=== PATIENT | female | born 1935 | race Caucasian/White ===

== ENCOUNTER → 2017-10-17 10:50 | Outpatient (CLI) | payer OTHER, SELFPAY ==
[2017-10-17 12:17] LABS: Hematocrit 33.6 % (36-46); Hemoglobin 11.5 g/dL (12.0-16.0); Mean Corpuscular HGB Conc 34.4 % (30-36); Mean Corpuscular Hemoglobin 33.1 PG (26-34); Mean Corpuscular Volume 96.1 fL (80-100); Platelet Count 230 X10^3/uL (150-400); Red Blood Cell Count 3.49 X10^6/uL (4.0-5.2); White Blood Cell Count 4.2 X10^3/uL (4.5-11.0)
[2017-10-17 12:19] LABS: Add Manual Diff / Slide Review YES
[2017-10-17 12:36] LABS: Alanine Aminotransferase 32 IU/L (9-52); Albumin 3.9 g/dL (3.5-5.0); Albumin Globulin Ratio 1.4 (1.0-2.8); Alkaline Phosphatase 75 U/L (38-126); Aspartate Aminotransferase 46 IU/L (14-36); BUN Creatinine Ratio 25.7 (6-22); Bilirubin Total 1.1 mg/dL (0.2-1.3); Blood Urea Nitrogen 18 mg/dL (7-17); Calcium 9.3 mg/dL (8.4-10.2); Carbon Dioxide 27 mmol/L (22-32); Chloride 105 mmol/L (98-107); Cholesterol 127 mg/dL (140-199); Estimated Glomerular Filt Rate > 60.0 mL/min (>60); Globulin 2.7 g/dL (1.7-4.1); Glucose 83 mg/dL (80-110); HDL Cholesterol 31 mg/dL (40-60); HEMOLYSIS < 15 (0-50); LDL Cholesterol Calculated 75 mg/dL (<100); Potassium 4.2 mmol/L (3.4-5.1); Sodium 141 mmol/L (137-145); Total Protein 6.6 g/dL (6.3-8.2); Triglycerides 104 mg/dL (35-150)
[2017-10-17 12:59] LABS: Thyroid Stimulating Hormone 1.94 uIU/mL (0.47-4.68)
[2017-10-17 13:00] LABS: Neutrophils Absolute Manual 1260 /uL (3000-5900); Total Cells Counted 50
[2017-10-17 13:02] LABS: Anisocytosis 1+
[2017-10-17 15:49] LABS: Vitamin D 25 Hydroxy (D3) 62.3 ng/mL (30.0-100.0)
== END ==
PROVIDERS: PCP Family Medicine; Visit Provider Family Medicine
DX: D64.9 Anemia, unspecified (principal); E78.2 Mixed hyperlipidemia; I10 Essential (primary) hypertension; M81.0 Age-related osteoporosis without current pathological fracture
CPT/HCPCS: 36415; 80053; 80061; 82306; 84443; 85025

== ENCOUNTER 2017-12-08 11:15 | Outpatient (RCR) | payer OTHER, SELFPAY ==
--- NOTE | 2017-07-07 17:38 | PT.OIE ---
Current Diagnoses Muscle weakness (generalized) (07/04/17) Other symptoms and signs involving the musculoskeletal system (07/04/17) Displaced fracture of greater tuberosity of right humerus, initial encounter for closed fracture (07/04/17) Fracture of right shoulder girdle, part unspecified, initial encounter for closed fracture (07/04/17) Other reduced mobility (07/04/17) Provider Visit Care Team Role Provider Type Bernabe Baez MD Family Provider Physician Primary Care Provider Specialty: Family Practice Address: [address] [place] [address], [id number] Email: [email or web address] Raheel Jang MD Attending Provider Physician Referring Provider Specialty: Orthopedic Surgery Address: [address] [place] [address], [id number] Email: [email or web address] Initial Evaluation PT-OP-A Visit Information Start: 07/04/17 13:07 Freq: Status: Active Protocol: Document 07/04/17 12:50 LRN (Rec: 07/04/17 16:50 LRN [id number]) Out-Patient Physical Therapy Visit Information Visit Information Visit Type Initial Evaluation Visit Start Time 12:50 Visit Stop Time 13:38 Total Visit Minutes 48 Visit Number 1 Number of SCHOOL JANITOR Visits 0 Evaluation Information Evaluation Date 07/04/17 PT-OP-B Current Condition Start: 07/04/17 13:07 Freq: Status: Active Protocol: Document 07/04/17 12:50 LRN (Rec: 07/07/17 17:30 LRN [id number]) Current Condition History of Current Condition Onset Date 04/27/2107 Current Complaints Can't use arm to drive, curl hair, or reach top shelves in bathroom/kitchen. History of Current Condition Pt reports tripping on a footstool resulting in a fracture of her R shoulder. She underwent an ORIF of the R proximal humerus due to fracture. She states she has been in a sling for 6 weeks and has been out of the sling for 1 week. Future Testing and Treatments Planned Next MD visit is 07/25/2017. Treatment Goals Patient/Caregiver Goals Pt goal is to 1) be able to drive, 2) Lift the R arm to curl her hair, 3) Reach for items in the top shelf of her closet and cuboards for cups. Prior Functional Status Baseline Function- ADL's Independent Baseline Function- Mobility Independent Current Functional Impairments (Reported) Functional Limitations- ADL's Pt is unable to lift R arm for personal hygiene care. Pt is unable to perform functional activities with use of the R arm (self clean/wash , drive, use of arm for transfers). Functional Limitations- Mobility/Gait Pt is unable to use the R arm to reach, lift or carry items. Personal Factors Other Personal Factors That May Effect Pt states she lives alone but Therapy/Recovery has a daughter to assist her. She has a history of osteoporosis. Pt age of 82. PT-OP-C Subjective Start: 07/04/17 13:07 Freq: Status: Active Protocol: Document 07/04/17 12:50 LRN (Rec: 07/07/17 17:30 LRN [id number]) Patient Questionnaires Upper Extremity Functional Scale UEFS Score 45.45 Upper Extremity Functional Scale 40 to 59% Impaired (Score 32- Impairment 47) OP-PT Pain Assessment Pain Assessment Grid Paper Pain Assessment Grid Completed Yes Location Right Anterior Shoulder Pain Location Details Pain rating is at rest because pt has not moved arm. Intensity 1 Scale Used Numeric (1 - 10) PT-OP-F Manual Assessment Start: 07/04/17 13:07 Freq: Status: Active Protocol: Document 07/04/17 12:50 LRN (Rec: 07/07/17 17:30 LRN [id number]) Manual Assessments Soft Tissue Assessment Soft Tissue Mobility Assessment Muscle guarding is present in the R upper shoulder. PT-OP-H Neuro Start: 07/04/17 13:07 Freq: Status: Active Protocol: Document 07/04/17 12:50 LRN (Rec: 07/07/17 17:30 LRN [id number]) Sensation Evaluation Gross Sensation Gross Sensation WNL PT-OP-J Posture/Palpation/Skin Start: 07/04/17 13:07 Freq: Status: Active Protocol: Document 07/04/17 12:50 LRN (Rec: 07/07/17 17:30 LRN [id number]) Posture Evaluation Position Standing Evaluation View Posterior Head/C-Spine Posture Side Bent Right Forward Head T-Spine Posture Flattened L-Spine Posture Increased Lordosis Shoulder Posture (R) Elevated Scapula Posture (R) Rotated Up (R) Elevated Skin Assessment Other Assessments Skin Assessment Comments Thin and fragile in UE. PT-OP-K Range of Motion Start: 07/04/17 13:07 Freq: Status: Active Protocol: Document 07/04/17 12:50 LRN (Rec: 07/07/17 17:30 LRN [id number]) Cervical Spine Range of Motion Cervical Spine Active Testing Position Sitting Flexion 45 Extension 40 Rotation Left 40 Rotation Right 40 Lateral Flexion Left 20 Lateral Flexion Right 20 Shoulder Goniometric Range of Motion Shoulder Measured in Degrees Left Passive Testing Position Supine Flexion 165 Abduction 115 External Rotation at 90 degrees 83 Abduction Internal Rotation 75 Right Passive Testing Position Supine Flexion 83 Abduction 85 External Rotation at 45 degrees 42 Abduction Internal Rotation 55 Left Testing Position Supine Flexion 160 Abduction 100 External Rotation at 90 degrees 75 Abduction Internal Rotation 80 Right Testing Position Supine Flexion 20 Abduction 50 External Rotation at 45 degrees 35 Abduction Internal Rotation 50 PT-OP-Q Treatments Start: 07/04/17 13:07 Freq: Status: Active Protocol: Document 07/04/17 12:50 LRN (Rec: 07/07/17 17:30 LRN [id number]) Therapeutic Exercises Supine Exercises 1 Supine Exercise Name PROM R shoulder Side right Reps/Minutes 5-10 reps each Comments Pt stoic, needed cuing to prevent stretching into pain. Sitting Exercises 3 Sitting Exercise Name Wrist flex/ext Side right Reps/Minutes 10 reps 2 Sitting Exercise Name Forearm Supination/Pronation Side right Reps/Minutes 10 reps 1 Sitting Exercise Name Elbow flex Side right Reps/Minutes 10 reps Standing Exercises 1 Standing Exercise Name Codman's Side right Reps/Minutes 10 Self-Care/Home Management Treatment Education Patient Education Home Exercise Program Other Education PROM/AAROM with cane for shoulder ER in supine. Sitting AAROM IR. Instructions given for pt to not position or stretch into pain. Pt cautioned to not push ex's into pain. I/S pt in use of ice/heat at home. PT-OP-T Assessment and Plan Start: 07/04/17 13:07 Freq: Status: Active Protocol: Document 07/04/17 12:50 LRN (Rec: 07/04/17 17:04 LRN [id number]) Physical Therapy Assessment Rehab Potential Rehabilitation Potential Good Evaluation Complexity Number of Personal Factors/Comorbidities 1-2 Number of Body Systems Impaired 4 or More Clinical Presentation at Evaluation Evolving Impairments Impairments Edema Pain Posture ROM Soft Tissue Mobility Strength Other Impairments Lacks appropriate HEP. Other Concerns Age Related Concerns Age, over 80 Require HEP of large print with picture Comorbidity of Osteoporosis Goals Four Impairment Pt is not on an independent home program. Reject Opener Goal (LTG) Pt will be independent on a Home exercise/self care program. LTG Duration 8 weeks. Three Impairment R arm edema with protective posturing Short Term Goal (STG) Pt will be educated in self care for edema control and will normalize posture. 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 LTG Duration 8 weeks One Impairment Decreased R shoulder ROM Short Term Goal (STG) Pt able to reach into upper cupboards with improved R shoulder mobility. STG Duration 3-4 weeks per protocol Reject Opener Goal (LTG) Improve R shoulder ROM such that patient will be able to perform hair care with mild difficulty. LTG Duration 8 weeks Assessment Summary Assessment Pt presents 10 weeks s/p ORIF R Proximal Humerus fracture. She demonstrates decreased R shoulder mobility and strength as expected. She was not wearing a sling and appears to have a fairly high pain tolerance and tolerated ROM ex 's very well. The pt does have help at home with her daughter and grandson living with her. The pt is expected to do well with skilled physical therapy to improve ROM and strength. Physical Therapy Plan Frequency and Duration Frequency of Treatment 2x/Week Duration of Treatment 6 weeks Plan of Care Start Date 07/04/17 Plan of Care End Date 08/18/17 Therapeutic Interventions Therapeutic Interventions Aquatic Therapy Home Exercise Program Joint Mobilizations Manual Therapy Neuromuscular Re-education Patient/Caregiver Education Self-Care/Home Management Soft Tissue Mobilization Therapeutic Exercises Modalities Cold Pack/Ice Massage Electric Stimulation Hot Packs Next Visit Focus/Plan Next Visit Plan Start STM if needed, then PROM /AAROM for shoulder flexion, ER supine and reclined, IR in upright. End with cold pack. Waiting to hear from MD if he has a protocol to follow or restrictions for therapy. Will progress as pt tolerates. Provider Signature Date
--- NOTE | 2017-07-07 17:40 | PT.OPPOC ---
Current Diagnoses Muscle weakness (generalized) (07/04/17) Other symptoms and signs involving the musculoskeletal system (07/04/17) Displaced fracture of greater tuberosity of right humerus, initial encounter for closed fracture (07/04/17) Fracture of right shoulder girdle, part unspecified, initial encounter for closed fracture (07/04/17) Other reduced mobility (07/04/17) Provider Visit Care Team Role Provider Type Bernabe Baez MD Family Provider Physician Primary Care Provider Specialty: Family Practice Address: [address] [place] [address], [address] Email: [email or web address] Raheel Jang MD Attending Provider Physician Referring Provider Specialty: Orthopedic Surgery Address: [address] [place] [address], [id number] Email: [email or web address] PT-OP-T Assessment and Plan Start: 07/04/17 13:07 Freq: Status: Active Protocol: Document 07/04/17 12:50 LRN (Rec: 07/04/17 17:04 LRN [id number]) Physical Therapy Assessment Rehab Potential Rehabilitation Potential Good Evaluation Complexity Number of Personal Factors/Comorbidities 1-2 Number of Body Systems Impaired 4 or More Clinical Presentation at Evaluation Evolving Impairments Impairments Edema Pain Posture ROM Soft Tissue Mobility Strength Other Impairments Lacks appropriate HEP. Other Concerns Age Related Concerns Age, over 80 Require HEP of large print with picture Comorbidity of Osteoporosis Goals Four Impairment Pt is not on an independent home program. Upper Cutter Machine Goal (LTG) Pt will be independent on a Home exercise/self care program. LTG Duration 8 weeks. Three Impairment R arm edema with protective posturing Short Term Goal (STG) Pt will be educated in self care for edema control and will normalize posture. STG Duration 2 weeks Two Impairment Decreased UE strength Jail Goal (LTG) Pt will increase strength such that she will be able to potato picker and carry objects high in her top shelf of her closet. LTG Duration 8 weeks One Impairment Decreased R shoulder ROM Short Term Goal (STG) Pt able to reach into upper cupboards with improved R shoulder mobility. STG Duration 3-4 weeks per protocol Jail Goal (LTG) Improve R shoulder ROM such that patient will be able to perform hair care with mild difficulty. LTG Duration 8 weeks Assessment Summary Assessment Pt presents 10 weeks s/p ORIF R Proximal Humerus fracture. She demonstrates decreased R shoulder mobility and strength as expected. She was not wearing a sling and appears to have a fairly high pain tolerance and tolerated ROM ex 's very well. The pt does have help at home with her daughter and grandson living with her. The pt is expected to do well with skilled physical therapy to improve ROM and strength. Physical Therapy Plan Frequency and Duration Frequency of Treatment 2x/Week Duration of Treatment 6 weeks Plan of Care Start Date 07/04/17 Plan of Care End Date 08/18/17 Therapeutic Interventions Therapeutic Interventions Aquatic Therapy Home Exercise Program Joint Mobilizations Manual Therapy Neuromuscular Re-education Patient/Caregiver Education Self-Care/Home Management Soft Tissue Mobilization Therapeutic Exercises Modalities Cold Pack/Ice Massage Electric Stimulation Hot Packs Next Visit Focus/Plan Next Visit Plan Start STM if needed, then PROM /AAROM for shoulder flexion, ER supine and reclined, IR in upright. End with cold pack. Waiting to hear from MD if he has a protocol to follow or restrictions for therapy. WIll progress as pt tolerates. Plan of Care Dates Plan of Care Start Date 07/04/17 Plan of Care End Date 08/18/17 Please Sign and Return: I have reviewed this Plan of Care and certify that the skilled therapy services above are required to meet the patient???s needs. Physician Signature Date Printed Name and Credentials
--- NOTE | 2017-07-08 16:05 | PT.OTN ---
Current Diagnoses Displaced fracture of greater tuberosity of right humerus, initial encounter for closed fracture (07/08/17) Fracture of right shoulder girdle, part unspecified, initial encounter for closed fracture (07/08/17) Physical Therapy Treatment Note PT-OP-A Visit Information Start: 07/04/17 13:07 Freq: Status: Active Protocol: Document 07/08/17 12:51 LRN (Rec: 07/08/17 13:40 LRN [id number]) Out-Patient Physical Therapy Visit Information Visit Information Visit Type Treatment Note Visit Start Time 12:50 Visit Stop Time 13:40 Total Visit Minutes 50 Visit Number 2 Number of ASSOCIATE DRAFTER Visits 0 PT-OP-B Current Condition Start: 07/04/17 13:07 Freq: Status: Active Protocol: Document 07/04/17 12:50 LRN (Rec: 07/07/17 17:30 LRN [id number]) Current Condition History of Current Condition Onset Date 04/27/2107 Current Complaints Can't use arm to drive, curl hair, or reach top shelfs in bathroom/kitchen. History of Current Condition Pt reports tripping on a footstool resulting in a fracture of her R shoulder. She underwent an ORIF of the R proximal humerus due to fracture. She states she has been in a sling for 6 weeks and has been out of the sling for 1 week. Future Testing and Treatments Planned Next MD visit is 07/25/2017. Treatment Goals Patient/Caregiver Goals Pt goal is to 1) be able to drive, 2) Lift the R arm to curl her hair, 3) Reach for items in the top shelf of her closet and cuboards for cups. Prior Functional Status Baseline Function- ADL's Independent Baseline Function- Mobility Independent Current Functional Impairments (Reported) Functional Limitations- ADL's Pt is unable to lift R arm for personal hygiene care. Pt is unable to perform functional activities with use of the R arm (self clean/wash , drive, use of arm for transfers). Functional Limitations- Mobility/Gait Pt is unable to use the R arm to reach, lift or carry items. Personal Factors Other Personal Factors That May Effect Pt states she lives alone but Therapy/Recovery has a daughter to assist her. She has a history of osteoporosis. Pt age of 82. PT-OP-C Subjective Start: 07/04/17 13:07 Freq: Status: Active Protocol: Document 07/08/17 12:51 LRN (Rec: 07/08/17 13:40 LRN [id number]) OP-PT Subjective Patient Comments Patient Comments Doing ex's, no increase in pain. Everything is about the same. PT-OP-F Manual Assessment Start: 07/04/17 13:07 Freq: Status: Active Protocol: Document 07/04/17 12:50 LRN (Rec: 07/07/17 17:30 LRN [id number]) Manual Assessments Soft Tissue Assessment Soft Tissue Mobility Assessment Muscle guarding is present in the R upper shoulder. PT-OP-H Neuro Start: 07/04/17 13:07 Freq: Status: Active Protocol: Document 07/04/17 12:50 LRN (Rec: 07/07/17 17:30 LRN [id number]) Sensation Evaluation Gross Sensation Gross Sensation WNL PT-OP-J Posture/Palpation/Skin Start: 07/04/17 13:07 Freq: Status: Active Protocol: Document 07/04/17 12:50 LRN (Rec: 07/07/17 17:30 LRN [id number]) Posture Evaluation Position Standing Evaluation View Posterior Head/C-Spine Posture Side Bent Right Forward Head T-Spine Posture Flattened L-Spine Posture Increased Lordosis Shoulder Posture (R) Elevated Scapula Posture (R) Rotated Up (R) Elevated Skin Assessment Other Assessments Skin Assessment Comments Thin and fragile in UE. PT-OP-K Range of Motion Start: 07/04/17 13:07 Freq: Status: Active Protocol: Document 07/04/17 12:50 LRN (Rec: 07/07/17 17:30 LRN [id number]) Cervical Spine Range of Motion Cervical Spine Active Testing Position Sitting Flexion 45 Extension 40 Rotation Left 40 Rotation Right 40 Lateral Flexion Left 20 Lateral Flexion Right 20 Shoulder Goniometric Range of Motion Shoulder Measured in Degrees Left Passive Testing Position Supine Flexion 165 Abduction 115 External Rotation at 90 degrees 83 Abduction Internal Rotation 75 Right Passive Testing Position Supine Flexion 83 Abduction 85 External Rotation at 45 degrees 42 Abduction Internal Rotation 55 Left Testing Position Supine Flexion 160 Abduction 100 External Rotation at 90 degrees 75 Abduction Internal Rotation 80 Right Testing Position Supine Flexion 20 Abduction 50 External Rotation at 45 degrees 35 Abduction Internal Rotation 50 PT-OP-Q Treatments Start: 07/04/17 13:07 Freq: Status: Active Protocol: Document 07/08/17 12:51 LRN (Rec: 07/08/17 13:40 LRN [id number]) Therapeutic Exercises Supine Exercises 2 Supine Exercise Name Wrist and Elbow AROM Side right Reps/Minutes 20 each reps 1 Supine Exercise Name PROM R shoulder : Flex, ER, IR review Side right Reps/Minutes 20 reps each Comments Slow stretching Standing Exercises 1 Standing Exercise Name Codman's Side right Reps/Minutes 20 Comments Pt needed training to do properly, pt not doing passively Manual Therapy Treatment Soft Tissue Mobilization 1 Body Location Neck, R upper shoulder, T/S Mobilization Type Strumming Sustained Pressure Intensity/Depth Superficial Body Position Sidelying Comments L sidelie with pillow PT-OP-T Assessment and Plan Start: 07/04/17 13:07 Freq: Status: Active Protocol: Document 07/08/17 12:51 LRN (Rec: 07/08/17 13:40 LRN [id number]) Physical Therapy Assessment Goals One Impairment Decreased R shoulder ROM Short Term Goal (STG) Pt passive shoulder flexion in supine is 90 deg's prior to onset of discomfort. Progress Towards Goals Progress Comments Progressing HEP & R shoulder PROM. Assessment Summary Assessment Pt presents ~11 weeks s/p ORIF R Proximal Humerus fracture. She demonstrates decreased R shoulder mobility and strength as expected. She is not wearing a sling and appears to be using her R arm to push with when getting up from a chair, and does Codman's actively. The pt did not have her daughter help her with her HEP. Physical Therapy Plan Frequency and Duration Frequency of Treatment 2x/Week Duration of Treatment 5 weeks Plan of Care Start Date 07/04/17 Plan of Care End Date 08/18/17 Therapeutic Interventions Therapeutic Interventions Aquatic Therapy Home Exercise Program Joint Mobilizations Manual Therapy Neuromuscular Re-education Patient/Caregiver Education Self-Care/Home Management Soft Tissue Mobilization Therapeutic Exercises Modalities Cold Pack/Ice Massage Electric Stimulation Hot Packs Next Visit Focus/Plan Next Visit Plan PROM/AAROM for shoulder flexion, ER supine and reclined, IR in upright. End with cold pack. Waiting to hear from MD if he has a protocol to follow or restrictions for therapy. Will progress as pt tolerates.
--- NOTE | 2017-07-10 15:08 | PT.OTN ---
Current Diagnoses Displaced fracture of greater tuberosity of right humerus, initial encounter for closed fracture (07/10/17) Fracture of right shoulder girdle, part unspecified, initial encounter for closed fracture (07/10/17) Physical Therapy Treatment Note PT-OP-A Visit Information Start: 07/04/17 13:07 Freq: Status: Active Protocol: Document 07/10/17 13:53 LRN (Rec: 07/10/17 15:03 LRN [id number]) Out-Patient Physical Therapy Visit Information Visit Information Visit Type Treatment Note Visit Start Time 13:45 Visit Stop Time 14:32 Total Visit Minutes 47 Visit Number 3 Number of YACHT CAPTAIN Visits 0 Evaluation Information Evaluation Date 07/04/17 PT-OP-B Current Condition Start: 07/04/17 13:07 Freq: Status: Active Protocol: Document 07/04/17 12:50 LRN (Rec: 07/07/17 17:30 LRN [id number]) Current Condition History of Current Condition Onset Date 04/27/2107 Current Complaints Can't use arm to drive, curl hair, or reach top shelfs in bathroom/kitchen. History of Current Condition Pt reports tripping on a footstool resulting in a fracture of her R shoulder. She underwent an ORIF of the R proximal humerus due to fracture. She states she has been in a sling for 6 weeks and has been out of the sling for 1 week. Future Testing and Treatments Planned Next MD visit is 07/25/2017. Treatment Goals Patient/Caregiver Goals Pt goal is to 1) be able to drive, 2) Lift the R arm to curl her hair, 3) Reach for items in the top shelf of her closet and cuboards for cups. Prior Functional Status Baseline Function- ADL's Independent Baseline Function- Mobility Independent Current Functional Impairments (Reported) Functional Limitations- ADL's Pt is unable to lift R arm for personal hygiene care. Pt is unable to perform functional activities with use of the R arm (self clean/wash , drive, use of arm for transfers). Functional Limitations- Mobility/Gait Pt is unable to use the R arm to reach, lift or carry items. Personal Factors Other Personal Factors That May Effect Pt states she lives alone but Therapy/Recovery has a daughter to assist her. She has a history of osteoporosis. Pt age of 82. PT-OP-C Subjective Start: 07/04/17 13:07 Freq: Status: Active Protocol: Document 07/10/17 13:53 LRN (Rec: 07/10/17 15:03 LRN [id number]) OP-PT Subjective Patient Comments Patient Comments R shoulder is feeling better, moving it easier. PT-OP-F Manual Assessment Start: 07/04/17 13:07 Freq: Status: Active Protocol: Document 07/04/17 12:50 LRN (Rec: 07/07/17 17:30 LRN [id number]) Manual Assessments Soft Tissue Assessment Soft Tissue Mobility Assessment Muscle guarding is present in the R upper shoulder. PT-OP-H Neuro Start: 07/04/17 13:07 Freq: Status: Active Protocol: Document 07/04/17 12:50 LRN (Rec: 07/07/17 17:30 LRN [id number]) Sensation Evaluation Gross Sensation Gross Sensation WNL PT-OP-J Posture/Palpation/Skin Start: 07/04/17 13:07 Freq: Status: Active Protocol: Document 07/04/17 12:50 LRN (Rec: 07/07/17 17:30 LRN [id number]) Posture Evaluation Position Standing Evaluation View Posterior Head/C-Spine Posture Side Bent Right Forward Head T-Spine Posture Flattened L-Spine Posture Increased Lordosis Shoulder Posture (R) Elevated Scapula Posture (R) Rotated Up (R) Elevated Skin Assessment Other Assessments Skin Assessment Comments Thin and fragile in UE. PT-OP-K Range of Motion Start: 07/04/17 13:07 Freq: Status: Active Protocol: Document 07/10/17 12:53 LRN (Rec: 07/10/17 15:08 LRN [id number]) Shoulder Goniometric Range of Motion Shoulder Measured in Degrees Right Passive Testing Position Supine Flexion 120 Abduction 90 External Rotation at 90 degrees 45 Abduction Internal Rotation 55 PT-OP-Q Treatments Start: 07/04/17 13:07 Freq: Status: Active Protocol: Document 07/10/17 13:53 LRN (Rec: 07/10/17 15:03 LRN [id number]) Therapeutic Exercises Supine Exercises 5 Supine Exercise Name Scapular retraction Side bilateral Reps/Minutes 10 reps holding for 10 sec's 6 Supine Exercise Name Lateral shoulder stretch Reps/Minutes 2 4 Supine Exercise Name AAROM of R shoulder: Flex, ER, IR Side right Reps/Minutes 10 x 2 reps 3 Supine Exercise Name Isometric holding of arm at 90 deg's flexion Side right Reps/Minutes 5 Comments Low tolerance due to fatigue. Pt needed rests between exercise reps. 1 Supine Exercise Name PROM R shoulder : Flex, ER, IR , AB Side right Reps/Minutes 20 reps each Comments Slow stretching Sitting Exercises 4 Sitting Exercise Name Scapular Depression Side bilateral Comments Min movement noted Self-Care/Home Management Treatment Activities Self-Care/Home Management Activities Issued and reviewed Codman's ex handout. Reviewed proper R arm care. PT-OP-R Modalities Start: 07/04/17 13:07 Freq: Status: Active Protocol: Document 07/10/17 13:53 LRN (Rec: 07/10/17 15:03 LRN [id number]) Hot Pack/Cold Pack Treatment Hot Pack Location Back and R shoulder Patient Position Hooklying Treatment Duration (minutes) 20 Patient Tolerance Good Comments MHP used during PROM/AAROM ex' s Cold Pack Comments Pt chose to hold Cold Pack today. She will note if discomfort worse without use. PT-OP-T Assessment and Plan Start: 07/04/17 13:07 Freq: Status: Active Protocol: Document 07/10/17 13:53 LRN (Rec: 07/10/17 15:03 LRN [id number]) Physical Therapy Assessment Impairments Impairments Edema Pain Posture ROM Soft Tissue Mobility Strength Other Impairments Lacks appropriate HEP. Goals Four Impairment Pt is not on an independent home program. Senior Care Goal (LTG) Pt will be independent on a Home exercise/self care program. LTG Duration 8 weeks. Three Impairment R arm edema with protective posturing Short Term Goal (STG) Pt will be educated in self care for edema control and will normalize posture. 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 LTG Duration 8 weeks One Impairment Decreased R shoulder ROM Short Term Goal (STG) Pt passive shoulder flexion in supine is 90 deg's prior to onset of discomfort. Progress Towards Goals Progress Comments ROM improving Assessment Summary Assessment TSA Post op rehab protocol received, pt timeline is in Phase III, but she is at Phase II stanicholas. Pt ~ 11 (10 weeks, 5 days) weeks post op ORIF R Proximal Humerus fracture and dislocation (anterior/inferior ). She does not complain with ROM ex's, probably due to high pain tolerance. Pt able to do self ROM ex's as instructed. Goal #3 for edema education met. Physical Therapy Plan Frequency and Duration Frequency of Treatment 2x/Week Duration of Treatment 5 weeks Plan of Care Start Date 07/04/17 Plan of Care End Date 08/18/17 Therapeutic Interventions Therapeutic Interventions Aquatic Therapy Home Exercise Program Joint Mobilizations Manual Therapy Neuromuscular Re-education Patient/Caregiver Education Self-Care/Home Management Soft Tissue Mobilization Therapeutic Exercises Modalities Cold Pack/Ice Massage Electric Stimulation Hot Packs Other Referrals/Consults Referrals/Consults Recommended TSA Post Operative Rehab Protocol, Dr. Robbins, received from MD office. Next Visit Focus/Plan Next Visit Plan Continue s/p ORIF R shoulder fracture/dislocation per MD protocol, progressing in Phase II towards Phase III as pt tolerates.
--- NOTE | 2017-07-15 15:18 | PT.OTN ---
Current Diagnoses Displaced fracture of greater tuberosity of right humerus, initial encounter for closed fracture (07/15/17) Fracture of right shoulder girdle, part unspecified, initial encounter for closed fracture (07/15/17) Physical Therapy Treatment Note PT-OP-A Visit Information Start: 07/04/17 13:07 Freq: Status: Active Protocol: Document 07/15/17 12:49 LRN (Rec: 07/15/17 13:33 LRN [id number]) Out-Patient Physical Therapy Visit Information Visit Information Visit Type Treatment Note Visit Start Time 12:49 Visit Stop Time 13:40 Total Visit Minutes 51 Visit Number 4 Number of DAIRY CONSULTANT Visits 0 Evaluation Information Evaluation Date 07/04/17 PT-OP-B Current Condition Start: 07/04/17 13:07 Freq: Status: Active Protocol: Document 07/04/17 12:50 LRN (Rec: 07/07/17 17:30 LRN [id number]) Current Condition History of Current Condition Onset Date 04/27/2107 Current Complaints Can't use arm to drive, curl hair, or reach top shelfs in bathroom/kitchen. History of Current Condition Pt reports tripping on a footstool resulting in a fracture of her R shoulder. She underwent an ORIF of the R proximal humerus due to fracture. She states she has been in a sling for 6 weeks and has been out of the sling for 1 week. Future Testing and Treatments Planned Next MD visit is 07/25/2017. Treatment Goals Patient/Caregiver Goals Pt goal is to 1) be able to drive, 2) Lift the R arm to curl her hair, 3) Reach for items in the top shelf of her closet and cuboards for cups. Prior Functional Status Baseline Function- ADL's Independent Baseline Function- Mobility Independent Current Functional Impairments (Reported) Functional Limitations- ADL's Pt is unable to lift R arm for personal hygiene care. Pt is unable to perform functional activities with use of the R arm (self clean/wash , drive, use of arm for transfers). Functional Limitations- Mobility/Gait Pt is unable to use the R arm to reach, lift or carry items. Personal Factors Other Personal Factors That May Effect Pt states she lives alone but Therapy/Recovery has a daughter to assist her. She has a history of osteoporosis. Pt age of 82. PT-OP-C Subjective Start: 07/04/17 13:07 Freq: Status: Active Protocol: Document 07/15/17 12:49 LRN (Rec: 07/15/17 13:33 LRN [id number]) OP-PT Subjective Patient Comments Patient Comments Doing okay. Seems she can lift her R arm further...doesn 't hurt. PT-OP-F Manual Assessment Start: 07/04/17 13:07 Freq: Status: Active Protocol: Document 07/04/17 12:50 LRN (Rec: 07/07/17 17:30 LRN [id number]) Manual Assessments Soft Tissue Assessment Soft Tissue Mobility Assessment Muscle guarding is present in the R upper shoulder. PT-OP-H Neuro Start: 07/04/17 13:07 Freq: Status: Active Protocol: Document 07/04/17 12:50 LRN (Rec: 07/07/17 17:30 LRN [id number]) Sensation Evaluation Gross Sensation Gross Sensation WNL PT-OP-J Posture/Palpation/Skin Start: 07/04/17 13:07 Freq: Status: Active Protocol: Document 07/04/17 12:50 LRN (Rec: 07/07/17 17:30 LRN [id number]) Posture Evaluation Position Standing Evaluation View Posterior Head/C-Spine Posture Side Bent Right Forward Head T-Spine Posture Flattened L-Spine Posture Increased Lordosis Shoulder Posture (R) Elevated Scapula Posture (R) Rotated Up (R) Elevated Skin Assessment Other Assessments Skin Assessment Comments Thin and fragile in UE. PT-OP-K Range of Motion Start: 07/04/17 13:07 Freq: Status: Active Protocol: Document 07/15/17 12:49 LRN (Rec: 07/15/17 13:33 LRN [id number]) Shoulder Goniometric Range of Motion Shoulder Measured in Degrees Right Passive Testing Position Supine Flexion 128 External Rotation at 90 degrees 50 Abduction Internal Rotation 68 Right Testing Position Sitting Flexion 30 PT-OP-Q Treatments Start: 07/04/17 13:07 Freq: Status: Active Protocol: Document 07/15/17 12:49 LRN (Rec: 07/15/17 13:33 LRN [id number]) Therapeutic Exercises Supine Exercises 7 Supine Exercise Name Assisted Chest press Side bilateral Reps/Minutes 10 x 5 Supine Exercise Name Scapular retraction Side bilateral Reps/Minutes 10 reps holding for 10 sec's 6 Supine Exercise Name Lateral shoulder stretch Side right Reps/Minutes 10' 4 Supine Exercise Name AAROM of R shoulder: Flex, ER, IR Side right Reps/Minutes 10 x 3 3 Supine Exercise Name Isometric holding of arm at 90 deg's flexion Side right Reps/Minutes 3' Comments Low tolerance due to fatigue. Pt needed rests between exercise reps. 2 Supine Exercise Name Wrist and Elbow AROM Side right Resistance 1# Reps/Minutes 20 each reps 1 Supine Exercise Name PROM R shoulder : Flex, ER, IR , AB Side right Reps/Minutes 20 reps each Comments Slow stretching Self-Care/Home Management Treatment Activities Self-Care/Home Management Activities I/S pt in L arm assisted chest press in supine. PT-OP-R Modalities Start: 07/04/17 13:07 Freq: Status: Active Protocol: Document 07/15/17 12:49 LRN (Rec: 07/15/17 15:17 LRN [id number]) Hot Pack/Cold Pack Treatment Hot Pack Location Back/R shoulder Patient Position Supine Treatment Duration (minutes) 10 Comments Used during PROM ex's Cold Pack Location R Shoulder Patient Position Hooklying Treatment Duration (minutes) 10 Comments Post therapy PT-OP-T Assessment and Plan Start: 07/04/17 13:07 Freq: Status: Active Protocol: Document 07/15/17 12:49 LRN (Rec: 07/15/17 13:33 LRN [id number]) Physical Therapy Assessment Impairments Impairments Edema Pain Posture ROM Soft Tissue Mobility Strength Other Impairments Lacks appropriate HEP. Goals Four Impairment Pt is not on an independent home program. Business Continuity Director Goal (LTG) Pt will be independent on a Home exercise/self care program. LTG Duration 8 weeks. Three Impairment R arm edema with protective posturing Short Term Goal (STG) Pt will be educated in self care for edema control and will normalize posture. 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 LTG Duration 8 weeks One Impairment Decreased R shoulder ROM Short Term Goal (STG) Pt passive shoulder flexion in supine is 90 deg's prior to onset of discomfort. Progress Towards Goals Progress Comments Swelling decreasing, ROM improving. Assessment Summary Assessment Pt is ~12 weeks s/p ORIF R proximal humerus fracture. She is slowly improving as expected., Pt has high pain tolerance. Physical Therapy Plan Frequency and Duration Frequency of Treatment 2x/Week Duration of Treatment 4 weeks Plan of Care Start Date 07/04/17 Plan of Care End Date 08/18/17 Next Visit Focus/Plan Next Visit Plan Continue s/p ORIF R shoulder fracture/dislocation per MD protocol, progressing in Phase II towards Phase III as pt tolerates.
--- NOTE | 2017-07-17 14:58 | PT.OTN ---
Current Diagnoses Displaced fracture of greater tuberosity of right humerus, initial encounter for closed fracture (07/17/17) Fracture of right shoulder girdle, part unspecified, initial encounter for closed fracture (07/17/17) Physical Therapy Treatment Note PT-OP-A Visit Information Start: 07/04/17 13:07 Freq: Status: Active Protocol: Document 07/17/17 12:50 LRN (Rec: 07/17/17 14:42 LRN [id number]) Out-Patient Physical Therapy Visit Information Visit Information Visit Type Treatment Note Visit Start Time 12:50 Visit Stop Time 13:40 Total Visit Minutes 50 Visit Number 5 Number of GIS PROGRAMMER Visits 0 PT-OP-B Current Condition Start: 07/04/17 13:07 Freq: Status: Active Protocol: Document 07/04/17 12:50 LRN (Rec: 07/07/17 17:30 LRN [id number]) Current Condition History of Current Condition Onset Date 04/27/2107 Current Complaints Can't use arm to drive, curl hair, or reach top shelfs in bathroom/kitchen. History of Current Condition Pt reports tripping on a footstool resulting in a fracture of her R shoulder. She underwent an ORIF of the R proximal humerus due to fracture. She states she has been in a sling for 6 weeks and has been out of the sling for 1 week. Future Testing and Treatments Planned Next MD visit is 07/25/2017. Treatment Goals Patient/Caregiver Goals Pt goal is to 1) be able to drive, 2) Lift the R arm to curl her hair, 3) Reach for items in the top shelf of her closet and cuboards for cups. Prior Functional Status Baseline Function- ADL's Independent Baseline Function- Mobility Independent Current Functional Impairments (Reported) Functional Limitations- ADL's Pt is unable to lift R arm for personal hygiene care. Pt is unable to perform functional activities with use of the R arm (self clean/wash , drive, use of arm for transfers). Functional Limitations- Mobility/Gait Pt is unable to use the R arm to reach, lift or carry items. Personal Factors Other Personal Factors That May Effect Pt states she lives alone but Therapy/Recovery has a daughter to assist her. She has a history of osteoporosis. Pt age of 82. PT-OP-C Subjective Start: 07/04/17 13:07 Freq: Status: Active Protocol: Document 07/17/17 12:50 LRN (Rec: 07/17/17 13:30 LRN [id number]) OP-PT Subjective Patient Comments Patient Comments Shoulder is feeling good, no pain currently. Discomfort if move too far. C/O weakness of R shoulder PT-OP-F Manual Assessment Start: 07/04/17 13:07 Freq: Status: Active Protocol: Document 07/04/17 12:50 LRN (Rec: 07/07/17 17:30 LRN [id number]) Manual Assessments Soft Tissue Assessment Soft Tissue Mobility Assessment Muscle guarding is present in the R upper shoulder. PT-OP-H Neuro Start: 07/04/17 13:07 Freq: Status: Active Protocol: Document 07/04/17 12:50 LRN (Rec: 07/07/17 17:30 LRN [id number]) Sensation Evaluation Gross Sensation Gross Sensation WNL PT-OP-J Posture/Palpation/Skin Start: 07/04/17 13:07 Freq: Status: Active Protocol: Document 07/04/17 12:50 LRN (Rec: 07/07/17 17:30 LRN [id number]) Posture Evaluation Position Standing Evaluation View Posterior Head/C-Spine Posture Side Bent Right Forward Head T-Spine Posture Flattened L-Spine Posture Increased Lordosis Shoulder Posture (R) Elevated Scapula Posture (R) Rotated Up (R) Elevated Skin Assessment Other Assessments Skin Assessment Comments Thin and fragile in UE. PT-OP-K Range of Motion Start: 07/04/17 13:07 Freq: Status: Active Protocol: Document 07/17/17 12:50 LRN (Rec: 07/17/17 13:30 LRN [id number]) Shoulder Goniometric Range of Motion Shoulder Measured in Degrees Right Passive Testing Position Supine Flexion 135 External Rotation at 90 degrees 45 Abduction PT-OP-Q Treatments Start: 07/04/17 13:07 Freq: Status: Active Protocol: Document 07/17/17 12:50 LRN (Rec: 07/17/17 13:30 LRN [id number]) Therapeutic Exercises Supine Exercises 7 Supine Exercise Name Assisted Chest press Side bilateral Reps/Minutes 10 x3 5 Supine Exercise Name Scapular retraction Side bilateral Reps/Minutes 10 reps holding for 10 sec's 4 Supine Exercise Name AAROM of R shoulder: Flex, ER, IR Side right Reps/Minutes 10 x 3 1 Supine Exercise Name PROM R shoulder : Flex, ER, IR , AB Side right Reps/Minutes 20 reps each Comments Slow stretching Sidelying Exercises 2 Sidelying Exercise Name Shoulder IR Active Side right Reps/Minutes 10x3 Comments Partial R sidelie 1 Sidelying Exercise Name Shoulder ER Active Side right Reps/Minutes 10x3 Comments AROM, 0 deg's AB Sitting Exercises 4 Sitting Exercise Name Scapular Depression Side bilateral Comments Min movement noted Standing Exercises 4 Standing Exercise Name Wall slide with towel Side right Reps/Minutes 10 x 3 Comments L arm to assist 3 Standing Exercise Name Scapular retraction Side bilateral Reps/Minutes 30x 2 Standing Exercise Name Active Shoulder ext Side bilateral Reps/Minutes 30x 1 Standing Exercise Name Codman's Side right Reps/Minutes 20 Self-Care/Home Management Treatment Activities Self-Care/Home Management Activities I/S pt in wall slide with R UE to do at home. PT-OP-R Modalities Start: 07/04/17 13:07 Freq: Status: Active Protocol: Document 07/17/17 12:50 LRN (Rec: 07/17/17 14:50 LRN [id number]) Hot Pack/Cold Pack Treatment Hot Pack Location Back/R shoulder Patient Position Supine Treatment Duration (minutes) 15 Comments Used during PROM ex's Cold Pack Location R Shoulder Patient Position Hooklying Treatment Duration (minutes) 10 Comments Post therapy PT-OP-T Assessment and Plan Start: 07/04/17 13:07 Freq: Status: Active Protocol: Document 07/17/17 12:50 LRN (Rec: 07/17/17 13:30 LRN [id number]) Physical Therapy Assessment Assessment Summary Assessment Pt is ~12 weeks s/p ORIF R proximal humerus fracture. She is slowly improving in ROM as expected due to no help given at home. She is very weak as expected, needs use of LUE to assist Right side. Physical Therapy Plan Frequency and Duration Frequency of Treatment 2x/Week Duration of Treatment 4 weeks Plan of Care Start Date 07/04/17 Plan of Care End Date 08/18/17 Therapeutic Interventions Therapeutic Interventions Home Exercise Program Joint Mobilizations Manual Therapy Neuromuscular Re-education Patient/Caregiver Education Self-Care/Home Management Soft Tissue Mobilization Therapeutic Exercises Modalities Cold Pack/Ice Massage Hot Packs Next Visit Focus/Plan Next Visit Plan Continue s/p ORIF R shoulder fracture/dislocation rehabilitation. Per MD protocol, pt is in phase II of AROM with terminal stretch. Per protocol pt should be in phase III, ROM unlimited, weight training, no long lever -arm ex, no ABD positions, no impingement positions.
--- NOTE | 2017-07-22 15:20 | PT.OTN ---
Current Diagnoses Displaced fracture of greater tuberosity of right humerus, initial encounter for closed fracture (07/22/17) Fracture of right shoulder girdle, part unspecified, initial encounter for closed fracture (07/22/17) Physical Therapy Treatment Note PT-OP-A Visit Information Start: 07/04/17 13:07 Freq: Status: Active Protocol: Document 07/22/17 12:49 LRN (Rec: 07/22/17 13:34 LRN [id number]) Out-Patient Physical Therapy Visit Information Visit Information Visit Type Treatment Note Visit Start Time 12:49 Visit Stop Time 13:40 Total Visit Minutes 51 Visit Number 6 Number of CONCESSION ATTENDANT Visits 0 Evaluation Information Evaluation Date 07/04/17 PT-OP-B Current Condition Start: 07/04/17 13:07 Freq: Status: Active Protocol: Document 07/04/17 12:50 LRN (Rec: 07/07/17 17:30 LRN [id number]) Current Condition History of Current Condition Onset Date 04/27/2107 Current Complaints Can't use arm to drive, curl hair, or reach top shelves in bathroom/kitchen. History of Current Condition Pt reports tripping on a footstool resulting in a fracture of her R shoulder. She underwent an ORIF of the R proximal humerus due to fracture. She states she has been in a sling for 6 weeks and has been out of the sling for 1 week. Future Testing and Treatments Planned Next MD visit is 07/25/2017. Treatment Goals Patient/Caregiver Goals Pt goal is to 1) be able to drive, 2) Lift the R arm to curl her hair, 3) Reach for items in the top shelf of her closet and cupboards for cups. Prior Functional Status Baseline Function- ADL's Independent Baseline Function- Mobility Independent Current Functional Impairments (Reported) Functional Limitations- ADL's Pt is unable to lift R arm for personal hygiene care. Pt is unable to perform functional activities with use of the R arm (self clean/wash , drive, use of arm for transfers). Functional Limitations- Mobility/Gait Pt is unable to use the R arm to reach, lift or carry items. Personal Factors Other Personal Factors That May Effect Pt states she lives alone but Therapy/Recovery has a daughter to assist her. She has a history of osteoporosis. Pt age of 82. PT-OP-C Subjective Start: 07/04/17 13:07 Freq: Status: Active Protocol: Document 07/22/17 12:49 LRN (Rec: 07/22/17 13:34 LRN [id number]) OP-PT Subjective Patient Comments Patient Comments Notices she can reach higher with the R shoulder. Doesn't have much pain. PT-OP-F Manual Assessment Start: 07/04/17 13:07 Freq: Status: Active Protocol: Document 07/04/17 12:50 LRN (Rec: 07/07/17 17:30 LRN [id number]) Manual Assessments Soft Tissue Assessment Soft Tissue Mobility Assessment Muscle guarding is present in the R upper shoulder. PT-OP-H Neuro Start: 07/04/17 13:07 Freq: Status: Active Protocol: Document 07/04/17 12:50 LRN (Rec: 07/07/17 17:30 LRN [id number]) Sensation Evaluation Gross Sensation Gross Sensation WNL PT-OP-J Posture/Palpation/Skin Start: 07/04/17 13:07 Freq: Status: Active Protocol: Document 07/04/17 12:50 LRN (Rec: 07/07/17 17:30 LRN [id number]) Posture Evaluation Position Standing Evaluation View Posterior Head/C-Spine Posture Side Bent Right Forward Head T-Spine Posture Flattened L-Spine Posture Increased Lordosis Shoulder Posture (R) Elevated Scapula Posture (R) Rotated Up (R) Elevated Skin Assessment Other Assessments Skin Assessment Comments Thin and fragile in UE. PT-OP-K Range of Motion Start: 07/04/17 13:07 Freq: Status: Active Protocol: Document 07/22/17 12:49 LRN (Rec: 07/22/17 13:34 LRN [id number]) Shoulder Goniometric Range of Motion Shoulder Measured in Degrees Right Passive Testing Position Sitting Flexion 135 External Rotation at 90 degrees 50 Abduction Internal Rotation 68 PT-OP-Q Treatments Start: 07/04/17 13:07 Freq: Status: Active Protocol: Document 07/22/17 12:49 LRN (Rec: 07/22/17 13:34 LRN [id number]) Therapeutic Exercises Supine Exercises 7 Supine Exercise Name Chest press with dowel stick Side bilateral Reps/Minutes 10 x2 6 Supine Exercise Name Lateral shoulder stretch with dowel stick Side right Reps/Minutes 10x2 4 Supine Exercise Name AAROM of R shoulder: Flex, ER, IR Side right Reps/Minutes 10 x 1 Supine Exercise Name PROM R shoulder : Flex, ER, IR , AB Side right Reps/Minutes 10 reps each Comments Slow stretching Sitting Exercises 5 Sitting Exercise Name Shoulder flexion with elvia Side right Equipment Used Elvia Reps/Minutes 10 Comments Holding 30 sec's each 4 Sitting Exercise Name Scapular Depression & Retraction Side bilateral Reps/Minutes 15x each Comments good movement Standing Exercises 5 Standing Exercise Name Elbow curls Side right Resistance 1# Equipment Used Hand Weight Reps/Minutes 10x3 4 Standing Exercise Name Wall slide with towel Side right Reps/Minutes 10 x 3 Comments L arm to assist 3 Standing Exercise Name Scapular retraction Side bilateral Reps/Minutes 15x 2 Standing Exercise Name Active Shoulder ext Side bilateral Reps/Minutes 15x Comments Holding 5 sec's PT-OP-R Modalities Start: 07/04/17 13:07 Freq: Status: Active Protocol: Document 07/22/17 12:49 LRN (Rec: 07/22/17 13:34 LRN [id number]) Hot Pack/Cold Pack Treatment Cold Pack Location R Shoulder Patient Position Hooklying Treatment Duration (minutes) 10 Comments Post therapy PT-OP-T Assessment and Plan Start: 07/04/17 13:07 Freq: Status: Active Protocol: Document 07/22/17 12:49 LRN (Rec: 07/22/17 13:34 LRN [id number]) Physical Therapy Assessment Impairments Impairments Edema Pain Posture ROM Soft Tissue Mobility Strength Other Impairments Lacks appropriate HEP. Goals Four Impairment Pt is not on an independent home program. Curling Machine Operator Goal (LTG) Pt will be independent on a Home exercise/self care program. LTG Duration 8 weeks. Three Impairment R arm edema with protective posturing Short Term Goal (STG) Pt will be educated in self care for edema control and will normalize posture. 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 LTG Duration 8 weeks One Impairment Decreased R shoulder ROM Short Term Goal (STG) Pt passive shoulder flexion in supine is 90 deg's prior to onset of discomfort. Progress Towards Goals Progress Comments R shoulder PROM is improving. Assessment Summary Assessment Pt is ~13 weeks s/p ORIF R proximal humerus fracture. Progress is slow and steady Physical Therapy Plan Frequency and Duration Frequency of Treatment 2x/Week Duration of Treatment 4 weeks Plan of Care Start Date 07/04/17 Plan of Care End Date 08/18/17 Next Visit Focus/Plan Next Visit Plan Cont s/p ORIF R shoulder fracture/dislocation rehabilitation. Per MD protocol, pt is in phase II of AROM with terminal stretch. Per protocol pt should be in phase III, ROM unlimited, weight training, no long lever -arm ex, no ABD positions, no impingement positions.
--- NOTE | 2017-07-24 14:23 | PT.OTN ---
Current Diagnoses Displaced fracture of greater tuberosity of right humerus, initial encounter for closed fracture (07/24/17) Fracture of right shoulder girdle, part unspecified, initial encounter for closed fracture (07/24/17) Physical Therapy Treatment Note PT-OP-A Visit Information Start: 07/04/17 13:07 Freq: Status: Active Protocol: Document 07/24/17 12:48 LRN (Rec: 07/24/17 14:18 LRN [id number]) Out-Patient Physical Therapy Visit Information Visit Information Visit Type Treatment Note Visit Note 09/02 Visit Start Time 12:49 Visit Stop Time 13:44 Total Visit Minutes 55 Visit Number 7 Number of BIN PACKER Visits 0 Evaluation Information Evaluation Date 07/04/17 PT-OP-B Current Condition Start: 07/04/17 13:07 Freq: Status: Active Protocol: Document 07/04/17 12:50 LRN (Rec: 07/07/17 17:30 LRN [id number]) Current Condition History of Current Condition Onset Date 04/27/2107 Current Complaints Can't use arm to drive, curl hair, or reach top shelfs in bathroom/kitchen. History of Current Condition Pt reports tripping on a footstool resulting in a fracture of her R shoulder. She underwent an ORIF of the R proximal humerus due to fracture. She states she has been in a sling for 6 weeks and has been out of the sling for 1 week. Future Testing and Treatments Planned Next MD visit is 07/25/2017. Treatment Goals Patient/Caregiver Goals Pt goal is to 1) be able to drive, 2) Lift the R arm to curl her hair, 3) Reach for items in the top shelf of her closet and cuboards for cups. Prior Functional Status Baseline Function- ADL's Independent Baseline Function- Mobility Independent Current Functional Impairments (Reported) Functional Limitations- ADL's Pt is unable to lift R arm for personal hygiene care. Pt is unable to perform functional activities with use of the R arm (self clean/wash , drive, use of arm for transfers). Functional Limitations- Mobility/Gait Pt is unable to use the R arm to reach, lift or carry items. Personal Factors Other Personal Factors That May Effect Pt states she lives alone but Therapy/Recovery has a daughter to assist her. She has a history of osteoporosis. Pt age of 82. PT-OP-C Subjective Start: 07/04/17 13:07 Freq: Status: Active Protocol: Document 07/24/17 12:48 LRN (Rec: 07/24/17 14:18 LRN [id number]) OP-PT Subjective Patient Comments Patient Comments States she can reach higher. Being consistent with home ex' s. PT-OP-F Manual Assessment Start: 07/04/17 13:07 Freq: Status: Active Protocol: Document 07/04/17 12:50 LRN (Rec: 07/07/17 17:30 LRN [id number]) Manual Assessments Soft Tissue Assessment Soft Tissue Mobility Assessment Muscle guarding is present in the R upper shoulder. PT-OP-H Neuro Start: 07/04/17 13:07 Freq: Status: Active Protocol: Document 07/04/17 12:50 LRN (Rec: 07/07/17 17:30 LRN [id number]) Sensation Evaluation Gross Sensation Gross Sensation WNL PT-OP-J Posture/Palpation/Skin Start: 07/04/17 13:07 Freq: Status: Active Protocol: Document 07/04/17 12:50 LRN (Rec: 07/07/17 17:30 LRN [id number]) Posture Evaluation Position Standing Evaluation View Posterior Head/C-Spine Posture Side Bent Right Forward Head T-Spine Posture Flattened L-Spine Posture Increased Lordosis Shoulder Posture (R) Elevated Scapula Posture (R) Rotated Up (R) Elevated Skin Assessment Other Assessments Skin Assessment Comments Thin and fragile in UE. PT-OP-K Range of Motion Start: 07/04/17 13:07 Freq: Status: Active Protocol: Document 07/24/17 12:48 LRN (Rec: 07/24/17 14:18 LRN [id number]) Shoulder Goniometric Range of Motion Shoulder Measured in Degrees Right Passive Testing Position Sitting Flexion 135 External Rotation at 90 degrees 55 Abduction Shoulder ROM Limitations Comments Supine: R shoulder IR with shoulder stabilized is 41 deg' s; ER is 55 deg's. PT-OP-Q Treatments Start: 07/04/17 13:07 Freq: Status: Active Protocol: Document 07/24/17 12:48 LRN (Rec: 07/24/17 14:18 LRN [id number]) Therapeutic Exercises Supine Exercises 7 Supine Exercise Name Chest press with assist Side bilateral Reps/Minutes 10 x 3 6 Supine Exercise Name Lateral shoulder stretch with dowel stick Side right Reps/Minutes 10x2 4 Supine Exercise Name AAROM of R shoulder: Flex, ER, IR Side right Reps/Minutes 10 x 2 1 Supine Exercise Name PROM R shoulder : Flex, ER, IR , AB Side right Reps/Minutes 10 reps each Comments Slow stretching Sitting Exercises 5 Sitting Exercise Name Shoulder flexion with elvia Side right Equipment Used Elvia Reps/Minutes 10 Comments Holding 30 sec's each 4 Sitting Exercise Name Scapular Depression & Retraction Side bilateral Reps/Minutes 15x each Comments good movement Standing Exercises 5 Standing Exercise Name Elbow curls Side right Resistance 2# Equipment Used Hand Weight Reps/Minutes 10x3 4 Standing Exercise Name Wall slide with towel Side right Reps/Minutes 10 x 3 Comments L arm to assist 3 Standing Exercise Name Scapular retraction Side bilateral Reps/Minutes 10 x 2 2 Standing Exercise Name Active Shoulder ext Side bilateral Reps/Minutes 10 x 2 Comments Holding 5 sec's Manual Therapy Treatment Manual Techniques 1 Type Stretch with mild traction: Circumduction Body Location R shoulder Body Position Supine Reps/Duration 10 x 2 Self-Care/Home Management Treatment Activities Self-Care/Home Management Activities I/S pt to increase stretch to R shoulder flex & ER, and for wall slides. PT-OP-R Modalities Start: 07/04/17 13:07 Freq: Status: Active Protocol: Document 07/24/17 12:48 LRN (Rec: 07/24/17 14:18 LRN [id number]) Hot Pack/Cold Pack Treatment Cold Pack Location R Shoulder Patient Position Hooklying Treatment Duration (minutes) 10 Comments Post therapy PT-OP-T Assessment and Plan Start: 07/04/17 13:07 Freq: Status: Active Protocol: Document 07/24/17 12:48 LRN (Rec: 07/24/17 14:18 LRN [id number]) Physical Therapy Assessment Goals Four Impairment Pt is not on an independent home program. Homicide Squad Captain Goal (LTG) Pt will be independent on a Home exercise/self care program. LTG Duration 4 weeks. Three Impairment R arm edema with protective posturing Short Term Goal (STG) Pt will be educated in self care for edema control and will normalize posture. 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 LTG Duration 4 weeks One Impairment Decreased R shoulder ROM Short Term Goal (STG) Pt able to reach into upper cupboards with improved R shoulder mobility. STG Duration 1 week Residential Goal (LTG) Improve R shoulder ROM such that patient will be able to perform hair care with mild difficulty. LTG Duration 4 weeks Progress Towards Goals Progress Comments Goal 3 met. Pt demonstrates good posture and has been educated in self care for edema management. R shoulder PROM is improving. AROM is decreased due to severe as weakness as expected . Assessment Summary Assessment Pt is ~13 weeks s/p ORIF R proximal humerus fracture. Progress is slow. ROM and Strength is improving. Physical Therapy Plan Frequency and Duration Frequency of Treatment 2x/Week Duration of Treatment 4 weeks Plan of Care Start Date 07/04/17 Plan of Care End Date 08/18/17 Other Referrals/Consults Referrals/Consults Recommended Pt seeing MD next week for follow up. Next Visit Focus/Plan Next Visit Plan PN in 2-3 visits. Cont s/p ORIF R shoulder fracture/ dislocation rehabilitation. Per MD protocol, pt is in phase II of AROM with terminal stretch. Per protocol pt should be in phase III, ROM unlimited, weight training, no long lever-arm ex , no ABD positions, no impingement positions.
--- NOTE | 2017-07-29 15:16 | PT.OTN ---
Current Diagnoses Displaced fracture of greater tuberosity of right humerus, initial encounter for closed fracture (07/29/17) Fracture of right shoulder girdle, part unspecified, initial encounter for closed fracture (07/29/17) Physical Therapy Treatment Note PT-OP-A Visit Information Start: 07/04/17 13:07 Freq: Status: Active Protocol: Document 07/29/17 12:50 LRN (Rec: 07/29/17 13:34 LRN [id number]) Out-Patient Physical Therapy Visit Information Visit Information Visit Type Treatment Note Visit Note 10/03 Visit Start Time 12:50 Visit Stop Time 13:45 Total Visit Minutes 55 Visit Number 8 Number of JAVA DEVELOPER ARCHITECT Visits 0 Evaluation Information Evaluation Date 07/04/17 PT-OP-B Current Condition Start: 07/04/17 13:07 Freq: Status: Active Protocol: Document 07/04/17 12:50 LRN (Rec: 07/07/17 17:30 LRN [id number]) Current Condition History of Current Condition Onset Date 04/27/2107 Current Complaints Can't use arm to drive, curl hair, or reach top shelfs in bathroom/kitchen. History of Current Condition Pt reports tripping on a footstool resulting in a fracture of her R shoulder. She underwent an ORIF of the R proximal humerus due to fracture. She states she has been in a sling for 6 weeks and has been out of the sling for 1 week. Future Testing and Treatments Planned Next MD visit is 07/25/2017. Treatment Goals Patient/Caregiver Goals Pt goal is to 1) be able to drive, 2) Lift the R arm to curl her hair, 3) Reach for items in the top shelf of her closet and cuboards for cups. Prior Functional Status Baseline Function- ADL's Independent Baseline Function- Mobility Independent Current Functional Impairments (Reported) Functional Limitations- ADL's Pt is unable to lift R arm for personal hygiene care. Pt is unable to perform functional activities with use of the R arm (self clean/wash , drive, use of arm for transfers). Functional Limitations- Mobility/Gait Pt is unable to use the R arm to reach, lift or carry items. Personal Factors Other Personal Factors That May Effect Pt states she lives alone but Therapy/Recovery has a daughter to assist her. She has a history of osteoporosis. Pt age of 82. PT-OP-C Subjective Start: 07/04/17 13:07 Freq: Status: Active Protocol: Document 07/29/17 12:50 LRN (Rec: 07/29/17 13:34 LRN [id number]) OP-PT Subjective Patient Comments Patient Comments Saw Dr. Hough and he was pleased with progress. Next visit is September 11. She has been cleared to use her arm, no restrictions. PT-OP-F Manual Assessment Start: 07/04/17 13:07 Freq: Status: Active Protocol: Document 07/04/17 12:50 LRN (Rec: 07/07/17 17:30 LRN [id number]) Manual Assessments Soft Tissue Assessment Soft Tissue Mobility Assessment Muscle guarding is present in the R upper shoulder. PT-OP-H Neuro Start: 07/04/17 13:07 Freq: Status: Active Protocol: Document 07/04/17 12:50 LRN (Rec: 07/07/17 17:30 LRN [id number]) Sensation Evaluation Gross Sensation Gross Sensation WNL PT-OP-J Posture/Palpation/Skin Start: 07/04/17 13:07 Freq: Status: Active Protocol: Document 07/04/17 12:50 LRN (Rec: 07/07/17 17:30 LRN [id number]) Posture Evaluation Position Standing Evaluation View Posterior Head/C-Spine Posture Side Bent Right Forward Head T-Spine Posture Flattened L-Spine Posture Increased Lordosis Shoulder Posture (R) Elevated Scapula Posture (R) Rotated Up (R) Elevated Skin Assessment Other Assessments Skin Assessment Comments Thin and fragile in UE. PT-OP-K Range of Motion Start: 07/04/17 13:07 Freq: Status: Active Protocol: Document 07/29/17 12:50 LRN (Rec: 07/29/17 13:34 LRN [id number]) Shoulder Goniometric Range of Motion Shoulder Measured in Degrees Right Passive Testing Position Supine Flexion 125 External Rotation at 90 degrees 55 Abduction Shoulder ROM Limitations Shoulder ROM Limitations Contracture Muscle Weakness Pain PT-OP-Q Treatments Start: 07/04/17 13:07 Freq: Status: Active Protocol: Document 07/29/17 12:50 LRN (Rec: 07/29/17 13:34 LRN [id number]) Cardio Equipment Upper Body Ergometer (UBE) Duration (Minutes) 8 Seat Position 8 Height 3.5 - 4.5 Other Foot blocks foward Therapeutic Exercises Supine Exercises 6 Supine Exercise Name Lateral shoulder stretch manual stretch Side right Reps/Minutes 10x2 4 Supine Exercise Name Passive shoulder circles Side right Reps/Minutes 10x 1 Supine Exercise Name PROM R shoulder : Flex, ER, IR , AB Side right Reps/Minutes 10x2 reps each Comments Slow stretching Sitting Exercises 5 Sitting Exercise Name Shoulder flexion with elvia Side right Equipment Used Elvia Reps/Minutes 10 Comments Holding 30 sec's each Standing Exercises 5 Standing Exercise Name Elbow curls/extension Side right Resistance 2# Equipment Used Hand Weight Reps/Minutes 10x3 3 Standing Exercise Name Scapular retraction with T- Band Side bilateral Resistance Lev 1 T-Band Reps/Minutes 10 x 2 2 Standing Exercise Name Active Shoulder ext Side bilateral Resistance T-Band Lev 1 Reps/Minutes 10 x Comments Holding 5 sec's Manual Therapy Treatment Joint Mobilizations 1 Joint R GHJ Direction Inferior Grade II Body Position Supine Reps/Duration 4' Manual Techniques 1 Type Stretch of mild traction: Circumduction Body Location R shoulder Body Position Supine Reps/Duration 10 x 2 Self-Care/Home Management Treatment Activities Self-Care/Home Management Activities Pt to use her home overdoor traction unit PT-OP-R Modalities Start: 07/04/17 13:07 Freq: Status: Active Protocol: Document 07/29/17 12:50 LRN (Rec: 07/29/17 13:34 LRN [id number]) Hot Pack/Cold Pack Treatment Cold Pack Location R Shoulder Patient Position Hooklying Treatment Duration (minutes) 10 Comments Post therapy PT-OP-T Assessment and Plan Start: 07/04/17 13:07 Freq: Status: Active Protocol: Document 07/29/17 12:50 LRN (Rec: 07/29/17 13:34 LRN [id number]) Physical Therapy Assessment Impairments Impairments Activity Tolerance Pain ROM Strength Other Impairments Lacks appropriate HEP. Goals Four Impairment Pt is not on an independent home program. Sales And Marketing Agent Goal (LTG) Pt will be independent on a Home exercise/self care program. LTG Duration 4 weeks. Three Impairment Goal met Assessment Summary Assessment Pt is over 13 weeks s/p ORIF R proximal humerus fx. Pt shows very good tolerance to initiation of strengthening and end range stretching of the R shoulder. Physical Therapy Plan Frequency and Duration Frequency of Treatment 2x/Week Duration of Treatment 4 weeks Plan of Care Start Date 07/04/17 Plan of Care End Date 08/18/17 Other Referrals/Consults Referrals/Consults Recommended Rec'd New Referral: ROM, strengthening, HEP. No restrictions, maximize motion & strength. Next MD visit 09/11/17. Next Visit Focus/Plan Next Visit Plan PN in 2 visits. Progress for maximum range of motion and start strengthening for max strength. No restrictions. Please Sign and Return: I have reviewed this Plan of Care and certify that the skilled therapy services above are required to meet the patient?s needs. Physician Signature Date Printed Name and Credentials Clinical Instructor Signature Printed Name and Credentials
--- NOTE | 2017-07-31 15:12 | PT.OTN ---
Current Diagnoses Displaced fracture of greater tuberosity of right humerus, initial encounter for closed fracture (07/31/17) Fracture of right shoulder girdle, part unspecified, initial encounter for closed fracture (07/31/17) Physical Therapy Treatment Note PT-OP-A Visit Information Start: 07/04/17 13:07 Freq: Status: Active Protocol: Document 07/31/17 12:47 LRN (Rec: 07/31/17 13:03 LRN [id number]) Out-Patient Physical Therapy Visit Information Visit Information Visit Type Treatment Note Visit Note 11/03 Visit Start Time 12:47 Visit Stop Time 13:40 Total Visit Minutes 53 Visit Number 9 Number of SANDER SETTER Visits 0 Evaluation Information Evaluation Date 07/04/17 PT-OP-B Current Condition Start: 07/04/17 13:07 Freq: Status: Active Protocol: Document 07/04/17 12:50 LRN (Rec: 07/07/17 17:30 LRN [id number]) Current Condition History of Current Condition Onset Date 04/27/2107 Current Complaints Can't use arm to drive, curl hair, or reach top shelfs in bathroom/kitchen. History of Current Condition Pt reports tripping on a footstool resulting in a fracture of her R shoulder. She underwent an ORIF of the R proximal humerus due to fracture. She states she has been in a sling for 6 weeks and has been out of the sling for 1 week. Future Testing and Treatments Planned Next MD visit is 07/25/2017. Treatment Goals Patient/Caregiver Goals Pt goal is to 1) be able to drive, 2) Lift the R arm to curl her hair, 3) Reach for items in the top shelf of her closet and cuboards for cups. Prior Functional Status Baseline Function- ADL's Independent Baseline Function- Mobility Independent Current Functional Impairments (Reported) Functional Limitations- ADL's Pt is unable to lift R arm for personal hygiene care. Pt is unable to perform functional activities with use of the R arm (self clean/wash , drive, use of arm for transfers). Functional Limitations- Mobility/Gait Pt is unable to use the R arm to reach, lift or carry items. Personal Factors Other Personal Factors That May Effect Pt states she lives alone but Therapy/Recovery has a daughter to assist her. She has a history of osteoporosis. Pt age of 82. PT-OP-C Subjective Start: 07/04/17 13:07 Freq: Status: Active Protocol: Document 07/31/17 12:47 LRN (Rec: 07/31/17 13:03 LRN [id number]) OP-PT Subjective Patient Comments Patient Comments L shoulder is not sore. PT-OP-F Manual Assessment Start: 07/04/17 13:07 Freq: Status: Active Protocol: Document 07/04/17 12:50 LRN (Rec: 07/07/17 17:30 LRN [id number]) Manual Assessments Soft Tissue Assessment Soft Tissue Mobility Assessment Muscle guarding is present in the R upper shoulder. PT-OP-H Neuro Start: 07/04/17 13:07 Freq: Status: Active Protocol: Document 07/04/17 12:50 LRN (Rec: 07/07/17 17:30 LRN [id number]) Sensation Evaluation Gross Sensation Gross Sensation WNL PT-OP-J Posture/Palpation/Skin Start: 07/04/17 13:07 Freq: Status: Active Protocol: Document 07/04/17 12:50 LRN (Rec: 07/07/17 17:30 LRN [id number]) Posture Evaluation Position Standing Evaluation View Posterior Head/C-Spine Posture Side Bent Right Forward Head T-Spine Posture Flattened L-Spine Posture Increased Lordosis Shoulder Posture (R) Elevated Scapula Posture (R) Rotated Up (R) Elevated Skin Assessment Other Assessments Skin Assessment Comments Thin and fragile in UE. PT-OP-K Range of Motion Start: 07/04/17 13:07 Freq: Status: Active Protocol: Document 07/31/17 12:47 LRN (Rec: 07/31/17 13:03 LRN [id number]) Shoulder Goniometric Range of Motion Shoulder Measured in Degrees Right Passive Testing Position Supine Flexion 135 Abduction 90 External Rotation at 90 degrees 45 Abduction Internal Rotation 60 PT-OP-Q Treatments Start: 07/04/17 13:07 Freq: Status: Active Protocol: Document 07/31/17 12:47 LRN (Rec: 07/31/17 13:03 LRN [id number]) Cardio Equipment Upper Body Ergometer (UBE) Duration (Minutes) 4 Seat Position 8 Height 4 Other Foot blocks foward Recumbent Elliptical (Biodex) Duration (Minutes) 4 Resistance none Therapeutic Exercises Supine Exercises 4 Supine Exercise Name AAROM of R shoulder: Flex, ER, IR Side right Reps/Minutes 10 x 1 Supine Exercise Name PROM R shoulder : Flex, ER, IR , AB Side right Reps/Minutes 10x2 reps each Comments Slow stretching Sidelying Exercises 2 Sidelying Exercise Name Active Shoulder IR Side right Resistance 0 Reps/Minutes 30 1 Sidelying Exercise Name Active Shoulder ER Side right Resistance 0 Reps/Minutes 20x Sitting Exercises 6 Sitting Exercise Name Chest press using elvia to maintain 90 deg's shoulder flex 5 Sitting Exercise Name Shoulder flexion with elvia Side right Equipment Used Elvia Reps/Minutes 10 Comments Holding 30 sec's each Standing Exercises 3 Standing Exercise Name Scapular retraction with T- Band Side bilateral Resistance Lev 1 T-Band Reps/Minutes 10 x 2 PT-OP-R Modalities Start: 07/04/17 13:07 Freq: Status: Active Protocol: Document 07/31/17 12:47 LRN (Rec: 07/31/17 13:07 LRN [id number]) Hot Pack/Cold Pack Treatment Cold Pack Location R Shoulder Patient Position Hooklying Treatment Duration (minutes) 10 Comments Post therapy PT-OP-T Assessment and Plan Start: 07/04/17 13:07 Freq: Status: Active Protocol: Document 07/31/17 12:47 LRN (Rec: 07/31/17 13:03 LRN [id number]) Physical Therapy Assessment Goals Four Impairment Pt is not on an independent home program. Payroll Master Goal (LTG) Pt will be independent on a Home exercise/self care program. LTG Duration 4 weeks. Two Impairment Decreased UE strength Assisted Goal (LTG) Pt will increase strength such that she will be able to sampler pickup and carry objects high in her top shelf of her closet. LTG Duration 3 weeks One Impairment Decreased R shoulder ROM Short Term Goal (STG) Pt able to reach into upper cupboards with improved R shoulder mobility. STG Duration 1 week Payroll Master Goal (LTG) Improve R shoulder ROM such that patient will be able to perform hair care with mild difficulty. LTG Duration 3 weeks Assessment Summary Assessment Pt R shoulder PROM is improving. Weakness persists. Pt has good tolerance to ex' s, minimal complaints. Physical Therapy Plan Frequency and Duration Frequency of Treatment 2x/Week Duration of Treatment 4 weeks Plan of Care Start Date 07/04/17 Plan of Care End Date 08/18/17 Next Visit Focus/Plan Next Note Type Progress Note Next Visit Plan PN next visits. Progress for maximum range of motion and start strengthening for max strength. No restrictions. Please Sign and Return: I have reviewed this Plan of Care and certify that the skilled therapy services above are required to meet the patient?s needs. Physician Signature Date Printed Name and Credentials Clinical Instructor Signature Printed Name and Credentials
--- NOTE | 2017-08-19 15:52 | PT.OTN ---
Current Diagnoses Displaced fracture of greater tuberosity of right humerus, initial encounter for closed fracture (08/19/17) Fracture of right shoulder girdle, part unspecified, initial encounter for closed fracture (08/19/17) Physical Therapy Treatment Note PT-OP-A Visit Information Start: 07/04/17 13:07 Freq: Status: Active Protocol: Document 08/19/17 10:35 LRN (Rec: 08/19/17 11:32 LRN [id number]) Out-Patient Physical Therapy Visit Information Visit Information Visit Type Treatment Note Visit Note 12/03 Visit Start Time 10:35 Visit Stop Time 11:30 Total Visit Minutes 55 Visit Number 10 Number of CUTTER IN Visits 0 Evaluation Information Evaluation Date 07/04/17 PT-OP-B Current Condition Start: 07/04/17 13:07 Freq: Status: Active Protocol: Document 07/04/17 12:50 LRN (Rec: 07/07/17 17:30 LRN [id number]) Current Condition History of Current Condition Onset Date 04/27/2107 Current Complaints Can't use arm to drive, curl hair, or reach top shelfs in bathroom/kitchen. History of Current Condition Pt reports tripping on a footstool resulting in a fracture of her R shoulder. She underwent an ORIF of the R proximal humerus due to fracture. She states she has been in a sling for 6 weeks and has been out of the sling for 1 week. Future Testing and Treatments Planned Next MD visit is 07/25/2017. Treatment Goals Patient/Caregiver Goals Pt goal is to 1) be able to drive, 2) Lift the R arm to curl her hair, 3) Reach for items in the top shelf of her closet and cuboards for cups. Prior Functional Status Baseline Function- ADL's Independent Baseline Function- Mobility Independent Current Functional Impairments (Reported) Functional Limitations- ADL's Pt is unable to lift R arm for personal hygiene care. Pt is unable to perform functional activities with use of the R arm (self clean/wash , drive, use of arm for transfers). Functional Limitations- Mobility/Gait Pt is unable to use the R arm to reach, lift or carry items. Personal Factors Other Personal Factors That May Effect Pt states she lives alone but Therapy/Recovery has a daughter to assist her. She has a history of osteoporosis. Pt age of 82. PT-OP-C Subjective Start: 07/04/17 13:07 Freq: Status: Active Protocol: Document 08/19/17 10:35 LRN (Rec: 08/19/17 11:32 LRN [id number]) OP-PT Subjective Patient Comments Patient Comments Been doing ex's on own for past 3 weeks, unable to be scheduled. Patient Questionnaires Quick Dash- Upper Extremity Quick Dash UE Score 31.75 Quick Dash UE Impairment 20 to 39% Impaired (Score 20- 39) PT-OP-F Manual Assessment Start: 07/04/17 13:07 Freq: Status: Active Protocol: Document 07/04/17 12:50 LRN (Rec: 07/07/17 17:30 LRN [id number]) Manual Assessments Soft Tissue Assessment Soft Tissue Mobility Assessment Muscle guarding is present in the R upper shoulder. PT-OP-H Neuro Start: 07/04/17 13:07 Freq: Status: Active Protocol: Document 07/04/17 12:50 LRN (Rec: 07/07/17 17:30 LRN [id number]) Sensation Evaluation Gross Sensation Gross Sensation WNL PT-OP-J Posture/Palpation/Skin Start: 07/04/17 13:07 Freq: Status: Active Protocol: Document 07/04/17 12:50 LRN (Rec: 07/07/17 17:30 LRN [id number]) Posture Evaluation Position Standing Evaluation View Posterior Head/C-Spine Posture Side Bent Right Forward Head T-Spine Posture Flattened L-Spine Posture Increased Lordosis Shoulder Posture (R) Elevated Scapula Posture (R) Rotated Up (R) Elevated Skin Assessment Other Assessments Skin Assessment Comments Thin and fragile in UE. PT-OP-K Range of Motion Start: 07/04/17 13:07 Freq: Status: Active Protocol: Document 08/19/17 10:35 LRN (Rec: 08/19/17 11:32 LRN [id number]) Shoulder Goniometric Range of Motion Shoulder Measured in Degrees Left Passive Testing Position Supine Flexion 165 Abduction 115 External Rotation at 90 degrees 83 Abduction Internal Rotation 75 Right Passive Testing Position Supine Flexion 148 Abduction 116 Horizontal Adduction 27 External Rotation at 90 degrees 73 Abduction Internal Rotation 63 Left Testing Position Supine Flexion 160 Abduction 100 External Rotation at 90 degrees 75 Abduction Internal Rotation 80 Right Flexion 60 PT-OP-Q Treatments Start: 07/04/17 13:07 Freq: Status: Active Protocol: Document 08/19/17 10:35 LRN (Rec: 08/19/17 15:15 LRN [id number]) Cardio Equipment Upper Body Ergometer (UBE) Duration (Minutes) 6 Seat Position 8 Height 4 Other Foot blocks forward Therapeutic Exercises Supine Exercises 6 Supine Exercise Name Lateral shoulder stretch manual stretch Side right Equipment Used Cane Reps/Minutes 10x2 4 Supine Exercise Name AAROM of R shoulder: Flex, ER, IR Side right Equipment Used Cane Reps/Minutes 10 x each Comments Extra time for ROM measurements 1 Supine Exercise Name PROM R shoulder : Flex, ER, IR , AB Side right Comments ROM measurements Sidelying Exercises 2 Sidelying Exercise Name Deferred 1 Sidelying Exercise Name Deferred Sitting Exercises 6 Sitting Exercise Name Chest press using elvia to maintain 90 deg's shoulder flex 5 Sitting Exercise Name Shoulder flexion with elvia Side right Equipment Used Elvia Reps/Minutes 10 Comments Holding 30 sec's each Standing Exercises 3 Standing Exercise Name Scapular retraction with T- Band Side bilateral Resistance Lev 1 T-Band Reps/Minutes 10 x 2 2 Standing Exercise Name Active Shoulder ext Side bilateral Resistance T-Band Lev 1 Reps/Minutes 10 x Comments Holding 5 sec's Self-Care/Home Management Treatment Education Patient Education Home Exercise Program Activities Self-Care/Home Management Activities I/S pt in use of T-Band for shoulder ext with scapular retraction. Issued Blue T- Band. PT-OP-R Modalities Start: 07/04/17 13:07 Freq: Status: Active Protocol: Document 08/19/17 10:35 LRN (Rec: 08/19/17 15:15 LRN [id number]) Hot Pack/Cold Pack Treatment Cold Pack Location R Shoulder Patient Position Hooklying Treatment Duration (minutes) 10 Comments Post therapy PT-OP-T Assessment and Plan Start: 07/04/17 13:07 Freq: Status: Active Protocol: Document 08/19/17 10:35 LRN (Rec: 08/19/17 11:32 LRN [id number]) Physical Therapy Assessment Rehab Potential Rehabilitation Potential Good Impairments Impairments Activity Tolerance ROM Strength Other Impairments Lacks complete HEP. Goals Four Impairment Pt is not on an independent home program. [employer] Goal (LTG) Pt will be independent on a Home exercise/self care program. LTG Duration 1 month (09/23/17) Three Impairment Goal met Two Impairment Decreased UE strength Retirement Goal (LTG) Pt will be able to lift & hold her R arm to wash underneath, washing face & pour coffee with mild difficulty. LTG Duration 1 month (09/23/17) One Impairment Decreased R shoulder ROM Short Term Goal (STG) Pt able to reach into upper cupboards with improved R shoulder mobility. STG Duration 1 month (09/23/17) Retirement Goal (LTG) Improve R shoulder ROM such that patient will be able to perform hair care with mild difficulty. LTG Duration 1 month (09/23/17) Progress Towards Goals Progress Towards Goals Progressing Toward Goals Slow Progress due to Activity Tolerance Slow Progress due to Attendance Issues Progress Comments Goal #3 Met. Pt strength and R shoulder ROM is slowly improving. She can molded goods spot picker light objects in the cupboard on the 1st shelf and her purse . she is not yet able to reach the 2nd shelf and top of the medicine cabinet. Assessment Summary Assessment Pt is ~12 weeks s/p ORIF for a proximal humeral fracture. Per protocol the pt may now start terminal stretching and begin weight training of no long lever-arm ex, no ABD or impingement positions. The pt R shoulder PROM is improving. She has just started strengthening per protocol; therefore she is quite weak in her R UE. The pt has very good tolerance to ex's. It is recommended the pt continue with skilled physical therapy to progress her in her strengthening to return her to a more functional level. Physical Therapy Plan Frequency and Duration Frequency of Treatment 2x/Week Duration of Treatment 1 month Plan of Care Start Date 07/04/17 Plan of Care End Date 09/23/17 Therapeutic Interventions Therapeutic Interventions Home Exercise Program Manual Therapy Neuromuscular Re-education Patient/Caregiver Education Self-Care/Home Management Soft Tissue Mobilization Therapeutic Exercises Modalities Cold Pack/Ice Massage Hot Packs Next Visit Focus/Plan Next Note Type Treatment Note Next Visit Plan FROM, progress strengthening, HEP. No restrictions, maximize motion & strength.
--- NOTE | 2017-08-19 15:53 | PT.OPPOC ---
Current Diagnoses Displaced fracture of greater tuberosity of right humerus, initial encounter for closed fracture (08/19/17) Fracture of right shoulder girdle, part unspecified, initial encounter for closed fracture (08/19/17) Provider Visit Care Team Role Provider Type Bernabe Baez MD Family Provider Physician Primary Care Provider Specialty: Family Practice Address: [address] [place] [address], [id number] Email: [email or web address] Raheel Jang MD Attending Provider Physician Referring Provider Specialty: Orthopedic Surgery Address: [address] [place] [address], [id number] Email: [email or web address] Plan Of Care PT-OP-T Assessment and Plan Start: 07/04/17 13:07 Freq: Status: Active Protocol: Document 08/19/17 10:35 LRN (Rec: 08/19/17 11:32 LRN [id number]) Physical Therapy Assessment Rehab Potential Rehabilitation Potential Good Impairments Impairments Activity Tolerance ROM Strength Other Impairments Lacks complete HEP. Goals Four Impairment Pt is not on an independent home program. Care Companion Goal (LTG) Pt will be independent on a Home exercise/self care program. LTG Duration 1 month (09/23/17) Three Impairment Goal met Two Impairment Decreased UE strength [facility] Goal (LTG) Pt will be able to lift & hold her R arm to wash underneath, washing face & pour coffee with mild difficulty. LTG Duration 1 month (09/23/17) One Impairment Decreased R shoulder ROM Short Term Goal (STG) Pt able to reach into upper cupboards with improved R shoulder mobility. STG Duration 1 month (09/23/17) [facility] Goal (LTG) Improve R shoulder ROM such that patient will be able to perform hair care with mild difficulty. LTG Duration 1 month (09/23/17) Progress Towards Goals Progress Towards Goals Progressing Toward Goals Slow Progress due to Activity Tolerance Slow Progress due to Attendance Issues Progress Comments Goal #3 Met. Pt strength and R shoulder ROM is slowly improving. 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 she is not yet able to reach the 2nd shelf and top of the medicine cabinet. Assessment Summary Assessment Pt is ~12 weeks s/p ORIF for a proximal humeral fracture. Per protocol the pt may now start terminal stretching and begin weight training of no long lever-arm ex, no ABD or impingement positions. The pt R shoulder PROM is improving. She has just started strengthening per protocol; therefore she is quite weak in her R UE. The pt has very good tolerance to ex's. It is recommended the pt continue with skilled physical therapy to progress her in her strengthening to return her to a more functional level. Physical Therapy Plan Frequency and Duration Frequency of Treatment 2x/Week Duration of Treatment 1 month Plan of Care Start Date 07/04/17 Plan of Care End Date 09/23/17 Therapeutic Interventions Therapeutic Interventions Home Exercise Program Manual Therapy Neuromuscular Re-education Patient/Caregiver Education Self-Care/Home Management Soft Tissue Mobilization Therapeutic Exercises Modalities Cold Pack/Ice Massage Hot Packs Next Visit Focus/Plan Next Note Type Treatment Note Next Visit Plan FROM, progress strengthening, HEP. No restrictions, maximize motion & strength. Plan of Care Dates Plan of Care Start Date 07/04/17 Plan of Care End Date 09/23/17 Please Sign and Return: I have reviewed this Plan of Care and certify that the skilled therapy services above are required to meet the patient?s needs. Physician Signature Date Printed Name and Credentials Clinical Instructor Signature Printed Name and Credentials
--- NOTE | 2017-08-26 12:12 | PT.OTN ---
Current Diagnoses Displaced fracture of greater tuberosity of right humerus, initial encounter for closed fracture (08/26/17) Fracture of right shoulder girdle, part unspecified, initial encounter for closed fracture (08/26/17) Physical Therapy Treatment Note PT-OP-A Visit Information Start: 07/04/17 13:07 Freq: Status: Active Protocol: Document 08/26/17 11:17 LRN (Rec: 08/26/17 11:39 LRN [id number]) Out-Patient Physical Therapy Visit Information Visit Information Visit Type Treatment Note Visit Note 01/13 Visit Start Time 11:17 Visit Stop Time 12:10 Total Visit Minutes 53 Visit Number 11 Number of CHICKEN VACCINATOR Visits 0 Evaluation Information Evaluation Date 07/04/17 PT-OP-B Current Condition Start: 07/04/17 13:07 Freq: Status: Active Protocol: Document 07/04/17 12:50 LRN (Rec: 07/07/17 17:30 LRN [id number]) Current Condition History of Current Condition Onset Date 04/27/2107 Current Complaints Can't use arm to drive, curl hair, or reach top shelfs in bathroom/kitchen. History of Current Condition Pt reports tripping on a footstool resulting in a fracture of her R shoulder. She underwent an ORIF of the R proximal humerus due to fracture. She states she has been in a sling for 6 weeks and has been out of the sling for 1 week. Future Testing and Treatments Planned Next MD visit is 07/25/2017. Treatment Goals Patient/Caregiver Goals Pt goal is to 1) be able to drive, 2) Lift the R arm to curl her hair, 3) Reach for items in the top shelf of her closet and cuboards for cups. Prior Functional Status Baseline Function- ADL's Independent Baseline Function- Mobility Independent Current Functional Impairments (Reported) Functional Limitations- ADL's Pt is unable to lift R arm for personal hygiene care. Pt is unable to perform functional activities with use of the R arm (self clean/wash , drive, use of arm for transfers). Functional Limitations- Mobility/Gait Pt is unable to use the R arm to reach, lift or carry items. Personal Factors Other Personal Factors That May Effect Pt states she lives alone but Therapy/Recovery has a daughter to assist her. She has a history of osteoporosis. Pt age of 82. PT-OP-C Subjective Start: 07/04/17 13:07 Freq: Status: Active Protocol: Document 08/26/17 11:17 LRN (Rec: 08/26/17 11:39 LRN [id number]) OP-PT Subjective Patient Comments Patient Comments Cant lift very high. PT-OP-F Manual Assessment Start: 07/04/17 13:07 Freq: Status: Active Protocol: Document 07/04/17 12:50 LRN (Rec: 07/07/17 17:30 LRN [id number]) Manual Assessments Soft Tissue Assessment Soft Tissue Mobility Assessment Muscle guarding is present in the R upper shoulder. PT-OP-H Neuro Start: 07/04/17 13:07 Freq: Status: Active Protocol: Document 07/04/17 12:50 LRN (Rec: 07/07/17 17:30 LRN [id number]) Sensation Evaluation Gross Sensation Gross Sensation WNL PT-OP-J Posture/Palpation/Skin Start: 07/04/17 13:07 Freq: Status: Active Protocol: Document 07/04/17 12:50 LRN (Rec: 07/07/17 17:30 LRN [id number]) Posture Evaluation Position Standing Evaluation View Posterior Head/C-Spine Posture Side Bent Right Forward Head T-Spine Posture Flattened L-Spine Posture Increased Lordosis Shoulder Posture (R) Elevated Scapula Posture (R) Rotated Up (R) Elevated Skin Assessment Other Assessments Skin Assessment Comments Thin and fragile in UE. PT-OP-K Range of Motion Start: 07/04/17 13:07 Freq: Status: Active Protocol: Document 08/19/17 10:35 LRN (Rec: 08/19/17 11:32 LRN [id number]) Shoulder Goniometric Range of Motion Shoulder Measured in Degrees Left Passive Testing Position Supine Flexion 165 Abduction 115 External Rotation at 90 degrees 83 Abduction Internal Rotation 75 Right Passive Testing Position Supine Flexion 148 Abduction 116 Horizontal Adduction 27 External Rotation at 90 degrees 73 Abduction Internal Rotation 63 Left Testing Position Supine Flexion 160 Abduction 100 External Rotation at 90 degrees 75 Abduction Internal Rotation 80 Right Flexion 60 PT-OP-Q Treatments Start: 07/04/17 13:07 Freq: Status: Active Protocol: Document 08/26/17 11:17 LRN (Rec: 08/26/17 11:39 LRN [id number]) Cardio Equipment Upper Body Ergometer (UBE) Duration (Minutes) 6 Seat Position 8 Height 4 Other Foot blocks forward Therapeutic Exercises Supine Exercises 8 Supine Exercise Name Lat pull down Side bilateral Equipment Used Lev 1 T-Band Reps/Minutes 10 7 Supine Exercise Name Chest press w/cane Side bilateral Reps/Minutes 10 x 3 4 Supine Exercise Name AAROM of R shoulder: Flex, ER, IR Side right Reps/Minutes 10 x each Comments Extra time for ROM measurements Sidelying Exercises 2 Sidelying Exercise Name Active Shoulder IR Side right Resistance 1# Reps/Minutes 10x3 1 Sidelying Exercise Name Active Shoulder ER Side right Resistance 1# Reps/Minutes 10x3 Sitting Exercises 7 Sitting Exercise Name Shoulder AB stretch with Elvia Side right Reps/Minutes 10x Comments Holding 10 sec 6 Sitting Exercise Name Chest press using elvia to maintain 90 deg's shoulder flex Side bilateral Reps/Minutes 10x3 5 Sitting Exercise Name Shoulder flexion with elvia Side right Equipment Used Elvia Reps/Minutes 10 Comments Holding 30 sec's each Standing Exercises 5 Standing Exercise Name Elbow curls/extenstion Side right Resistance 3# Equipment Used Hand Weight Reps/Minutes 10x3 4 Standing Exercise Name Wall slide with towel Side right Reps/Minutes 10 x 3 Comments L arm to assist 3 Standing Exercise Name Scapular retraction with T- Band Side bilateral Resistance Lev 1 T-Band Reps/Minutes 10 x 3 2 Standing Exercise Name Active Shoulder ext Side bilateral Resistance T-Band Lev 1 Reps/Minutes 10 x 3 PT-OP-R Modalities Start: 07/04/17 13:07 Freq: Status: Active Protocol: Document 08/26/17 11:17 LRN (Rec: 08/26/17 11:39 LRN [id number]) Hot Pack/Cold Pack Treatment Cold Pack Location R Shoulder Patient Position Hooklying Treatment Duration (minutes) 10 Comments Post therapy PT-OP-T Assessment and Plan Start: 07/04/17 13:07 Freq: Status: Active Protocol: Document 08/26/17 11:17 LRN (Rec: 08/26/17 11:39 LRN [id number]) Physical Therapy Assessment Impairments Impairments Activity Tolerance ROM Strength Other Impairments Lacks complete HEP. Goals Four Impairment Pt is not on an independent home program. Jail Goal (LTG) Pt will be independent on a Home exercise/self care program. LTG Duration 1 month (09/23/17) Three Impairment Goal met Two Impairment Decreased UE strength Jail Goal (LTG) Pt will be able to lift & hold her R arm to wash underneath, washing face & pour coffee with mild difficulty. LTG Duration 1 month (09/23/17) One Impairment Decreased R shoulder ROM Short Term Goal (STG) Pt able to reach into upper cupboards with improved R shoulder mobility. STG Duration 1 month (09/23/17) Operations Support Manager Goal (LTG) Improve R shoulder ROM such that patient will be able to perform hair care with mild difficulty. LTG Duration 1 month (09/23/17) Progress Towards Goals Progress Towards Goals Progressing Toward Goals Slow Progress due to Activity Tolerance Slow Progress due to Attendance Issues Progress Comments Goal #3 Met. Pt strength and R shoulder ROM is slowly improving. She can pickle sorter light objects in the cupboard on the 1st shelf and her purse . she is not yet able to reach the 2nd shelf and top of the medicine cabinet. Assessment Summary Assessment Pt is 12+ weeks s/p ORIF for proximal humeral fracture. Pt shows good tolerance to strengthening ex's Physical Therapy Plan Frequency and Duration Frequency of Treatment 2x/Week Duration of Treatment 1 month Plan of Care Start Date 07/04/17 Plan of Care End Date 09/23/17 Next Visit Focus/Plan Next Note Type Treatment Note Next Visit Plan Increase UBE time to 8 min; JMT R shoulder if needed, FROM , progress strengthening, HEP. No restrictions, except protocol states no long lever- arm ex, no ABD or impingement positions. Maximize motion & strength.
--- NOTE | 2017-09-02 15:35 | PT.OTN ---
Current Diagnoses Displaced fracture of greater tuberosity of right humerus, initial encounter for closed fracture (09/02/17) Fracture of right shoulder girdle, part unspecified, initial encounter for closed fracture (09/02/17) Physical Therapy Treatment Note PT-OP-A Visit Information Start: 07/04/17 13:07 Freq: Status: Active Protocol: Document 09/02/17 11:15 LRN (Rec: 09/02/17 12:05 LRN [id number]) Out-Patient Physical Therapy Visit Information Visit Information Visit Type Treatment Note Visit Note 02/12 Visit Start Time 11:15 Visit Stop Time 12:12 Total Visit Minutes 57 Visit Number 12 Number of LOTTERY CLERK Visits 0 Evaluation Information Evaluation Date 07/04/17 PT-OP-B Current Condition Start: 07/04/17 13:07 Freq: Status: Active Protocol: Document 07/04/17 12:50 LRN (Rec: 07/07/17 17:30 LRN [id number]) Current Condition History of Current Condition Onset Date 04/27/2107 Current Complaints Can't use arm to drive, curl hair, or reach top shelfs in bathroom/kitchen. History of Current Condition Pt reports tripping on a footstool resulting in a fracture of her R shoulder. She underwent an ORIF of the R proximal humerus due to fracture. She states she has been in a sling for 6 weeks and has been out of the sling for 1 week. Future Testing and Treatments Planned Next MD visit is 07/25/2017. Treatment Goals Patient/Caregiver Goals Pt goal is to 1) be able to drive, 2) Lift the R arm to curl her hair, 3) Reach for items in the top shelf of her closet and cuboards for cups. Prior Functional Status Baseline Function- ADL's Independent Baseline Function- Mobility Independent Current Functional Impairments (Reported) Functional Limitations- ADL's Pt is unable to lift R arm for personal hygiene care. Pt is unable to perform functional activities with use of the R arm (self clean/wash , drive, use of arm for transfers). Functional Limitations- Mobility/Gait Pt is unable to use the R arm to reach, lift or carry items. Personal Factors Other Personal Factors That May Effect Pt states she lives alone but Therapy/Recovery has a daughter to assist her. She has a history of osteoporosis. Pt age of 82. PT-OP-C Subjective Start: 07/04/17 13:07 Freq: Status: Active Protocol: Document 09/02/17 11:15 LRN (Rec: 09/02/17 12:05 LRN [id number]) OP-PT Subjective Patient Comments Patient Comments Drove self to therapy for the first time. PT-OP-F Manual Assessment Start: 07/04/17 13:07 Freq: Status: Active Protocol: Document 07/04/17 12:50 LRN (Rec: 07/07/17 17:30 LRN [id number]) Manual Assessments Soft Tissue Assessment Soft Tissue Mobility Assessment Muscle guarding is present in the R upper shoulder. PT-OP-H Neuro Start: 07/04/17 13:07 Freq: Status: Active Protocol: Document 07/04/17 12:50 LRN (Rec: 07/07/17 17:30 LRN [id number]) Sensation Evaluation Gross Sensation Gross Sensation WNL PT-OP-J Posture/Palpation/Skin Start: 07/04/17 13:07 Freq: Status: Active Protocol: Document 07/04/17 12:50 LRN (Rec: 07/07/17 17:30 LRN [id number]) Posture Evaluation Position Standing Evaluation View Posterior Head/C-Spine Posture Side Bent Right Forward Head T-Spine Posture Flattened L-Spine Posture Increased Lordosis Shoulder Posture (R) Elevated Scapula Posture (R) Rotated Up (R) Elevated Skin Assessment Other Assessments Skin Assessment Comments Thin and fragile in UE. PT-OP-K Range of Motion Start: 07/04/17 13:07 Freq: Status: Active Protocol: Document 08/19/17 10:35 LRN (Rec: 08/19/17 11:32 LRN [id number]) Shoulder Goniometric Range of Motion Shoulder Measured in Degrees Left Passive Testing Position Supine Flexion 165 Abduction 115 External Rotation at 90 degrees 83 Abduction Internal Rotation 75 Right Passive Testing Position Supine Flexion 148 Abduction 116 Horizontal Adduction 27 External Rotation at 90 degrees 73 Abduction Internal Rotation 63 Left Testing Position Supine Flexion 160 Abduction 100 External Rotation at 90 degrees 75 Abduction Internal Rotation 80 Right Flexion 60 PT-OP-Q Treatments Start: 07/04/17 13:07 Freq: Status: Active Protocol: Document 09/02/17 11:15 LRN (Rec: 09/02/17 12:05 LRN [id number]) Cardio Equipment Upper Body Ergometer (UBE) Duration (Minutes) 8 Seat Position 8 Height 4 Other Foot blocks forward Therapeutic Exercises Supine Exercises 8 Supine Exercise Name Lat pull down Side bilateral Equipment Used Lev 1 T-Band Reps/Minutes 10 7 Supine Exercise Name Chest press & shoulder AB w/ cane Side bilateral Reps/Minutes 10 x 3 4 Supine Exercise Name AAROM of R shoulder: Flex, ER, IR Side right Reps/Minutes 10 x each Comments Extra time for ROM measurements 1 Supine Exercise Name PROM R shoulder : Flex, ER, IR , AB Side right Sitting Exercises 7 Sitting Exercise Name Shoulder AB stretch with Elvia Side right Reps/Minutes 10x Comments Holding 10 sec 6 Sitting Exercise Name Chest press using elvia to maintain 90 deg's shoulder flex Side bilateral Reps/Minutes 10x3 5 Sitting Exercise Name Shoulder flexion with elvia Side right Equipment Used Elvia Reps/Minutes 10 Comments Holding 30 sec's each Standing Exercises 4 Standing Exercise Name Wall slide with towel Side right Reps/Minutes 10 x 3 Comments L arm to assist 3 Standing Exercise Name Scapular retraction with T- Band Side bilateral Resistance Lev 1 T-Band Reps/Minutes 10 x 3 2 Standing Exercise Name Active Shoulder ext Side bilateral Resistance T-Band Lev 1 Reps/Minutes 10 x 3 Manual Therapy Treatment Joint Mobilizations 1 Joint R GHJ Direction Inferior Grade II Body Position Supine Reps/Duration 2' Manual Techniques 1 Type Stretch of R shoulder PROM & Circumduction Body Location R shoulder Body Position Supine Reps/Duration 6' Self-Care/Home Management Treatment Education Patient Education Home Exercise Program Activities Self-Care/Home Management Activities Issued & reviewed Shoulder strengthening ex's (hand wall slide, chest press, AB, ER/IR) PT-OP-R Modalities Start: 07/04/17 13:07 Freq: Status: Active Protocol: Document 09/02/17 11:15 LRN (Rec: 09/02/17 12:05 LRN [id number]) Hot Pack/Cold Pack Treatment Cold Pack Location R Shoulder Patient Position Hooklying Treatment Duration (minutes) 10 Comments Post therapy PT-OP-T Assessment and Plan Start: 07/04/17 13:07 Freq: Status: Active Protocol: Document 09/02/17 11:15 LRN (Rec: 09/02/17 12:05 LRN [id number]) Physical Therapy Assessment Goals Four Impairment Pt is not on an independent home program. Shelter Goal (LTG) Pt will be independent on a Home exercise/self care program. LTG Duration 1 month (09/23/17) Three Impairment Goal met Two Impairment Decreased UE strength Public Health Teacher Goal (LTG) Pt will be able to lift & hold her R arm to wash underneath, washing face & pour coffee with mild difficulty. LTG Duration 1 month (09/23/17) One Impairment Decreased R shoulder ROM Short Term Goal (STG) Pt able to reach into upper cupboards with improved R shoulder mobility. STG Duration 1 month (09/23/17) Public Health Teacher Goal (LTG) Improve R shoulder ROM such that patient will be able to perform hair care with mild difficulty. LTG Duration 1 month (09/23/17) Progress Towards Goals Progress Towards Goals Progressing Toward Goals Slow Progress due to Activity Tolerance Slow Progress due to Attendance Issues Progress Comments Goal #3 Met. Pt strength and R shoulder ROM is slowly improving. She can brick picker light objects in the cupboard on the 1st shelf and her purse . she is not yet able to reach the 2nd shelf and top of the medicine cabinet. Assessment Summary Assessment Pt is 12+ weeks s/p ORIF for proximal humeral fracture. Pt has ~75% of normal R Shoulder PROM. Weakness persists. Physical Therapy Plan Frequency and Duration Frequency of Treatment 2x/Week Duration of Treatment 1 month Plan of Care Start Date 07/04/17 Plan of Care End Date 09/23/17 Therapeutic Interventions Therapeutic Interventions Home Exercise Program Manual Therapy Neuromuscular Re-education Patient/Caregiver Education Self-Care/Home Management Soft Tissue Mobilization Therapeutic Exercises Modalities Cold Pack/Ice Massage Hot Packs Next Visit Focus/Plan Next Note Type Treatment Note Next Visit Plan Remeasure AROM/PROM. Increase UBE time. Progress towards FROM and improve strength. No restrictions, except protocol states no long lever-arm ex, no ABD or impingement positions. Maximize motion & strength.
--- NOTE | 2017-09-09 14:57 | PT.OTN ---
Current Diagnoses Displaced fracture of greater tuberosity of right humerus, initial encounter for closed fracture (09/09/17) Fracture of right shoulder girdle, part unspecified, initial encounter for closed fracture (09/09/17) Physical Therapy Treatment Note PT-OP-A Visit Information Start: 07/04/17 13:07 Freq: Status: Active Protocol: Document 09/09/17 11:25 LRN (Rec: 09/09/17 12:54 LRN [id number]) Out-Patient Physical Therapy Visit Information Visit Information Visit Type Treatment Note Visit Note Visit Start Time 11:25 Visit Stop Time 12:15 Total Visit Minutes 50 Visit Number 13 Number of TRAPEZE PERFORMER Visits 0 Evaluation Information Evaluation Date 07/04/17 PT-OP-B Current Condition Start: 07/04/17 13:07 Freq: Status: Active Protocol: Document 07/04/17 12:50 LRN (Rec: 07/07/17 17:30 LRN [id number]) Current Condition History of Current Condition Onset Date 04/27/2107 Current Complaints Can't use arm to drive, curl hair, or reach top shelfs in bathroom/kitchen. History of Current Condition Pt reports tripping on a footstool resulting in a fracture of her R shoulder. She underwent an ORIF of the R proximal humerus due to fracture. She states she has been in a sling for 6 weeks and has been out of the sling for 1 week. Future Testing and Treatments Planned Next MD visit is 07/25/2017. Treatment Goals Patient/Caregiver Goals Pt goal is to 1) be able to drive, 2) Lift the R arm to curl her hair, 3) Reach for items in the top shelf of her closet and cuboards for cups. Prior Functional Status Baseline Function- ADL's Independent Baseline Function- Mobility Independent Current Functional Impairments (Reported) Functional Limitations- ADL's Pt is unable to lift R arm for personal hygiene care. Pt is unable to perform functional activities with use of the R arm (self clean/wash , drive, use of arm for transfers). Functional Limitations- Mobility/Gait Pt is unable to use the R arm to reach, lift or carry items. Personal Factors Other Personal Factors That May Effect Pt states she lives alone but Therapy/Recovery has a daughter to assist her. She has a history of osteoporosis. Pt age of 82. PT-OP-C Subjective Start: 07/04/17 13:07 Freq: Status: Active Protocol: Document 09/09/17 11:25 LRN (Rec: 09/09/17 12:54 LRN [id number]) OP-PT Subjective Patient Comments Patient Comments Can reach a little higher. Can move shoulder more without pain. PT-OP-F Manual Assessment Start: 07/04/17 13:07 Freq: Status: Active Protocol: Document 07/04/17 12:50 LRN (Rec: 07/07/17 17:30 LRN [id number]) Manual Assessments Soft Tissue Assessment Soft Tissue Mobility Assessment Muscle guarding is present in the R upper shoulder. PT-OP-H Neuro Start: 07/04/17 13:07 Freq: Status: Active Protocol: Document 07/04/17 12:50 LRN (Rec: 07/07/17 17:30 LRN [id number]) Sensation Evaluation Gross Sensation Gross Sensation WNL PT-OP-J Posture/Palpation/Skin Start: 07/04/17 13:07 Freq: Status: Active Protocol: Document 07/04/17 12:50 LRN (Rec: 07/07/17 17:30 LRN [id number]) Posture Evaluation Position Standing Evaluation View Posterior Head/C-Spine Posture Side Bent Right Forward Head T-Spine Posture Flattened L-Spine Posture Increased Lordosis Shoulder Posture (R) Elevated Scapula Posture (R) Rotated Up (R) Elevated Skin Assessment Other Assessments Skin Assessment Comments Thin and fragile in UE. PT-OP-K Range of Motion Start: 07/04/17 13:07 Freq: Status: Active Protocol: Document 08/19/17 10:35 LRN (Rec: 08/19/17 11:32 LRN [id number]) Shoulder Goniometric Range of Motion Shoulder Measured in Degrees Left Passive Testing Position Supine Flexion 165 Abduction 115 External Rotation at 90 degrees 83 Abduction Internal Rotation 75 Right Passive Testing Position Supine Flexion 148 Abduction 116 Horizontal Adduction 27 External Rotation at 90 degrees 73 Abduction Internal Rotation 63 Left Testing Position Supine Flexion 160 Abduction 100 External Rotation at 90 degrees 75 Abduction Internal Rotation 80 Right Flexion 60 PT-OP-Q Treatments Start: 07/04/17 13:07 Freq: Status: Active Protocol: Document 09/09/17 11:25 LRN (Rec: 09/09/17 14:46 LRN [id number]) Cardio Equipment Upper Body Ergometer (UBE) Duration (Minutes) 9 Seat Position 8 Height 4 Other Foot blocks forward Therapeutic Exercises Supine Exercises 8 Supine Exercise Name Lat pull down Side bilateral Equipment Used Lev 1 T-Band Reps/Minutes 10 7 Supine Exercise Name Chest press & shoulder AB w/ cane Side bilateral Reps/Minutes 10 x 3 4 Supine Exercise Name AAROM of R shoulder: Flex, ER, IR Side right Reps/Minutes 10 x each Comments Extra time for ROM measurements 1 Supine Exercise Name PROM R shoulder : Flex, ER, IR , AB Side right Comments Also ROM measurements Sitting Exercises 7 Sitting Exercise Name Shoulder AB stretch with Elvia Side right Reps/Minutes 10x Comments Holding 10 sec 5 Sitting Exercise Name Shoulder flexion with elvia Side right Equipment Used Elvia Reps/Minutes 10 Comments Holding 30 sec's each Standing Exercises 2 Standing Exercise Name Active Shoulder ext Side bilateral Resistance T-Band Lev 1 Reps/Minutes 10 x 3 Manual Therapy Treatment Joint Mobilizations 1 Joint R GHJ Direction Inferior during AB Grade II Body Position Supine Reps/Duration 2' Manual Techniques 1 Type Stretch of R shoulder PROM & Circumduction Body Location R shoulder Body Position Supine Reps/Duration 6' Self-Care/Home Management Treatment Activities Self-Care/Home Management Activities I/S & reviewed: pt to do supine stregthening ex's (AB, flex, chest press) now in semi -reclined position. PT-OP-R Modalities Start: 07/04/17 13:07 Freq: Status: Active Protocol: Document 09/09/17 11:25 LRN (Rec: 09/09/17 12:54 LRN [id number]) Hot Pack/Cold Pack Treatment Cold Pack Location R Shoulder Patient Position Hooklying Treatment Duration (minutes) 10 Comments Post therapy PT-OP-T Assessment and Plan Start: 07/04/17 13:07 Freq: Status: Active Protocol: Document 09/09/17 11:25 LRN (Rec: 09/09/17 12:54 LRN [id number]) Physical Therapy Assessment Rehab Potential Rehabilitation Potential Good Impairments Impairments Activity Tolerance ROM Strength Other Impairments Lacks complete HEP. Goals Four Impairment Pt is not on an independent home program. Usp Goal (LTG) Pt will be independent on a Home exercise/self care program. LTG Duration 1 month (09/23/17) Three Impairment R arm edema with protective posturing STG Duration Goal met Two Impairment Decreased UE strength Irrigation Specialist Goal (LTG) Pt will be able to lift & hold her R arm to wash underneath, washing face & pour coffee with mild difficulty. LTG Duration 1 month (09/23/17) One Impairment Decreased R shoulder ROM Short Term Goal (STG) Pt able to reach into upper cupboards with improved R shoulder mobility. STG Duration 1 month (09/23/17) Irrigation Specialist Goal (LTG) Improve R shoulder ROM such that patient will be able to perform hair care with mild difficulty. LTG Duration 1 month (09/23/17) Progress Towards Goals Progress Towards Goals Progressing Toward Goals Slow Progress due to Activity Tolerance Slow Progress due to Attendance Issues Progress Comments Goal #3 Met. Pt strength and R shoulder ROM is slowly improving. She can sheepskin pickler light objects in the cupboard on the 1st shelf and her purse . she is not yet able to reach the 2nd shelf and top of the medicine cabinet. Assessment Summary Assessment t Passive R shoulder flexion is 125 deg's. Active ext is 55 deg's bilaterally (Normal). Active IR is L1 right, T6 left. Active sitting AB is 55 R, 155 L. Pt ROM is limited primarily due to lack of strength. Physical Therapy Plan Frequency and Duration Frequency of Treatment 2x/Week Duration of Treatment 1 month Plan of Care Start Date 07/04/17 Plan of Care End Date 09/23/17 Therapeutic Interventions Therapeutic Interventions Home Exercise Program Manual Therapy Neuromuscular Re-education Patient/Caregiver Education Self-Care/Home Management Soft Tissue Mobilization Therapeutic Exercises Modalities Cold Pack/Ice Massage Hot Packs Next Visit Focus/Plan Next Note Type Treatment Note Next Visit Plan Remeasure AROM/PROM. Increase UBE time. Progress towards FROM and improve strength. No restrictions, except protocol states no long lever-arm ex, no ABD or impingement positions. Maximize motion & strength.
--- NOTE | 2017-09-16 12:24 | PT.OTN ---
Current Diagnoses Displaced fracture of greater tuberosity of right humerus, initial encounter for closed fracture (09/16/17) Fracture of right shoulder girdle, part unspecified, initial encounter for closed fracture (09/16/17) Physical Therapy Treatment Note PT-OP-A Visit Information Start: 07/04/17 13:07 Freq: Status: Active Protocol: Document 09/16/17 11:15 LRN (Rec: 09/16/17 12:22 LRN [id number]) Out-Patient Physical Therapy Visit Information Visit Information Visit Type Treatment Note Visit Note Visit Start Time 11:15 Visit Stop Time 12:10 Total Visit Minutes 55 Visit Number 14 Number of ROADABILITY MACHINE OPERATOR Visits 0 Evaluation Information Evaluation Date 07/04/17 PT-OP-B Current Condition Start: 07/04/17 13:07 Freq: Status: Active Protocol: Document 09/16/17 11:15 LRN (Rec: 09/16/17 12:24 LRN [id number]) Current Condition History of Current Condition Onset Date 04/27/2107 Current Complaints Can't use arm to drive, curl hair, or reach top shelfs in bathroom/kitchen. History of Current Condition Pt reports tripping on a footstool resulting in a fracture of her R shoulder. She underwent an ORIF of the R proximal humerus due to fracture. She states she has been in a sling for 6 weeks and has been out of the sling for 1 week. New referral of received 09/16/17 to continue PT 6 weeks for ROM & strengthening. Treatment Goals Patient/Caregiver Goals Pt goal is to 1) be able to drive, 2) Lift the R arm to curl her hair, 3) Reach for items in the top shelf of her closet and cuboards for cups. PT-OP-C Subjective Start: 07/04/17 13:07 Freq: Status: Active Protocol: Document 09/16/17 11:15 LRN (Rec: 09/16/17 12:22 LRN [id number]) OP-PT Subjective Patient Comments Patient Comments Saw 6 days ago and was told everything looked good, and she needs to get strength and motion. PT-OP-F Manual Assessment Start: 07/04/17 13:07 Freq: Status: Active Protocol: Document 07/04/17 12:50 LRN (Rec: 07/07/17 17:30 LRN [id number]) Manual Assessments Soft Tissue Assessment Soft Tissue Mobility Assessment Muscle guarding is present in the R upper shoulder. PT-OP-H Neuro Start: 07/04/17 13:07 Freq: Status: Active Protocol: Document 07/04/17 12:50 LRN (Rec: 07/07/17 17:30 LRN [id number]) Sensation Evaluation Gross Sensation Gross Sensation WNL PT-OP-J Posture/Palpation/Skin Start: 07/04/17 13:07 Freq: Status: Active Protocol: Document 07/04/17 12:50 LRN (Rec: 07/07/17 17:30 LRN [id number]) Posture Evaluation Position Standing Evaluation View Posterior Head/C-Spine Posture Side Bent Right Forward Head T-Spine Posture Flattened L-Spine Posture Increased Lordosis Shoulder Posture (R) Elevated Scapula Posture (R) Rotated Up (R) Elevated Skin Assessment Other Assessments Skin Assessment Comments Thin and fragile in UE. PT-OP-K Range of Motion Start: 07/04/17 13:07 Freq: Status: Active Protocol: Document 09/16/17 11:15 LRN (Rec: 09/16/17 12:22 LRN [id number]) Shoulder Goniometric Range of Motion Shoulder Measured in Degrees Left Passive Testing Position Supine Flexion 165 Abduction 115 External Rotation at 90 degrees 83 Abduction Internal Rotation 75 Right Passive Testing Position Supine Flexion 150 Abduction 120 External Rotation at 90 degrees 67 Abduction Internal Rotation 57 Left Testing Position Supine Flexion 160 Abduction 100 External Rotation at 90 degrees 75 Abduction Internal Rotation 80 Right Testing Position Supine Flexion 137 Abduction 80 External Rotation at 90 degrees 50 Abduction Internal Rotation 50 Shoulder ROM Limitations Shoulder ROM Limitations Pain Comments Sitting: R shoulder PROM: Flexion- - 148 deg's. ABD - 150 deg's. PT-OP-Q Treatments Start: 07/04/17 13:07 Freq: Status: Active Protocol: Document 09/16/17 11:15 LRN (Rec: 09/16/17 12:22 LRN [id number]) Cardio Equipment Upper Body Ergometer (UBE) Duration (Minutes) 10 Seat Position 8 Height 5 Other Foot blocks forward Therapeutic Exercises Supine Exercises 6 Supine Exercise Name AROM shoulder flex/AB Side right Reps/Minutes 10x each Comments 45 deg's inclined 4 Supine Exercise Name AAROM of R shoulder: Flex, ER, IR Side right Reps/Minutes 10 x2 each Comments Extra time for ROM measurements 1 Supine Exercise Name PROM R shoulder : Flex, ER, IR , AB Side right Comments Also ROM measurements Sitting Exercises 6 Sitting Exercise Name Chest press using elvia to maintain 90 deg's shoulder flex Side bilateral Reps/Minutes 10x3 5 Sitting Exercise Name Shoulder flexion with elvia Side right Equipment Used Elvia Reps/Minutes 10 Comments Holding 30 sec's each Standing Exercises 4 Standing Exercise Name Wall slide with towel Side right Reps/Minutes 10 x 3 Comments L arm to assist 3 Standing Exercise Name Scapular retraction/shoulder ext with T-Band Side bilateral Resistance Lev 1 T-Band Reps/Minutes 10 x 3 Manual Therapy Treatment Joint Mobilizations 1 Joint R GHJ Direction Inferior during AB Grade II Body Position Supine Reps/Duration 2' Manual Techniques 1 Type Circumduction R shoulder Body Location R shoulder Body Position Supine Reps/Duration 2' PT-OP-R Modalities Start: 07/04/17 13:07 Freq: Status: Active Protocol: Document 09/16/17 11:15 LRN (Rec: 09/16/17 12:22 LRN [id number]) Hot Pack/Cold Pack Treatment Cold Pack Location R Shoulder Patient Position Hooklying Treatment Duration (minutes) 10 Comments Post therapy PT-OP-T Assessment and Plan Start: 07/04/17 13:07 Freq: Status: Active Protocol: Document 09/16/17 11:15 LRN (Rec: 09/16/17 12:22 LRN [id number]) Physical Therapy Assessment Goals Four Impairment Pt is not on an independent home program. Care Home Goal (LTG) Pt will be independent on a Home exercise/self care program. LTG Duration 1 month (09/23/17) Three Impairment R arm edema with protective posturing STG Duration Goal met Two Impairment Decreased UE strength Care Home Goal (LTG) Pt will be able to lift & hold her R arm to wash underneath, washing face & pour coffee with mild difficulty. LTG Duration 1 month (09/23/17) One Impairment Decreased R shoulder ROM Short Term Goal (STG) Pt able to reach into upper cupboards with improved R shoulder mobility. STG Duration 1 month (09/23/17) Electroformer Goal (LTG) Improve R shoulder ROM such that patient will be able to perform hair care with mild difficulty. LTG Duration 1 month (09/23/17) Assessment Summary Assessment Pt is 14+ weeks s/p ORIF for proximal humeral fracture. R shoulder ROM is slowly improving as expected. Strength is also slowly improving as expected. Physical Therapy Plan Frequency and Duration Frequency of Treatment 2x/Week Duration of Treatment 1 month Plan of Care Start Date 07/04/17 Plan of Care End Date 09/23/17 Next Visit Focus/Plan Next Note Type Treatment Note Next Visit Plan Progress towards FROM and improve strength for functional positions. No restrictions, except protocol states no long lever-arm ex, no ABD or impingement positions. Maximize motion & strength.
--- NOTE | 2017-09-18 12:40 | PT.OTN ---
Current Diagnoses Displaced fracture of greater tuberosity of right humerus, initial encounter for closed fracture (09/18/17) Fracture of right shoulder girdle, part unspecified, initial encounter for closed fracture (09/18/17) Physical Therapy Treatment Note PT-OP-A Visit Information Start: 07/04/17 13:07 Freq: Status: Active Protocol: Document 09/18/17 11:18 LRN (Rec: 09/18/17 12:21 LRN [id number]) Out-Patient Physical Therapy Visit Information Visit Information Visit Type Treatment Note Visit Note Visit Start Time : Visit Stop Time 12:13 Total Visit Minutes 55 Visit Number 15 Number of SUPERVISOR PIT AND AUXILIARIES Visits 0 Evaluation Information Evaluation Date 07/04/17 PT-OP-B Current Condition Start: 07/04/17 13:07 Freq: Status: Active Protocol: Document 09/16/17 11:15 LRN (Rec: 09/16/17 12:24 LRN [id number]) Current Condition History of Current Condition Onset Date 04/27/2107 Current Complaints Can't use arm to drive, curl hair, or reach top shelfs in bathroom/kitchen. History of Current Condition Pt reports tripping on a footstool resulting in a fracture of her R shoulder. She underwent an ORIF of the R proximal humerus due to fracture. She states she has been in a sling for 6 weeks and has been out of the sling for 1 week. New referral of received 09/16/17 to continue PT 6 weeks for ROM & strengthening. Treatment Goals Patient/Caregiver Goals Pt goal is to 1) be able to drive, 2) Lift the R arm to curl her hair, 3) Reach for items in the top shelf of her closet and cupboards for cups. PT-OP-C Subjective Start: 07/04/17 13:07 Freq: Status: Active Protocol: Document 09/18/17 11:18 LRN (Rec: 09/18/17 12:21 LRN [id number]) OP-PT Subjective Patient Comments Patient Comments Doesn't hurt to reach up, feels stretching. PT-OP-F Manual Assessment Start: 07/04/17 13:07 Freq: Status: Active Protocol: Document 07/04/17 12:50 LRN (Rec: 05/14/18 17:30 LRN [id number]) Manual Assessments Soft Tissue Assessment Soft Tissue Mobility Assessment Muscle guarding is present in the R upper shoulder. PT-OP-H Neuro Start: 07/04/17 13:07 Freq: Status: Active Protocol: Document 07/04/17 12:50 LRN (Rec: 07/07/17 17:30 LRN [id number]) Sensation Evaluation Gross Sensation Gross Sensation WNL PT-OP-J Posture/Palpation/Skin Start: 07/04/17 13:07 Freq: Status: Active Protocol: Document 07/04/17 12:50 LRN (Rec: 07/07/17 17:30 LRN [id number]) Posture Evaluation Position Standing Evaluation View Posterior Head/C-Spine Posture Side Bent Right Forward Head T-Spine Posture Flattened L-Spine Posture Increased Lordosis Shoulder Posture (R) Elevated Scapula Posture (R) Rotated Up (R) Elevated Skin Assessment Other Assessments Skin Assessment Comments Thin and fragile in UE. PT-OP-K Range of Motion Start: 07/04/17 13:07 Freq: Status: Active Protocol: Document 09/16/17 11:15 LRN (Rec: 09/16/17 12:22 LRN [id number]) Shoulder Goniometric Range of Motion Shoulder Measured in Degrees Left Passive Testing Position Supine Flexion 165 Abduction 115 External Rotation at 90 degrees 83 Abduction Internal Rotation 75 Right Passive Testing Position Supine Flexion 150 Abduction 120 External Rotation at 90 degrees 67 Abduction Internal Rotation 57 Left Testing Position Supine Flexion 160 Abduction 100 External Rotation at 90 degrees 75 Abduction Internal Rotation 80 Right Testing Position Supine Flexion 137 Abduction 80 External Rotation at 90 degrees 50 Abduction Internal Rotation 50 Shoulder ROM Limitations Shoulder ROM Limitations Pain Comments Sitting: R shoulder PROM: Flexion- - 148 deg's. ABD - 150 deg's. PT-OP-Q Treatments Start: 07/04/17 13:07 Freq: Status: Active Protocol: Document 09/18/17 11:18 LRN (Rec: 09/18/17 12:21 LRN [id number]) Cardio Equipment Upper Body Ergometer (UBE) Duration (Minutes) 10 Seat Position 8 Height 6 Other Foot blocks forward Gym Equipment Cable Column (Body Solid) Lat Pull Down Details Stretching flex & strengthening Resistance 10# Therapeutic Exercises Supine Exercises 8 Supine Exercise Name Lat pull down Side bilateral Equipment Used Lev 3 T-Band Reps/Minutes 10x3 7 Supine Exercise Name Chest press & shoulder AB w/ cane Side bilateral Reps/Minutes 10 x 6 Supine Exercise Name AROM shoulder flex/AB Comments Held 4 Supine Exercise Name AAROM of R shoulder: Flex, ER, IR Side right Reps/Minutes 10 x 1 Supine Exercise Name PROM R shoulder : Flex, ER, IR , AB Side right Sidelying Exercises 2 Sidelying Exercise Name Active Shoulder IR Side right 1 Sidelying Exercise Name Active Shoulder ER Side right Sitting Exercises 7 Sitting Exercise Name Shoulder AB stretch with Elvia Side right Reps/Minutes 10x Comments Holding 10 sec 6 Sitting Exercise Name Chest press using elvia to maintain 90 deg's shoulder flex Comments Held 5 Sitting Exercise Name Shoulder flexion with elvia Side right Equipment Used Elvia Reps/Minutes 10 Comments Holding 30 sec's each Standing Exercises 4 Standing Exercise Name Wall slide with towel Comments Held 3 Standing Exercise Name Scapular retraction/shoulder ext with T-Band Side bilateral Resistance Lev 1 T-Band Reps/Minutes 10 x 3 Manual Therapy Treatment Joint Mobilizations 1 Joint R GHJ Direction Inferior during AB Grade II Body Position Supine Reps/Duration 2' Manual Techniques 1 Type Circumduction R shoulder Body Location R shoulder Body Position Supine Reps/Duration 2' Self-Care/Home Management Treatment Activities Self-Care/Home Management Activities Encouraged pt to practice overhead reaching. PT-OP-R Modalities Start: 07/04/17 13:07 Freq: Status: Active Protocol: Document 09/18/17 11:18 LRN (Rec: 09/18/17 12:21 LRN [id number]) Hot Pack/Cold Pack Treatment Cold Pack Location R Shoulder Patient Position Hooklying Treatment Duration (minutes) 10 Comments Post therapy PT-OP-T Assessment and Plan Start: 07/04/17 13:07 Freq: Status: Active Protocol: Document 09/18/17 11:18 LRN (Rec: 09/18/17 12:21 LRN [id number]) Physical Therapy Assessment Impairments Impairments Activity Tolerance ROM Strength Other Impairments Lacks complete HEP. Goals Four Impairment Pt is not on an independent home program. Group Home Goal (LTG) Pt will be independent on a Home exercise/self care program. LTG Duration 1 month (09/23/17) Three Impairment R arm edema with protective posturing STG Duration Goal met Two Impairment Decreased UE strength Group Home Goal (LTG) Pt will be able to lift & hold her R arm to wash underneath, washing face & pour coffee with mild difficulty. LTG Duration 1 month (09/23/17) One Impairment Decreased R shoulder ROM Short Term Goal (STG) Pt able to reach into upper cupboards with improved R shoulder mobility. STG Duration 1 month (09/23/17) Paramedical Aide Goal (LTG) Improve R shoulder ROM such that patient will be able to perform hair care with mild difficulty. LTG Duration 1 month (09/23/17) Assessment Summary Assessment Pt is 14+ weeks s/p ORIF for proximal humeral fracture. R shoulder ROM is slowly improving as expected. Strength is also slowly improving as expected. Physical Therapy Plan Frequency and Duration Frequency of Treatment 2x/Week Duration of Treatment 1 month Plan of Care Start Date 07/04/17 Plan of Care End Date 09/23/17 Next Visit Focus/Plan Next Note Type Treatment Note Next Visit Plan Check pt's ability for hair care and bathing. Progress towards FROM and improve strength for functional positions. No restrictions, except protocol states no long lever-arm ex, no ABD or impingement positions. Maximize motion & strength.
--- NOTE | 2017-10-14 15:13 | PT.OTN ---
Current Diagnoses Displaced fracture of greater tuberosity of right humerus, initial encounter for closed fracture (10/14/17) Fracture of right shoulder girdle, part unspecified, initial encounter for closed fracture (10/14/17) Physical Therapy Treatment Note PT-OP-A Visit Information Start: 07/04/17 13:07 Freq: Status: Active Protocol: Document 10/14/17 13:30 LRN (Rec: 10/14/17 15:11 LRN [id number]) Out-Patient Physical Therapy Visit Information Visit Information Visit Type Progress Note Visit Note Visit Start Time 13:30 Visit Stop Time 14:25 Total Visit Minutes 55 Visit Number 16 Number of BI LEAD Visits 0 Evaluation Information Evaluation Date 07/04/17 PT-OP-B Current Condition Start: 07/04/17 13:07 Freq: Status: Active Protocol: Document 09/16/17 11:15 LRN (Rec: 09/16/17 12:24 LRN [id number]) Current Condition History of Current Condition Onset Date 04/27/2107 Current Complaints Can't use arm to drive, curl hair, or reach top shelfs in bathroom/kitchen. History of Current Condition Pt reports tripping on a footstool resulting in a fracture of her R shoulder. She underwent an ORIF of the R proximal humerus due to fracture. She states she has been in a sling for 6 weeks and has been out of the sling for 1 week. New referral of received 09/16/17 to continue PT 6 weeks for ROM & strengthening. Treatment Goals Patient/Caregiver Goals Pt goal is to 1) be able to drive, 2) Lift the R arm to curl her hair, 3) Reach for items in the top shelf of her closet and cuboards for cups. PT-OP-C Subjective Start: 07/04/17 13:07 Freq: Status: Active Protocol: Document 10/14/17 13:30 LRN (Rec: 10/14/17 15:11 LRN [id number]) OP-PT Subjective Patient Comments Patient Comments Not able to reach up. Can hold a book and sign her name from a table, can wash her hair if she leans over. Doing ex's at home. Supposed to see MD in 3 days. Willing to move it until after therapy program. PT-OP-F Manual Assessment Start: 07/04/17 13:07 Freq: Status: Active Protocol: Document 07/04/17 12:50 LRN (Rec: 07/07/17 17:30 LRN [id number]) Manual Assessments Soft Tissue Assessment Soft Tissue Mobility Assessment Muscle guarding is present in the R upper shoulder. PT-OP-H Neuro Start: 07/04/17 13:07 Freq: Status: Active Protocol: Document 07/04/17 12:50 LRN (Rec: 07/07/17 17:30 LRN [id number]) Sensation Evaluation Gross Sensation Gross Sensation WNL PT-OP-J Posture/Palpation/Skin Start: 07/04/17 13:07 Freq: Status: Active Protocol: Document 07/04/17 12:50 LRN (Rec: 07/07/17 17:30 LRN [id number]) Posture Evaluation Position Standing Evaluation View Posterior Head/C-Spine Posture Side Bent Right Forward Head T-Spine Posture Flattened L-Spine Posture Increased Lordosis Shoulder Posture (R) Elevated Scapula Posture (R) Rotated Up (R) Elevated Skin Assessment Other Assessments Skin Assessment Comments Thin and fragile in UE. PT-OP-K Range of Motion Start: 07/04/17 13:07 Freq: Status: Active Protocol: Document 10/14/17 13:30 LRN (Rec: 10/14/17 15:11 LRN [id number]) Shoulder Goniometric Range of Motion Shoulder Measured in Degrees Left Passive Testing Position Supine Flexion 140 Abduction 140 External Rotation at 90 degrees 83 Abduction Internal Rotation 65 Right Passive Testing Position Supine Flexion 130 Abduction 120 External Rotation at 90 degrees 60 Abduction Internal Rotation 40 Right Testing Position Supine Flexion 50 Abduction 73 Shoulder ROM Limitations Shoulder ROM Limitations Muscle Weakness Comments Sitting: R shoulder AROM: Flex - 47 deg's. AB - 50 deg's. (L shoulder AROM Flex & AB 145 deg's). PT-OP-Q Treatments Start: 07/04/17 13:07 Freq: Status: Active Protocol: Document 10/14/17 13:30 LRN (Rec: 10/14/17 15:11 LRN [id number]) Cardio Equipment Upper Body Ergometer (UBE) Duration (Minutes) 10 Seat Position 8 Height 6 Other Foot blocks forward Therapeutic Exercises Supine Exercises 6 Supine Exercise Name AAROM shoulder flex/AB Side right Reps/Minutes 10 x 2 4 Supine Exercise Name AAROM of R shoulder: ER, IR Side right Reps/Minutes 10 x 2 Comments Extra time for ROM measurements 1 Supine Exercise Name PROM R shoulder : Flex, ER, IR , AB Side right Sitting Exercises 7 Sitting Exercise Name Shoulder AB stretch with Dylan Side right 5 Sitting Exercise Name Shoulder flexion Side right Self-Care/Home Management Treatment Education Patient Education Home Exercise Program Activities Self-Care/Home Management Activities Issued and reviewed: AROM and strengthening of shoulder Flex , AB, ER, IR. PT-OP-R Modalities Start: 07/04/17 13:07 Freq: Status: Active Protocol: Document 10/14/17 13:30 LRN (Rec: 10/14/17 15:11 LRN [id number]) Hot Pack/Cold Pack Treatment Cold Pack Location R Shoulder Patient Position Hooklying Treatment Duration (minutes) 10 Comments Post therapy PT-OP-T Assessment and Plan Start: 07/04/17 13:07 Freq: Status: Active Protocol: Document 10/14/17 13:30 LRN (Rec: 10/14/17 15:11 LRN [id number]) Physical Therapy Assessment Rehab Potential Rehabilitation Potential Good Evaluation Complexity Number of Personal Factors/Comorbidities 1-2 Number of Body Systems Impaired 4 or More Clinical Presentation at Evaluation Evolving Impairments Impairments Activity Tolerance ROM Strength Other Impairments Lacks complete HEP. Other Concerns Age Related Concerns Age, over 80 Require HEP of large print with picture Comorbidity of Osteoporosis Goals Four Impairment Pt is not on an independent home program. Bee Breeder Goal (LTG) Pt will be independent on a Home exercise/self care program. LTG Duration (11/21/17) Three Impairment R arm edema with protective posturing STG Duration Goal met Two Impairment Decreased UE strength Nursing Home Goal (LTG) Pt will be able to lift & hold her R arm to wash underneath, washing face & pour coffee with mild difficulty. LTG Duration (11/21/17) One Impairment Decreased R shoulder ROM Short Term Goal (STG) Pt able to reach into upper cupboards with improved R shoulder mobility. STG Duration 1 month (11/21/17) Bee Breeder Goal (LTG) Improve R shoulder ROM such that patient will be able to perform hair care with mild difficulty. LTG Duration (11/21/17) Assessment Summary Assessment The pt is ~18+ weeks s/p ORIF for a proximal humeral fracture and has not been able to be seen for the strengthening portion of her physical therapy program on a consistent basis due to scheduling difficulties. She would like to try 4 more weeks of therapy for strengthening to see if she can improve her functional ability of the R arm. Today she presents with weakness in her R arm and some decline in her shoulder ROM. I feel seeing the pt for another 4 weeks to focus on strengthening is appropriate. The pt will be transitioned to a home strengthening program at the end of that time period with plans of discharge to the [facility]. Physical Therapy Plan Frequency and Duration Frequency of Treatment 2x/Week Plan of Care Start Date 07/04/17 Plan of Care End Date 11/21/17 Therapeutic Interventions Therapeutic Interventions Home Exercise Program Manual Therapy Neuromuscular Re-education Patient/Caregiver Education Self-Care/Home Management Soft Tissue Mobilization Therapeutic Exercises Modalities Cold Pack/Ice Massage Hot Packs Next Visit Focus/Plan Next Visit Plan Progress strength in the next 4 weeks to improve functional use of the R UE, ROM is secondary.
--- NOTE | 2017-10-14 15:14 | PT.OPPOC ---
Current Diagnoses Displaced fracture of greater tuberosity of right humerus, initial encounter for closed fracture (10/14/17) Fracture of right shoulder girdle, part unspecified, initial encounter for closed fracture (10/14/17) Provider Visit Care Team Role Provider Type Bernabe Baez MD Family Provider Physician Primary Care Provider Specialty: Family Practice Address: [address] [place] [address], [id number] Email: [email or web address] Jang MD Attending Provider Physician Referring Provider Specialty: Orthopedic Surgery Address: [address] [place] [address], [id number] Email: [email or web address] Plan Of Care PT-OP-T Assessment and Plan Start: 07/04/17 13:07 Freq: Status: Active Protocol: Document 10/14/17 13:30 LRN (Rec: 10/14/17 15:11 LRN [id number]) Physical Therapy Assessment Rehab Potential Rehabilitation Potential Good Evaluation Complexity Number of Personal Factors/Comorbidities 1-2 Number of Body Systems Impaired 4 or More Clinical Presentation at Evaluation Evolving Impairments Impairments Activity Tolerance ROM Strength Other Impairments Lacks complete HEP. Other Concerns Age Related Concerns Age, over 80 Require HEP of large print with picture Comorbidity of Osteoporosis Goals Four Impairment Pt is not on an independent home program. Senior Care Goal (LTG) Pt will be independent on a Home exercise/self care program. LTG Duration (11/21/17) Three Impairment R arm edema with protective posturing STG Duration Goal met Two Impairment Decreased UE strength Senior Care Goal (LTG) Pt will be able to lift & hold her R arm to wash underneath, washing face & pour coffee with mild difficulty. LTG Duration (11/21/17) One Impairment Decreased R shoulder ROM Short Term Goal (STG) Pt able to reach into upper cupboards with improved R shoulder mobility. 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 LTG Duration (11/21/17) Assessment Summary Assessment The pt is ~18+ weeks s/p ORIF for a proximal humeral fracture and has not been able to be seen for the strengthening portion of her physical therapy program on a consistent basis due to scheduling difficulties. She would like to try 4 more weeks of therapy for strengthening to see if she can improve her functional ability of the R arm. Today she presents with weakness in her R arm and some decline in her shoulder ROM. I feel seeing the pt for another 4 weeks to focus on strengthening is appropriate. The pt will be transitioned to a home strengthening program at the end of that time period with plans of discharge to the [facility]. Physical Therapy Plan Frequency and Duration Frequency of Treatment 2x/Week Plan of Care Start Date 07/04/17 Plan of Care End Date 11/21/17 Therapeutic Interventions Therapeutic Interventions Home Exercise Program Manual Therapy Neuromuscular Re-education Patient/Caregiver Education Self-Care/Home Management Soft Tissue Mobilization Therapeutic Exercises Modalities Cold Pack/Ice Massage Hot Packs Next Visit Focus/Plan Next Visit Plan Progress strength in the next 4 weeks to improve functional use of the R UE, ROM is secondary. Plan of Care Dates Plan of Care Start Date 07/04/17 Plan of Care End Date 11/21/17 Please Sign and Return: I have reviewed this Plan of Care and certify that the skilled therapy services above are required to meet the patient?s needs. Physician Signature Date Printed Name and Credentials Clinical Instructor Signature Printed Name and Credentials
--- NOTE | 2017-10-17 12:48 | PT.OTN ---
Current Diagnoses Displaced fracture of greater tuberosity of right humerus, initial encounter for closed fracture (10/17/17) Fracture of right shoulder girdle, part unspecified, initial encounter for closed fracture (10/17/17) Physical Therapy Treatment Note PT-OP-A Visit Information Start: 07/04/17 13:07 Freq: Status: Active Protocol: Document 10/17/17 08:58 LRN (Rec: 10/17/17 09:45 LRN [id number]) Out-Patient Physical Therapy Visit Information Visit Information Visit Type Treatment Note Visit Note 03/05 since last PN Visit Start Time 08:58 Visit Stop Time 09:50 Total Visit Minutes 52 Visit Number 17 Number of SUPPLY CHAIN LOGISTICS MANAGER Visits 0 Evaluation Information Evaluation Date 07/04/17 PT-OP-B Current Condition Start: 07/04/17 13:07 Freq: Status: Active Protocol: Document 09/16/17 11:15 LRN (Rec: 09/16/17 12:24 LRN [id number]) Current Condition History of Current Condition Onset Date 04/27/2107 Current Complaints Can't use arm to drive, curl hair, or reach top shelfs in bathroom/kitchen. History of Current Condition Pt reports tripping on a footstool resulting in a fracture of her R shoulder. She underwent an ORIF of the R proximal humerus due to fracture. She states she has been in a sling for 6 weeks and has been out of the sling for 1 week. New referral of received 09/16/17 to continue PT 6 weeks for ROM & strengthening. Treatment Goals Patient/Caregiver Goals Pt goal is to 1) be able to drive, 2) Lift the R arm to curl her hair, 3) Reach for items in the top shelf of her closet and cuboards for cups. PT-OP-C Subjective Start: 07/04/17 13:07 Freq: Status: Active Protocol: Document 10/17/17 08:58 LRN (Rec: 10/17/17 09:45 LRN [id number]) OP-PT Subjective Patient Comments Patient Comments Same, tired today. PT-OP-F Manual Assessment Start: 07/04/17 13:07 Freq: Status: Active Protocol: Document 07/04/17 12:50 LRN (Rec: 07/07/17 17:30 LRN [id number]) Manual Assessments Soft Tissue Assessment Soft Tissue Mobility Assessment Muscle guarding is present in the R upper shoulder. PT-OP-H Neuro Start: 07/04/17 13:07 Freq: Status: Active Protocol: Document 07/04/17 12:50 LRN (Rec: 07/07/17 17:30 LRN [id number]) Sensation Evaluation Gross Sensation Gross Sensation WNL PT-OP-J Posture/Palpation/Skin Start: 07/04/17 13:07 Freq: Status: Active Protocol: Document 07/04/17 12:50 LRN (Rec: 07/07/17 17:30 LRN [id number]) Posture Evaluation Position Standing Evaluation View Posterior Head/C-Spine Posture Side Bent Right Forward Head T-Spine Posture Flattened L-Spine Posture Increased Lordosis Shoulder Posture (R) Elevated Scapula Posture (R) Rotated Up (R) Elevated Skin Assessment Other Assessments Skin Assessment Comments Thin and fragile in UE. PT-OP-K Range of Motion Start: 07/04/17 13:07 Freq: Status: Active Protocol: Document 10/14/17 13:30 LRN (Rec: 10/14/17 15:11 LRN [id number]) Shoulder Goniometric Range of Motion Shoulder Measured in Degrees Left Passive Testing Position Supine Flexion 140 Abduction 140 External Rotation at 90 degrees 83 Abduction Internal Rotation 65 Right Passive Testing Position Supine Flexion 130 Abduction 120 External Rotation at 90 degrees 60 Abduction Internal Rotation 40 Right Testing Position Supine Flexion 50 Abduction 73 Shoulder ROM Limitations Shoulder ROM Limitations Muscle Weakness Comments Sitting: R shoulder AROM: Flex - 47 deg's. AB - 50 deg's. (L shoulder AROM Flex & AB 145 deg's). PT-OP-Q Treatments Start: 07/04/17 13:07 Freq: Status: Active Protocol: Document 10/17/17 08:58 LRN (Rec: 10/17/17 09:45 LRN [id number]) Cardio Equipment Upper Body Ergometer (UBE) Duration (Minutes) 10 RPM 70 Seat Position 6 Height 6.5 Other Foot blocks. Fwd/Bkwd 5' each Gym Equipment Cable Column (Body Solid) Lat Pull Down Details Stretching flex & strengthening Reps/Time 0 Therapeutic Exercises Supine Exercises 8 Supine Exercise Name Lat pull down Side bilateral Equipment Used Lev 3 T-Band Reps/Minutes 10x3 7 Supine Exercise Name Chest press Side bilateral Reps/Minutes 10 x 6 Supine Exercise Name AAROM shoulder flex/AB Reps/Minutes 0 4 Supine Exercise Name AAROM of R shoulder: ER, IR Reps/Minutes 0 1 Supine Exercise Name PROM R shoulder : Flex, ER, IR , AB Reps/Minutes 0 Comments Also ROM measurements Sidelying Exercises 2 Sidelying Exercise Name Active Shoulder IR Side right Reps/Minutes 0 1 Sidelying Exercise Name Active Shoulder ER Side right Reps/Minutes 0 Sitting Exercises 7 Sitting Exercise Name Shoulder AB with scapular pinches Side bilateral Reps/Minutes 10x 6 Sitting Exercise Name Chest press using elvia to maintain 90 deg's shoulder flex Side bilateral Reps/Minutes 10x3 5 Sitting Exercise Name Shoulder flexion Side right Reps/Minutes 0 4 Sitting Exercise Name Scapular Depression Side bilateral Reps/Minutes 0 Standing Exercises 6 Standing Exercise Name Shoulder Horiz AD, reaching under underarm Side bilateral Resistance 0 Reps/Minutes 20x 5 Standing Exercise Name Elbow curls Side right Resistance 2# Equipment Used Hand Weight Reps/Minutes 10x3 Comments Forearm sup/pron 4 Standing Exercise Name Window slides with towel Side right Resistance none Equipment Used towel Reps/Minutes 5-10x2 each Comments up/down, side to side, circles 3 Standing Exercise Name Scapular retraction/shoulder ext with T-Band Side bilateral Resistance Lev 1 T-Band Reps/Minutes 10 x 3 2 Standing Exercise Name Active Shoulder ext Resistance T-Band Lev 1 Reps/Minutes 0 PT-OP-R Modalities Start: 07/04/17 13:07 Freq: Status: Active Protocol: Document 10/17/17 08:58 LRN (Rec: 10/17/17 12:37 LRN [id number]) Hot Pack/Cold Pack Treatment Cold Pack Location R Shoulder Patient Position Hooklying Treatment Duration (minutes) 10 Comments Post therapy PT-OP-T Assessment and Plan Start: 07/04/17 13:07 Freq: Status: Active Protocol: Document 10/17/17 08:58 LRN (Rec: 10/17/17 09:45 LRN [id number]) Physical Therapy Assessment Goals Four Impairment Pt is not on an independent home program. Chisel Worker Goal (LTG) Pt will be independent on a Home exercise/self care program. LTG Duration (11/21/17) Three Impairment R arm edema with protective posturing STG Duration Goal met Two Impairment Decreased UE strength [facility] Goal (LTG) Pt will be able to lift & hold her R arm to wash underneath, washing face & pour coffee with mild difficulty. LTG Duration (11/21/17) One Impairment Decreased R shoulder ROM Short Term Goal (STG) Pt able to reach into upper cupboards with improved R shoulder mobility. 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 LTG Duration (11/21/17) Progress Towards Goals Progress Comments Pt able to reach under arm with right hand but weakly. Needs strengthening for pouring coffee. Assessment Summary Assessment The pt is ~18+ weeks s/p ORIF for a proximal humeral fracture and has not been able to be seen for the strengthening portion of her physical therapy program on a consistent basis due to scheduling difficulties. She would like to try 4 more weeks of therapy for strengthening to see if she can improve her functional ability of the R arm. Today she presents with weakness in her R arm and some decline in her shoulder ROM. I feel seeing the pt for another 4 weeks to focus on strengthening is appropriate. The pt will be transitioned to a home strengthening program at the end of that time period with plans of discharge to the [facility]. Pt is able to reach under her arm with the RUE, but is weak. Physical Therapy Plan Frequency and Duration Frequency of Treatment 2x/Week Plan of Care Start Date 07/04/17 Plan of Care End Date 11/21/17 Therapeutic Interventions Therapeutic Interventions Home Exercise Program Manual Therapy Neuromuscular Re-education Patient/Caregiver Education Self-Care/Home Management Soft Tissue Mobilization Therapeutic Exercises Modalities Cold Pack/Ice Massage Hot Packs Next Visit Focus/Plan Next Note Type Treatment Note Next Visit Plan Progress strength in the next 4 weeks to improve functional use of the R UE, ROM is secondary.
--- NOTE | 2017-10-21 14:33 | PT.OTN ---
Current Diagnoses Displaced fracture of greater tuberosity of right humerus, initial encounter for closed fracture (10/21/17) Fracture of right shoulder girdle, part unspecified, initial encounter for closed fracture (10/21/17) Physical Therapy Treatment Note PT-OP-A Visit Information Start: 07/04/17 13:07 Freq: Status: Active Protocol: Document 10/21/17 10:33 LRN (Rec: 10/21/17 11:15 LRN [id number]) Out-Patient Physical Therapy Visit Information Visit Information Visit Type Treatment Note Visit Note 04/05 since last PN Visit Start Time 10:33 Visit Stop Time 11:25 Total Visit Minutes 52 Visit Number 18 Number of PLANT WORKER Visits 0 Evaluation Information Evaluation Date 07/04/17 PT-OP-B Current Condition Start: 07/04/17 13:07 Freq: Status: Active Protocol: Document 09/16/17 11:15 LRN (Rec: 09/16/17 12:24 LRN [id number]) Current Condition History of Current Condition Onset Date 04/27/2107 Current Complaints Can't use arm to drive, curl hair, or reach top shelfs in bathroom/kitchen. History of Current Condition Pt reports tripping on a footstool resulting in a fracture of her R shoulder. She underwent an ORIF of the R proximal humerus due to fracture. She states she has been in a sling for 6 weeks and has been out of the sling for 1 week. New referral of received 09/16/17 to continue PT 6 weeks for ROM & strengthening. Treatment Goals Patient/Caregiver Goals Pt goal is to 1) be able to drive, 2) Lift the R arm to curl her hair, 3) Reach for items in the top shelf of her closet and cuboards for cups. PT-OP-C Subjective Start: 07/04/17 13:07 Freq: Status: Active Protocol: Document 10/21/17 10:33 LRN (Rec: 10/21/17 11:15 LRN [id number]) OP-PT Subjective Patient Comments Patient Comments Thinks maybe she can reach a little higher. PT-OP-F Manual Assessment Start: 07/04/17 13:07 Freq: Status: Active Protocol: Document 07/04/17 12:50 LRN (Rec: 05/14/18 17:30 LRN [id number]) Manual Assessments Soft Tissue Assessment Soft Tissue Mobility Assessment Muscle guarding is present in the R upper shoulder. PT-OP-H Neuro Start: 07/04/17 13:07 Freq: Status: Active Protocol: Document 07/04/17 12:50 LRN (Rec: 07/07/17 17:30 LRN [id number]) Sensation Evaluation Gross Sensation Gross Sensation WNL PT-OP-J Posture/Palpation/Skin Start: 07/04/17 13:07 Freq: Status: Active Protocol: Document 07/04/17 12:50 LRN (Rec: 07/07/17 17:30 LRN [id number]) Posture Evaluation Position Standing Evaluation View Posterior Head/C-Spine Posture Side Bent Right Forward Head T-Spine Posture Flattened L-Spine Posture Increased Lordosis Shoulder Posture (R) Elevated Scapula Posture (R) Rotated Up (R) Elevated Skin Assessment Other Assessments Skin Assessment Comments Thin and fragile in UE. PT-OP-K Range of Motion Start: 07/04/17 13:07 Freq: Status: Active Protocol: Document 10/14/17 13:30 LRN (Rec: 10/14/17 15:11 LRN [id number]) Shoulder Goniometric Range of Motion Shoulder Measured in Degrees Left Passive Testing Position Supine Flexion 140 Abduction 140 External Rotation at 90 degrees 83 Abduction Internal Rotation 65 Right Passive Testing Position Supine Flexion 130 Abduction 120 External Rotation at 90 degrees 60 Abduction Internal Rotation 40 Right Testing Position Supine Flexion 50 Abduction 73 Shoulder ROM Limitations Shoulder ROM Limitations Muscle Weakness Comments Sitting: R shoulder AROM: Flex - 47 deg's. AB - 50 deg's. (L shoulder AROM Flex & AB 145 deg's). PT-OP-Q Treatments Start: 07/04/17 13:07 Freq: Status: Active Protocol: Document 10/21/17 10:33 LRN (Rec: 10/21/17 11:15 LRN [id number]) Cardio Equipment Upper Body Ergometer (UBE) Duration (Minutes) 10 RPM 70 Seat Position 6 Height 7 Other Foot blocks. Fwd/Bkwd 5' each Therapeutic Exercises Supine Exercises 8 Supine Exercise Name Lat pull down Side bilateral Equipment Used Lev 3 T-Band Reps/Minutes 15x1 7 Supine Exercise Name Chest press Side bilateral Reps/Minutes 10 x 2 6 Supine Exercise Name AAROM shoulder flex/AB Reps/Minutes 0 4 Supine Exercise Name AAROM of R shoulder: ER, IR Reps/Minutes 0 1 Supine Exercise Name PROM R shoulder : Flex, ER, IR , AB Reps/Minutes 0 Comments Also ROM measurements Sidelying Exercises 2 Sidelying Exercise Name Active Shoulder IR Side right Reps/Minutes 0 1 Sidelying Exercise Name Active Shoulder ER Side right Reps/Minutes 10x3 Sitting Exercises 7 Sitting Exercise Name Shoulder AB with scapular pinches Side bilateral Equipment Used Lev 1 T-Band, 1# around R wrist Reps/Minutes 10x1, 10x 2 respectively 6 Sitting Exercise Name Chest press using elvia to maintain 90 deg's shoulder flex Side bilateral Reps/Minutes 0 5 Sitting Exercise Name Shoulder flexion Side right Reps/Minutes 10x Comments With assist Standing Exercises 6 Standing Exercise Name Shoulder Horiz AD, reaching under underarm Side bilateral Resistance T-Band, 1# wrist wgt Equipment Used Lev 1 T-Band, 1# around R wrist Reps/Minutes 20x 5 Standing Exercise Name Elbow curls Side right Resistance 2# Equipment Used Hand Weight Reps/Minutes 10x3 Comments Forearm sup/pron 4 Standing Exercise Name Wall slides with Slider sheetl Side right Resistance none Equipment Used Slider sheet Reps/Minutes 10x3 each Comments up/down, side to side, circles , assist with last 20 reps 3 Standing Exercise Name Scapular retraction/shoulder ext with T-Band Side bilateral Resistance Lev 1 T-Band Reps/Minutes 10 x 3 2 Standing Exercise Name Active Shoulder ext Resistance T-Band Lev 1 Reps/Minutes 0 Manual Therapy Treatment Joint Mobilizations 1 Joint R GHJ Direction Inferior during AB Grade II Body Position Supine Reps/Duration 0 Manual Techniques 1 Type Circumduction R shoulder Body Location R shoulder Body Position Supine Reps/Duration 0' PT-OP-R Modalities Start: 07/04/17 13:07 Freq: Status: Active Protocol: Document 10/21/17 10:33 LRN (Rec: 10/21/17 11:15 LRN [id number]) Hot Pack/Cold Pack Treatment Cold Pack Location R Shoulder Patient Position Hooklying Treatment Duration (minutes) 10 Comments Post therapy PT-OP-T Assessment and Plan Start: 07/04/17 13:07 Freq: Status: Active Protocol: Document 10/21/17 10:33 LRN (Rec: 10/21/17 11:15 LRN [id number]) Physical Therapy Assessment Impairments Impairments Activity Tolerance ROM Strength Other Impairments Lacks complete HEP. Other Concerns Age Related Concerns Age, over 80 Require HEP of large print with picture Comorbidity of Osteoporosis Goals Four Impairment Pt is not on an independent home program. Correction Goal (LTG) Pt will be independent on a Home exercise/self care program. LTG Duration (11/21/17) Three Impairment R arm edema with protective posturing STG Duration Goal met Two Impairment Decreased UE strength Correction Goal (LTG) Pt will be able to lift & hold her R arm to wash underneath, washing face & pour coffee with mild difficulty. LTG Duration (11/21/17) One Impairment Decreased R shoulder ROM Short Term Goal (STG) Pt able to reach into upper cupboards with improved R shoulder mobility. 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 LTG Duration (11/21/17) Progress Towards Goals Progress Comments Pt endurance improved with lifting of R arm. Active range limited. Assessment Summary Assessment Pt is ~19 weeks s/p ORIF for a proximal humeral fracture. Progress home program for strengthening with plans of discharge to the [facility]. Pt is weak with reaching under her arm with the RUE. Physical Therapy Plan Frequency and Duration Frequency of Treatment 2x/Week Plan of Care Start Date 07/04/17 Plan of Care End Date 11/21/17 Therapeutic Interventions Therapeutic Interventions Home Exercise Program Manual Therapy Neuromuscular Re-education Patient/Caregiver Education Self-Care/Home Management Soft Tissue Mobilization Therapeutic Exercises Modalities Cold Pack/Ice Massage Hot Packs Next Visit Focus/Plan Next Note Type Treatment Note Next Visit Plan Progress strength in the next 3 weeks to improve functional use of the R UE, ROM is secondary.
--- NOTE | 2017-10-23 14:33 | PT.OTN ---
Current Diagnoses Displaced fracture of greater tuberosity of right humerus, initial encounter for closed fracture (10/23/17) Fracture of right shoulder girdle, part unspecified, initial encounter for closed fracture (10/23/17) Physical Therapy Treatment Note PT-OP-A Visit Information Start: 07/04/17 13:07 Freq: Status: Active Protocol: Document 10/23/17 13:30 LRN (Rec: 10/23/17 13:50 LRN [id number]) Out-Patient Physical Therapy Visit Information Visit Information Visit Type Treatment Note Visit Note 05/03 since last PN Visit Start Time 13:30 Visit Stop Time 14:30 Total Visit Minutes 60 Visit Number 19 Number of ASSEMBLER SHOW MOTOR Visits 0 Evaluation Information Evaluation Date 07/04/17 PT-OP-B Current Condition Start: 07/04/17 13:07 Freq: Status: Active Protocol: Document 09/16/17 11:15 LRN (Rec: 09/16/17 12:24 LRN [id number]) Current Condition History of Current Condition Onset Date 04/27/2107 Current Complaints Can't use arm to drive, curl hair, or reach top shelfs in bathroom/kitchen. History of Current Condition Pt reports tripping on a footstool resulting in a fracture of her R shoulder. She underwent an ORIF of the R proximal humerus due to fracture. She states she has been in a sling for 6 weeks and has been out of the sling for 1 week. New referral of received 09/16/17 to continue PT 6 weeks for ROM & strengthening. Treatment Goals Patient/Caregiver Goals Pt goal is to 1) be able to drive, 2) Lift the R arm to curl her hair, 3) Reach for items in the top shelf of her closet and cuboards for cups. PT-OP-C Subjective Start: 07/04/17 13:07 Freq: Status: Active Protocol: Document 10/23/17 13:30 LRN (Rec: 10/23/17 13:50 LRN [id number]) OP-PT Subjective Patient Comments Patient Comments Doing HEP. PT-OP-F Manual Assessment Start: 07/04/17 13:07 Freq: Status: Active Protocol: Document 07/04/17 12:50 LRN (Rec: 07/07/17 17:30 LRN [id number]) Manual Assessments Soft Tissue Assessment Soft Tissue Mobility Assessment Muscle guarding is present in the R upper shoulder. PT-OP-H Neuro Start: 07/04/17 13:07 Freq: Status: Active Protocol: Document 07/04/17 12:50 LRN (Rec: 07/07/17 17:30 LRN [id number]) Sensation Evaluation Gross Sensation Gross Sensation WNL PT-OP-J Posture/Palpation/Skin Start: 07/04/17 13:07 Freq: Status: Active Protocol: Document 07/04/17 12:50 LRN (Rec: 07/07/17 17:30 LRN [id number]) Posture Evaluation Position Standing Evaluation View Posterior Head/C-Spine Posture Side Bent Right Forward Head T-Spine Posture Flattened L-Spine Posture Increased Lordosis Shoulder Posture (R) Elevated Scapula Posture (R) Rotated Up (R) Elevated Skin Assessment Other Assessments Skin Assessment Comments Thin and fragile in UE. PT-OP-K Range of Motion Start: 07/04/17 13:07 Freq: Status: Active Protocol: Document 10/14/17 13:30 LRN (Rec: 10/14/17 15:11 LRN [id number]) Shoulder Goniometric Range of Motion Shoulder Measured in Degrees Left Passive Testing Position Supine Flexion 140 Abduction 140 External Rotation at 90 degrees 83 Abduction Internal Rotation 65 Right Passive Testing Position Supine Flexion 130 Abduction 120 External Rotation at 90 degrees 60 Abduction Internal Rotation 40 Right Testing Position Supine Flexion 50 Abduction 73 Shoulder ROM Limitations Shoulder ROM Limitations Muscle Weakness Comments Sitting: R shoulder AROM: Flex - 47 deg's. AB - 50 deg's. (L shoulder AROM Flex & AB 145 deg's). PT-OP-Q Treatments Start: 07/04/17 13:07 Freq: Status: Active Protocol: Document 10/23/17 13:30 LRN (Rec: 10/23/17 13:50 LRN [id number]) Cardio Equipment Upper Body Ergometer (UBE) Duration (Minutes) 10 RPM 70 Seat Position 6 Height 7 Other Foot blocks. Fwd/Bkwd 5' each Gym Equipment Cable Column (Body Solid) Lat Pull Down Details s Therapeutic Exercises Supine Exercises 8 Supine Exercise Name Lat pull down Side bilateral Equipment Used Lev 3 T-Band Reps/Minutes 10x1 7 Supine Exercise Name Chest press Side bilateral Reps/Minutes 0 6 Supine Exercise Name AAROM shoulder flex/AB Reps/Minutes 0 4 Supine Exercise Name AAROM of R shoulder: ER, IR Reps/Minutes 0 1 Supine Exercise Name PROM R shoulder : Flex, ER, IR , AB Reps/Minutes 0 Comments Also ROM measurements Sidelying Exercises 2 Sidelying Exercise Name Active Shoulder IR Side right Resistance 1# Reps/Minutes 30x 1 Sidelying Exercise Name Active Shoulder ER Side right Resistance 1# Reps/Minutes 10x3 Sitting Exercises 7 Sitting Exercise Name Shoulder AB with scapular pinches Side bilateral Equipment Used Lev 1 T-Band, 1# around R wrist Reps/Minutes 10x1, 10x 2 respectively 6 Sitting Exercise Name Chest press using elvia to maintain 90 deg's shoulder flex Side bilateral Reps/Minutes 0 5 Sitting Exercise Name Shoulder flexion Side right Reps/Minutes 0 Standing Exercises 7 Standing Exercise Name Wall push ups Reps/Minutes 10x3 6 Standing Exercise Name Shoulder Horiz AD, reaching under underarm Side bilateral Resistance T-Band, 1# wrist wgt Equipment Used Lev 1 T-Band, 1# around R wrist Reps/Minutes 0 5 Standing Exercise Name Elbow curls Side right Resistance 2#, 3# Equipment Used Hand Weight Reps/Minutes 10x, 10x2 respectively Comments Forearm sup/pron 4 Standing Exercise Name Wall slides with Slider sheetl Side right Resistance none Equipment Used Slider sheet Reps/Minutes 10x3 each Comments up/down, side to side, circles , assist with last 20 reps 3 Standing Exercise Name Scapular retraction/shoulder ext with T-Band Side bilateral Resistance Lev 1 T-Band Reps/Minutes 10 x 3 2 Standing Exercise Name Active Shoulder ext Resistance T-Band Lev 1 Reps/Minutes 0 Manual Therapy Treatment Joint Mobilizations 1 Joint R GHJ Direction Inferior during AB Grade II Body Position Supine Reps/Duration 0 PT-OP-R Modalities Start: 07/04/17 13:07 Freq: Status: Active Protocol: Document 10/23/17 13:30 LRN (Rec: 10/23/17 13:50 LRN [id number]) Hot Pack/Cold Pack Treatment Cold Pack Location R Shoulder Patient Position Hooklying Treatment Duration (minutes) 10 Comments Post therapy PT-OP-T Assessment and Plan Start: 07/04/17 13:07 Freq: Status: Active Protocol: Document 10/23/17 13:30 LRN (Rec: 10/23/17 13:50 LRN [id number]) Physical Therapy Assessment Impairments Impairments Activity Tolerance ROM Strength Other Impairments Lacks complete HEP. Goals Four Impairment Pt is not on an independent home program. Skilled Nursing Goal (LTG) Pt will be independent on a Home exercise/self care program. LTG Duration (11/21/17) Assessment Summary Assessment Pt is ~19 weeks s/p ORIF for a proximal humeral fracture. Progress home program for strengthening with plans of discharge to the [facility]. Pt is weak with lifting her RUE in AB. Physical Therapy Plan Frequency and Duration Frequency of Treatment 2x/Week Plan of Care Start Date 07/04/17 Plan of Care End Date 11/21/17 Next Visit Focus/Plan Next Note Type Treatment Note Next Visit Plan Progress strength in the next 2 weeks to improve functional use of the R UE, ROM is secondary. Practice 80-180 deg AB or Flex lifts with RUE.
--- NOTE | 2017-10-28 14:30 | PT.OTN ---
Current Diagnoses Displaced fracture of greater tuberosity of right humerus, initial encounter for closed fracture (10/28/17) Fracture of right shoulder girdle, part unspecified, initial encounter for closed fracture (10/28/17) Physical Therapy Treatment Note PT-OP-A Visit Information Start: 07/04/17 13:07 Freq: Status: Active Protocol: Document 10/28/17 09:47 LRN (Rec: 10/28/17 10:31 LRN [id number]) Out-Patient Physical Therapy Visit Information Visit Information Visit Type Treatment Note Visit Note 06/03 since last PN Visit Start Time 09:47 Visit Stop Time 10:37 Total Visit Minutes 50 Visit Number 20 Number of EMERGENCY VETERINARY TECHNICIAN Visits 0 Evaluation Information Evaluation Date 07/04/17 PT-OP-B Current Condition Start: 07/04/17 13:07 Freq: Status: Active Protocol: Document 09/16/17 11:15 LRN (Rec: 09/16/17 12:24 LRN [id number]) Current Condition History of Current Condition Onset Date 04/27/2107 Current Complaints Can't use arm to drive, curl hair, or reach top shelfs in bathroom/kitchen. History of Current Condition Pt reports tripping on a footstool resulting in a fracture of her R shoulder. She underwent an ORIF of the R proximal humerus due to fracture. She states she has been in a sling for 6 weeks and has been out of the sling for 1 week. New referral of received 09/16/17 to continue PT 6 weeks for ROM & strengthening. Treatment Goals Patient/Caregiver Goals Pt goal is to 1) be able to drive, 2) Lift the R arm to curl her hair, 3) Reach for items in the top shelf of her closet and cuboards for cups. PT-OP-C Subjective Start: 07/04/17 13:07 Freq: Status: Active Protocol: Document 10/28/17 09:47 LRN (Rec: 10/28/17 10:31 LRN [id number]) OP-PT Subjective Patient Comments Patient Comments Pt is hoping she is better. Thinks she can reach to do her hair more easily, still can't reach top shelves. PT-OP-F Manual Assessment Start: 07/04/17 13:07 Freq: Status: Active Protocol: Document 07/04/17 12:50 LRN (Rec: 07/07/17 17:30 LRN [id number]) Manual Assessments Soft Tissue Assessment Soft Tissue Mobility Assessment Muscle guarding is present in the R upper shoulder. PT-OP-H Neuro Start: 07/04/17 13:07 Freq: Status: Active Protocol: Document 07/04/17 12:50 LRN (Rec: 07/07/17 17:30 LRN [id number]) Sensation Evaluation Gross Sensation Gross Sensation WNL PT-OP-J Posture/Palpation/Skin Start: 07/04/17 13:07 Freq: Status: Active Protocol: Document 07/04/17 12:50 LRN (Rec: 07/07/17 17:30 LRN [id number]) Posture Evaluation Position Standing Evaluation View Posterior Head/C-Spine Posture Side Bent Right Forward Head T-Spine Posture Flattened L-Spine Posture Increased Lordosis Shoulder Posture (R) Elevated Scapula Posture (R) Rotated Up (R) Elevated Skin Assessment Other Assessments Skin Assessment Comments Thin and fragile in UE. PT-OP-K Range of Motion Start: 07/04/17 13:07 Freq: Status: Active Protocol: Document 10/14/17 13:30 LRN (Rec: 10/14/17 15:11 LRN [id number]) Shoulder Goniometric Range of Motion Shoulder Measured in Degrees Left Passive Testing Position Supine Flexion 140 Abduction 140 External Rotation at 90 degrees 83 Abduction Internal Rotation 65 Right Passive Testing Position Supine Flexion 130 Abduction 120 External Rotation at 90 degrees 60 Abduction Internal Rotation 40 Right Testing Position Supine Flexion 50 Abduction 73 Shoulder ROM Limitations Shoulder ROM Limitations Muscle Weakness Comments Sitting: R shoulder AROM: Flex - 47 deg's. AB - 50 deg's. (L shoulder AROM Flex & AB 145 deg's). PT-OP-Q Treatments Start: 07/04/17 13:07 Freq: Status: Active Protocol: Document 10/28/17 09:47 LRN (Rec: 10/28/17 10:31 LRN [id number]) Cardio Equipment Upper Body Ergometer (UBE) Duration (Minutes) 10 RPM 70 Seat Position 6.5 Height 7 Other Foot blocks. Fwd/Bkwd 5' each Therapeutic Exercises Supine Exercises 8 Supine Exercise Name Lat pull down Side bilateral Equipment Used Lev 3 T-Band Reps/Minutes 8x1 7 Supine Exercise Name Chest press Side bilateral Reps/Minutes 0 6 Supine Exercise Name AAROM shoulder flex/AB Reps/Minutes 0 4 Supine Exercise Name AAROM of R shoulder: ER, IR Reps/Minutes 0 1 Supine Exercise Name PROM R shoulder : Flex, ER, IR , AB Reps/Minutes 0 Comments Also ROM measurements Sidelying Exercises 3 Sidelying Exercise Name Shoulder 80-120 deg's AB Side right Reps/Minutes 15 x Comments Assist towards end-range. 2 Sidelying Exercise Name Active Shoulder IR Side right Resistance 1# Reps/Minutes 0 1 Sidelying Exercise Name Active Shoulder ER Side right Resistance 1# Reps/Minutes 0 Sitting Exercises 7 Sitting Exercise Name Shoulder AB with scapular pinches Reps/Minutes 0 6 Sitting Exercise Name Chest press using elvia to maintain 90 deg's shoulder flex Side bilateral Reps/Minutes 15 5 Sitting Exercise Name Shoulder flexion Side right Reps/Minutes 0 Standing Exercises 7 Standing Exercise Name Wall push ups Reps/Minutes 10x3 6 Standing Exercise Name Shoulder Horiz AD, reaching under underarm Side bilateral Resistance T-Band, 1# wrist wgt Equipment Used Lev 1 T-Band, 1# around R wrist Reps/Minutes 0 5 Standing Exercise Name Elbow curls Side right Resistance 2#, 3# Equipment Used Hand Weight Reps/Minutes 10x, 10x2 respectively Comments Forearm sup/pron 4 Standing Exercise Name Window slides with Slider sheet Side right Resistance none Equipment Used Slider sheet Reps/Minutes 10x3 each Comments up/down, side to side, circles , assist with last 20 reps 3 Standing Exercise Name Scapular retraction/shoulder ext with T-Band Side bilateral Resistance Lev 1 T-Band Reps/Minutes 10 x 3 2 Standing Exercise Name Active Shoulder ext Resistance T-Band Lev 1 Reps/Minutes 0 Manual Therapy Treatment Joint Mobilizations 1 Joint R GHJ Direction Inferior during AB Grade II Body Position Supine Reps/Duration 4' PT-OP-R Modalities Start: 07/04/17 13:07 Freq: Status: Active Protocol: Document 10/28/17 09:47 LRN (Rec: 10/28/17 10:31 LRN [id number]) Hot Pack/Cold Pack Treatment Cold Pack Location R Shoulder Patient Position Hooklying Treatment Duration (minutes) 10 Comments Post therapy PT-OP-T Assessment and Plan Start: 07/04/17 13:07 Freq: Status: Active Protocol: Document 10/28/17 09:47 LRN (Rec: 10/28/17 10:31 LRN [id number]) Physical Therapy Assessment Impairments Impairments Activity Tolerance ROM Strength Other Impairments Lacks complete HEP. Other Concerns Age Related Concerns Age, over 80 Require HEP of large print with picture Comorbidity of Osteoporosis Goals Four Impairment Pt is not on an independent home program. Halfway Goal (LTG) Pt will be independent on a Home exercise/self care program. LTG Duration (11/21/17) Three Impairment R arm edema with protective posturing STG Duration Goal met Two Impairment Decreased UE strength Flexographic Printing Press Operator Goal (LTG) Pt will be able to lift & hold her R arm to wash underneath, washing face & pour coffee with mild difficulty. LTG Duration (11/21/17) One Impairment Decreased R shoulder ROM Short Term Goal (STG) Pt able to reach into upper cupboards with improved R shoulder mobility. 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 LTG Duration (11/21/17) Progress Towards Goals Progress Comments Pt able to lift arm once independently while performing the window wash exercise., Assessment Summary Assessment Pt is ~20 weeks s/p ORIF for a proximal humeral fracture. Progress home program for strengthening with plans of discharge to the [facility]. Pt is weak with lifting her RUE in AB. Physical Therapy Plan Frequency and Duration Frequency of Treatment 2x/Week Plan of Care Start Date 07/04/17 Plan of Care End Date 11/21/17 Therapeutic Interventions Therapeutic Interventions Home Exercise Program Manual Therapy Neuromuscular Re-education Patient/Caregiver Education Self-Care/Home Management Soft Tissue Mobilization Therapeutic Exercises Modalities Cold Pack/Ice Massage Hot Packs Next Visit Focus/Plan Next Note Type Treatment Note Next Visit Plan Progress strength in the next 2 weeks to improve functional use of the R UE, ROM is secondary. Practice 80-180 deg AB or Flex lifts with RUE.
--- NOTE | 2017-10-30 11:55 | PT.OTN ---
Current Diagnoses Displaced fracture of greater tuberosity of right humerus, initial encounter for closed fracture (10/30/17) Fracture of right shoulder girdle, part unspecified, initial encounter for closed fracture (10/30/17) Physical Therapy Treatment Note PT-OP-A Visit Information Start: 07/04/17 13:07 Freq: Status: Active Protocol: Document 10/30/17 09:44 LRN (Rec: 10/30/17 10:33 LRN [id number]) Out-Patient Physical Therapy Visit Information Visit Information Visit Type Treatment Note Visit Note 07/03 since last PN Visit Start Time 09:44 Visit Stop Time 10:34 Total Visit Minutes 50 Visit Number 21 Number of FLIGHT SECURITY SPECIALIST Visits 0 Evaluation Information Evaluation Date 07/04/17 PT-OP-B Current Condition Start: 07/04/17 13:07 Freq: Status: Active Protocol: Document 09/16/17 11:15 LRN (Rec: 09/16/17 12:24 LRN [id number]) Current Condition History of Current Condition Onset Date 04/27/2107 Current Complaints Can't use arm to drive, curl hair, or reach top shelfs in bathroom/kitchen. History of Current Condition Pt reports tripping on a footstool resulting in a fracture of her R shoulder. She underwent an ORIF of the R proximal humerus due to fracture. She states she has been in a sling for 6 weeks and has been out of the sling for 1 week. New referral of received 09/16/17 to continue PT 6 weeks for ROM & strengthening. Treatment Goals Patient/Caregiver Goals Pt goal is to 1) be able to drive, 2) Lift the R arm to curl her hair, 3) Reach for items in the top shelf of her closet and cuboards for cups. PT-OP-C Subjective Start: 07/04/17 13:07 Freq: Status: Active Protocol: Document 10/30/17 09:44 LRN (Rec: 10/30/17 10:33 LRN [id number]) OP-PT Subjective Patient Comments Patient Comments Thinks she can reach a little higher. PT-OP-F Manual Assessment Start: 07/04/17 13:07 Freq: Status: Active Protocol: Document 07/04/17 12:50 LRN (Rec: 07/07/17 17:30 LRN [id number]) Manual Assessments Soft Tissue Assessment Soft Tissue Mobility Assessment Muscle guarding is present in the R upper shoulder. PT-OP-H Neuro Start: 07/04/17 13:07 Freq: Status: Active Protocol: Document 07/04/17 12:50 LRN (Rec: 07/07/17 17:30 LRN [id number]) Sensation Evaluation Gross Sensation Gross Sensation WNL PT-OP-J Posture/Palpation/Skin Start: 07/04/17 13:07 Freq: Status: Active Protocol: Document 07/04/17 12:50 LRN (Rec: 07/07/17 17:30 LRN [id number]) Posture Evaluation Position Standing Evaluation View Posterior Head/C-Spine Posture Side Bent Right Forward Head T-Spine Posture Flattened L-Spine Posture Increased Lordosis Shoulder Posture (R) Elevated Scapula Posture (R) Rotated Up (R) Elevated Skin Assessment Other Assessments Skin Assessment Comments Thin and fragile in UE. PT-OP-K Range of Motion Start: 07/04/17 13:07 Freq: Status: Active Protocol: Document 10/14/17 13:30 LRN (Rec: 10/14/17 15:11 LRN [id number]) Shoulder Goniometric Range of Motion Shoulder Measured in Degrees Left Passive Testing Position Supine Flexion 140 Abduction 140 External Rotation at 90 degrees 83 Abduction Internal Rotation 65 Right Passive Testing Position Supine Flexion 130 Abduction 120 External Rotation at 90 degrees 60 Abduction Internal Rotation 40 Right Testing Position Supine Flexion 50 Abduction 73 Shoulder ROM Limitations Shoulder ROM Limitations Muscle Weakness Comments Sitting: R shoulder AROM: Flex - 47 deg's. AB - 50 deg's. (L shoulder AROM Flex & AB 145 deg's). PT-OP-Q Treatments Start: 07/04/17 13:07 Freq: Status: Active Protocol: Document 10/30/17 09:44 LRN (Rec: 10/30/17 10:33 LRN [id number]) Cardio Equipment Upper Body Ergometer (UBE) Duration (Minutes) 6 RPM 70 Seat Position 7 Height 6 Other Foot blocks. Fwd/Bkwd 5' each Recumbent Stepper (Sci-Fit) Duration (Minutes) 4 Resistance 1 Seat Position 6 Other Pushing on 2nd hand web engineer Therapeutic Exercises Supine Exercises 8 Supine Exercise Name Lat pull down Side bilateral Equipment Used Lev 3 T-Band Reps/Minutes 0 7 Supine Exercise Name Chest press Side bilateral Reps/Minutes 0 6 Supine Exercise Name AAROM shoulder flex/AB Reps/Minutes 0 4 Supine Exercise Name AAROM of R shoulder: ER, IR Reps/Minutes 0 1 Supine Exercise Name PROM R shoulder : Flex, ER, IR , AB Reps/Minutes 0 Comments Also ROM measurements Sidelying Exercises 3 Sidelying Exercise Name Shoulder 80-120 deg's AB Side right Reps/Minutes 15 x Comments Assist towards end-range. 2 Sidelying Exercise Name Active Shoulder IR Reps/Minutes 0 1 Sidelying Exercise Name Active Shoulder ER Side right Resistance 1# Reps/Minutes 15x2 Sitting Exercises 7 Sitting Exercise Name Shoulder AB with scapular pinches Reps/Minutes 0 6 Sitting Exercise Name Chest press using elvia to maintain 90 deg's shoulder flex Side bilateral Reps/Minutes 15x2 5 Sitting Exercise Name Shoulder flexion Side right Reps/Minutes 0 Standing Exercises 7 Standing Exercise Name Wall push ups Reps/Minutes 0 5 Standing Exercise Name Elbow curls Side right Resistance 2#, 3# Equipment Used Hand Weight Reps/Minutes 10x, 10x2 respectively Comments Forearm sup/pron 4 Standing Exercise Name Window slides with Slider sheet Side right Resistance none Equipment Used towel Reps/Minutes 10x3 each Comments Circles CW/CCW 3 Standing Exercise Name Scapular retraction/shoulder ext with T-Band Side bilateral Resistance Lev 2 T-Band Reps/Minutes 10 x 3 2 Standing Exercise Name Fitterboard: Shoulder flex & horiz AB/AD Resistance Fitterboard Reps/Minutes 30x, 15x respectively Manual Therapy Treatment Joint Mobilizations 1 Joint R GHJ Direction Inferior during AB Reps/Duration 0 PT-OP-R Modalities Start: 07/04/17 13:07 Freq: Status: Active Protocol: Document 10/30/17 09:44 LRN (Rec: 10/30/17 10:33 LRN [id number]) Hot Pack/Cold Pack Treatment Cold Pack Location R Shoulder Patient Position Hooklying Treatment Duration (minutes) 10 Comments Post therapy PT-OP-T Assessment and Plan Start: 07/04/17 13:07 Freq: Status: Active Protocol: Document 10/30/17 09:44 LRN (Rec: 10/30/17 10:33 LRN [id number]) Physical Therapy Assessment Impairments Impairments Activity Tolerance ROM Strength Other Impairments Lacks complete HEP. Other Concerns Age Related Concerns Age, over 80 Require HEP of large print with picture Comorbidity of Osteoporosis Goals Four Impairment Pt is not on an independent home program. Nitro Man Goal (LTG) Pt will be independent on a Home exercise/self care program. LTG Duration (11/21/17) Three Impairment R arm edema with protective posturing STG Duration Goal met Two Impairment Decreased UE strength Nitro Man Goal (LTG) Pt will be able to lift & hold her R arm to wash underneath, washing face & pour coffee with mild difficulty. LTG Duration (11/21/17) One Impairment Decreased R shoulder ROM Short Term Goal (STG) Pt able to reach into upper cupboards with improved R shoulder mobility. STG Duration 1 month (11/21/17) Nitro Man Goal (LTG) Improve R shoulder ROM such that patient will be able to perform hair care with mild difficulty. LTG Duration (11/21/17) Assessment Summary Assessment Pt is ~20 weeks s/p ORIF for a proximal humeral fracture. Progress home program for strengthening with plans of discharge to the HEP. Pt is weak with lifting her RUE in AB. Physical Therapy Plan Frequency and Duration Frequency of Treatment 2x/Week Plan of Care Start Date 07/04/17 Plan of Care End Date 11/21/17 Next Visit Focus/Plan Next Note Type Treatment Note Next Visit Plan Progress strength in the next week to improve functional shoulder AB & Flex AROM for functional use. Practice 80- 180 deg's R UE AB & Flex lifts .
--- NOTE | 2017-11-04 15:05 | PT.OTN ---
Current Diagnoses Displaced fracture of greater tuberosity of right humerus, initial encounter for closed fracture (11/04/17) Fracture of right shoulder girdle, part unspecified, initial encounter for closed fracture (11/04/17) Physical Therapy Treatment Note PT-OP-A Visit Information Start: 07/04/17 13:07 Freq: Status: Active Protocol: Document 11/04/17 10:30 GGD (Rec: 11/04/17 15:04 GGD [id number]) Out-Patient Physical Therapy Visit Information Visit Information Visit Type Treatment Note Visit Note 08/03 since last PN Visit Start Time 10:30 Visit Stop Time 11:20 Total Visit Minutes 50 Visit Number 22 Number of COIL MACHINE SUPERVISOR Visits 1 Evaluation Information Evaluation Date 07/04/17 PT-OP-B Current Condition Start: 07/04/17 13:07 Freq: Status: Active Protocol: Document 09/16/17 11:15 LRN (Rec: 09/16/17 12:24 LRN [id number]) Current Condition History of Current Condition Onset Date 04/27/2107 Current Complaints Can't use arm to drive, curl hair, or reach top shelfs in bathroom/kitchen. History of Current Condition Pt reports tripping on a footstool resulting in a fracture of her R shoulder. She underwent an ORIF of the R proximal humerus due to fracture. She states she has been in a sling for 6 weeks and has been out of the sling for 1 week. New referral of received 09/16/17 to continue PT 6 weeks for ROM & strengthening. Treatment Goals Patient/Caregiver Goals Pt goal is to 1) be able to drive, 2) Lift the R arm to curl her hair, 3) Reach for items in the top shelf of her closet and cuboards for cups. PT-OP-C Subjective Start: 07/04/17 13:07 Freq: Status: Active Protocol: Document 11/04/17 10:30 GGD (Rec: 11/04/17 15:04 GGD [id number]) OP-PT Subjective Patient Comments Patient Comments Pt Doing HEP and feels it's helpful. PT-OP-F Manual Assessment Start: 07/04/17 13:07 Freq: Status: Active Protocol: Document 07/04/17 12:50 LRN (Rec: 07/07/17 17:30 LRN [id number]) Manual Assessments Soft Tissue Assessment Soft Tissue Mobility Assessment Muscle guarding is present in the R upper shoulder. PT-OP-H Neuro Start: 07/04/17 13:07 Freq: Status: Active Protocol: Document 07/04/17 12:50 LRN (Rec: 07/07/17 17:30 LRN [id number]) Sensation Evaluation Gross Sensation Gross Sensation WNL PT-OP-J Posture/Palpation/Skin Start: 07/04/17 13:07 Freq: Status: Active Protocol: Document 07/04/17 12:50 LRN (Rec: 07/07/17 17:30 LRN [id number]) Posture Evaluation Position Standing Evaluation View Posterior Head/C-Spine Posture Side Bent Right Forward Head T-Spine Posture Flattened L-Spine Posture Increased Lordosis Shoulder Posture (R) Elevated Scapula Posture (R) Rotated Up (R) Elevated Skin Assessment Other Assessments Skin Assessment Comments Thin and fragile in UE. PT-OP-K Range of Motion Start: 07/04/17 13:07 Freq: Status: Active Protocol: Document 10/14/17 13:30 LRN (Rec: 10/14/17 15:11 LRN [id number]) Shoulder Goniometric Range of Motion Shoulder Measured in Degrees Left Passive Testing Position Supine Flexion 140 Abduction 140 External Rotation at 90 degrees 83 Abduction Internal Rotation 65 Right Passive Testing Position Supine Flexion 130 Abduction 120 External Rotation at 90 degrees 60 Abduction Internal Rotation 40 Right Testing Position Supine Flexion 50 Abduction 73 Shoulder ROM Limitations Shoulder ROM Limitations Muscle Weakness Comments Sitting: R shoulder AROM: Flex - 47 deg's. AB - 50 deg's. (L shoulder AROM Flex & AB 145 deg's). PT-OP-Q Treatments Start: 07/04/17 13:07 Freq: Status: Active Protocol: Document 11/04/17 10:30 GGD (Rec: 11/04/17 15:04 GGD [id number]) Cardio Equipment Upper Body Ergometer (UBE) Duration (Minutes) 10 RPM 70 Seat Position 7 Height 6 Other Foot blocks. Fwd/Bkwd 5' each Therapeutic Exercises Supine Exercises 7 Supine Exercise Name Chest press Side bilateral Reps/Minutes 0 6 Supine Exercise Name AAROM shoulder flex/AB Reps/Minutes 0 4 Supine Exercise Name AAROM of R shoulder: ER, IR Reps/Minutes 0 1 Supine Exercise Name PROM R shoulder : Flex, ER, IR , AB Reps/Minutes 0 Sidelying Exercises 3 Sidelying Exercise Name Shoulder 80-120 deg's AB Side right Reps/Minutes 15 x Comments Assist towards end-range. 2 Sidelying Exercise Name Active Shoulder IR Reps/Minutes 0 1 Sidelying Exercise Name Active Shoulder ER Side right Resistance 1# Reps/Minutes 15x2 Sitting Exercises 7 Sitting Exercise Name Shoulder AB with scapular pinches Reps/Minutes 0 5 Sitting Exercise Name Shoulder flexion Side right Reps/Minutes 0 Standing Exercises 5 Standing Exercise Name Elbow curls Side right Resistance 3# Equipment Used Hand Weight Reps/Minutes 10x, 10x2 respectively Comments Forearm sup/pron 4 Standing Exercise Name Window slides with Slider sheet Side right Resistance none Equipment Used towel Reps/Minutes 10x3 each Comments Circles CW/CCW 3 Standing Exercise Name Scapular retraction/shoulder ext with T-Band Side bilateral Resistance Lev 2 T-Band Reps/Minutes 10 x 3 Manual Therapy Treatment Joint Mobilizations 1 Joint R GHJ Direction Inferior during AB Reps/Duration 0 PT-OP-R Modalities Start: 07/04/17 13:07 Freq: Status: Active Protocol: Document 11/04/17 10:30 GGD (Rec: 11/04/17 12:00 GGD [email or web address]) Hot Pack/Cold Pack Treatment Cold Pack Location R Shoulder Patient Position Hooklying Treatment Duration (minutes) 10 Comments Post therapy PT-OP-T Assessment and Plan Start: 07/04/17 13:07 Freq: Status: Active Protocol: Document 11/04/17 10:30 GGD (Rec: 11/04/17 12:00 GGD [email or web address]) Physical Therapy Assessment Assessment Summary Assessment Pt improved with lifting over head with treatment. She needs cues for exercise techinque. Physical Therapy Plan Frequency and Duration Frequency of Treatment 2x/Week Plan of Care Start Date 07/04/17 Plan of Care End Date 11/21/17 Next Visit Focus/Plan Next Note Type Treatment Note Next Visit Plan Progress strength in the next week to improve functional shoulder AB & Flex AROM for functional use. Practice 80- 180 deg's R UE AB & Flex lifts .
--- NOTE | 2017-11-07 11:39 | PT.OTN ---
Current Diagnoses Displaced fracture of greater tuberosity of right humerus, initial encounter for closed fracture (11/07/17) Fracture of right shoulder girdle, part unspecified, initial encounter for closed fracture (11/07/17) Physical Therapy Treatment Note PT-OP-A Visit Information Start: 07/04/17 13:07 Freq: Status: Active Protocol: Document 11/07/17 10:30 LRN (Rec: 11/07/17 11:24 LRN [id number]) Out-Patient Physical Therapy Visit Information Visit Information Visit Type Treatment Note Visit Note 09/02 since last PN Visit Start Time 10:30 Visit Stop Time 11:25 Total Visit Minutes 55 Visit Number 23 Number of ACTIVE DIRECTORY ARCHITECT Visits 1 Evaluation Information Evaluation Date 07/04/17 PT-OP-B Current Condition Start: 07/04/17 13:07 Freq: Status: Active Protocol: Document 09/16/17 11:15 LRN (Rec: 09/16/17 12:24 LRN [id number]) Current Condition History of Current Condition Onset Date 04/27/2107 Current Complaints Can't use arm to drive, curl hair, or reach top shelfs in bathroom/kitchen. History of Current Condition Pt reports tripping on a footstool resulting in a fracture of her R shoulder. She underwent an ORIF of the R proximal humerus due to fracture. She states she has been in a sling for 6 weeks and has been out of the sling for 1 week. New referral of received 09/16/17 to continue PT 6 weeks for ROM & strengthening. Treatment Goals Patient/Caregiver Goals Pt goal is to 1) be able to drive, 2) Lift the R arm to curl her hair, 3) Reach for items in the top shelf of her closet and cuboards for cups. PT-OP-C Subjective Start: 07/04/17 13:07 Freq: Status: Active Protocol: Document 11/07/17 10:30 LRN (Rec: 11/07/17 11:33 LRN [id number]) OP-PT Subjective Patient Comments Patient Comments Thinks she is able to reach a little higher. Feels she is ready to be placed on HEP next visit. PT-OP-F Manual Assessment Start: 07/04/17 13:07 Freq: Status: Active Protocol: Document 07/04/17 12:50 LRN (Rec: 07/07/17 17:30 LRN [id number]) Manual Assessments Soft Tissue Assessment Soft Tissue Mobility Assessment Muscle guarding is present in the R upper shoulder. PT-OP-H Neuro Start: 07/04/17 13:07 Freq: Status: Active Protocol: Document 07/04/17 12:50 LRN (Rec: 07/07/17 17:30 LRN [id number]) Sensation Evaluation Gross Sensation Gross Sensation WNL PT-OP-J Posture/Palpation/Skin Start: 07/04/17 13:07 Freq: Status: Active Protocol: Document 07/04/17 12:50 LRN (Rec: 07/07/17 17:30 LRN [id number]) Posture Evaluation Position Standing Evaluation View Posterior Head/C-Spine Posture Side Bent Right Forward Head T-Spine Posture Flattened L-Spine Posture Increased Lordosis Shoulder Posture (R) Elevated Scapula Posture (R) Rotated Up (R) Elevated Skin Assessment Other Assessments Skin Assessment Comments Thin and fragile in UE. PT-OP-K Range of Motion Start: 07/04/17 13:07 Freq: Status: Active Protocol: Document 10/14/17 13:30 LRN (Rec: 10/14/17 15:11 LRN [id number]) Shoulder Goniometric Range of Motion Shoulder Measured in Degrees Left Passive Testing Position Supine Flexion 140 Abduction 140 External Rotation at 90 degrees 83 Abduction Internal Rotation 65 Right Passive Testing Position Supine Flexion 130 Abduction 120 External Rotation at 90 degrees 60 Abduction Internal Rotation 40 Right Testing Position Supine Flexion 50 Abduction 73 Shoulder ROM Limitations Shoulder ROM Limitations Muscle Weakness Comments Sitting: R shoulder AROM: Flex - 47 deg's. AB - 50 deg's. (L shoulder AROM Flex & AB 145 deg's). PT-OP-Q Treatments Start: 07/04/17 13:07 Freq: Status: Active Protocol: Document 11/07/17 10:30 LRN (Rec: 11/07/17 11:24 LRN [id number]) Cardio Equipment Upper Body Ergometer (UBE) Duration (Minutes) 10 RPM 70 Seat Position 7 Height 6 Other Foot blocks. Fwd Therapeutic Exercises Supine Exercises 8 Supine Exercise Name Lat pull down Sidelying Exercises 3 Sidelying Exercise Name Shoulder 80-120 deg's AB Side right Resistance 1# in sidelie, 0# in semi- reclined Reps/Minutes 15 x, 10x2 respectively Comments Assist towards end-range. 1 Sidelying Exercise Name Active Shoulder ER Side right Resistance 1# Reps/Minutes 15x2 Standing Exercises 7 Standing Exercise Name Wall push ups 6 Standing Exercise Name R Shoulder AB Side right Resistance [facility] Equipment Used 10x3 Comments Some Assist needed 5 Standing Exercise Name Elbow curls Side right Resistance 3# Equipment Used Hand Weight Reps/Minutes 10x3 Comments Forearm sup/pron 4 Standing Exercise Name Window slides with Slider sheet Side right Resistance none Equipment Used towel Reps/Minutes 10x1 each Comments Circles CW/CCW, pt moves slowly 3 Standing Exercise Name Scapular retraction/shoulder ext with T-Band Side bilateral Resistance Lev 2 T-Band Reps/Minutes 10 x 3 Comments Cuing needed for scapular depression 2 Standing Exercise Name Fitterboard: Shoulder flex & horiz AB/AD Resistance lightest cord Reps/Minutes 6' with rest periods PT-OP-R Modalities Start: 07/04/17 13:07 Freq: Status: Active Protocol: Document 11/07/17 10:30 LRN (Rec: 11/07/17 11:24 LRN [id number]) Hot Pack/Cold Pack Treatment Cold Pack Location R Shoulder Patient Position Hooklying Treatment Duration (minutes) 10 Comments Post therapy PT-OP-T Assessment and Plan Start: 07/04/17 13:07 Freq: Status: Active Protocol: Document 11/07/17 10:30 LRN (Rec: 11/07/17 11:24 LRN [id number]) Physical Therapy Assessment Impairments Impairments Activity Tolerance ROM Strength Other Impairments Lacks complete HEP. Other Concerns Age Related Concerns Age, over 80 Require HEP of large print with picture Comorbidity of Osteoporosis Goals Four Impairment Pt is not on an independent home program. Ride Mechanic Goal (LTG) Pt will be independent on a Home exercise/self care program. LTG Duration (11/21/17) Three Impairment R arm edema with protective posturing STG Duration Goal met Two Impairment Decreased UE strength Ride Mechanic Goal (LTG) Pt will be able to lift & hold her R arm to wash underneath, washing face & pour coffee with mild difficulty. LTG Duration (11/21/17) One Impairment Decreased R shoulder ROM Short Term Goal (STG) Pt able to reach into upper cupboards with improved R shoulder mobility. STG Duration 1 month (11/21/17) Alf Goal (LTG) Improve R shoulder ROM such that patient will be able to perform hair care with mild difficulty. LTG Duration (11/21/17) Assessment Summary Assessment Pt weak with R shoulder flex and AB. Pt may be plateaued in progress. Physical Therapy Plan Frequency and Duration Frequency of Treatment One more visit Plan of Care Start Date 07/04/17 Plan of Care End Date 11/21/17 Next Visit Focus/Plan Next Note Type Treatment Note Next Visit Plan Recheck discharge to [facility]. Pt feels ready for DC to [facility].
--- NOTE | 2017-11-11 14:58 | PT.OTN ---
Current Diagnoses Displaced fracture of greater tuberosity of right humerus, initial encounter for closed fracture (11/11/17) Fracture of right shoulder girdle, part unspecified, initial encounter for closed fracture (11/11/17) Physical Therapy Treatment Note PT-OP-A Visit Information Start: 07/04/17 13:07 Freq: Status: Active Protocol: Document 11/11/17 13:32 LRN (Rec: 11/11/17 14:28 LRN [id number]) Out-Patient Physical Therapy Visit Information Visit Information Visit Type Treatment Note Visit Note 10/03 since last PN Visit Start Time 13:32 Visit Stop Time 14:30 Total Visit Minutes 58 Visit Number 24 Number of FREELANCE DIGITAL PROJECT MANAGER Visits 1 Evaluation Information Evaluation Date 07/04/17 PT-OP-B Current Condition Start: 07/04/17 13:07 Freq: Status: Active Protocol: Document 09/16/17 11:15 LRN (Rec: 09/16/17 12:24 LRN [id number]) Current Condition History of Current Condition Onset Date 04/27/2107 Current Complaints Can't use arm to drive, curl hair, or reach top shelfs in bathroom/kitchen. History of Current Condition Pt reports tripping on a footstool resulting in a fracture of her R shoulder. She underwent an ORIF of the R proximal humerus due to fracture. She states she has been in a sling for 6 weeks and has been out of the sling for 1 week. New referral of received 09/16/17 to continue PT 6 weeks for ROM & strengthening. Treatment Goals Patient/Caregiver Goals Pt goal is to 1) be able to drive, 2) Lift the R arm to curl her hair, 3) Reach for items in the top shelf of her closet and cuboards for cups. PT-OP-C Subjective Start: 07/04/17 13:07 Freq: Status: Active Protocol: Document 11/11/17 13:32 LRN (Rec: 11/11/17 14:28 LRN [id number]) OP-PT Subjective Patient Comments Patient Comments No pain and can lift arm a little farther. Patient Questionnaires Quick Dash- Upper Extremity Quick Dash UE Score 20 Quick Dash UE Impairment 1 to 19% Impaired (Score 1-19) PT-OP-F Manual Assessment Start: 07/04/17 13:07 Freq: Status: Active Protocol: Document 07/04/17 12:50 LRN (Rec: 07/07/17 17:30 LRN [id number]) Manual Assessments Soft Tissue Assessment Soft Tissue Mobility Assessment Muscle guarding is present in the R upper shoulder. PT-OP-H Neuro Start: 07/04/17 13:07 Freq: Status: Active Protocol: Document 07/04/17 12:50 LRN (Rec: 07/07/17 17:30 LRN [id number]) Sensation Evaluation Gross Sensation Gross Sensation WNL PT-OP-J Posture/Palpation/Skin Start: 07/04/17 13:07 Freq: Status: Active Protocol: Document 07/04/17 12:50 LRN (Rec: 07/07/17 17:30 LRN [id number]) Posture Evaluation Position Standing Evaluation View Posterior Head/C-Spine Posture Side Bent Right Forward Head T-Spine Posture Flattened L-Spine Posture Increased Lordosis Shoulder Posture (R) Elevated Scapula Posture (R) Rotated Up (R) Elevated Skin Assessment Other Assessments Skin Assessment Comments Thin and fragile in UE. PT-OP-K Range of Motion Start: 07/04/17 13:07 Freq: Status: Active Protocol: Document 10/14/17 13:30 LRN (Rec: 10/14/17 15:11 LRN [id number]) Shoulder Goniometric Range of Motion Shoulder Measured in Degrees Left Passive Testing Position Supine Flexion 140 Abduction 140 External Rotation at 90 degrees 83 Abduction Internal Rotation 65 Right Passive Testing Position Supine Flexion 130 Abduction 120 External Rotation at 90 degrees 60 Abduction Internal Rotation 40 Right Testing Position Supine Flexion 50 Abduction 73 Shoulder ROM Limitations Shoulder ROM Limitations Muscle Weakness Comments Sitting: R shoulder AROM: Flex - 47 deg's. AB - 50 deg's. (L shoulder AROM Flex & AB 145 deg's). PT-OP-Q Treatments Start: 07/04/17 13:07 Freq: Status: Active Protocol: Document 11/11/17 13:32 LRN (Rec: 11/11/17 14:28 LRN [id number]) Cardio Equipment Upper Body Ergometer (UBE) Duration (Minutes) 10 RPM 70 Seat Position 7 Height 6 Other Foot blocks. Fwd Therapeutic Exercises Supine Exercises 8 Supine Exercise Name Lat pull down Resistance Lev 1 T-Band Reps/Minutes 15x2 7 Supine Exercise Name Chest press Side bilateral Reps/Minutes 0 6 Supine Exercise Name AAROM shoulder flex/AB Reps/Minutes 0 4 Supine Exercise Name AAROM of R shoulder: ER, IR Reps/Minutes 0 1 Supine Exercise Name PROM R shoulder : Flex, ER, IR , AB Reps/Minutes 0 Sidelying Exercises 3 Sidelying Exercise Name Shoulder 80-120 deg's AB Side right Resistance 1# in sidelie Reps/Minutes 15 x 2 Comments Assist towards end-range. 2 Sidelying Exercise Name Active Shoulder IR Reps/Minutes 0 1 Sidelying Exercise Name Active Shoulder ER Side right Resistance 1# Reps/Minutes 0 Sitting Exercises 7 Sitting Exercise Name Shoulder AB with scapular pinches Reps/Minutes 0 6 Sitting Exercise Name Chest press using elvia to maintain 90 deg's shoulder flex Side bilateral Reps/Minutes 0 5 Sitting Exercise Name Shoulder flexion Side right Resistance T-band to help lift into flex Reps/Minutes 0 Standing Exercises Shoulder ER Side right Resistance Lev 1 T-Band Reps/Minutes 20x 7 Standing Exercise Name Wall push ups 6 Standing Exercise Name R Shoulder AB Side right Resistance [place] Equipment Used TBand to help lift Reps/Minutes 10x3 Comments Some Assist needed 5 Standing Exercise Name Elbow curls Side right Resistance 3# Equipment Used Hand Weight Reps/Minutes 0 Comments Forearm sup/pron 4 Standing Exercise Name Window slides with Slider sheet Side right Resistance none Equipment Used towel Reps/Minutes 10x1 each Comments Circles CW/CCW, pt moves slowly 3 Standing Exercise Name Scapular retraction/shoulder ext with T-Band Side bilateral Resistance Fitter board lightest cord Reps/Minutes 10 x 3 Comments fitter board on plinth at ~ 30 deg angle 2 Standing Exercise Name Fitterboard: Shoulder flex & horiz AB/AD Resistance lightest cord Reps/Minutes 6' with rest periods Comments Fitter at ~ 45 deg angle Manual Therapy Treatment Joint Mobilizations 1 Joint R GHJ Direction Inferior during AB Reps/Duration 0 PT-OP-R Modalities Start: 07/04/17 13:07 Freq: Status: Active Protocol: Document 11/11/17 13:32 LRN (Rec: 11/11/17 14:28 LRN [id number]) Hot Pack/Cold Pack Treatment Cold Pack Location R Shoulder Patient Position Hooklying Treatment Duration (minutes) 10 Comments Post therapy PT-OP-T Assessment and Plan Start: 07/04/17 13:07 Freq: Status: Active Protocol: Document 11/11/17 13:32 LRN (Rec: 11/11/17 14:28 LRN [id number]) Physical Therapy Assessment Rehab Potential Rehabilitation Potential Fair Impairments Impairments ROM Strength Other Impairments Lacks complete HEP. Other Concerns Age Related Concerns Age, over 80 Require HEP of large print with picture Comorbidity of Osteoporosis Goals Four Impairment Pt is not on an independent home program. Metal Drilling Machine Operator Goal (LTG) Pt will be independent on a Home exercise/self care program. LTG Duration (01/23/18) Three Impairment R arm edema with protective posturing STG Duration Goal met Two Impairment Decreased UE strength Metal Drilling Machine Operator Goal (LTG) Pt will be able to lift & hold her R arm to wash underneath, washing face & pour coffee with mild difficulty. LTG Duration (01/23/18) (11/11/17: Can wash face with some difficulty) One Impairment Decreased R shoulder ROM Short Term Goal (STG) Pt able to reach into upper cupboards with improved R shoulder mobility. STG Duration (01/11/18) Metal Drilling Machine Operator Goal (LTG) Improve R shoulder ROM such that patient will be able to perform hair care with mild difficulty. LTG Duration (01/23/18) (11/11/17: Can do hair care, sometimes needs to lower head) Assessment Summary Assessment Pt weak with R shoulder flex and AB. Pt shows improvement in function. She may be approaching a plateau in progress. The pt is hoping to further improve in her shoulder strength and function and would like to continue 1- 2x week. I Physical Therapy Plan Frequency and Duration Frequency of Treatment 1x/Week Plan of Care Start Date 11/11/17 Plan of Care End Date 01/23/18 Next Visit Focus/Plan Next Note Type Treatment Note Next Visit Plan ..................
--- NOTE | 2017-11-11 15:09 | PT.OTN ---
Current Diagnoses Displaced fracture of greater tuberosity of right humerus, initial encounter for closed fracture (11/11/17) Fracture of right shoulder girdle, part unspecified, initial encounter for closed fracture (11/11/17) Physical Therapy Treatment Note PT-OP-A Visit Information Start: 07/04/17 13:07 Freq: Status: Active Protocol: Document 11/11/17 13:32 LRN (Rec: 11/11/17 14:28 LRN [id number]) Out-Patient Physical Therapy Visit Information Visit Information Visit Type Progress Note Visit Note 10/03 since last PN Visit Start Time 13:32 Visit Stop Time 14:30 Total Visit Minutes 58 Visit Number 24 Number of DEVELOPMENT TEAM LEAD Visits 1 Evaluation Information Evaluation Date 07/04/17 PT-OP-B Current Condition Start: 07/04/17 13:07 Freq: Status: Active Protocol: Document 09/16/17 11:15 LRN (Rec: 09/16/17 12:24 LRN [id number]) Current Condition History of Current Condition Onset Date 04/27/2107 Current Complaints Can't use arm to drive, curl hair, or reach top shelfs in bathroom/kitchen. History of Current Condition Pt reports tripping on a footstool resulting in a fracture of her R shoulder. She underwent an ORIF of the R proximal humerus due to fracture. She states she has been in a sling for 6 weeks and has been out of the sling for 1 week. New referral of received 09/16/17 to continue PT 6 weeks for ROM & strengthening. Treatment Goals Patient/Caregiver Goals Pt goal is to 1) be able to drive, 2) Lift the R arm to curl her hair, 3) Reach for items in the top shelf of her closet and cuboards for cups. PT-OP-C Subjective Start: 07/04/17 13:07 Freq: Status: Active Protocol: Document 11/11/17 13:32 LRN (Rec: 11/11/17 14:28 LRN [id number]) OP-PT Subjective Patient Comments Patient Comments No pain and can lift arm a little farther. Patient Questionnaires Quick Dash- Upper Extremity Quick Dash UE Score 20 Quick Dash UE Impairment 1 to 19% Impaired (Score 1-19) PT-OP-F Manual Assessment Start: 07/04/17 13:07 Freq: Status: Active Protocol: Document 07/04/17 12:50 LRN (Rec: 07/07/17 17:30 LRN [id number]) Manual Assessments Soft Tissue Assessment Soft Tissue Mobility Assessment Muscle guarding is present in the R upper shoulder. PT-OP-H Neuro Start: 07/04/17 13:07 Freq: Status: Active Protocol: Document 07/04/17 12:50 LRN (Rec: 07/07/17 17:30 LRN [id number]) Sensation Evaluation Gross Sensation Gross Sensation WNL PT-OP-J Posture/Palpation/Skin Start: 07/04/17 13:07 Freq: Status: Active Protocol: Document 07/04/17 12:50 LRN (Rec: 07/07/17 17:30 LRN [id number]) Posture Evaluation Position Standing Evaluation View Posterior Head/C-Spine Posture Side Bent Right Forward Head T-Spine Posture Flattened L-Spine Posture Increased Lordosis Shoulder Posture (R) Elevated Scapula Posture (R) Rotated Up (R) Elevated Skin Assessment Other Assessments Skin Assessment Comments Thin and fragile in UE. PT-OP-K Range of Motion Start: 07/04/17 13:07 Freq: Status: Active Protocol: Document 10/14/17 13:30 LRN (Rec: 10/14/17 15:11 LRN [id number]) Shoulder Goniometric Range of Motion Shoulder Measured in Degrees Left Passive Testing Position Supine Flexion 140 Abduction 140 External Rotation at 90 degrees 83 Abduction Internal Rotation 65 Right Passive Testing Position Supine Flexion 130 Abduction 120 External Rotation at 90 degrees 60 Abduction Internal Rotation 40 Right Testing Position Supine Flexion 50 Abduction 73 Shoulder ROM Limitations Shoulder ROM Limitations Muscle Weakness Comments Sitting: R shoulder AROM: Flex - 47 deg's. AB - 50 deg's. (L shoulder AROM Flex & AB 145 deg's). PT-OP-Q Treatments Start: 07/04/17 13:07 Freq: Status: Active Protocol: Document 11/11/17 13:32 LRN (Rec: 11/11/17 14:28 LRN [id number]) Cardio Equipment Upper Body Ergometer (UBE) Duration (Minutes) 10 RPM 70 Seat Position 7 Height 6 Other Foot blocks. Fwd Therapeutic Exercises Supine Exercises 8 Supine Exercise Name Lat pull down Resistance Lev 1 T-Band Reps/Minutes 15x2 7 Supine Exercise Name Chest press Side bilateral Reps/Minutes 0 6 Supine Exercise Name AAROM shoulder flex/AB Reps/Minutes 0 4 Supine Exercise Name AAROM of R shoulder: ER, IR Reps/Minutes 0 1 Supine Exercise Name PROM R shoulder : Flex, ER, IR , AB Reps/Minutes 0 Sidelying Exercises 3 Sidelying Exercise Name Shoulder 80-120 deg's AB Side right Resistance 1# in sidelie Reps/Minutes 15 x 2 Comments Assist towards end-range. 2 Sidelying Exercise Name Active Shoulder IR Reps/Minutes 0 1 Sidelying Exercise Name Active Shoulder ER Side right Resistance 1# Reps/Minutes 0 Sitting Exercises 7 Sitting Exercise Name Shoulder AB with scapular pinches Reps/Minutes 0 6 Sitting Exercise Name Chest press using elvia to maintain 90 deg's shoulder flex Side bilateral Reps/Minutes 0 5 Sitting Exercise Name Shoulder flexion Side right Resistance T-band to help lift into flex Reps/Minutes 0 Standing Exercises Shoulder ER Side right Resistance Lev 1 T-Band Reps/Minutes 20x 7 Standing Exercise Name Wall push ups 6 Standing Exercise Name R Shoulder AB Side right Resistance Baxter Equipment Used TBand to help lift Reps/Minutes 10x3 Comments Some Assist needed 5 Standing Exercise Name Elbow curls Side right Resistance 3# Equipment Used Hand Weight Reps/Minutes 0 Comments Forearm sup/pron 4 Standing Exercise Name Window slides with Slider sheet Side right Resistance none Equipment Used towel Reps/Minutes 10x1 each Comments Circles CW/CCW, pt moves slowly 3 Standing Exercise Name Scapular retraction/shoulder ext with T-Band Side bilateral Resistance Fitter board lightest cord Reps/Minutes 10 x 3 Comments fitter board on plinth at ~ 30 deg angle 2 Standing Exercise Name Fitterboard: Shoulder flex & horiz AB/AD Resistance lightest cord Reps/Minutes 6' with rest periods Comments Fitter at ~ 45 deg angle Manual Therapy Treatment Joint Mobilizations 1 Joint R GHJ Direction Inferior during AB Reps/Duration 0 PT-OP-R Modalities Start: 07/04/17 13:07 Freq: Status: Active Protocol: Document 11/11/17 13:32 LRN (Rec: 11/11/17 14:28 LRN [id number]) Hot Pack/Cold Pack Treatment Cold Pack Location R Shoulder Patient Position Hooklying Treatment Duration (minutes) 10 Comments Post therapy PT-OP-T Assessment and Plan Start: 07/04/17 13:07 Freq: Status: Active Protocol: Document 11/11/17 13:32 LRN (Rec: 11/11/17 14:28 LRN [id number]) Physical Therapy Assessment Rehab Potential Rehabilitation Potential Fair Impairments Impairments ROM Strength Other Impairments Lacks complete HEP. Other Concerns Age Related Concerns Age, over 80 Require HEP of large print with picture Comorbidity of Osteoporosis Goals Four Impairment Pt is not on an independent home program. Senior Living Goal (LTG) Pt will be independent on a Home exercise/self care program. LTG Duration (01/23/18) Three Impairment R arm edema with protective posturing STG Duration Goal met Two Impairment Decreased UE strength Edger Machine Setter Goal (LTG) Pt will be able to lift & hold her R arm to wash underneath, washing face & pour coffee with mild difficulty. LTG Duration (01/23/18) (11/11/17: Can wash face with some difficulty) One Impairment Decreased R shoulder ROM Short Term Goal (STG) Pt able to reach into upper cupboards with improved R shoulder mobility. STG Duration (01/11/18) Edger Machine Setter Goal (LTG) Improve R shoulder ROM such that patient will be able to perform hair care with mild difficulty. LTG Duration (01/23/18) (11/11/17: Can do hair care, sometimes needs to lower head) Assessment Summary Assessment Pt is weak with R shoulder flex and AB. Overall she shows improvement in function. The pt is hoping to further improve in her shoulder strength and function and would like to continue 1-2x week until the end of the year . The pt is very consistent with therapy and her home program; therefore continuation of therapy is recommended. She may be approaching a plateau in progress. Pt is agreeable to decrease therapy to every 2 weeks for 2-4 weeks to determine if pt is able to progress on her HEP in strength and function. If pt feels she is not able to progress on a HEP we will continue 1x/week for 4 more weeks. Physical Therapy Plan Frequency and Duration Frequency of Treatment 1x/Week Plan of Care Start Date 11/11/17 Plan of Care End Date 01/23/18 Next Visit Focus/Plan Next Note Type Treatment Note Next Visit Plan Continue and reassess progress in the next 1-2 visits. Continue with increase emphasis on ROM and continue progressing R shoulder Flex & AB strength for functional overhead mobility.
--- NOTE | 2017-11-11 15:10 | PT.OPPOC ---
Current Diagnoses Displaced fracture of greater tuberosity of right humerus, initial encounter for closed fracture (11/11/17) Fracture of right shoulder girdle, part unspecified, initial encounter for closed fracture (11/11/17) Provider Visit Care Team Role Provider Type Bernabe Baez MD Family Provider Physician Primary Care Provider Specialty: Family Practice Address: [address] [place] [address], [id number] Email: [email or web address] Raheel Jang MD Attending Provider Physician Referring Provider Specialty: Orthopedic Surgery Address: [address] [place] [address], [phone] Email: [email or web address] Plan Of Care PT-OP-T Assessment and Plan Start: 07/04/17 13:07 Freq: Status: Active Protocol: Document 11/11/17 13:32 LRN (Rec: 11/11/17 14:28 LRN [id number]) Physical Therapy Assessment Rehab Potential Rehabilitation Potential Fair Impairments Impairments ROM Strength Other Impairments Lacks complete HEP. Other Concerns Age Related Concerns Age, over 80 Require HEP of large print with picture Comorbidity of Osteoporosis Goals Four Impairment Pt is not on an independent home program. Behavioral Scientist Goal (LTG) Pt will be independent on a Home exercise/self care program. LTG Duration (01/23/18) Three Impairment R arm edema with protective posturing STG Duration Goal met Two Impairment Decreased UE strength Mcfp Goal (LTG) Pt will be able to lift & hold her R arm to wash underneath, washing face & pour coffee with mild difficulty. LTG Duration (01/23/18) (11/11/17: Can wash face with some difficulty) One Impairment Decreased R shoulder ROM Short Term Goal (STG) Pt able to reach into upper cupboards with improved R shoulder mobility. STG Duration (01/11/18) Mcfp Goal (LTG) Improve R shoulder ROM such that patient will be able to perform hair care with mild difficulty. LTG Duration (01/23/18) (11/11/17: Can do hair care, sometimes needs to lower head) Assessment Summary Assessment Pt is weak with R shoulder flex and AB. Overall she shows improvement in function. The pt is hoping to further improve in her shoulder strength and function and would like to continue 1-2x week until the end of the year . The pt is very consistent with therapy and her home program; therefore continuation of therapy is recommended. She may be approaching a plateau in progress. Pt is agreeable to decrease therapy to every 2 weeks for 2-4 weeks to determine if pt is able to progress on her HEP in strength and function. If pt feels she is not able to progress on a HEP we will continue 1x/week for 4 more weeks. Physical Therapy Plan Frequency and Duration Frequency of Treatment 1x/Week Plan of Care Start Date 11/11/17 Plan of Care End Date 01/23/18 Next Visit Focus/Plan Next Note Type Treatment Note Next Visit Plan Continue and reassess progress in the next 1-2 visits. Continue with increase emphasis on ROM and continue progressing R shoulder Flex & AB strength for functional overhead mobility. Plan of Care Dates Plan of Care Start Date 11/11/17 Plan of Care End Date 01/23/18 Please Sign and Return: I have reviewed this Plan of Care and certify that the skilled therapy services above are required to meet the patient?s needs. Physician Signature Date Printed Name and Credentials Clinical Instructor Signature Printed Name and Credentials
--- NOTE | 2017-11-24 12:18 | PT.OTN ---
Current Diagnoses Displaced fracture of greater tuberosity of right humerus, initial encounter for closed fracture (11/24/17) Fracture of right shoulder girdle, part unspecified, initial encounter for closed fracture (11/24/17) Physical Therapy Treatment Note PT-OP-A Visit Information Start: 07/04/17 13:07 Freq: Status: Active Protocol: Document 11/24/17 11:23 LRN (Rec: 11/24/17 12:17 LRN [id number]) Out-Patient Physical Therapy Visit Information Visit Information Visit Type Treatment Note Visit Note 03/05 since last PN Visit Start Time 11: Visit Stop Time 12:18 Total Visit Minutes 55 Visit Number 25 Number of CORPORATE COORDINATOR Visits 1 Evaluation Information Evaluation Date 07/04/17 PT-OP-B Current Condition Start: 07/04/17 13:07 Freq: Status: Active Protocol: Document 09/16/17 11:15 LRN (Rec: 09/16/17 12:24 LRN [id number]) Current Condition History of Current Condition Onset Date 04/27/2107 Current Complaints Can't use arm to drive, curl hair, or reach top shelfs in bathroom/kitchen. History of Current Condition Pt reports tripping on a footstool resulting in a fracture of her R shoulder. She underwent an ORIF of the R proximal humerus due to fracture. She states she has been in a sling for 6 weeks and has been out of the sling for 1 week. New referral of received 09/16/17 to continue PT 6 weeks for ROM & strengthening. Treatment Goals Patient/Caregiver Goals Pt goal is to 1) be able to drive, 2) Lift the R arm to curl her hair, 3) Reach for items in the top shelf of her closet and cuboards for cups. PT-OP-C Subjective Start: 07/04/17 13:07 Freq: Status: Active Protocol: Document 11/24/17 11:23 LRN (Rec: 11/24/17 12:17 LRN [id number]) OP-PT Subjective Patient Comments Patient Comments Thinks she can reach a little higher towards the shelves and can move he R arm a little more without having to help with the left. No pain doing normal things. PT-OP-F Manual Assessment Start: 07/04/17 13:07 Freq: Status: Active Protocol: Document 07/04/17 12:50 LRN (Rec: 07/07/17 17:30 LRN [id number]) Manual Assessments Soft Tissue Assessment Soft Tissue Mobility Assessment Muscle guarding is present in the R upper shoulder. PT-OP-H Neuro Start: 07/04/17 13:07 Freq: Status: Active Protocol: Document 07/04/17 12:50 LRN (Rec: 07/07/17 17:30 LRN [id number]) Sensation Evaluation Gross Sensation Gross Sensation WNL PT-OP-J Posture/Palpation/Skin Start: 07/04/17 13:07 Freq: Status: Active Protocol: Document 07/04/17 12:50 LRN (Rec: 07/07/17 17:30 LRN [id number]) Posture Evaluation Position Standing Evaluation View Posterior Head/C-Spine Posture Side Bent Right Forward Head T-Spine Posture Flattened L-Spine Posture Increased Lordosis Shoulder Posture (R) Elevated Scapula Posture (R) Rotated Up (R) Elevated Skin Assessment Other Assessments Skin Assessment Comments Thin and fragile in UE. PT-OP-K Range of Motion Start: 07/04/17 13:07 Freq: Status: Active Protocol: Document 11/24/17 11:23 LRN (Rec: 11/24/17 12:17 LRN [id number]) Shoulder Goniometric Range of Motion Shoulder Measured in Degrees Right Passive Testing Position Supine Flexion 155 Abduction 115 External Rotation at 90 degrees 70 Abduction Internal Rotation 55 Left Internal Rotation Behind Back (text) T6 Right Testing Position Sitting Flexion 55 Extension 45 Abduction 60 External Rotation at 90 degrees 28 Abduction Internal Rotation 40 Internal Rotation Behind Back (text) T10 Shoulder ROM Limitations Comments Supine AROM: Flex 145 deg's, AB 68 deg's, ER (90 deg's AB) 45 deg's, IR (90n deg's AB) 40 deg's. PT-OP-Q Treatments Start: 07/04/17 13:07 Freq: Status: Active Protocol: Document 11/24/17 11:23 LRN (Rec: 11/24/17 12:17 LRN [id number]) Cardio Equipment Upper Body Ergometer (UBE) Duration (Minutes) 10 RPM 70 Seat Position 7 Height 6 Other Foot blocks. Fwd Therapeutic Exercises Supine Exercises 8 Supine Exercise Name Lat pull down Resistance Lev 1 T-Band Reps/Minutes 15x2 7 Supine Exercise Name Chest press Side bilateral Reps/Minutes 10x3 4 Supine Exercise Name AAROM of R shoulder: ER, IR Reps/Minutes 10' Comments And ROM measurements taken. 1 Supine Exercise Name PROM R shoulder : Flex, ER, IR , AB Reps/Minutes 8' Sidelying Exercises Shoulder AB Sidelying Exercise Name 0-90 deg's Side right Resistance 0# Reps/Minutes 8x3 3 Sidelying Exercise Name Shoulder 80-120 deg's AB Side right Resistance 1# in sidelie Reps/Minutes 15 x 2 Comments Assist towards end-range. 2 Sidelying Exercise Name Active Shoulder IR Resistance 0#, 1# Reps/Minutes 30x 1 Sidelying Exercise Name Active Shoulder ER Side right Resistance 0#, 1# @ forearm Reps/Minutes 30x, 10x respectively PT-OP-R Modalities Start: 07/04/17 13:07 Freq: Status: Active Protocol: Document 11/24/17 11:23 LRN (Rec: 11/24/17 12:17 LRN [id number]) Hot Pack/Cold Pack Treatment Cold Pack Location R Shoulder Patient Position Hooklying Treatment Duration (minutes) 10 Comments Post therapy PT-OP-T Assessment and Plan Start: 07/04/17 13:07 Freq: Status: Active Protocol: Document 11/24/17 11:23 LRN (Rec: 11/24/17 12:17 LRN [id number]) Physical Therapy Assessment Impairments Impairments ROM Strength Other Impairments Lacks complete HEP. Other Concerns Age Related Concerns Age, over 80 Require HEP of large print with picture Comorbidity of Osteoporosis Goals Four Impairment Pt is not on an independent home program. Assisted Goal (LTG) Pt will be independent on a Home exercise/self care program. LTG Duration (01/23/18) Three Impairment R arm edema with protective posturing STG Duration Goal met Two Impairment Decreased UE strength Auto Damage Adjuster Goal (LTG) Pt will be able to lift & hold her R arm to wash underneath, washing face & pour coffee with mild difficulty. LTG Duration (01/23/18) (11/11/17: Can wash face w & wash under arm w/ some difficulty) One Impairment Decreased R shoulder ROM Short Term Goal (STG) Pt able to reach into upper cupboards with improved R shoulder mobility. STG Duration (01/11/18) Assisted Goal (LTG) Improve R shoulder ROM such that patient will be able to perform hair care with mild difficulty. LTG Duration (01/23/18) (11/11/17: Can do hair care, sometimes needs to lower head) Assessment Summary Assessment Pt shows improved R arm ROM, strength is still limited. Function is slowly improving. Physical Therapy Plan Frequency and Duration Frequency of Treatment 1x/Week Plan of Care Start Date 11/11/17 Plan of Care End Date 01/23/18 Next Visit Focus/Plan Next Note Type Discharge Summary Next Visit Plan Probable DC to HEP if pt making some progress or has plateaued.
--- NOTE | 2017-12-08 12:47 | PT.OTN ---
Current Diagnoses Displaced fracture of greater tuberosity of right humerus, initial encounter for closed fracture (12/08/17) Fracture of right shoulder girdle, part unspecified, initial encounter for closed fracture (12/08/17) Physical Therapy Treatment Note PT-OP-A Visit Information Start: 07/04/17 13:07 Freq: Status: Active Protocol: Document 12/08/17 11:19 LRN (Rec: 12/08/17 12:10 LRN [id number]) Out-Patient Physical Therapy Visit Information Visit Information Visit Type Treatment Note Visit Note 04/05 since last PN Visit Start Time Visit Stop Time 12:00 Total Visit Minutes 41 Visit Number 26 Number of FOUNDATION RELATIONS MANAGER Visits 1 Evaluation Information Evaluation Date 07/04/17 PT-OP-B Current Condition Start: 07/04/17 13:07 Freq: Status: Active Protocol: Document 09/16/17 11:15 LRN (Rec: 09/16/17 12:24 LRN [id number]) Current Condition History of Current Condition Onset Date 04/27/2107 Current Complaints Can't use arm to drive, curl hair, or reach top shelfs in bathroom/kitchen. History of Current Condition Pt reports tripping on a footstool resulting in a fracture of her R shoulder. She underwent an ORIF of the R proximal humerus due to fracture. She states she has been in a sling for 6 weeks and has been out of the sling for 1 week. New referral of received 09/16/17 to continue PT 6 weeks for ROM & strengthening. Treatment Goals Patient/Caregiver Goals Pt goal is to 1) be able to drive, 2) Lift the R arm to curl her hair, 3) Reach for items in the top shelf of her closet and cuboards for cups. PT-OP-C Subjective Start: 07/04/17 13:07 Freq: Status: Active Protocol: Document 12/08/17 11:19 LRN (Rec: 12/08/17 12:10 LRN [id number]) OP-PT Subjective Patient Comments Patient Comments Has been doing her home ex's. Patient Questionnaires Quick Dash- Upper Extremity Quick Dash UE Score 29.54 Quick Dash UE Impairment 20 to 39% Impaired (Score 20- 39) OP-PT Pain Assessment Pain Assessment Grid Paper Pain Assessment Grid Completed No Location Right Anterior Shoulder Intensity 0 PT-OP-F Manual Assessment Start: 07/04/17 13:07 Freq: Status: Active Protocol: Document 07/04/17 12:50 LRN (Rec: 07/07/17 17:30 LRN [id number]) Manual Assessments Soft Tissue Assessment Soft Tissue Mobility Assessment Muscle guarding is present in the R upper shoulder. PT-OP-H Neuro Start: 07/04/17 13:07 Freq: Status: Active Protocol: Document 07/04/17 12:50 LRN (Rec: 07/07/17 17:30 LRN [id number]) Sensation Evaluation Gross Sensation Gross Sensation WNL PT-OP-J Posture/Palpation/Skin Start: 07/04/17 13:07 Freq: Status: Active Protocol: Document 07/04/17 12:50 LRN (Rec: 07/07/17 17:30 LRN [id number]) Posture Evaluation Position Standing Evaluation View Posterior Head/C-Spine Posture Side Bent Right Forward Head T-Spine Posture Flattened L-Spine Posture Increased Lordosis Shoulder Posture (R) Elevated Scapula Posture (R) Rotated Up (R) Elevated Skin Assessment Other Assessments Skin Assessment Comments Thin and fragile in UE. PT-OP-K Range of Motion Start: 07/04/17 13:07 Freq: Status: Active Protocol: Document 12/08/17 11:19 LRN (Rec: 12/08/17 12:10 LRN [id number]) Shoulder Goniometric Range of Motion Shoulder Measured in Degrees Left Passive Testing Position Supine Flexion 140 Abduction 140 External Rotation at 90 degrees 83 Abduction Internal Rotation 65 Right Passive Testing Position Supine Flexion 155 Abduction 120 External Rotation at 90 degrees 70 Abduction Internal Rotation 55 Left Testing Position Sitting Flexion 155 Extension 55 Abduction 180 External Rotation at 90 degrees 75 Abduction Internal Rotation Behind Back (text) T6 Right Testing Position Sitting Flexion 60 Extension 45 Abduction 70 External Rotation at 90 degrees 66 Abduction Internal Rotation Behind Back (text) T11 Shoulder ROM Limitations Comments Sitting: PROM: Flex 140 degs, AB 145 deg's PT-OP-M Strength Start: 07/04/17 13:07 Freq: Status: Active Protocol: Document 12/08/17 11:19 LRN (Rec: 12/08/17 12:10 LRN [id number]) Shoulder Strength Shoulder Manual Muscle Testing Right Flexion 2- Poor- Extension 5 Normal Abduction (C5) 2 Poor External Rotation 3+ Fair+ Internal Rotation 4 Good Horizontal Adduction 2 Poor PT-OP-Q Treatments Start: 07/04/17 13:07 Freq: Status: Active Protocol: Document 12/08/17 11:19 LRN (Rec: 12/08/17 12:10 LRN [id number]) Cardio Equipment Upper Body Ergometer (UBE) Duration (Minutes) 10 RPM 70 Seat Position 7 Height 6 Other Foot blocks. Fwd Therapeutic Exercises Supine Exercises 7 Supine Exercise Name Shoulder AD Side bilateral Reps/Minutes 10x2 6 Supine Exercise Name AAROM shoulder flex/AB Reps/Minutes 10x3 4 Supine Exercise Name AAROM of R shoulder: ER, IR Reps/Minutes 8' Comments And ROM measurements taken. Sidelying Exercises Shoulder AB Sidelying Exercise Name 0-90 deg's Side right Resistance 0#, 1# Reps/Minutes 8x3 3 Sidelying Exercise Name Shoulder 80-120 deg's AB Side right Resistance 0, 1# in sidelie Reps/Minutes 15 x 2 Comments Assist towards end-range. 2 Sidelying Exercise Name Active Shoulder IR Resistance 0#, 1# Reps/Minutes 30x 1 Sidelying Exercise Name Active Shoulder ER Side right Resistance 0#, 1# @ forearm Reps/Minutes 30x, 10x respectively Sitting Exercises 5 Sitting Exercise Name Shoulder flexion, AB Side right Resistance 0 Equipment Used Overdoor elvia Reps/Minutes 6' Self-Care/Home Management Treatment Education Patient Education Home Exercise Program Activities Self-Care/Home Management Activities Reviewed with patient areas of weakness to focus on ( shoulder flex, AB, ER, horiz AD; Shoulder IR ROM). PT-OP-R Modalities Start: 07/04/17 13:07 Freq: Status: Active Protocol: Document 11/24/17 11:23 LRN (Rec: 11/24/17 12:17 LRN [id number]) Hot Pack/Cold Pack Treatment Cold Pack Location R Shoulder Patient Position Hooklying Treatment Duration (minutes) 10 Comments Post therapy PT-OP-T Assessment and Plan Start: 07/04/17 13:07 Freq: Status: Active Protocol: Document 12/08/17 11:19 LRN (Rec: 12/08/17 12:10 LRN [id number]) Physical Therapy Assessment Impairments Impairments Strength Other Impairments Lacks complete HEP. Other Concerns Age Related Concerns Age, over 80 Require HEP of large print with picture Comorbidity of Osteoporosis Goals Four Impairment Pt is not on an independent home program. Skilled Nursing Goal (LTG) Pt will be independent on a Home exercise/self care program. LTG Duration (01/23/18) GOAL MET 12/08/17. Three Impairment R arm edema with protective posturing STG Duration Goal met Two Impairment Decreased UE strength Beamer Helper Goal (LTG) Pt will be able to lift & hold her R arm to wash underneath, washing face & pour coffee with mild difficulty. LTG Duration (01/23/18) (11/11/17: Can wash face w & wash under arm w/ some difficulty) One Impairment Decreased R shoulder ROM Short Term Goal (STG) Pt able to reach into upper cupboards with improved R shoulder mobility. STG Duration (01/11/18) GOAL NOT MET. Skilled Nursing Goal (LTG) Improve R shoulder ROM such that patient will be able to perform hair care with mild difficulty. LTG Duration (01/23/18) (11/11/17: Can do hair care, sometimes needs to lower head) Assessment Summary Assessment Pt is able to perform personal hygiene activities if she doesn't have to raise her arm at shoulder height or greater due to weakness and inability to lift her R arm past 60 deg' s of flexion. She has functional R shoulder PROM, but her strength is limiting her functional ability. She appears to be reaching a plateau in her progress. The pt feels she understands what ex's to continue to work towards improving her shoulder strength and is ready to be discharged to a HEP. The pt presents with limited strength and mobility as if a rotator cuff injury, but yet she does have mobility and strength of her shoulder internal and external rotators. The pt will seek further therapy if she feels she needs help with her home strengthening program . Physical Therapy Plan Discharge Physical Therapy Discharge Reasons Plateau in Progress Discharge Comments See Assessment Summary. Next Visit Focus/Plan Next Visit Plan Pt is being discharged to a home exercise program today. No further physical therapy is planned. The pt may want to be rechecked and progressed in the future but will seek a new referral to return.
== END 2018-02-18 14:56 ==
LOC: PHYS 11:15
PROVIDERS: Family Provider Family Medicine; PCP Family Medicine; Referring Provider Orthopaedic Surgery; Visit Provider Orthopaedic Surgery
DX: S42.251A Displaced fracture of greater tuberosity of right humerus, initial encounter for closed fracture (principal); S42.91XA Fracture of right shoulder girdle, part unspecified, initial encounter for closed fracture
CPT/HCPCS: 97010; 97110; 97140; 97162; 97535

== ENCOUNTER → 2017-12-31 12:35 | Outpatient (CLI) | payer OTHER, SELFPAY ==
--- NOTE | 2017-12-31 12:36 | DI.ECHO.S_ITS ---
[facility] +---------+ [facility] +---------+ : : [address] : : : : [address] : : : : Phone: [phone]+ Echocardiogram Report + + :Name: RUSLAN WHITNEY Study Date: 12/31/2017 Height: 58 in : :[facility] Weight: 112 lb : : Gender: Female BSA: 1.4 m2 : :: 1935 Age: 82 yrs BP: 140/68 mmHg: :Reason For Study: Murmur : : Performed By: Ginette Cortez : :Referring: ELMIRA ACEVES : + + Interpretation Summary Comparison is made with the echocardiogram of 12-12-14. -The left ventricle is normal in size, wall thickness, and systolic function without any focal wall motion abnormalities.The ejection fraction is estimated to be 60-65%. -There is possibly mild dynamic obstruction in the LVOT and mildly increased LVOT gradient with Valsalva (20 mmHg). However, baseline gradients are not obtained on this echo thus a change with Valsalva can not be evaluated. The Valsalva gradient is similar to the prior echo (almost 20 mmHg). -There is moderate to severe mitral annular calcification. The color doppler and increased E velocity suggest increase flow across the mitral valve which could represent either stenosis or a high flow state. Doppler parameters are not obtained for assessment of mitral valve stenosis. -There is moderate mitral regurgitation. -There is moderate to severe tricuspid regurgitation. -The right ventricular systolic pressure is estimated to be at least 72 mmHg based on an estimated right atrial pressure of 3 mm Hg. -Compared to the prior echo, these findings suggest the progression of the valvular pathologies and increase in filling pressures. -Recommend obtaining a UMESH to evaluate the mitral valve pathologies. Procedure: A two-dimensional transthoracic echocardiogram with color flow and Doppler was performed. Comparison is made with the echocardiogram of . The study quality was technically limited. The patient was in normal sinus rhythm during the exam. Left Ventricle: The left ventricle is normal in size, wall thickness, and systolic function without any focal wall motion abnormalities. There is mild dynamic obstruction in the LVOT and mildly increased LVOT gradient with Valsalva (20 mmHg). However, baseline gradients are not obtained on this echo thus a change with Valsalva can not be evaluated. The Valsalva gradient is similar to the prior echo (almost 20 mmHg). The ejection fraction is estimated to be 60-65%. Diastolic function could not be accurately assessed due to confounding valvular disease. Right Ventricle: The right ventricle grossly appears normal in size with probable normal systolic function. Atria: The left atrium is severely dilated. Right atrial size is normal. The interatrial septum is intact with no evidence for an atrial septal defect. Mitral Valve: The mitral valve leaflets appear mildly thickened, but open well. There is moderate to severe mitral annular calcification. The color doppler and elevate E velocity suggest increase flow across the mitral valve which could represent either stenosis or a high flow state. Doppler parameters are not obtained for assessment of mitral valve stenosis. There is moderate mitral regurgitation. Aortic Valve: The aortic valve opens well. The aortic valve is severely calcified. The aortic valve is trileaflet. There is trace aortic regurgitation. Tricuspid Valve: The tricuspid valve leaflets are thin and pliable. There is moderate to severe tricuspid regurgitation. The right ventricular systolic pressure is estimated to be at least 72 mmHg based on an estimated right atrial pressure of 3 mm Hg. Pulmonic Valve: The pulmonic valve is not well seen, but is grossly normal. There is trace pulmonic regurgitation. Great Vessels: The aortic root is normal size. The dimensions of the ascending aorta are normal. The IVC is of normal diameter and collapses greater than 50% with a sniff. This suggests a low right atrial pressure of 3 mm Hg. Pericardium/ Pleura There is no pericardial effusion. There is no pleural effusion. MMode/2D Measurements & Calculations LVIDd: 3.7 cm Ao root diam: 2.6 cm LVIDs: 1.6 cm Aortic Jxn: 2.0 cm FS: 58.5 % asc Aorta Diam: 3.3 cm EPSS: 0.17 cm IVSd: 0.80 cm LVPWd: 0.88 cm LV mo. diameter/BSA (cm/m^2): 2.6 LV sys. diameter/BSA (cm/m^2): 1.1 LA dimension: 4.2 cm RA long axis: 5.0 cm LA A2 area: 24.9 cm2 RA area: 14.5 cm2 LA A4 area: 26.3 cm2 RA vol: 35.9 ml LA length (vol): 6.1 cm RA : 25.2 ml/m2 LA vol: 92.0 ml IVC diam: 1.7 cm LA vol index: 64.6 ml/m2 RVDd major: 4.9 cm RVD1 (basal): 2.6 cm RVD2 (mid): 2.4 cm Doppler Measurements & Calculations Ao V2 max: 222.0 cm/sec MV E max guille: 146.4 cm/sec Ao V2 mean: 154.6 cm/sec MV A max guille: 99.7 cm/sec Ao max P.7 mmHg MV E/A: 1.5 Ao mean P.0 mmHg Med Peak E' Guille: 4.6 cm/sec Ao V2 VTI: 52.3 cm E/E' med: 32.0 Lat Peak E' Guille: 3.5 cm/sec E/E' lat: 41.5 E/e' average: 36.7 MV dec time: 0.19 sec MV P1/2t: 43.6 msec MR ERO: 0.26 cm2 TR max guille: 412.4 cm/sec MV P1/2t max guille: 137.3 cm/sec TR max P.0 mmHg MVA(P1/2t): 5.0 cm2 PA V2 max: 128.9 cm/sec PA V2 mean: 82.0 cm/sec PA mean P.1 mmHg MR flow rate: 135.2 cm3/sec MR PISA radius: 0.75 cm Electronically signed by: Sergio Matta M.D. on Reading Physician:12/31/2017 11:07 PM
== END ==
PROVIDERS: PCP Family Medicine; Visit Provider Family Medicine
DX: R01.1 Cardiac murmur, unspecified (principal); I08.1 Rheumatic disorders of both mitral and tricuspid valves
CPT/HCPCS: 93306

== ENCOUNTER → 2018-04-10 10:56 | Outpatient (CLI) | payer OTHER, SELFPAY ==
--- NOTE | 2018-04-10 | DI.US.S_ITS ---
PROCEDURE: US PERIPH VENOUS LOW EXTREM BI INDICATIONS: PULMONARY HYPERTENSION TECHNIQUE: Real-time imaging, as well as color and pulse Doppler interrogation, were performed of the deep veins of both legs from the inguinal ligament to the popliteal fossa. COMPARISON: None. FINDINGS: The deep veins are normally compressible, and free of intraluminal thrombus. Color and pulse Doppler demonstrate normal phasic intravascular flow. There is normal augmentation response to distal compression maneuver. IMPRESSION: No evidence of deep vein thrombosis within the bilateral lower extremities. Dictated by: Bartolo Leiva M.D. on 04/10/2018 at 13:01 Approved by: Bartolo Leiva M.D. on 04/10/2018 at 13:02
[2018-04-10 11:49] LABS: Blood Urea Nitrogen 26 mg/dL (7-17); Calcium 9.8 mg/dL (8.4-10.2); Carbon Dioxide 25 mmol/L (22-32); Chloride 103 mmol/L (98-107); Glucose 106 mg/dL (80-110); HEMOLYSIS < 15 (0-50); Potassium 4.5 mmol/L (3.4-5.1); Sodium 140 mmol/L (137-145)
== END ==
PROVIDERS: PCP Family Medicine; Visit Provider Hospitalist
DX: I27.20 Pulmonary hypertension, unspecified (principal); I10 Essential (primary) hypertension
CPT/HCPCS: 36415; 80048; 93970

== ENCOUNTER 2018-06-02 11:22 | Emergency (ER) | payer OTHER, SELFPAY ==
[2018-06-02] VITALS (8 sets, daily range): BP systolic 92–119; BP diastolic 33–57; PULSE 90–105; RESP 12–20; TEMP 36.6; O2SAT 98–100
--- NOTE | 2018-06-02 11:38 | PC.NURSE ---
arrived with family, reporting pt bp low at home and tachycardiac. sent by her primary md. on arrival pt, ambulate to room 11 , without difficuly, pt smiling. reports, worsening generalized weakness for 4 days, denies vomiting or diarrhea,
--- NOTE | 2018-06-02 11:41 | PC.NURSE ---
denies chest discomfort, reports, dyspneic on exertion.
--- NOTE | 2018-06-02 12:30 | ED_ITS ---
HPI - Weakness <Griselda Figueroa PA-C - Last Filed: 06/02/18 19:16> General Chief complaint: Weakness Stated complaint: VERY LOW BP Time Seen by Provider: 06/02/18 12:07 Source: patient Mode of arrival: ambulatory Limitations: no limitations History of Present Illness HPI Narrative: This 83-year-old female comes to ED after directed by her PCP office for low blood pressures. She states that she has been feeling ?funny? for a while, states she feels weak in general especially when she gets up and moves around. She states she has to move slowly, even when she gets stressed. She states this has been going on for about a month and correlates it with starting losartan. Her daughter thought perhaps this was related to blood pressure so started monitoring over the weekend and noted on Friday blood pressure was 88/64. He they decided to stop her ?blood pressure med? metoprolol, on Friday, however she has continued losartan and furosemide. Blood pressure improved somewhat to a maximum of 122/63 over the weekend and pulse increased to 80-90 range, however still some persistent the low readings as low as 60s to 70s systolic. Patient states that she still feels weak and ?I have to go slow moving?, but she denies feeling any different today than she has over the last month. She has not had any chest pain or palpitations. She denies any new dyspnea. She denies any recent vomiting or diarrhea. No fever, upper respiratory symptoms or recent illness. No urinary symptoms. She has had normal bowel movements with no blood in the stools. She states that the Lasix was used for swelling in her legs previously but that has fully resolved. She has been eating and drinking normally. Recent echocardiogram showed mitral and pulmonic valvular disease Related Data Home Medications Medication Instructions Recorded Confirmed Disabled Parking Permit 1 dev MISCELLANEOUS DIRECTED 06/02/18 06/02/18 citalopram 40 mg PO DAILY 06/02/18 06/02/18 furosemide 40 mg PO DAILY 06/02/18 06/02/18 losartan 25 mg PO DAILY 06/02/18 06/02/18 simvastatin [Zocor] 40 mg PO BEDTIME 06/02/18 06/02/18 Previous Rx's Medication Instructions Recorded metoprolol tartrate 50 mg tablet 25 mg PO BID #90 tab 08/28/18 Allergies Allergy/AdvReac Type Severity Reaction Status Date / Time cefoxitin [CEFOXITIN] Allergy Mild HIVES Verified 01/29/18 11:27 Sulfa (Sulfonamide Allergy Unknown Verified 01/29/18 11:27 Antibiotics) Review of Systems <Griselda Figueroa PA-C - Last Filed: 06/02/18 19:16> Review of Systems ROS Unobtainable: All systems reviewed & are unremarkable except as noted in HPI and below PFSH <Griselda Figueroa PA-C - Last Filed: 06/02/18 19:16> Medical History Colitis (Chronic ~1984) Colon polyps (Chronic ~1984) Crohn's disease (Chronic ~1984) Depression (Chronic) Diverticular disease (Chronic ~1984) Hemorrhoid (Chronic ~1984) Hypertension (Chronic) Osteoporosis (Chronic) Chicken pox (Resolved) Measles (Resolved) Social History Smoking Status: Never smoker alcohol intake: never substance use type: does not use Exam <Griselda Figueroa PA-C - Last Filed: 06/02/18 19:16> Narrative Exam Narrative: GENERAL APPEARANCE: Patient resting comfortably, in no distress. HEENT: PERRL, EOMI, conjunctiva pink, normal oropharynx NECK/THYROID: Neck supple, no JVD, no masses LUNGS: Clear to auscultation bilaterally. HEART: Regular rate and rhythm with IV/ systolic murmur, normal S1, S2, no S3 or S4. ABDOMEN: Soft, NT, ND, + BS x 4 quadrants EXTREMITIES: No cyanosis or edema. No calf tenderness NEUROLOGIC: Alert and oriented, normal speech and coordination. Initial Vital Signs Initial Vital Signs: Vital Signs Temperature 97.9 F 06/02/18 11:34 Pulse Rate 105 H 06/02/18 11:34 Respiratory Rate 18 06/02/18 11:34 Blood Pressure 114/36 L 06/02/18 11:34 Pulse Oximetry 100 06/02/18 11:34 <Sae Dumont DO - Last Filed: 06/03/18 07:03> Initial Vital Signs Initial Vital Signs: Vital Signs Temperature 97.9 F 06/02/18 11:34 Pulse Rate 105 H 06/02/18 11:34 Respiratory Rate 18 06/02/18 11:34 Blood Pressure 114/36 L 06/02/18 11:34 Pulse Oximetry 100 06/02/18 11:34 Course <Griselda Figueroa PA-C - Last Filed: 06/02/18 19:16> Additional Information: Reviewed findings with Dr. Dumont attending who agrees no clear reason for hospital admission given patient has not had any acutely changed symptoms. she is hypotensive, and symptom onset correlates with addition of new medication. She is feeling improved with higher systolic blood pressures after a small fluid bolus. She did not take her medications today, so will hold them tomorrow as well and we have scheduled follow-up with her PCP on Orders Ordered: Discontinued Medications Sodium Chloride (Normal Saline 0.9%) 500 mls @ 500 mls/hr IV BOLUS ONE Stop: 06/02/18 13:21 Last Infusion: 06/02/18 13:46 Dose: 0 mls/hr Admin: 06/02/18 12:35 Dose: 500 mls/hr Vital Signs - 8 hr 06/02/18 11:34 06/02/18 12:11 06/02/18 12:40 Temperature 97.9 F Pulse Rate 105 H 102 H Pulse Rate [Orthostatic Lying] Pulse Rate [Orthostatic Sitting] Pulse Rate [Orthostatic Standing] Respiratory Rate 18 16 Blood Pressure 114/36 L Blood Pressure [Orthostatic Lying] Blood Pressure [Orthostatic Sitting] Blood Pressure [Orthostatic Standing] Blood Pressure [Right Arm] 92/33 L 96/42 L Pulse Oximetry 100 98 06/02/18 13:00 06/02/18 13:30 06/02/18 13:46 Temperature Pulse Rate 91 H 90 Pulse Rate [Orthostatic Lying] 95 H Pulse Rate [Orthostatic Sitting] 101 H Pulse Rate [Orthostatic Standing] 100 H Respiratory Rate 12 20 Blood Pressure Blood Pressure [Orthostatic Lying] 102/49 L Blood Pressure [Orthostatic Sitting] 119/55 L Blood Pressure [Orthostatic Standing] 106/57 L Blood Pressure [Right Arm] 95/41 L 101/50 L Pulse Oximetry 100 99 06/02/18 14:15 06/02/18 14:59 Temperature Pulse Rate 91 H 91 H Pulse Rate [Orthostatic Lying] Pulse Rate [Orthostatic Sitting] Pulse Rate [Orthostatic Standing] Respiratory Rate 19 14 Blood Pressure 115/49 L Blood Pressure [Orthostatic Lying] Blood Pressure [Orthostatic Sitting] Blood Pressure [Orthostatic Standing] Blood Pressure [Right Arm] 113/53 L Pulse Oximetry <Sae Dumont DO - Last Filed: 06/03/18 07:03> Orders Ordered: Discontinued Medications Sodium Chloride (Normal Saline 0.9%) 500 mls @ 500 mls/hr IV BOLUS ONE Stop: 06/02/18 13:21 Last Infusion: 06/02/18 13:46 Dose: 0 mls/hr Admin: 06/02/18 12:35 Dose: 500 mls/hr Vital Signs - 8 hr 06/02/18 11:34 06/02/18 12:11 06/02/18 12:40 Temperature 97.9 F Pulse Rate 105 H 102 H Pulse Rate [Orthostatic Lying] Pulse Rate [Orthostatic Sitting] Pulse Rate [Orthostatic Standing] Respiratory Rate 18 16 Blood Pressure 114/36 L Blood Pressure [Orthostatic Lying] Blood Pressure [Orthostatic Sitting] Blood Pressure [Orthostatic Standing] Blood Pressure [Right Arm] 92/33 L 96/42 L Pulse Oximetry 100 98 06/02/18 13:00 06/02/18 13:30 06/02/18 13:46 Temperature Pulse Rate 91 H 90 Pulse Rate [Orthostatic Lying] 95 H Pulse Rate [Orthostatic Sitting] 101 H Pulse Rate [Orthostatic Standing] 100 H Respiratory Rate 12 20 Blood Pressure Blood Pressure [Orthostatic Lying] 102/49 L Blood Pressure [Orthostatic Sitting] 119/55 L Blood Pressure [Orthostatic Standing] 106/57 L Blood Pressure [Right Arm] 95/41 L 101/50 L Pulse Oximetry 100 99 06/02/18 14:15 06/02/18 14:59 Temperature Pulse Rate 91 H 91 H Pulse Rate [Orthostatic Lying] Pulse Rate [Orthostatic Sitting] Pulse Rate [Orthostatic Standing] Respiratory Rate 19 14 Blood Pressure 115/49 L Blood Pressure [Orthostatic Lying] Blood Pressure [Orthostatic Sitting] Blood Pressure [Orthostatic Standing] Blood Pressure [Right Arm] 113/53 L Pulse Oximetry MDM - Weakness <Griselda Figueroa PA-C - Last Filed: 06/02/18 19:16> Lab Data Result diagrams: 06/02/18 11:35 06/02/18 11:35 Lab Results 06/02/18 06/02/18 Range/Units 11:35 11:35 WBC 9.3 (4.5-11.0) X10^3/uL RBC 2.71 L (4.0-5.2) X10^6/uL Hgb 9.0 L (12.0-16.0) g/dL Hct 25.6 L (36-46) % MCV 94.7 (80-100) fL MCH 33.4 (26-34) PG MCHC 35.3 (30-36) % RDW 18.4 H (11.6-14.8) % Plt Count 268 (150-400) X10^3/uL Neut % (Auto) Not Reportable Lymph % (Auto) Not Reportable [place] % (Auto) Not Reportable Eos % (Auto) Not Reportable Baso % (Auto) Not Reportable Lymph # (Auto) Not Reportable [place] # (Auto) Not Reportable Baso # (Auto) Not Reportable Total Counted 100 Seg Neutrophils % 12.0 L (38-70) % Band Neutrophils % 3.0 (3-7) % Lymphocytes % (Manual) 47.0 H (25-45) % Atypical Lymphs % 26.0 H ( - 0) % Monocytes % (Manual) 8.0 (2-11) % Eosinophils % (Manual) 4.0 (2-4) % Neutrophils # (Manual) 1395 L (2645-4757) /uL RBC Morphology sb Anisocytosis 1+ H Sodium 136 L (137-145) mmol/L Potassium 4.2 (3.4-5.1) mmol/L Chloride 102 (98-107) mmol/L Carbon Dioxide 19 L (22-32) mmol/L BUN 36 H (7-17) mg/dL Creatinine 1.30 H (0.52-1.04) mg/dL Estimated GFR 39.0 L (>60) mL/min BUN/Creatinine Ratio 27.7 H (6-22) Glucose 100 (80-110) mg/dL Calcium 9.4 (8.4-10.2) mg/dL Magnesium 1.9 (1.6-2.3) mg/dL Total Bilirubin 1.2 (0.2-1.3) mg/dL AST 38 H (14-36) IU/L ALT 18 (9-52) IU/L Alkaline Phosphatase 75 (38-126) U/L B-Natriuretic Peptide 419 H (<100) Total Protein 6.8 (6.3-8.2) g/dL Albumin 4.2 (3.5-5.0) g/dL Globulin 2.6 (1.7-4.1) g/dL Albumin/Globulin Ratio 1.6 (1.0-2.8) <Sae Dumont, DO - Last Filed: 06/03/18 07:03> Lab Data Lab Results 06/02/18 06/02/18 Range/Units 11:35 11:35 WBC 9.3 (4.5-11.0) X10^3/uL RBC 2.71 L (4.0-5.2) X10^6/uL Hgb 9.0 L (12.0-16.0) g/dL Hct 25.6 L (36-46) % MCV 94.7 (80-100) fL MCH 33.4 (26-34) PG MCHC 35.3 (30-36) % RDW 18.4 H (11.6-14.8) % Plt Count 268 (150-400) X10^3/uL Neut % (Auto) Not Reportable Lymph % (Auto) Not Reportable [place] % (Auto) Not Reportable Eos % (Auto) Not Reportable Baso % (Auto) Not Reportable Lymph # (Auto) Not Reportable [place] # (Auto) Not Reportable Baso # (Auto) Not Reportable Total Counted 100 Seg Neutrophils % 12.0 L (38-70) % Band Neutrophils % 3.0 (3-7) % Lymphocytes % (Manual) 47.0 H (25-45) % Atypical Lymphs % 26.0 H ( - 0) % Monocytes % (Manual) 8.0 (2-11) % Eosinophils % (Manual) 4.0 (2-4) % Neutrophils # (Manual) 1395 L (3592-5141) /uL RBC Morphology sb Anisocytosis 1+ H Sodium 136 L (137-145) mmol/L Potassium 4.2 (3.4-5.1) mmol/L Chloride 102 (98-107) mmol/L Carbon Dioxide 19 L (22-32) mmol/L BUN 36 H (7-17) mg/dL Creatinine 1.30 H (0.52-1.04) mg/dL Estimated GFR 39.0 L (>60) mL/min BUN/Creatinine Ratio 27.7 H (6-22) Glucose 100 (80-110) mg/dL Calcium 9.4 (8.4-10.2) mg/dL Magnesium 1.9 (1.6-2.3) mg/dL Total Bilirubin 1.2 (0.2-1.3) mg/dL AST 38 H (14-36) IU/L ALT 18 (9-52) IU/L Alkaline Phosphatase 75 (38-126) U/L B-Natriuretic Peptide 419 H (<100) Total Protein 6.8 (6.3-8.2) g/dL Albumin 4.2 (3.5-5.0) g/dL Globulin 2.6 (1.7-4.1) g/dL Albumin/Globulin Ratio 1.6 (1.0-2.8) Discharge Plan Departure Patient Disposition: Home Clinical Impression: Chronic hypotension, Weakness Discharge Date/Time: 06/02/18 15:00 Interventions: ED Discharge Assessment Last Done: 06/02/18 14:59 Instructions: DI for Orthostatic Hypotension, DI for Hypotension Activity Restrictions/Additional Instructions: Your blood pressures have been low the last few days at home and consistent with what we saw here today. Since you have noticed feeling weak since you started the losartan a month ago, I suspect your blood pressure has been low at home since then. This has been worse when you are moving around and happen about because your heart has to work against gravity to keep your blood pressure up. Since you did not take your metoprolol for the last few days, remain off of it. Since you have not taken your Lasix or losartan today, stay off of these as well. all 3 of those medicines make your blood pressure lower. please drink a little more water (instead of just coffee), and you can have a little bit of salt. Change positions slowly for now as you have been. As we talked about, you will likely need to restart these medicines, but probably at lower doses, as they can be helpful for your heart disease. You will also need to see if you have any recurrent leg swelling. hopefully over the next couple of days, you will continue to feel better, and then you can review this with Dr. Baez. We have scheduled you for an appointment with him at 12:00 p.m. on 06/04. You may wish to check a few blood pressures at home prior to that visit and take to review with him. We also noticed today on your lab work that you are anemic, however the you have had this for a lot time. Since you have not had any new bleeding or problems, it is okay to monitor this, but please discuss with Dr. Baez as well as it sounds like lab work and testing may have been done for this in the past. You should return as we discussed if you are feeling acutely worse, or had new symptoms such as chest pain or breathing troubles prior to seeing Dr. Baez. Prescriptions: No Action metoprolol tartrate [Lopressor] 50 mg tablet 25 mg PO BID Qty: 90 RF: 3 furosemide 40 mg Tablet 40 mg PO DAILY RF: 0 citalopram 40 mg Tablet 40 mg PO DAILY RF: 0 losartan 25 mg Tablet 25 mg PO DAILY RF: 0 simvastatin [Zocor] 40 mg tablet 40 mg PO BEDTIME RF: 0 Disabled Parking Permit 1 dev miscellaneous DIRECTED RF: 0 Referrals: Bernabe Baez MD [Primary Care Provider] - <Sae Dumont DO - Last Filed: 06/03/18 07:03> Cosign ED Attending Wilfred Attestation: I was available for consultation during this patient's emergency department encounter
[2018-06-02] MEDS: SODIUM CHLORIDE 0.9% 500 ML IV (12:35)
[2018-06-02 13:08] LABS: Alanine Aminotransferase 18 IU/L (9-52); Albumin 4.2 g/dL (3.5-5.0); Albumin Globulin Ratio 1.6 (1.0-2.8); Alkaline Phosphatase 75 U/L (38-126); Aspartate Aminotransferase 38 IU/L (14-36); BUN Creatinine Ratio 27.7 (6-22); Bilirubin Total 1.2 mg/dL (0.2-1.3); Blood Urea Nitrogen 36 mg/dL (7-17); Calcium 9.4 mg/dL (8.4-10.2); Carbon Dioxide 19 mmol/L (22-32); Chloride 102 mmol/L (98-107); Globulin 2.6 g/dL (1.7-4.1); Glucose 100 mg/dL (80-110); HEMOLYSIS < 15 (0-50); Magnesium 1.9 mg/dL (1.6-2.3); Potassium 4.2 mmol/L (3.4-5.1); Sodium 136 mmol/L (137-145); Total Protein 6.8 g/dL (6.3-8.2)
[2018-06-02 13:09] LABS: Add Manual Diff / Slide Review YES; Hematocrit 25.6 % (36-46); Mean Corpuscular HGB Conc 35.3 % (30-36); Mean Corpuscular Hemoglobin 33.4 PG (26-34); Mean Corpuscular Volume 94.7 fL (80-100); Platelet Count 268 X10^3/uL (150-400); Red Blood Cell Count 2.71 X10^6/uL (4.0-5.2); Red Cell Distribution Width 18.4 % (11.6-14.8); White Blood Cell Count 9.3 X10^3/uL (4.5-11.0)
[2018-06-02 13:11] LABS: B Type Natriuretic Peptide 419 (<100)
[2018-06-02 13:33] LABS: Neutrophils Absolute Manual 1395 /uL (3000-5900); Total Cells Counted 100
[2018-06-02 13:40] LABS: Anisocytosis 1+; RBC Morphology sb
== END 2018-06-02 15:00 | disposition home or self-care (01) ==
PROVIDERS: Emergency Provider Internal Medicine; PCP Family Medicine
DX: I95.89 Other hypotension (principal); R53.1 Weakness
CPT/HCPCS: 36591; 80053; 83735; 83880; 85025; 93005; 93010; 96360; 99283

== ENCOUNTER → 2018-06-04 12:53 | Outpatient (CLI) | payer OTHER, SELFPAY ==
[2018-06-04 13:12] LABS: Hematocrit 24.7 % (36-46); Hemoglobin 8.8 g/dL (12.0-16.0)
[2018-06-04 14:47] LABS: Folate > 20.0 ng/mL (2.76-20.0); Vitamin B12 831 pg/mL (239-931)
[2018-06-04 16:27] LABS: HEMOLYSIS < 15 (0-50); Total Iron Binding Capacity 293 ug/dL (265-497); Transferrin 215 mg/dL (206-381)
[2018-06-04 16:36] LABS: Iron 137 ug/dL (37-170); Percent Iron Saturation 47 % (15-50)
== END ==
PROVIDERS: PCP Family Medicine; Visit Provider Family Medicine
DX: D64.9 Anemia, unspecified (principal)
CPT/HCPCS: 36415; 82607; 82728; 82746; 83540; 83550; 85014; 85018

== ENCOUNTER → 2018-06-23 13:12 | Outpatient (CLI) | payer OTHER, SELFPAY ==
--- NOTE | 2018-06-23 | DI.ECHO.S_ITS ---
[facility] +---------+ [facility] +---------+ : : [address] : : : : [id number] : : : : Phone: [phone] Echocardiogram Report + + :Name: RUSLAN WHITNEY Study Date: 06/23/2018 Height: 58 in : :[facility] Location: [facility] Weight: 124 lb : : Gender: Female BSA: 1.5 m2 : :: 1935 Age: 83 yrs BP: 130/70 mmHg: :Reason For Study: Pulmonary - Hypertension : :Ordering Physician: Sergio : :Sigrid Toscano Performed By: Gabi Page : + + Interpretation Summary The left ventricle is hyperdynamic. There is some degree of KARLA with posteriorly directed MR. There is a small LVOT gradient of 11 mmHg at baseline and 14 mmHg with Valsalva. The mitral valve mean gradient is 4.4 mmHg. The right ventricular systolic pressure is estimated to be at least 48 mmHg based on an estimated right atrial pressure of 3 mm Hg. Overall the right-sided filling pressures are improved; The LVOT gradient is mild and there is mild mitral stenosis. Procedure: A two-dimensional transthoracic echocardiogram with color flow and Doppler was performed. The study quality was technically adequate. Comparison is made with the echocardiogram of 12/31/2017. The heart rate ranged between 76-86 bpm during the study. The patient had a very brief run of tachycardia reaching up to 112 bpm. Left Ventricle: The left ventricle is normal in size. Left ventricular wall thickness is mildly increased. The ejection fraction is estimated to be 65- 70%. The left ventricle is hyperdynamic. Diastolic parameters suggest a pseudonormalization pattern, consistent with probable elevated filling pressures. Right Ventricle: The right ventricle is normal in size and function. Atria: The left atrium is severely dilated. The right atrium is mildly dilated. There is no Doppler evidence for an interatrial shunt. Mitral Valve: There is severe mitral annular calcification. The mitral valve mean gradient is 4.4 mmHg. There is moderate mitral regurgitation. Aortic Valve: The aortic valve is not well visualized. The aortic valve opens well. There is trace aortic regurgitation. Tricuspid Valve: The tricuspid valve leaflets are thin and pliable. There is moderate tricuspid regurgitation. The right ventricular systolic pressure is estimated to be at least 48 mmHg based on an estimated right atrial pressure of 3 mm Hg. Pulmonic Valve: The pulmonic valve is not well visualized. There is trace pulmonic regurgitation. Great Vessels: The aortic root is normal size. The ascending aorta is at the upper limits of normal in size. The pulmonary is not well visualized. The IVC is of normal diameter and collapses greater than 50% with a sniff. This suggests a low right atrial pressure of 3 mm Hg. Pericardium/ Pleura There is a trivial to small pericardial effusion noted. There is no pleural effusion. MMode/2D Measurements & Calculations LVIDd: 3.9 cm LVOT diam: 1.6 cm LVIDs: 1.9 cm Ao root diam: 2.6 cm FS: 52.0 % asc Aorta Diam: 3.4 cm EPSS: 0.00 cm IVSd: 0.75 cm LVPWd: 0.89 cm LV mo. diameter/BSA (cm/m^2): 2.6 LV sys. diameter/BSA (cm/m^2): 1.3 LA dimension: 1.4 cm RA long axis: 4.9 cm LA A2 area: 24.2 cm2 RA area: 17.2 cm2 LA A4 area: 28.2 cm2 RA vol: 51.5 ml LA length (vol): 6.6 cm RA : 34.6 ml/m2 LA vol: 87.8 ml IVC diam: 1.7 cm LA vol index: 59.0 ml/m2 RVD1 (basal): 3.4 cm RVD2 (mid): 2.6 cm TAPSE: 1.8 cm Doppler Measurements & Calculations Ao V2 max: 219.4 cm/sec LVOT Max Guille: 163.9 cm/sec Ao V2 mean: 163.6 cm/sec LV V1 max P.7 mmHg Ao max P.2 mmHg LV V1 VTI: 37.3 cm Ao mean P.4 mmHg DENNISE(I,D): 1.4 cm2 Ao V2 VTI: 49.9 cm DENNISE(V,D): 1.4 cm2 sev ratio: 0.75 DENNISE indexed to BSA (cm^2/m^2): 0.95 AI P1/2t: 292.9 msec AI dec slope: 386.4 cm/sec2 MV E max guille: 128.9 cm/sec TR max guille: 334.6 cm/sec MV A max guille: 105.1 cm/sec TR max P.8 mmHg MV E/A: 1.2 PA V2 max: 111.6 cm/sec Med Peak E' Guille: 4.6 cm/sec PA V2 mean: 87.9 cm/sec E/E' med: 27.7 PA mean P.2 mmHg Lat Peak E' Guille: 4.0 cm/sec PA Accel Time: 0.08 sec E/E' lat: 32.0 E/e' average: 29.9 MV dec time: 0.24 sec MV P1/2t: 55.1 msec MVA(VTI): 1.7 cm2 MV V2 mean: 97.4 cm/sec MV P1/2t max guille: 123.7 cm/sec MV mean P.4 mmHg MVA(P1/2t): 4.0 cm2 MV V2 VTI: 42.1 cm SV(LVOT): 70.6 ml Electronically signed by: Sergio Matta M.D. on Reading Physician:06/24/2018 06:34 PM
[2018-06-23 13:55] LABS: Hemoglobin 9.6 g/dL (12.0-16.0); Mean Corpuscular HGB Conc 33.3 % (30-36); Mean Corpuscular Hemoglobin 34.1 PG (26-34); Mean Corpuscular Volume 102.5 fL (80-100); Platelet Count 301 X10^3/uL (150-400); Red Blood Cell Count 2.83 X10^6/uL (4.0-5.2); Red Cell Distribution Width 22.6 % (11.6-14.8); White Blood Cell Count 5.7 X10^3/uL (4.5-11.0)
[2018-06-23 13:57] LABS: Add Manual Diff / Slide Review YES
[2018-06-23 15:38] LABS: Neutrophils Absolute Manual 969 /uL (3000-5900); Total Cells Counted 100
[2018-06-23 15:39] LABS: Anisocytosis 2+
[2018-06-23 15:40] LABS: Polychromasia 1+
== END ==
PROVIDERS: PCP Family Medicine; Visit Provider Hospitalist
DX: I08.1 Rheumatic disorders of both mitral and tricuspid valves (principal); I27.20 Pulmonary hypertension, unspecified; J90 Pleural effusion, not elsewhere classified; D64.9 Anemia, unspecified
CPT/HCPCS: 36415; 85025; 93306

== ENCOUNTER → 2018-07-02 12:26 | Outpatient (CLI) | payer OTHER, SELFPAY ==
[2018-07-07 23:37] LABS: Abnormal Protein Band 1 0.2 g/dL (NONE DETECTED); Albumin 3.7 g/dL (3.8-4.8); Alpha 1 Globulin 0.4 g/dL (0.2-0.3); Alpha 2 Globulin 0.5 g/dL (0.5-0.9); Beta 1 Globulin 0.4 g/dL (0.4-0.6); Gamma Globulin 0.9 g/dL (0.8-1.7); Protein, Total 6.2 g/dL (6.1-8.1)
== END ==
PROVIDERS: PCP Family Medicine; Visit Provider Family Medicine
DX: D64.9 Anemia, unspecified (principal)
CPT/HCPCS: 36415; 84155; 84156; 84165; 84166

== ENCOUNTER → 2018-07-24 11:56 | Outpatient (CLI) | payer OTHER, SELFPAY ==
--- NOTE | 2018-07-24 | DI.MG.S_ITS ---
BILATERAL DIGITAL SCREENING MAMMOGRAM 3D/2D WITH CAD POST LUMPECTOMY: 07/24/2018 CLINICAL: Routine screening. Personal history of left breast cancer. Family history of breast cancer. Comparison is made to exams dated: 10/19/2015 mammogram, 12/12/2016 mammogram, and 10/13/2014 mammogram - [facility]. There are scattered fibroglandular elements in both breasts. Current study was also evaluated with a Computer Aided Detection (CAD) system. The left breast has post-operative findings. There are new grouped linear coarse calcifications in the left breast at 6 o'clock middle depth. No other significant masses, calcifications, or other findings are seen in either breast. IMPRESSION: INCOMPLETE: NEEDS ADDITIONAL IMAGING EVALUATION The new grouped linear coarse calcifications in the left breast are indeterminate. Mediolateral and spot magnification views are recommended. This exam was interpreted at Station ID: [id number]. NOTE: For mammograms, a report in lay terms will be sent to the patient. Approximately 15% of breast malignancies will not be visualized mammographically. In the management of a palpable breast mass, a negative mammogram must not discourage biopsy of a clinically suspicious lesion. Electronically Signed By: Levi Saavedra M.D. aty/:07/24/2018 14:00:41 letter sent: Additional Imaging Needed ACR BI-RADS Category 0: Incomplete 3340F
== END ==
PROVIDERS: PCP Family Medicine; Visit Provider Family Medicine
DX: Z12.31 Encounter for screening mammogram for malignant neoplasm of breast (principal); Z85.3 Personal history of malignant neoplasm of breast; Z80.3 Family history of malignant neoplasm of breast; M81.0 Age-related osteoporosis without current pathological fracture; Z78.0 Asymptomatic menopausal state; S42.301A Unspecified fracture of shaft of humerus, right arm, initial encounter for closed fracture
CPT/HCPCS: 77063; 77067; 77080

== ENCOUNTER → 2018-08-05 14:26 | Outpatient (CLI) | payer OTHER, SELFPAY ==
--- NOTE | 2018-08-05 14:29 | DI.MG.S_ITS ---
UNILATERAL LEFT DIGITAL DIAGNOSTIC MAMMOGRAM 3D/2D WITH ADDITIONAL VIEWS POST LUMPECTOMY: 08/05/2018 CLINICAL: Additional evaluation requested from prior study. Comparison is made to exams dated: 07/24/2018 mammogram, 12/12/2016 mammogram, and 10/19/2015 mammogram - [facility]. There are scattered fibroglandular elements in left breast. There are new grouped fine punctate calcifications in the left breast central to the nipple posterior depth. No other significant masses or calcifications are seen in the breast. IMPRESSION: SUSPICIOUS OF MALIGNANCY The new grouped fine punctate calcifications in the left breast are at an intermediate suspicion for malignancy. A stereotactic biopsy is recommended. The findings were discussed with the patient at the conclusion of the study by Dr. Kitchen. This exam was interpreted at Station ID: [id number]. NOTE: For mammograms, a report in lay terms will be sent to the patient. Approximately 15% of breast malignancies will not be visualized mammographically. In the management of a palpable breast mass, a negative mammogram must not discourage biopsy of a clinically suspicious lesion. Electronically Signed By: Sae pyle/:08/05/2018 16:20:30 letter sent: Biopsy Required ACR BI-RADS Category 4b: Suspicious abnormality - intermediate suspicion of malignancy 3344F
== END ==
PROVIDERS: PCP Family Medicine; Visit Provider Family Medicine
DX: R92.1 Mammographic calcification found on diagnostic imaging of breast (principal)
CPT/HCPCS: 77065; G0279

== ENCOUNTER 2018-10-05 07:53 | Day surgery (SDC) | payer OTHER, SELFPAY ==
[2018-09-24 13:23] VITALS: BMI 26.5
[2018-10-05] VITALS (14 sets, daily range): BP systolic 100–139; BP diastolic 41–81; PULSE 73–83; RESP 10–17; TEMP 36.5–36.8; O2SAT 92–100; BMI 25.7
--- NOTE | 2018-10-05 | PATH_ITS ---
[facility] Accession Number: [id number] . 01 Material submitted: . breast - LEFT BREAST . 01 Diagnosis: A. Left Breast, Simple Mastectomy: Invasive (ductal) carcinoma, grade 3 of [address] combined histologic grade, total score 8/9). - Tumor size (invasive component): Multifocal, with the largest invasive focus of 0.4 x 0.3 cm by microscopic measurement; in addition 4 other foci of invasive carcinoma are present ranging from 0.1 cm to 0.2 cm, in a background of extensive ductal carcinoma in situ (DCIS). - Nuclear pleomorphism: High. (3/3) - Mitotic rate: Intermediate. (2/3) - Tubular differentiation: Little or none. (3/3) - Ductal carcinoma in situ (DCIS): Present, high nuclear grade with associated necrosis and calcifications. - Extent: Present on 5 slides, spanning approximately 2.5 cm. - Microcalcifications are associated with ductal carcinoma in situ and benign breast parenchyma; coarse calcifications are associated with background fat necrosis and prior procedure site. - Lymphatic invasion: Not identified. - Resection margins: - Invasive carcinoma: Negative; invasive carcinoma is 0.9 cm from the inferior margin, 1 cm from the posterior margin, and more than 1 cm from the remaining margins. - DCIS: Negative; DCIS is 0.5 cm from the posterior and inferior margins, and more than 1 cm from the remaining margins. - Prognostic markers: - Estrogen receptor: Positive (2-5% tumor cells staining, staining intensity: weak). - Progesterone receptor status: Negative (1% tumor cells staining, staining intensity: weak) - HER2 status: Negative for protein overexpression by immunohistochemistry (0 to 1+). - Regional lymph node status: No lymph nodes removed with the specimen. - Additional findings: - Skin and nipple are negative for atypia, carcinoma in situ, and invasive carcinoma, and are associated with prior excision site changes/biopsy site changes. - Skeletal muscle is not present for evaluation. - Biopsy site and prior excision cavity site are present. - Pathologic stage: pT1a pNX. MRV/10/10/2018 . 01 Comment: Within a 2.5 cm span of high-grade DCIS, approximately 5 foci of invasive carcinoma are present, ranging from 0.1 to 0.4 cm. They are morphologically identical. The prognostic markers are performed on the largest focus of invasive carcinoma. Dr. Sorto reviewed the prognostic markers and agrees with the interpretation. . 01 Electronically signed: . Tabatha Da Silva MD, Pathologist NPI- [id number] . 01 Gross description: . Received: In formalin, labeled left breast, short stitch superior, long lateral. Specimen: Left partial mastectomy. Weight: 229 grams. Measurement: 4.3 cm anterior to posterior, 11.5 cm medial to lateral, and up to 12.3 cm superior to inferior. Skin ellipse: Present, measuring 8.0 x 6.1 cm. Nipple/areola: 1.5 x 1.3 cm diameter everted nipple within a 3.5 x 2.5 cm diameter areola. Wire: Absent. Margins: Oriented by surgeon with short superior suture, long lateral suture, and inked as follows: posterior=black; anterior=purple; superior=blue; inferior=green; medial=yellow; lateral=orange. Sliced: Medial to lateral into 23 slices. Lesions: One. Description: Firm, lu-white, focally red-brown and friable with a coil-shaped biopsy clip (slice 13). Size: 6.2 x 4.2 x 2.1 cm. Slices involved: Slice 7-19. Biopsy site: Present, coil-shaped biopsy marker identified within slice 13. Distance to margins: 2.0 cm from the anterior margin, 0.3 cm from the posterior margin, 3.7 cm from the superior margin, 0.2 cm from the inferior margin, 3.2 cm from the medial margin, and 2.2 cm from the lateral margin. Other: The remaining cut surfaces consist of yellow lobulated unremarkable adipose tissue. No other masses or lesions are grossly identified. Fixation time: The specimen was placed in formalin on 10/05/2018 with no time given. The approximate total fixation time is calculated to be 54 hours 30 minutes. Sections: A1-A2: Nipple, bisected, entirely submitted. A3: Slice 1, patient financial representative medial end of specimen, perpendicular. A4: Slice 6, tissue medial to mass, patient financial representative, no mass present. A5: Slice 7, mass with margin, patient financial representative. A6: Slice 8, mass with margin and biopsy site, patient financial representative. A7: Slice 9, mass with margin and biopsy site, patient financial representative. A8-A9: Slice 10, mass with margin and biopsy site, patient financial representative, bisected and submitted superior to inferior. A10: Slice 11, mass with margins, patient financial representative. A11-A13: Slice 12, mass with margins, patient financial representative, submitted superior to inferior. A14-A16: Slice 13, mass with biopsy site containing biopsy marker, patient financial representative submitted superior to inferior. A17, A18: Slice 14, mass with margins, patient financial representative. A19: Slice 15, mass with margins, patient financial representative. A20: Slice 16, mass with margins, patient financial representative. A21, A22: Slice 18, mass with margins, patient financial representative. A23: Slice 19, mass with margins, patient financial representative. A24-A26: Slice 20, slice lateral to mass, patient financial representative, no mass present. A27: Slice 23, patient financial representative lateral end of specimen, perpendicular. Note: After slicing, the specimen was reviewed by Dr. Dennis Mann. (:[id number]) Additional sections submitted: A28: Slice 13, patient financial representative; A29-A32: slice 14, patient financial representative. A33-A34: Slice 15, patient financial representative. A35, A36: Slice 16, patient financial representative. A37: Slice 17, patient financial representative. A38-39: Slice 18, patient financial representative. A40: Slice 19, patient financial representative. A41-A42: Slice 20, patient financial representative. A43: Slice 5, patient financial representative. A44: Slice 11, patient financial representative. (:[id number]) /MRV . 01 Microscopic: . Smooth muscle myosin and p63 are performed on block A13 to assess for foci of invasive carcinoma; external controls are appropriately positive. Within areas of interest, both myoepithelial markers are lost, in support of additional foci of microinvasive carcinoma. . Predictive marker immunohistochemical studies are performed on block A18 with the invasive carcinoma showing the following results: Estrogen receptor (SP1): Positive (2-5% tumor cells staining; weak staining intensity; internal controls are present). Progesterone receptor (1E2): Negative (1% tumor cells staining; weak staining intensity; internal controls are present). Her2 (4B5): Negative for protein overexpression by immunohistochemistry (0 or 1+). . Cold ischemic time is <5 minutes. The scoring criteria for breast biomarkers by immunohistochemistry is based on the ASCO/CAP guidelines (Jose J AC et al J Clin Oncol 2018: 2017 10;36(20):9896-6918 and Ermelinda RIVERA et al, Arch Pathol Lab Med 2009;134(6):907-22). Deparaffinized sections of formalin fixed tissue (along with appropriate positive controls) are incubated with the above antibody(s). Using the automated [employer] stainer, tissue is incubated with the designated antibody which is then localized by a non-biotin, dual polymer detection system. The external controls are reviewed for appropriate reactivity and found to be adequate. Results on the target cell population are indicated above. These tests have not been validated on decalcified tissue. This test was developed and its performance characteristics determined by [employer]. It has not been cleared or approved by the U.S. Food and Drug Administration. The FDA has determined that such clearance or approval is not necessary. This test is used for clinical purposes. It should not be regarded as investigational or for research. . 01 Pathologist provided ICD-10: C50.912 . 01 CPT . 043790, B87996, Z88048, 127584, 153770, 782201 Performed at: 01 [facility] [address] [address] [place] [address] [address] [facility], [place], [place] [id number] MD Sae Evans MD Phone: [phone]
[2018-10-05] MEDS: LACTATED RINGERS 1,000 ML 42 ML IV ×2 (08:30→10:45)
[2018-10-05] MEDS: CLINDAMYCIN 600 MG/50 ML PIGGYBACK 50 MG IV (09:59)
--- NOTE | 2018-10-05 10:07 | PM.PREOP ---
Pre-operative Note Interval Note History & Physical reviewed/Exam performed by Physician: Yes Changes to H&P: No H&P completed within 30 days and has changed as indicated here:: see office note 09/23
--- NOTE | 2018-10-05 10:31 | SUR.OPER ---
Supine on padded OR bed, head on pillow, arms secured on padded arm boards at <90 degrees abduction, legs uncrossed, safety belt at thigh, tape over blanket over lower legs.
[2018-10-05] MEDS: BUPIVACAINE 0.5% (PF) VIAL 30 ML INJ (10:43)
--- NOTE | 2018-10-05 11:57 | SUR.PHASEI ---
1143 To PACU from OR, awake, drowsy, denies pain/nausea. L chest dressing CDI, drain compressed w/red drainage only in the tubing. 1150 Declines PO intake.
[2018-10-05] MEDS: fentaNYL 100 MCG/2 ML INJ 50 MCG IV (12:03)
[2018-10-05] MEDS: HYDROCODONE/ACET 5/325 TABLET 1 TAB PO ×2 (12:12→13:12)
--- NOTE | 2018-10-05 12:19 | PM.OP.1 ---
Operative Date/Time/Diagnoses Date of procedure: 10/05/18 Time of procedure: 11:27 Pre-op diagnosis: DCIS left breast recurrence Post-op diagnosis: same Procedure & Clinicians Procedure: Left simple mastectomy Same procedure as scheduled: Yes Indications: DCIS in a breast that has already been treated in the past for breast cancer Surgeon: Nathan Lira Click Yes if Unassisted: Yes Anesthesia Type: General Operative Notes Findings: Breast removed including prior scar Closure Type: primary Specimen(s): other (Breast) Prosthetic devices, grafts, tissues, transplants, or devices: None Applied: drain(s) (Leo drain) Estimated Blood Loss (mL): 75 Blood products transfused: none Procedure in detail: The patient was placed supine on the operating room table and underwent general LMA anesthesia. She was prepped and draped in the usual fashion. Elliptical incision was made to encompass the area of the abnormality as well as prior biopsy site. Flaps were raised superiorly and medially to the extent of the breast tissue same inferior and lateral. The breast was then taken off the underlying muscle including fascia. There was a large area of scar from her prior biopsy which was incorporated into the specimen. Meticulous hemostasis was achieved. A Leo drain was placed inferior/ lateral and left under the flaps. Subcu was closed with interrupted 3 0 Vicryl. The skin was closed running 4 0 Vicryl subcuticular stitch and Steri-Strips. Dressing was applied the patient was awakened taken recovery room good condition. Complications: none Condition: stable Disposition: PACU
== END 2018-10-05 14:30 | disposition home or self-care (01) ==
PROVIDERS: PCP Family Medicine; Visit Provider Specialist
PROC: 0HTU0ZZ Resection of Left Breast, Open Approach (ICD-10-PCS; CPT 19303; principal; 2018-10-05 09:30)
DX: C50.912 Malignant neoplasm of unspecified site of left female breast (principal); I10 Essential (primary) hypertension; F32.9 Major depressive disorder, single episode, unspecified; Z17.0 Estrogen receptor positive status [ER+]; Z86.000 Personal history of in-situ neoplasm of breast
CPT/HCPCS: 19303; J1100; J2405; J2704; J3010

== ENCOUNTER → 2018-12-02 10:05 | Outpatient (CLI) | payer OTHER, SELFPAY ==
[2018-12-02 10:49] LABS: Cholesterol 120 mg/dL (140-199); HDL Cholesterol 30 mg/dL (40-60); LDL Cholesterol Calculated 58 mg/dL (<100); Triglycerides 161 mg/dL (35-150)
== END ==
PROVIDERS: PCP Family Medicine; Visit Provider Family Medicine
DX: E78.2 Mixed hyperlipidemia (principal)
CPT/HCPCS: 36415; 80061

== ENCOUNTER → 2019-07-27 14:55 | Outpatient (CLI) | payer OTHER, SELFPAY ==
--- NOTE | 2019-07-27 14:57 | DI.ECHO.S_ITS ---
[facility]---------+ [facility] +---------+ : : [address] : : : : [id number] : : : : Phone: [phone]---------+ Echocardiogram Report + + :Name: RULSAN WHITNEY Study Date: 07/27/2019 Height: 57 in : :[facility] Weight: 125 lb : : Gender: Female BSA: 1.5 m2 : :: 1935 Age: 84 yrs BP: 140/82 mmHg: :Reason For Study: hypertrophic Cardiomyopathy : :Ordering Physician: Daphnie : :Sigrid Toscano Performed By: Syeda Mccarty : :Referring: DAPHNIE NÚÑEZ : + + Interpretation Summary The left ventricular cavity is small. The left ventricle is hyperdynamic. Diastolic parameters suggest a pseudonormalization pattern, consistent with probable elevated filling pressures. Mild LVOT gradient of 18 mmHg at baseline which increases to 22 mmHg with Valsalva. The right ventricle is normal in size and function. The right ventricular systolic pressure is estimated to be at least 60 mmHg based on an estimated right atrial pressure of 3 mm Hg. The left atrium is severely dilated. There is moderate mitral annular calcification. There is mild mitral stenosis with mean gradient of 4 mmHg, similar to the prior study. -Compared to the prior echocardiogram, the PASP is higher on this study. Procedure: A two-dimensional transthoracic echocardiogram with color flow and Doppler was performed. The study quality was technically adequate. Comparison is made with the echocardiogram of 06/23/2018. Left Ventricle: The left ventricular cavity is small. There is normal left ventricular wall thickness. The ejection fraction is estimated to be 70-75%. The left ventricle is hyperdynamic. There are no focal wall motion abnormalities. Diastolic parameters suggest a pseudonormalization pattern, consistent with probable elevated filling pressures. Right Ventricle: The right ventricle is normal in size and function. Atria: The left atrium is severely dilated. The right atrium is mildly dilated. There is no Doppler evidence for an interatrial shunt. Mitral Valve: The mitral valve leaflets are severely calcified. There is moderate mitral annular calcification. There is systolic anterior motion of the chordal apparatus. There is mild mitral stenosis. The mitral valve mean gradient is 4 mmHg. There has been no significant change since the previous study. There is mild mitral regurgitation. Aortic Valve: The aortic valve is trileaflet. The aortic valve is mildly calcified. The aortic valve opens well. There is trace aortic regurgitation. Tricuspid Valve: The tricuspid valve leaflets are thin and pliable. There is moderate tricuspid regurgitation. The right ventricular systolic pressure is estimated to be at least 60 mmHg based on an estimated right atrial pressure of 3 mm Hg. Pulmonic Valve: The pulmonic valve is not well visualized. The pulmonic valve is not well seen, but is grossly normal. There is no pulmonic valvular regurgitation. Great Vessels: The aortic root is normal size. The ascending aorta is at the upper limits of normal in size. The IVC is of normal diameter and collapses greater than 50% with a sniff. This suggests a low right atrial pressure of 3 mm Hg. Pericardium/ Pleura There is no pericardial effusion. MMode/2D Measurements & Calculations LVIDd: 3.9 cm LVOT diam: 1.9 cm LVIDs: 2.1 cm Ao root diam: 2.4 cm FS: 46.7 % asc Aorta Diam: 3.3 cm IVSd: 0.75 cm Ao Arch Diam (Prox Trans): 2.6 cm LVPWd: 0.82 cm LV mo. diameter/BSA (cm/m^2): 2.7 LV sys. diameter/BSA (cm/m^2): 1.4 LA A2 area: 27.3 cm2 RA long axis: 4.9 cm LA A4 area: 24.9 cm2 RA area: 17.0 cm2 LA length (vol): 6.0 cm RA vol: 50.7 ml LA vol: 97.0 ml RA : 34.4 ml/m2 LA vol index: 65.8 ml/m2 IVC diam: 1.6 cm RVD1 (basal): 3.6 cm TAPSE: 2.0 cm Doppler Measurements & Calculations Ao V2 max: 214.8 cm/sec LVOT Max Guille: 145.5 cm/sec Ao V2 mean: 145.9 cm/sec LV V1 max P.5 mmHg Ao max P.5 mmHg LV V1 VTI: 36.3 cm Ao mean P.8 mmHg DENNISE(I,D): 2.1 cm2 Ao V2 VTI: 47.7 cm DENNISE(V,D): 1.8 cm2 sev ratio: 0.76 DENNISE indexed to BSA (cm^2/m^2): 1.4 MV E max guille: 145.0 cm/sec TR max guille: 377.1 cm/sec MV A max guille: 102.6 cm/sec TR max P.0 mmHg MV E/A: 1.4 PA V2 max: 124.5 cm/sec Med Peak E' Guille: 6.1 cm/sec PA V2 mean: 88.7 cm/sec E/E' med: 24.0 PA mean P.6 mmHg Lat Peak E' Guille: 5.0 cm/sec E/E' lat: 29.1 E/e' average: 26.5 MV dec time: 0.24 sec MVA(VTI): 2.3 cm2 MV V2 mean: 95.7 cm/sec SV(LVOT): 98.6 ml MV mean P.2 mmHg MV V2 VTI: 42.2 cm Electronically signed by: Daphnie Núñez M.D. on Reading Physician:07/27/2019 07:43 PM
== END ==
PROVIDERS: PCP Family Medicine; Referring Provider Hospitalist; Visit Provider Hospitalist
DX: I08.1 Rheumatic disorders of both mitral and tricuspid valves (principal); I42.2 Other hypertrophic cardiomyopathy
CPT/HCPCS: 93306

== ENCOUNTER → 2019-11-24 12:35 | Outpatient (CLI) | payer OTHER, SELFPAY ==
--- NOTE | 2019-11-24 12:36 | DI.MG.S_ITS ---
UNILATERAL RIGHT DIGITAL SCREENING MAMMOGRAM 3D/2D WITH CAD POST MASTECTOMY: 11/24/2019 CLINICAL: Routine screening. Breast cancer. Family history of breast cancer. Comparison is made to exams dated: 07/24/2018 mammogram, 12/12/2016 mammogram, 10/19/2015 mammogram, 10/13/2014 mammogram, and 10/12/2013 mammogram - [facility]. There are scattered fibroglandular elements in right breast. Current study was also evaluated with a Computer Aided Detection (CAD) system. There are benign vascular calcifications in the right breast. There also is a biopsy clip in the right breast. No significant masses, calcifications, or other findings are seen in the breast. There has been no significant interval change. IMPRESSION: BENIGN There is no mammographic evidence of malignancy. A 1 year screening mammogram is recommended. This exam was interpreted at Station ID: [id number]. NOTE: For mammograms, a report in lay terms will be sent to the patient. Approximately 15% of breast malignancies will not be visualized mammographically. In the management of a palpable breast mass, a negative mammogram must not discourage biopsy of a clinically suspicious lesion. Electronically Signed By: Eleni boucher/suzanne:11/24/2019 13:31:02 copy to: Bernabe Baez letter sent: Normal Exam ACR BI-RADS Category 2: Benign Finding(s) 3342F
== END ==
PROVIDERS: PCP Family Medicine; Referring Provider Internal Medicine; Visit Provider Internal Medicine
DX: Z12.31 Encounter for screening mammogram for malignant neoplasm of breast (principal); Z80.3 Family history of malignant neoplasm of breast; C50.919 Malignant neoplasm of unspecified site of unspecified female breast
CPT/HCPCS: 77063; 77067

== ENCOUNTER → 2020-03-21 12:36 | Outpatient (CLI) | payer OTHER, SELFPAY ==
--- NOTE | 2020-03-21 12:37 | DI.MRI.S_ITS ---
PROCEDURE: MR SHOULDER RT WO CON INDICATIONS: Pain TECHNIQUE: Noncontrast oblique coronal T2 fast spin echo with fat saturation, oblique sagittal T1 spin echo and T2 fast spin echo with fat saturation, axial T1 spin echo and T2 fast spin echo with fat saturation through the shoulder. COMPARISON: None. FINDINGS: Image quality: Diagnostic. Significant susceptibility artifacts from right proximal humeral shaft surgical hardware are seen. Rotator cuff: There is attenuated appearance of distal supraspinatus at its insertion on the humeral head suggestive of tendinosis and moderate to high-grade partial-thickness tear. Distal infraspinatus tendinosis and low to moderate grade articular surface partial-thickness tear is also likely present. No definite full-thickness rotator cuff tendon rupture. Distal subscapularis tendinosis is noted Sagittal images demonstrate moderate supraspinatus and infraspinatus muscle atrophy and mild subscapularis muscle atrophy. Bones and bursae: Susceptibility artifacts are noted limits evaluation of humeral head and proximal humeral shaft. No gross marrow edema or acute fracture. No dislocation. Moderate acromioclavicular joint osteoarthritic changes are seen. Mild to moderate glenohumeral joint osteoarthritic changes also noted. No significant subacromial-subdeltoid or subcoracoid bursal fluid is present. Capsule and soft tissues: In the absence of intra-articular contrast, the labrum and glenohumeral ligaments appear intact. The long head of the biceps tendon is not visualized intra-articularly. The rotator interval appears normal, without fibrosis. The coracohumeral ligament is normal in thickness. IMPRESSION: 1. Prior fixation of proximal humeral shaft with significant susceptibility artifacts. No definite marrow edema. No acute fracture or dislocation. Moderate acromioclavicular joint and glenohumeral joint osteoarthritis. No significant joint effusion. 2. Limited evaluation of distal rotator cuff tendons due to significant susceptibility artifact. Suggestion of tendinosis and moderate grade articular and bursal surface partial thickness tear involving distal supraspinatus and likely infraspinatus. Distal subscapularis tendinosis. No definite full-thickness rotator cuff tendon rupture. Moderate supraspinatus and infraspinatus muscle atrophy and mild subscapularis muscle atrophy. 3. No definite labral tear is seen. 4. Nonvisualization of proximal intra-articular portion of long head of biceps tendon concerning for proximal biceps tendon rupture. Dictated by: Gregorio Lucas M.D. on 03/21/2020 at 14:17 Approved by: Gregorio Lucas M.D. on 03/21/2020 at 14:32
== END ==
PROVIDERS: PCP Family Medicine; Referring Provider Family Medicine; Visit Provider Family Medicine
DX: M25.511 Pain in right shoulder (principal); M19.011 Primary osteoarthritis, right shoulder; Z96.7 Presence of other bone and tendon implants; Z87.81 Personal history of (healed) traumatic fracture
CPT/HCPCS: 73221

== ENCOUNTER → 2020-04-25 13:00 | Oncology outpatient (ONC) | payer OTHER, SELFPAY ==
[2018-08-05 13:52] VITALS: BP 128/73; PULSE 85; RESP 18; TEMP 36.7; O2SAT 97
--- NOTE | 2018-08-05 14:31 | P.CONONC_ITS ---
History of Present Illness - Data of Consult Consult date: 08/05/18 Primary Care Provider: Bernabe Baez MD - Consult Narrative Narrative: Diagnosis: Anemia History of present illness: Day Swenson is a 83 year old female who is referred for further evaluation of an abnormal CBC. She was hospitalized with a complaint of feeling funny with low blood pressure and dizziness. She was found to have a small pericardial effusion as well as worsening anemia. In May, white count was 5.7 hemoglobin 9.6 hematocrit 29 and platelets [id number]. Her MCV was 102. Review of old CBCs shows that her hemoglobin and hematocrit have been low over the last year or so. She did not require transfusion however. She did start to take some iron and has been tolerating it well but has not noticed any improvement in her symptoms. She has not been aware of any unusual bleeding or bruising and denies any epistaxis or gingival bleeding. She has not had any blood in the urine or stool. No vaginal bleeding no bruising. She is not having any chest pain or pressure. She does have some dyspnea on exertion. She is no longer having any dizziness when she stands. She has not noticed any adenopathy. Her appetite has been stable. She has not had any abdominal complaints. She did have some evaluation that included normal B12 and folate levels. Her ferritin was 224 with an iron of 1 37 and a TIBC of 293 for sat of 47%. She had a serum electrophoresis that showed a low level paraprotein at 0.2 grams/deciliter. Immunofixation showed IgM kappa. A UPEP is apparently pending. Her past medical history is notable for some depression, hyperlipidemia. She did have a pericardial effusion. Social history: She lives with her. She does not smoke or drink alcohol. 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 Family history is negative for anemia. CC: Peter Barrett MD Home Medications and Allergies Home Medications Medication Instructions Recorded Confirmed Type Disabled Parking Permit 1 dev MISCELLANEOUS DIRECTED 06/02/18 08/05/18 History citalopram 40 mg PO DAILY 06/02/18 08/05/18 History furosemide 40 mg PO DAILY 06/02/18 08/05/18 History simvastatin [Zocor] 40 mg PO BEDTIME 06/02/18 08/05/18 History mirtazapine 15 mg tablet 15 mg PO DAILY #30 tab 06/04/18 08/05/18 Rx ferrous sulfate [iron] 325 mg PO DAILY 08/05/18 08/05/18 History multivitamin 1 cap PO DAILY 08/05/18 08/05/18 History Allergies Allergy/AdvReac Type Severity Reaction Status Date / Time cefoxitin [CEFOXITIN] Allergy Mild HIVES Verified 07/02/18 11:41 Sulfa (Sulfonamide Allergy Unknown Verified 07/02/18 11:41 Antibiotics) Medical History - Medical, Surgical, Family History Medical History: Medical History (Updated 08/05/18 @ 14:34 by Peter Barrett MD) Colitis Onset Date: ~1984 Colon polyps Onset Date: ~1984 Crohn's disease Onset Date: ~1984 Depression Diverticular disease Onset Date: ~1984 Hemorrhoid Onset Date: ~1984 Hypertension Osteoporosis Chicken pox Measles Surgical History: Surgical History (Updated 08/05/18 @ 14:34 by Peter Barrett MD) Anesthesia History of ileostomy Onset Date: ~1984 Family History: Family History (Updated 09/09/17 @ 21:05 by Aby Garrett) Brother Diabetes mellitus Heart disease Brother Diabetes mellitus Heart disease Mother Hypertension Father Cancer Sister Cancer - Social History Smoking Status: Never smoker Review of Systems - Patient Self-Reported Symptoms SR eye issues: Vision changes SR ears, nose, mouth, throat issues: Cough, Mouth sores, Changes in taste SR Cardiovascular issues: Extreme swelling, Dizzy/lightheaded SR Skin issues: Skin lesions or moles, Hair loss or scalp prob, Nail changes SR Genitourinary issues: Incontinence SR Musculoskeletal issues: Joint pain or swelling, Muscle weakness, Difficulty walking SR Neuro issues: Lightheaded/dizzy Constitutional: decreased activity level, no weight loss Ears, nose, mouth, throat: lightheadedness, no vertigo Cardiovascular: dyspnea on exertion, no chest pain, no palpitations Respiratory: no pain with respirations, no cough Gastrointestinal: no change in appetite, no abdominal pain, no nausea, no vomiting Musculoskeletal: swelling Hematologic/Lymphatic: anemia, no enlarged lymph nodes Exam Vital signs: Vital Signs Temp Pulse Resp BP Pulse Ox 08/05/18 13:52 98.1 F 85 18 128/73 97 Intake and Output 08/04/18 08/05/18 08/05/18 23:59 07:59 15:59 Other: Weight 56.5 kg Patient Weight 08/05/18 23:59 Weight 56.5 kg - Constitutional positive no acute distress, positive average body habitus - Routine HEENT Exam Head: Present: normocephalic, atraumatic Eye: Present: EOMI, PERRL. Absent: conjunctival icterus, scleral injection ENT: Present: mucous membranes moist, oropharynx clear - Routine Neck Exam Present: supple. Absent: lymphadenopathy, thyromegaly - Routine Chest/Breast/Axilla Exam Axillae: Absent: lymphadenopathy - Routine Respiratory Exam Present: Clear to auscultation bilaterally. Absent: rales, wheezes - Routine Cardiovascular Exam Present: RRR, S1, S2. Absent: murmur - Routine Abdominal Exam Present: soft, normoactive bowel sounds. Absent: tenderness, organomegaly, mass - Routine Extremities Exam Present: edema. Absent: cyanosis, clubbing Comments: She has trace lower extremity edema. - Routine Back/Spine Exam Back/Spine: Absent: paraspinal tenderness, vertebral tenderness - Routine Skin Exam Present: intact. Absent: petechiae, rash - Routine Neurological Exam Present: alert, oriented X3 - Routine Psychiatric Exam Present: normal affect, normal thought process Results - Imaging Additional studies: Procedures Closure of skin and subcutaneous tissue of other sites (05/17/13) Assessment and Plan (1) Anemia Current visit: Yes Status: Acute 83-year-old woman with anemia that is been present for about a year. She has a moderate macrocytosis with a normal B12 and folate. Her SPEP shows a low level IgM paraprotein. It is possible that she has Miroslava strands macroglobulinemia counting for her anemia however the paraprotein level is quite low. This may just represent MGUS. She could potentially have an underlying myelodysplasia. We will plan on getting a bone marrow biopsy schedule the soon as it can be practically arranged although I do not think there is a great gutierrez for this. I doubt that her anemia is accounting for her feeling of unease or lightheadedness.
[2018-08-26 09:05] LABS: Mean Corpuscular HGB Conc 34.5 % (30-36); Mean Corpuscular Hemoglobin 34.7 PG (26-34); Mean Corpuscular Volume 100.5 fL (80-100); Platelet Count 225 X10^3/uL (150-400); Red Blood Cell Count 3.18 X10^6/uL (4.0-5.2); Red Cell Distribution Width 17.8 % (11.6-14.8)
[2018-08-26 09:09] LABS: Add Manual Diff / Slide Review YES
[2018-08-26 09:55] LABS: Neutrophils Absolute Manual 1000 /uL (3000-5900); Total Cells Counted 100
[2018-08-26 09:56] LABS: RBC Morphology Normal Morphology
--- NOTE | 2018-08-26 10:27 | ONC.PROCEDUR ---
Date of procedure: 08/26/18 Diagnosis: Anemia with low level IgM paraprotein Onc Bone Marrow: bone marrow biopsy and aspiration Procedure: The patient is an 83-year-old woman who has had a moderate anemia that is been present over the last year. She also has a moderate leukopenia. She has been found to have a low level IgM paraprotein. She is scheduled for bone marrow biopsy today to evaluate for underlying lymphoplasmacytic lymphoma or potentially MDS as the cause of her cytopenias. Patient gave informed consent and was placed in a prone position. Her left posterior iliac crest was prepped with Betadine and anesthetized with approximately 8 cc of 2% lidocaine. A small skin incision was made with a scalpel blade. A Jamshedi needle was used to perform a bone marrow aspiration and biopsy. The patient tolerated the procedure well without any complications. Samples were sent for routine histology as well as flow cytometry and cytogenetics. She return to clinic in about 2 weeks for follow-up.
[2018-09-09 12:01] VITALS: BP 131/67; PULSE 78; RESP 18; TEMP 37; O2SAT 97
--- NOTE | 2018-09-09 13:08 | P.PNONC_ITS ---
PN -Subjective Interval history: Diagnosis: LGL leukemia Previous treatment: None Interval history: The patient is an 83-year-old woman who returns today for follow-up. She was seen initially because of anemia noted during hospital stay in May. She has been taking some iron which she has been tolerating well. She has not had any unusual bleeding or bruising. She feels like her strength and energy level have been improving. She denies any shortness of breath or chest pain. She does have occasional dizziness when she 1st stands. Her appetite has been good. She is not losing any weight. She is not having any abdominal pain. She otherwise feels well. She tolerated her bone marrow biopsy without any complications or difficulty. She did have some evaluation that included normal B12 and folate levels. Her ferritin was 224 with an iron of 1 37 and a TIBC of 293 for sat of 47%. She had a serum electrophoresis that showed a low level paraprotein at 0.2 grams/deciliter. Immunofixation showed IgM kappa. Her past medical history is notable for some depression, hyperlipidemia. She did have a pericardial effusion. - Patient Self-Reported Symptoms SR eye issues: Vision changes SR ears, nose, mouth, throat issues: Cough, Mouth sores, Changes in taste SR Cardiovascular issues: Extreme swelling SR Skin issues: Skin lesions or moles, Hair loss or scalp prob, Nail changes SR Genitourinary issues: Incontinence SR Musculoskeletal issues: Joint pain or swelling, Muscle weakness, Difficulty walking SR Neuro issues: Lightheaded/dizzy Home Medications and Allergies Home Medications Medication Instructions Recorded Confirmed Type Disabled Parking Permit 1 dev MISCELLANEOUS DIRECTED 06/02/18 09/09/18 History furosemide 20 mg PO DAILY 06/02/18 09/09/18 History simvastatin [Zocor] 40 mg PO BEDTIME 06/02/18 09/09/18 History mirtazapine 15 mg tablet 15 mg PO DAILY #30 tab 06/04/18 09/09/18 Rx ferrous sulfate [iron] 325 mg PO DAILY 08/05/18 09/09/18 History multivitamin 1 cap PO DAILY 08/05/18 09/09/18 History oxycodone-acetaminophen 5 mg-325 1 tab PO Q4-6H PRN #60 tab 08/06/18 09/09/18 Rx mg tablet citalopram 40 mg tablet 40 mg PO DAILY #90 tab 08/19/18 09/09/18 Rx Allergies Allergy/AdvReac Type Severity Reaction Status Date / Time cefoxitin [CEFOXITIN] Allergy Mild HIVES Verified 07/02/18 11:41 Sulfa (Sulfonamide Allergy Unknown Verified 07/02/18 11:41 Antibiotics) Exam Vital signs: Vital Signs Temp Pulse Resp BP Pulse Ox 09/09/18 12:01 98.6 F 78 18 131/67 97 Intake and Output 09/08/18 09/09/18 09/09/18 23:59 07:59 15:59 Other: Weight 57.8 kg Patient Weight 09/09/18 23:59 Weight 57.8 kg - Constitutional positive no acute distress, positive average body habitus Comments: She is not further examined. Results - Labs Laboratory Last Values WBC 4.0 X10^3/uL (4.5-11.0) L 08/26/18 08:52 RBC 3.18 X10^6/uL (4.0-5.2) L 08/26/18 08:52 Hgb 11.0 g/dL (12.0-16.0) L 08/26/18 08:52 Hct 32.0 % (36-46) L 08/26/18 08:52 MCV 100.5 fL (80-100) H 08/26/18 08:52 MCH 34.7 PG (26-34) H 08/26/18 08:52 MCHC 34.5 % (30-36) 08/26/18 08:52 RDW 17.8 % (11.6-14.8) H 08/26/18 08:52 Plt Count 225 X10^3/uL (150-400) 08/26/18 08:52 Neut % (Auto) Not Reportable 08/26/18 08:52 Lymph % (Auto) Not Reportable 08/26/18 08:52 [place] % (Auto) Not Reportable 08/26/18 08:52 Eos % (Auto) Not Reportable 08/26/18 08:52 Baso % (Auto) Not Reportable 08/26/18 08:52 Lymph # (Auto) Not Reportable 08/26/18 08:52 [place] # (Auto) Not Reportable 08/26/18 08:52 Baso # (Auto) Not Reportable 08/26/18 08:52 Total Counted 100 07/03/19 08:52 Seg Neutrophils % 21.0 % (38-70) L 08/26/18 08:52 Band Neutrophils % 4.0 % (3-7) 08/26/18 08:52 Lymphocytes % (Manual) 58.0 % (25-45) H 08/26/18 08:52 Atypical Lymphs % 4.0 % (-0) H 08/26/18 08:52 Monocytes % (Manual) 12.0 % (2-11) H 08/26/18 08:52 Basophils % (Manual) 1.0 % (0-1) 08/26/18 08:52 Neutrophils # (Manual) 1000 /uL ([id number]) L 08/26/18 08:52 RBC Morphology Normal morphology 08/26/18 08:52 - Imaging Additional studies: Procedures Closure of skin and subcutaneous tissue of other sites (05/17/13) Assessment and Plan (1) Anemia Current visit: Yes Status: Acute 83-year-old woman with anemia that is been present for about a year. She did have a low level IgM paraprotein but her bone marrow biopsy did not show any evidence of plasmacytosis. Instead, it showed an LGL leukemia. I did explain to the patient and her daughter that LGL leukemia was a slow growing chronic leukemia that usually involved T-cells. It can be associated with autoimmune conditions such as rheumatoid arthritis although she does not have this. Common symptoms of LGL leukemia include anemia, leukopenia or neutropenia and splenomegaly. For patients who are asymptomatic, no therapy is indicated. For patients who do develop progressive anemia or other cytopenias or progressive splenomegaly then steroids or mild forms of chemotherapy can be used. It is likely that she has had this for some time period I am not sure that was responsible for the worsening of her chronic anemia while she was in the hospital but she seems to have returned to baseline level of function. I do not think that any treatment is indicated currently. Instead, we will just follow her expectantly. She will return to clinic in about 3 months for follow- up. 25 minutes was spent with the patient the majority in counseling.
[2018-12-02 10:49] LABS: Alanine Aminotransferase 24 IU/L (9-52); Albumin 4.1 g/dL (3.5-5.0); Albumin Globulin Ratio 1.5 (1.0-2.8); Alkaline Phosphatase 109 U/L (38-126); Aspartate Aminotransferase 46 IU/L (14-36); BUN Creatinine Ratio 32.5 (6-22); Bilirubin Total 1.2 mg/dL (0.2-1.3); Blood Urea Nitrogen 26 mg/dL (7-17); Calcium 9.3 mg/dL (8.4-10.2); Carbon Dioxide 23 mmol/L (22-32); Chloride 104 mmol/L (98-107); Estimated Glomerular Filt Rate > 60.0 mL/min (>60); Globulin 2.8 g/dL (1.7-4.1); Glucose 97 mg/dL (80-110); HEMOLYSIS < 15 (0-50); Hematocrit 31.7 % (36-46); Hemoglobin 10.7 g/dL (12.0-16.0); Lactate Dehydrogenase 843 U/L (313-618); Mean Corpuscular HGB Conc 33.7 % (30-36); Mean Corpuscular Hemoglobin 33.2 PG (26-34); Mean Corpuscular Volume 98.7 fL (80-100); Platelet Count 235 X10^3/uL (150-400); Potassium 3.7 mmol/L (3.4-5.1); Red Blood Cell Count 3.21 X10^6/uL (4.0-5.2); Red Cell Distribution Width 19.8 % (11.6-14.8); Sodium 140 mmol/L (137-145); Total Protein 6.9 g/dL (6.3-8.2); White Blood Cell Count 5.4 X10^3/uL (4.5-11.0)
[2018-12-02 10:52] LABS: Add Manual Diff / Slide Review YES
[2018-12-02 11:18] VITALS: BP 116/60; PULSE 64; RESP 18; TEMP 36.9; O2SAT 98
[2018-12-02 11:38] LABS: Neutrophils Absolute Manual 864 /uL (3000-5900); Total Cells Counted 100
[2018-12-02 11:39] LABS: Anisocytosis 2+
[2018-12-02 11:40] LABS: Smudge Cells 1+
[2018-12-02 11:41] LABS: Spherocytes 1+
--- NOTE | 2018-12-02 11:41 | P.PNONC_ITS ---
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 2. Left breast cancer, T1aNx ER positive, WI negative, HER2 negative. She was treated with simple mastectomy in September 2018 Interval history: The patient is an 83-year-old woman who returns today for follow-up. She has a history of an LGL leukemia that was found on a bone marrow biopsy that was performed because of anemia and a low level of an IgM paraprotein. She has not had any symptoms related to this and has not required any therapy. Since her last visit here, she had an abnormality found in the left breast on mammogram. She went on to biopsy and then simple mastectomy in September. Pathology showed multifocal adenocarcinoma with greatest dimension of 0.4 cm. ER was positive, WI negative and HER2 negative. She had a distant history of breast cancer on the same side and did not have lymph nodes sampled. Today, she is feeling well. She has recovered well from her surgery. She still has a little bit of discomfort along the incision. She denies any shortness of breath or cough. Her appetite and energy level have been stable. She has not noticed any adenopathy. No GI complaints. She denies any other changes in her health. Her past medical history is notable for some depression, hyperlipidemia. She did have a pericardial effusion. She also had a distant history of left-sided breast cancer. - Patient Self-Reported Symptoms SR eye issues: Vision changes SR ears, nose, mouth, throat issues: Cough, Mouth sores, Changes in taste SR Cardiovascular issues: Extreme swelling SR Skin issues: Skin lesions or moles, Hair loss or scalp prob, Nail changes SR Genitourinary issues: Incontinence SR Musculoskeletal issues: Joint pain or swelling, Muscle weakness, Difficulty walking SR Neuro issues: Lightheaded/dizzy Home Medications and Allergies Home Medications Medication Instructions Recorded Confirmed Type Disabled Parking Permit 1 dev MISCELLANEOUS DIRECTED 06/02/18 12/02/18 History furosemide 20 mg PO DAILY 06/02/18 12/02/18 History ferrous sulfate [iron] 325 mg PO DAILY 08/05/18 11/24/18 History multivitamin 1 cap PO DAILY 08/05/18 12/02/18 History citalopram 40 mg tablet 40 mg PO DAILY #90 tab 08/19/18 12/02/18 Rx mirtazapine 15 mg tablet 15 mg PO DAILY #90 tab 10/12/18 12/02/18 Rx simvastatin 40 mg tablet 40 mg PO BEDTIME #90 tab 11/18/18 12/02/18 Rx metoprolol tartrate 25 mg PO DAILY 12/02/18 12/02/18 History tamoxifen 20 mg PO DAILY #90 tab 12/02/18 Rx Allergies Allergy/AdvReac Type Severity Reaction Status Date / Time cefoxitin [CEFOXITIN] Allergy Mild HIVES Verified 11/24/18 11:33 Sulfa (Sulfonamide Allergy Unknown Doesn't Verified 11/24/18 11:33 Antibiotics) remember Exam Vital signs: Vital Signs Temp Pulse Resp BP Pulse Ox 12/02/18 11:18 98.5 F 64 18 116/60 98 Intake and Output 12/01/18 12/02/18 12/02/18 23:59 07:59 15:59 Other: Weight 58 kg Patient Weight 12/02/18 23:59 Weight 58 kg - Constitutional positive no acute distress, positive average body habitus Comments: She is not further examined. Results - Labs Laboratory Last Values WBC 5.4 X10^3/uL (4.5-11.0) 12/02/18 10:15 RBC 3.21 X10^6/uL (4.0-5.2) L 12/02/18 10:15 Hgb 10.7 g/dL (12.0-16.0) L 12/02/18 10:15 Hct 31.7 % (36-46) L 12/02/18 10:15 MCV 98.7 fL (80-100) 12/02/18 10:15 MCH 33.2 PG (26-34) 12/02/18 10:15 MCHC 33.7 % (30-36) 12/02/18 10:15 RDW 19.8 % (11.6-14.8) H 12/02/18 10:15 Plt Count 235 X10^3/uL (150-400) 12/02/18 10:15 Neut % (Auto) Not Reportable 12/02/18 10:15 Lymph % (Auto) Not Reportable 12/02/18 10:15 [place] % (Auto) Not Reportable 12/02/18 10:15 Eos % (Auto) Not Reportable 12/02/18 10:15 Baso % (Auto) Not Reportable 12/02/18 10:15 Lymph # (Auto) Not Reportable 12/02/18 10:15 [place] # (Auto) Not Reportable 12/02/18 10:15 Baso # (Auto) Not Reportable 12/02/18 10:15 Total Counted 100 08/26/18 08:52 Seg Neutrophils % 21.0 % (38-70) L 08/26/18 08:52 Band Neutrophils % 4.0 % (3-7) 08/26/18 08:52 Lymphocytes % (Manual) 58.0 % (25-45) H 08/26/18 08:52 Atypical Lymphs % 4.0 % (-0) H 08/26/18 08:52 Monocytes % (Manual) 12.0 % (2-11) H 08/26/18 08:52 Basophils % (Manual) 1.0 % (0-1) 08/26/18 08:52 Neutrophils # (Manual) 1000 /uL (2667-7262) L 08/26/18 08:52 RBC Morphology Normal morphology 08/26/18 08:52 Sodium 140 mmol/L (137-145) 12/02/18 10:15 Potassium 3.7 mmol/L (3.4-5.1) 12/02/18 10:15 Chloride 104 mmol/L (98-107) 12/02/18 10:15 Carbon Dioxide 23 mmol/L (22-32) 12/02/18 10:15 BUN 26 mg/dL (7-17) H 12/02/18 10:15 Creatinine 0.80 mg/dL (0.52-1.04) 12/02/18 10:15 Estimated GFR > 60.0 mL/min (>60) 12/02/18 10:15 BUN/Creatinine Ratio 32.5 (6-22) H 12/02/18 10:15 Glucose 97 mg/dL (80-110) 12/02/18 10:15 Calcium 9.3 mg/dL (8.4-10.2) 12/02/18 10:15 Total Bilirubin 1.2 mg/dL (0.2-1.3) 12/02/18 10:15 AST 46 IU/L (14-36) H 12/02/18 10:15 ALT 24 IU/L (9-52) 12/02/18 10:15 Alkaline Phosphatase 109 U/L (38-126) 12/02/18 10:15 Lactate Dehydrogenase 843 U/L (313-618) H 12/02/18 10:15 Total Protein 6.9 g/dL (6.3-8.2) 12/02/18 10:15 Albumin 4.1 g/dL (3.5-5.0) 12/02/18 10:15 Globulin 2.8 g/dL (1.7-4.1) 12/02/18 10:15 Albumin/Globulin Ratio 1.5 (1.0-2.8) 12/02/18 10:15 - Imaging Additional studies: Procedures Closure of skin and subcutaneous tissue of other sites (05/17/13) Assessment and Plan (1) Anemia Current visit: Yes Status: Acute 83-year-old woman with anemia that is been present for about a year. She did have a low level IgM paraprotein but her bone marrow biopsy did not show any evidence of plasmacytosis. Instead, it showed an LGL leukemia. Her counts are stable. She has no evidence of any symptoms related to this. Will continue to follow. She has had a recent diagnosis of small ER positive breast cancer treated with mastectomy. Today, we reviewed the role of hormone therapy in reducing the risk for recurrence. I shared data from cancer math that predicts a very low risk of breast cancer specific mortality. The absolute benefit in terms of reduction of risk with hormone therapy is on the order about 1%. Mainly because of her age, her non cancer mortality is nearly 90% over 10 years. There would be minimal reduction in her overall mortality with use of hormone therapy. I did give her prescription for tamoxifen. She will return to clinic in about 3 months for follow-up. If she is having any side effects, I would have a very low threshold for stopping her treatment. 25 minutes was spent with the patient the majority in counseling.
[2019-02-26 11:04] LABS: Hematocrit 29.3 % (36-46); Mean Corpuscular HGB Conc 34.1 % (30-36); Mean Corpuscular Hemoglobin 33.9 PG (26-34); Mean Corpuscular Volume 99.6 fL (80-100); Platelet Count 206 X10^3/uL (150-400); Red Blood Cell Count 2.94 X10^6/uL (4.0-5.2); Red Cell Distribution Width 20.5 % (11.6-14.8); White Blood Cell Count 5.3 X10^3/uL (4.5-11.0)
[2019-02-26 11:06] LABS: Add Manual Diff / Slide Review YES
[2019-02-26 11:13] LABS: Alanine Aminotransferase 16 IU/L (<35); Albumin Globulin Ratio 1.5 (1.0-2.8); Alkaline Phosphatase 75 U/L (38-126); Aspartate Aminotransferase 52 IU/L (14-36); Bilirubin Total 1.3 mg/dL (0.2-1.3); Blood Urea Nitrogen 20 mg/dL (7-17); Calcium 9.3 mg/dL (8.4-10.2); Carbon Dioxide 22 mmol/L (22-32); Chloride 108 mmol/L (98-107); Estimated Glomerular Filt Rate 52.8 mL/min (>60); Globulin 2.7 g/dL (1.7-4.1); Glucose 112 mg/dL (80-110); HEMOLYSIS < 15 (0-50); Potassium 4.9 mmol/L (3.4-5.1); Sodium 140 mmol/L (137-145); Total Protein 6.7 g/dL (6.3-8.2)
[2019-02-26 11:29] LABS: Neutrophils Absolute Manual 1113 /uL (3000-5900); Total Cells Counted 100
[2019-02-26 11:30] LABS: Anisocytosis 2+
[2019-02-26 11:32] LABS: Spherocytes 1+
[2019-03-02 22:40] LABS: Abnormal Protein Band 1 0.2 g/dL (NONE DETECTED); Albumin 3.7 g/dL (3.8-4.8); Alpha 1 Globulin 0.4 g/dL (0.2-0.3); Alpha 2 Globulin 0.5 g/dL (0.5-0.9); Beta 1 Globulin 0.4 g/dL (0.4-0.6); Gamma Globulin 0.9 g/dL (0.8-1.7); Protein, Total 6.2 g/dL (6.1-8.1)
[2019-10-26 10:28] VITALS: BP 116/65; PULSE 78; RESP 18; TEMP 36.9; O2SAT 99
--- NOTE | 2019-10-26 11:27 | P.PNONC_ITS ---
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 2. Left breast cancer, T1aNx ER positive, ND negative, HER2 negative. She was treated with simple mastectomy in September 2018 Interval history: The patient is an 83-year-old woman who returns today for follow-up. She has a history of an LGL leukemia that was found on a bone marrow biopsy that was performed because of anemia and a low level of an IgM paraprotein. She has not had any symptoms related to this and has not required any therapy. Since her last visit here, she had an abnormality found in the left breast on mammogram. She went on to biopsy and then simple mastectomy in September. Pathology showed multifocal adenocarcinoma with greatest dimension of 0.4 cm. ER was positive, ND negative and HER2 negative. She had a distant history of breast cancer on the same side and did not have lymph nodes sampled. Today, she is feeling well. She does note that she has orthostatic dizziness. She has not fallen. She feels unsteady when she gets up on her feet. She can walk on her treadmill twice a day when she can hold on to the rales and does not have dizziness during that activity. She notes some achiness in multiple joints that she has had for several years. The orthostatic dizziness has been going on for about 3 years. She has occasional mouth sores. She is noticing lower extremity edema for 1-2 years when thinks that is a little worse. She has compression stockings but she has not been using them. She denies any other pain, bleeding, lumps or bumps, skin rash, fever, chills, sweats, cough or shortness of breath. All other systems are negative. Her past medical history is notable for some depression, hyperlipidemia. She did have a pericardial effusion but follow-up echocardiogram in July of 2019 showed no evidence of an effusion with normal LV function. She also had a distant history of left-sided breast cancer. - Patient Self-Reported Symptoms SR eye issues: Vision changes SR ears, nose, mouth, throat issues: Mouth sores SR Cardiovascular issues: Extreme swelling, Dizzy/lightheaded SR Skin issues: Skin lesions or moles, Hair loss or scalp prob, Nail changes SR Genitourinary issues: Incontinence SR Musculoskeletal issues: Joint pain or swelling, Difficulty walking SR Neuro issues: Lightheaded/dizzy Home Medications and Allergies Home Medications Medication Instructions Recorded Confirmed Type Disabled Parking Permit 1 dev MISCELLANEOUS DIRECTED 06/02/18 12/02/18 History ferrous sulfate [iron] 325 mg PO DAILY 08/05/18 11/24/18 History multivitamin 1 cap PO DAILY 08/05/18 12/02/18 History metoprolol tartrate 25 mg PO DAILY 12/02/18 12/02/18 History tamoxifen 20 mg PO DAILY #90 tab 12/02/18 Rx simvastatin 40 mg tablet 40 mg PO BEDTIME #90 tab 06/09/19 Rx citalopram 40 mg tablet 40 mg PO DAILY #90 tab 09/01/19 Rx oxycodone 5 mg tablet 5 mg PO Q4H PRN #180 tab 10/06/19 Rx furosemide 20 mg tablet 20 mg PO DAILY #90 tab 10/14/19 Rx mirtazapine 15 mg tablet 15 mg PO DAILY #90 tab 10/14/19 Rx Allergies Allergy/AdvReac Type Severity Reaction Status Date / Time cefoxitin [CEFOXITIN] Allergy Mild HIVES Verified 11/24/18 11:33 Sulfa (Sulfonamide Allergy Unknown Doesn't Verified 11/24/18 11:33 Antibiotics) remember Exam Vital signs: Vital Signs Temp Pulse Resp BP Pulse Ox 10/26/19 10:28 98.4 F 78 18 116/65 99 Intake and Output 10/25/19 10/26/19 10/26/19 23:59 07:59 15:59 Other: Weight 58.5 kg Patient Weight 10/26/19 23:59 Weight 58.5 kg Narrative: She was awake, alert and oriented x3. She was fully ambulatory in no acute distress. Blood pressure was 121/64 sitting 113/57 standing. There was no lymphadenopathy in the cervical, supraclavicular axillary regions. Lungs were clear without wheezes or rales. Heart showed a regular rate and rhythm without murmur, gallop or rub. Abdomen was soft and nontender without organomegaly or masses. There was bilateral pedal edema. Results - Labs Laboratory Last Values WBC 5.3 X10^3/uL (4.5-11.0) 02/26/19 10:48 RBC 2.94 X10^6/uL (4.0-5.2) L 02/26/19 10:48 Hgb 10.0 g/dL (12.0-16.0) L 02/26/19 10:48 Hct 29.3 % (36-46) L 02/26/19 10:48 MCV 99.6 fL (80-100) 02/26/19 10:48 MCH 33.9 PG (26-34) 02/26/19 10:48 MCHC 34.1 % (30-36) 02/26/19 10:48 RDW 20.5 % (11.6-14.8) H 02/26/19 10:48 Plt Count 206 X10^3/uL (150-400) 02/26/19 10:48 Neut % (Auto) Not Reportable 02/26/19 10:48 Lymph % (Auto) Not Reportable 02/26/19 10:48 [place] % (Auto) Not Reportable 02/26/19 10:48 Eos % (Auto) Not Reportable 02/26/19 10:48 Baso % (Auto) Not Reportable 02/26/19 10:48 Lymph # (Auto) Not Reportable 02/26/19 10:48 [place] # (Auto) Not Reportable 02/26/19 10:48 Baso # (Auto) Not Reportable 02/26/19 10:48 Total Counted 100 02/26/19 10:48 Seg Neutrophils % 19.0 % (38-70) L 02/26/19 10:48 Band Neutrophils % 2.0 % (3-7) L 02/26/19 10:48 Lymphocytes % (Manual) 64.0 % (25-45) H 02/26/19 10:48 Atypical Lymphs % 4.0 % (-0) H 02/26/19 10:48 Monocytes % (Manual) 11.0 % (2-11) 02/26/19 10:48 Eosinophils % (Manual) 1.0 % (2-4) L 12/02/18 10:15 Basophils % (Manual) 1.0 % (0-1) 08/26/18 08:52 Neutrophils # (Manual) 1113 /uL (2897-8510) L 02/26/19 10:48 Smudge Cells 1+ H 12/02/18 10:15 RBC Morphology See below 02/26/19 10:48 Anisocytosis 2+ H 02/26/19 10:48 Spherocytes 1+ H 02/26/19 10:48 Sodium 140 mmol/L (137-145) 02/26/19 10:48 Potassium 4.9 mmol/L (3.4-5.1) 02/26/19 10:48 Chloride 108 mmol/L (98-107) H 02/26/19 10:48 Carbon Dioxide 22 mmol/L (22-32) 02/26/19 10:48 BUN 20 mg/dL (7-17) H 02/26/19 10:48 Creatinine 1.00 mg/dL (0.52-1.04) 02/26/19 10:48 Estimated GFR 52.8 mL/min (>60) L 02/26/19 10:48 BUN/Creatinine Ratio 20.0 (6-22) 02/26/19 10:48 Glucose 112 mg/dL (80-110) H 02/26/19 10:48 Calcium 9.3 mg/dL (8.4-10.2) 02/26/19 10:48 Total Bilirubin 1.3 mg/dL (0.2-1.3) 02/26/19 10:48 AST 52 IU/L (14-36) H 02/26/19 10:48 ALT 16 IU/L (<35) 02/26/19 10:48 Alkaline Phosphatase 75 U/L (38-126) 02/26/19 10:48 Lactate Dehydrogenase 843 U/L (313-618) H 12/02/18 10:15 Serum Total Protein 6.2 g/dL (6.1-8.1) 02/26/19 10:48 Total Protein 6.7 g/dL (6.3-8.2) 02/26/19 10:48 Albumin 3.7 g/dL (3.8-4.8) L 02/26/19 10:48 Albumin 4.0 g/dL (3.5-5.0) 02/26/19 10:48 Globulin 2.7 g/dL (1.7-4.1) 02/26/19 10:48 Albumin/Globulin Ratio 1.5 (1.0-2.8) 02/26/19 10:48 Oujst-1-Ozpedyyda 0.4 g/dL (0.2-0.3) H 02/26/19 10:48 Otsrg-4-Baublrhqb 0.5 g/dL (0.5-0.9) 02/26/19 10:48 Drwp-0-Ipqnpehj 0.4 g/dL (0.4-0.6) 02/26/19 10:48 Cwmk-4-Cwobphlc 0.3 g/dL (0.2-0.5) 02/26/19 10:48 Gamma Globulins 0.9 g/dL (0.8-1.7) 02/26/19 10:48 Abnorm Protein Band 1 0.2 g/dL (NONE DETECTED) A 02/26/19 10:48 Abnorm Protein Band 2 Not Reportable 02/26/19 10:48 Abn Gamma Band 3 Serum Not Reportable 02/26/19 10:48 PEP Comment See note 02/26/19 10:48 KAYLENE & SPEP Interp See note 02/26/19 10:48 - Imaging Additional studies: Procedures Closure of skin and subcutaneous tissue of other sites (05/17/13) Reposition Right Humeral Head with Internal Fixation Device, Open Approach (04/25/17) Reposition Right Shoulder Joint, Open Approach (04/25/17) Transfusion of Nonautologous Red Blood Cells into Peripheral Vein, Percutaneous Approach (04/25/17) Assessment and Plan (1) Anemia Status: Acute 83-year-old woman with anemia that is been present for about a year. She did have a low level IgM paraprotein but her bone marrow biopsy did not show any evidence of plasmacytosis. Instead, it showed an LGL leukemia. Her counts are stable. She has no evidence of any symptoms related to this. Will continue to follow. Today she does not look severely anemic on conjunctiva exam. We will check labs to include a CBC, metabolic panel, LDH and protein electrophoresis to monitor this process. She has had a recent diagnosis of small ER positive breast cancer treated with mastectomy. I explained that the risk of this cancer is coming back over the next 25 years is likely in the 15% range at most. Taking tamoxifen for 5 years would reduce this risk in half. Given her age of 84, I think the benefit of taking tamoxifen in her would be small. She has not had a hysterectomy in the be a increased risk of uterine cancer if she were to take tamoxifen. We discussed this comes down to weighing relative risks. I would not push her to continue taking the drug. She has already derived a significant amount of the benefit by taking it for 1 year. Overall, I think she would be best served by discontinuing tamoxifen and continuing observation. She has no evidence of recurrence of breast cancer today and will get a follow-up right mammogram to monitor that side although the exam is negative. Assuming today's labs and upcoming mammogram were good, will plan to see her back in 6 months for follow-up with labs prior. She will call if any problems develop in the interim. She will be watched off treatment unless she develops evidence of clinically significant progression of either her large granulocytic leukemia, or her breast cancer. 25 minutes was spent with the patient the majority in counseling.
[2019-10-26 13:27] LABS: Hematocrit 30.6 % (36-46); Hemoglobin 10.5 g/dL (12.0-16.0); Mean Corpuscular HGB Conc 34.4 % (30-36); Mean Corpuscular Hemoglobin 34.9 PG (26-34); Mean Corpuscular Volume 101.4 fL (80-100); Platelet Count 240 X10^3/uL (150-400); Red Blood Cell Count 3.02 X10^6/uL (4.0-5.2); Red Cell Distribution Width 19.3 % (11.6-14.8); White Blood Cell Count 5.1 X10^3/uL (4.5-11.0)
[2019-10-26 13:28] LABS: Add Manual Diff / Slide Review YES
[2019-10-26 13:44] LABS: Alanine Aminotransferase 14 IU/L (<35); Albumin 3.7 g/dL (3.5-5.0); Albumin Globulin Ratio 1.4 (1.0-2.8); Alkaline Phosphatase 74 U/L (38-126); Aspartate Aminotransferase 48 IU/L (14-36); BUN Creatinine Ratio 23.7 (6-22); Bilirubin Total 0.9 mg/dL (0.2-1.3); Blood Urea Nitrogen 23 mg/dL (7-17); Carbon Dioxide 26 mmol/L (22-32); Chloride 108 mmol/L (98-107); Estimated Glomerular Filt Rate 54.6 mL/min (>60); Globulin 2.6 g/dL (1.7-4.1); Glucose 84 mg/dL (80-110); HEMOLYSIS 16 (0-50); Lactate Dehydrogenase 733 U/L (313-618); Sodium 140 mmol/L (137-145); Total Protein 6.3 g/dL (6.3-8.2)
[2019-10-26 14:17] LABS: Neutrophils Absolute Manual 1275 /uL (3000-5900); Total Cells Counted 100
[2019-10-26 14:19] LABS: Anisocytosis 2+; Macrocytosis 1+; Ovalocytes 1+; Poikilocytosis 1+; Smudge Cells 1+
[2019-10-28 15:48] LABS: Albumin 3.2 g/dL (2.9-4.4); Alpha-1-Globulin 0.3 g/dL (0.0-0.4); Alpha-2-Globulin 0.5 g/dL (0.4-1.0); Gamma Globulin 0.9 g/dL (0.4-1.8); Globulin Total 2.4 g/dL (2.2-3.9); Protein, Total 5.6 g/dL (6.0-8.5)
[2020-04-21 15:56] LABS: Add Manual Diff / Slide Review YES; Hematocrit 32.6 % (36-46); Hemoglobin 11.2 g/dL (12.0-16.0); Mean Corpuscular HGB Conc 34.4 % (30-36); Mean Corpuscular Hemoglobin 33.6 PG (26-34); Mean Corpuscular Volume 97.4 fL (80-100); Platelet Count 256 X10^3/uL (150-400); Red Blood Cell Count 3.35 X10^6/uL (4.0-5.2); Red Cell Distribution Width 19.7 % (11.6-14.8); White Blood Cell Count 4.4 X10^3/uL (4.5-11.0)
[2020-04-21 16:01] LABS: Alanine Aminotransferase 21 IU/L (<35); Albumin Globulin Ratio 1.5 (1.0-2.8); Alkaline Phosphatase 99 U/L (38-126); Aspartate Aminotransferase 55 IU/L (14-36); BUN Creatinine Ratio 22.2 (6-22); Bilirubin Total 1.5 mg/dL (0.2-1.3); Blood Urea Nitrogen 16 mg/dL (7-17); Calcium 9.1 mg/dL (8.4-10.2); Carbon Dioxide 30 mmol/L (22-32); Chloride 100 mmol/L (98-107); Estimated Glomerular Filt Rate > 60.0 mL/min (>60); Globulin 2.7 g/dL (1.7-4.1); Glucose 93 mg/dL (80-110); HEMOLYSIS < 15 (0-50); Lactate Dehydrogenase 892 U/L (313-618); Potassium 3.8 mmol/L (3.4-5.1); Sodium 136 mmol/L (137-145); Total Protein 6.7 g/dL (6.3-8.2)
[2020-04-21 16:15] LABS: Neutrophils Absolute Manual 924 /uL (3000-5900); Total Cells Counted 100
[2020-04-21 16:16] LABS: Anisocytosis 1+
[2020-04-25 12:39] LABS: Albumin 3.5 g/dL (2.9-4.4); Alpha-1-Globulin 0.3 g/dL (0.0-0.4); Alpha-2-Globulin 0.5 g/dL (0.4-1.0); Gamma Globulin 1.1 g/dL (0.4-1.8); Globulin Total 2.8 g/dL (2.2-3.9); Protein, Total 6.3 g/dL (6.0-8.5)
[2020-04-25 13:08] VITALS: BP 134/70; PULSE 107; RESP 18; TEMP 37; O2SAT 99
--- NOTE | 2020-04-25 13:34 | P.PNONC_ITS ---
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 2. Left breast cancer, T1aNx ER positive, CA negative, HER2 negative. She was treated with simple mastectomy in September 2018 Interval history: The patient is an 83-year-old woman who returns today for follow-up. She has a history of an LGL leukemia that was found on a bone marrow biopsy that was performed because of anemia and a low level of an IgM paraprotein. She has not had any symptoms related to this and has not required any therapy. She was subsequently diagnosed with breast cancer and underwent a left mastectomy in September of 2018. Pathology showed multifocal adenocarcinoma with greatest dimension of 0.4 cm. ER was positive, CA negative and HER2 negative. She had a distant history of breast cancer on the same side and did not have lymph nodes sampled. When she was here 6 months ago she had symptoms of orthostatic dizziness. She was counseled about her extremely good prognosis breast cancer with a T1a hormone receptor-positive clinically and radiographically node negative breast cancer. She had been on tamoxifen but has not had a hysterectomy. Accordingly, she discontinued tamoxifen at that time. She comes today for six-month follow- up visit. She continues to have problems with dizziness. Sometimes orthostatic. She recently saw Dr. Hipolito barahona increased her Lasix and venlafaxine. She notes some visual blurring in ongoing symptoms of depression. Her dizziness continues to be her main problem. She has not had any falls. She denies other pain, bleeding, localized weakness, fever, chills, nausea, vomiting, cough or shortness of breath. All other systems are negative. Her past medical history is notable for some depression, hyperlipidemia. She did have a pericardial effusion but follow-up echocardiogram in July of 2019 showed no evidence of an effusion with normal LV function. She also had a distant history of left-sided breast cancer. - Patient Self-Reported Symptoms SR eye issues: Vision changes SR ears, nose, mouth, throat issues: Mouth sores SR Cardiovascular issues: Dizzy/lightheaded SR Skin issues: Skin lesions or moles, Hair loss or scalp prob, Nail changes SR Genitourinary issues: Frequent urination, Incontinence SR Musculoskeletal issues: Joint pain or swelling, Difficulty walking SR Neuro issues: Lightheaded/dizzy Home Medications and Allergies Home Medications Medication Instructions Recorded Confirmed Type Disabled Parking Permit 1 dev MISCELLANEOUS DIRECTED 06/02/18 04/25/20 History ferrous sulfate [iron] 325 mg PO DAILY 08/05/18 04/25/20 History multivitamin 1 cap PO DAILY 08/05/18 04/25/20 History metoprolol tartrate 25 mg PO DAILY 12/02/18 04/25/20 History simvastatin 40 mg tablet 40 mg PO BEDTIME #90 tab 06/09/19 04/25/20 Rx citalopram 40 mg tablet 40 mg PO DAILY #90 tab 11/24/19 04/25/20 Rx oxycodone 10 mg tablet 10 mg PO Q4H PRN #180 tab 03/17/20 04/25/20 Rx furosemide 20 mg tablet 30 mg PO DAILY #135 tab 04/12/20 04/25/20 Rx venlafaxine 75 mg capsule,extended 75 mg PO DAILY #90 cap 04/12/20 04/25/20 Rx release 24 hr Allergies Allergy/AdvReac Type Severity Reaction Status Date / Time cefoxitin [CEFOXITIN] Allergy Mild HIVES Verified 04/12/20 14:11 Sulfa (Sulfonamide Allergy Unknown Doesn't Verified 04/12/20 14:11 Antibiotics) remember Exam Vital signs: Vital Signs Temp Pulse Resp BP Pulse Ox 04/25/20 13:08 98.6 F 107 H 18 134/70 99 Intake and Output 04/24/20 04/25/20 04/25/20 23:59 07:59 15:59 Other: Weight 54.7 kg Patient Weight 04/25/20 23:59 Weight 54.7 kg Narrative: She was awake, alert and oriented x3. She was fully ambulatory in no acute distress. There was no lymphadenopathy in the cervical, supraclavicular axillary regions. Lungs were clear without wheezes or rales. Heart showed a regular rate and rhythm without murmur, gallop or rub. Abdomen was soft and nontender without organomegaly or masses. There was bilateral pedal edema. The left chest wall showed no evidence of local recurrence in the right breast was without masses. Results - Labs Laboratory Last Values WBC 4.4 X10^3/uL (4.5-11.0) L 04/21/20 14:28 RBC 3.35 X10^6/uL (4.0-5.2) L 04/21/20 14:28 Hgb 11.2 g/dL (12.0-16.0) L 04/21/20 14:28 Hct 32.6 % (36-46) L 04/21/20 14:28 MCV 97.4 fL (80-100) 04/21/20 14:28 MCH 33.6 PG (26-34) 04/21/20 14: MCHC 34.4 % (30-36) 04/21/20 14: RDW 19.7 % (11.6-14.8) H 04/21/20 14:28 Plt Count 256 X10^3/uL (150-400) 04/21/20 14:28 Neut % (Auto) Not Reportable 04/21/20 14:28 Lymph % (Auto) Not Reportable 04/21/20 14:28 [place] % (Auto) Not Reportable 04/21/20 14:28 Eos % (Auto) Not Reportable 04/21/20 14:28 Baso % (Auto) Not Reportable 04/21/20 14:28 Lymph # (Auto) Not Reportable 04/21/20 14:28 [place] # (Auto) Not Reportable 04/21/20 14:28 Baso # (Auto) Not Reportable 04/21/20 14:28 Total Counted 100 04/21/20 14: Seg Neutrophils % 14.0 % (38-70) L 04/21/20 14:28 Band Neutrophils % 7.0 % (3-7) 04/21/20 14: Lymphocytes % (Manual) 39.0 % (25-45) 04/21/20 14:28 Atypical Lymphs % 27.0 % (-0) H 04/21/20 14:28 Monocytes % (Manual) 12.0 % (2-11) H 04/21/20 14:28 Eosinophils % (Manual) 3.0 % (2-4) 10/26/19 11:53 Basophils % (Manual) 1.0 % (0-1) 04/21/20 14:28 Neutrophils # (Manual) 924 /uL (0926-4052) L 04/21/20 14:28 Smudge Cells 1+ H 10/26/19 11:53 Spherocytes 1+ H 02/26/19 10:48 RBC Morphology Not Reportable 04/21/20 14:28 Poikilocytosis 1+ H 10/26/19 11:53 Anisocytosis 1+ H 04/21/20 14:28 Macrocytosis 1+ H 10/26/19 11:53 Ovalocytes 1+ H 10/26/19 11:53 Sodium 136 mmol/L (137-145) L 04/21/20 14:28 Potassium 3.8 mmol/L (3.4-5.1) 04/21/20 14:28 Chloride 100 mmol/L (98-107) 04/21/20 14:28 Carbon Dioxide 30 mmol/L (22-32) 04/21/20 14:28 BUN 16 mg/dL (7-17) 04/21/20 14:28 Creatinine 0.72 mg/dL (0.52-1.04) 04/21/20 14:28 Estimated GFR > 60.0 mL/min (>60) 04/21/20 14:28 BUN/Creatinine Ratio 22.2 (6-22) H 04/21/20 14:28 Glucose 93 mg/dL (80-110) 04/21/20 14:28 Calcium 9.1 mg/dL (8.4-10.2) 04/21/20 14:28 Total Bilirubin 1.5 mg/dL (0.2-1.3) H 04/21/20 14:28 AST 55 IU/L (14-36) H 04/21/20 14:28 ALT 21 IU/L (<35) 04/21/20 14:28 Alkaline Phosphatase 99 U/L (38-126) 04/21/20 14:28 Lactate Dehydrogenase 892 U/L (313-618) H 04/21/20 14:28 Serum Total Protein 6.2 g/dL (6.1-8.1) 02/26/19 10:48 Ceif-0-Ayqpjlqc 0.4 g/dL (0.4-0.6) 02/26/19 10:48 Dbha-0-Qrylodav 0.3 g/dL (0.2-0.5) 02/26/19 10:48 Total Protein 6.3 g/dL (6.0-8.5) 04/21/20 14:28 Total Protein 6.7 g/dL (6.3-8.2) 04/21/20 14:28 Albumin 3.5 g/dL (2.9-4.4) 04/21/20 14:28 Albumin 4.0 g/dL (3.5-5.0) 04/21/20 14:28 Globulin 2.7 g/dL (1.7-4.1) 04/21/20 14:28 Abnorm Protein Band 1 0.2 g/dL (NONE DETECTED) A 02/26/19 10:48 Abnorm Protein Band 2 Not Reportable 02/26/19 10:48 Albumin/Globulin Ratio 1.3 (0.7-1.7) 04/21/20 14:28 Albumin/Globulin Ratio 1.5 (1.0-2.8) 04/21/20 14:28 Abn Gamma Band 3 Serum Not Reportable 02/26/19 10:48 Snlik-9-Sjttmkqki 0.3 g/dL (0.0-0.4) 04/21/20 14:28 PEP Comment See note 02/26/19 10:48 Sdgri-3-Qjgyixomp 0.5 g/dL (0.4-1.0) 04/21/20 14:28 Beta Globulins 0.9 g/dL (0.7-1.3) 04/21/20 14:28 Gamma Globulins 1.1 g/dL (0.4-1.8) 04/21/20 14:28 Gamma Glob/Tot Protein 2.8 g/dL (2.2-3.9) 04/21/20 14:28 M-Jim 0.3 g/dL (Not Observed) H 04/21/20 14:28 KAYLENE & SPEP Interp See note 02/26/19 10:48 Ref Lab Notation Comment (.) 04/21/20 14:28 - Imaging Additional studies: Procedures Closure of skin and subcutaneous tissue of other sites (05/17/13) Reposition Right Humeral Head with Internal Fixation Device, Open Approach (04/25/17) Reposition Right Shoulder Joint, Open Approach (04/25/17) Transfusion of Nonautologous Red Blood Cells into Peripheral Vein, Percutaneous Approach (04/25/17) Assessment and Plan (1) Anemia Status: Acute Ms. Swenson does not have any findings to suggest clinically significant progression of her LGL leukemia. Her red count is better than it was. Her whit e count and platelets are normal. She does not have any lymphadenopathy or palpable splenomegaly. Will continue to watch her off treatment for this. She did have a serum protein electrophoresis showed a monoclonal paraprotein of 0 point 3 grams/deciliter. This is higher than it was but still in a very low level and will continue to monitor this. Of note is that a recent MRI of her shoulder showed normal bone marrow signal. She also has a diagnosis of left breast cancer. She has favorable prognostic features with a small tumor, hormone receptor positive, HER2 negative, clinically and radiographically node negative. She is currently not on any antiestrogen therapy which I think is appropriate given her situation. She will be due for mammogram in October will get her back in 6 months for follow-up. I encouraged her to be as active as possible and she walks on a treadmill at least twice a day. She generally eats a healthy diet. I spent 10 minutes in chart review, 18 minutes with the patient, 3 minutes entering orders, and 6 minutes in documentation for a total of 37 minutes.
== END ==
PROVIDERS: Internal Medicine; PCP Family Medicine; Referring Provider Family Medicine; Visit Provider Internal Medicine Medical Oncology
DX: C91.Z0 Other lymphoid leukemia not having achieved remission (principal); D64.9 Anemia, unspecified; C50.912 Malignant neoplasm of unspecified site of left female breast; E78.5 Hyperlipidemia, unspecified; F32.9 Major depressive disorder, single episode, unspecified; Z17.0 Estrogen receptor positive status [ER+]; Z90.12 Acquired absence of left breast and nipple
CPT/HCPCS: 36415; 38222; 80053; 83615; 84155; 84165; 85007; 85025; 99000; 99204; 99214

== ENCOUNTER 2020-05-30 12:51 | Emergency (ER) | payer OTHER, SELFPAY ==
[2020-05-30] VITALS (35 sets, daily range): BP systolic 75–116; BP diastolic 50–80; PULSE 130–166; RESP 12–28; TEMP 36.2; O2SAT 78–99; BMI 23.2
--- NOTE | 2020-05-30 13:09 | ED_ITS ---
HPI - Arrhythmia/Palpitations General Chief Complaint: Arrhythmia/Palpitations Stated Complaint: Afib RVR Time Seen by Provider: 05/30/20 12:51 Source: patient Mode of arrival: EMS Limitations: no limitations History of Present Illness HPI narrative: This is an 85-year-old female in with complaint of at least 2 days of palpitations, feeling weak and a little bit off balance patient states she has not any fevers or chills she denies any cold, cough or congestion. She denies any chest pain or pressure. Patient states she has had some shortness of breath when she walks a longer distances but not short distances. She denies any orthopnea. She has had occasional mild nausea but no vomiting. She denies any abdominal pain or back or flank pain she states she has had some swelling in her lower extremities chronically but has been worsened over the last 2-3 days. Patient states she has never been told that she has AFib, she does take metoprolol, simvastatin and furosemide. Patient states she is supposed to take 1.5 tablets for 30 mg daily but only takes 20 mg of her Lasix. She also states her venlafaxine has recently been increased and the dose was doubled. She states she takes aspirin occasionally but not on a daily basis and denies other anticoagulant. She states she had a Holter remotely or possibly a ZIO patch. She does not recall the reasoning. She has also had an ileostomy for chronic colitis. She denies any tobacco, alcohol or illicit. Dr. Mcmillan is her primary care and she does not believe she has seen cardiology in the past. Related Data Home Medications Medication Instructions Recorded Confirmed Disabled Parking Permit 1 dev MISCELLANEOUS DIRECTED 06/02/18 04/25/20 ferrous sulfate [iron] 325 mg PO DAILY 08/05/18 04/25/20 multivitamin 1 cap PO DAILY 08/05/18 04/25/20 metoprolol tartrate 25 mg PO DAILY 12/02/18 04/25/20 Previous Rx's Medication Instructions Recorded simvastatin 40 mg tablet 40 mg PO BEDTIME #90 tab 06/09/19 citalopram 40 mg tablet 40 mg PO DAILY #90 tab 11/24/19 furosemide 20 mg tablet 30 mg PO DAILY #135 tab 04/12/20 venlafaxine 75 mg capsule,extended 75 mg PO DAILY #90 cap 04/12/20 release 24 hr oxycodone 10 mg tablet See Rx Instructions .ROUTE 05/25/20 .COMPLEX #180 tab Allergies Allergy/AdvReac Type Severity Reaction Status Date / Time cefoxitin [CEFOXITIN] Allergy Mild HIVES Verified 05/30/20 13:00 Sulfa (Sulfonamide Allergy Unknown Doesn't Verified 05/30/20 13:00 Antibiotics) remember Review of Systems Review of Systems ROS Unobtainable: All systems reviewed & are unremarkable except as noted in HPI and below Patient History Medical History Balance problem Breast cancer, left Chicken pox Colitis (~1984) Colon polyps (~1984) Crohn's disease (~1984) Depression Diverticular disease (~1984) Diverticulitis Dizziness Easy bruisability Hemorrhoid (~1984) Hypertension Knee pain Leukemia (~08/2018) Leukemia, chronic Measles Mitral valve disease Osteoporosis Pericardial effusion Vertigo Surgical History Anesthesia History of bunionectomy of both great toes History of section (~1959) History of ileostomy (~1983) History of total colectomy Family History Brother Diabetes mellitus Heart disease Brother Diabetes mellitus Heart disease Mother Hypertension Father Cancer Sister Cancer Social History household members: children Smoking Status: Never smoker alcohol intake: never substance use type: does not use Smoking Status: Never smoker Substance Use Type: does not use Exam Narrative Exam Narrative: GEN: well nourished, well appearing female, alert and oriented x 3, patient appears to be in mild distress. HEENT: Atraumatic, pupils are equal round reactive to light, extraocular movements are intact. HEART: Irregular regular and tachycardic rate and rhythm without murmur, clicks, rubs. No carotid bruits, pulses are equal in upper and lower extremities. Patient does have some swelling 1+ bilateral lower extremities, no difference in circumference bilateral lower extremities. LUNGS:Lungs clear to auscultation, no wheezes, rales, crackles, chest moves symmetrically, no tachypnea accessory muscle use ABD:bowel sounds normal, soft, non-tender, no guarding, rebound, rigidity, no masses noted, no hepatosplenomegaly :No CVA tenderness MSCL: Non-tender, full range of motion, normal gait NEURO:CN 2-12 intact, sensation normal Initial Vital Signs Initial Vital Signs: Vital Signs Temperature 97.2 F L 05/30/20 12:57 Pulse Rate 162 H 05/30/20 12:57 Respiratory Rate 12 05/30/20 12:57 Blood Pressure 115/60 05/30/20 12:57 Pulse Oximetry 88 L 05/30/20 12:57 Course Orders Ordered: ED Orders 05/30/20 12:52 Complete Blood Count AUTO DIFF Stat Comprehensive Metabolic Panel Stat D Dimer Stat Magnesium Stat Partial Thromboplastin Time Stat Prothrombin Time INR Stat Thyroid Stimulating Hormone Stat Troponin & CK Cardiac Panel Stat 05/30/20 12:55 EKG-12 Lead Stat 05/30/20 13:08 XR chest 1V Stat 05/30/20 13:47 CT angio chest PE protocol Stat 05/30/20 14:47 Troponin I Stat 05/30/20 15:53 COVID19 -Nasal swab/Pre-Proc Stat Discontinued Medications Aspirin (Aspirin 81 Mg Chew Tab) 324 mg PO NOW ONE Stop: 05/30/20 13:09 Last Admin: 05/30/20 13:16 Dose: 324 mg Documented by: NATE Diltiazem HCl (Diltiazem 5 Mg/Ml Sdv) 10 mg IV NOW ONE Stop: 05/30/20 13:09 Last Admin: 05/30/20 13:18 Dose: 10 mg Documented by: NATE Heparin Sodium (Porcine) (Heparin 5,000 Unit/Ml Vial) 4,000 unit IV NOW ONE Stop: 05/30/20 15:23 Last Admin: 05/30/20 15:32 Dose: 4,000 unit Documented by: NATE Sodium Chloride (Normal Saline 0.9%) 1,000 mls @ 500 mls/hr IV BOLUS ONE Stop: 05/30/20 15:07 Last Infusion: 05/30/20 15:08 Dose: 500 mls/hr Documented by: Admin: 05/30/20 13:11 Dose: 500 mls/hr Documented by: NATE Diltiazem HCl 125 mg/ Dextrose 125 mls @ 5 mls/hr IV TITRATE JANETH Last Infusion: 05/30/20 15:30 Dose: 0 mg/hr, 0 mls/hr Documented by: Infusion: 05/30/20 15:06 Dose: 5 mg/hr, 5 mls/hr Documented by: Infusion: 05/30/20 14:20 Dose: 10 mg/hr, 10 mls/hr Documented by: Admin: 05/30/20 13:35 Dose: 5 mg/hr, 5 mls/hr Documented by: NATE Amiodarone HCl/Dextrose (Nexterone) 150 mg in 100 mls @ 600 mls/hr IV NOW ONE; Protocol Stop: 05/30/20 15:23 Last Infusion: 05/30/20 15:58 Dose: 200 mls/hr Documented by: Admin: 05/30/20 15:27 Dose: 200 mls/hr Documented by: NATE Amiodarone HCl/Dextrose (Nexterone) 360 mg in 200 mls @ 33.333 mls/hr IV NOW ONE; Protocol Stop: 05/30/20 21:13 Last Titration: 05/30/20 19:14 Dose: 0 ml/hr, 33.3 mls/hr Documented by: Admin: 05/30/20 15:59 Dose: 33.333 ml/hr, 33.33 mls/hr Documented by: NATE Heparin Sodium/Dextrose (Heparin Drip) 25,000 unit in 500 mls @ 20 mls/hr IV CONT JANETH; Protocol Last Titration: 05/30/20 19:15 Dose: 1,000 units/hr, 20 mls/hr Documented by: Admin: 05/30/20 15:45 Dose: 1,000 units/hr, 20 mls/hr Documented by: NATE Consultations Consultation #1: Dr. Matos with cardiology. Patient is AFib RVR, Cardizem barely touches her right. It dropped her pressure. He states this patient has actually been seen by their group before. She has likely diastolic failure. Initially was concern for HOCM but he feels that is not actually her situation after reviewing her images. He suggest loading her with amiodarone bolus over 30 minutes and then continuing with the drip. He feels patient would benefit from transfer over to [facility] likely [facility] for cardioversion Time: 15:15 Consultation #2: Dr. Fletcher, accepts for transfer. Plan for heparin drip. She asked that we send repeat troponin if it is trending upwards are positive we can always let the coordinator know. They will call back with a bed. Time: 15:23 Vital Signs Vital signs: Vital Signs - 8 hr 05/30/20 12:57 05/30/20 13:00 05/30/20 13:18 Temperature 97.2 F L Pulse Rate 162 H 163 H 166 H Respiratory Rate 12 23 Blood Pressure 115/60 116/80 Pulse Oximetry 88 L 78 L 05/30/20 13:22 05/30/20 13:30 05/30/20 13:35 Temperature Pulse Rate 162 H 157 H 161 H Respiratory Rate 16 21 Blood Pressure 108/65 104/68 104/68 Pulse Oximetry 95 96 05/30/20 13:39 05/30/20 13:45 05/30/20 14:00 Temperature Pulse Rate 157 H 160 H 158 H Respiratory Rate 28 H 13 24 Blood Pressure 107/71 113/62 Pulse Oximetry 97 96 94 05/30/20 14:01 05/30/20 14:22 05/30/20 14:23 Temperature Pulse Rate 159 H 150 H 151 H Respiratory Rate 26 H 26 H 25 H Blood Pressure 103/75 103/57 L Pulse Oximetry 94 95 95 05/30/20 14:30 05/30/20 14:45 05/30/20 15:00 Temperature Pulse Rate 152 H 157 H 156 H Respiratory Rate 25 H 25 H 28 H Blood Pressure 102/66 92/55 L 88/50 L Pulse Oximetry 94 95 95 05/30/20 15:16 05/30/20 15:30 05/30/20 15:47 Temperature Pulse Rate 153 H 155 H 145 H Respiratory Rate 26 H 26 H 25 H Blood Pressure 94/50 L 95/62 93/51 L Pulse Oximetry 95 95 94 05/30/20 16:00 05/30/20 16:15 05/30/20 16:30 Temperature Pulse Rate 139 H 137 H 135 H Respiratory Rate 24 23 22 Blood Pressure 99/57 L 90/53 L 99/50 L Pulse Oximetry 95 95 95 05/30/20 16:46 05/30/20 16:51 05/30/20 16:59 Temperature Pulse Rate 136 H 138 H 136 H Respiratory Rate 22 23 22 Blood Pressure 75/52 L 86/60 L Pulse Oximetry 95 96 96 05/30/20 17:00 05/30/20 17:16 05/30/20 17:30 Temperature Pulse Rate 136 H 135 H 134 H Respiratory Rate 21 21 23 Blood Pressure 91/57 L 91/61 Pulse Oximetry 96 97 99 05/30/20 17:42 05/30/20 17:45 05/30/20 18:00 Temperature Pulse Rate 133 H 131 H 132 H Respiratory Rate 16 19 20 Blood Pressure 91/62 94/60 114/56 L Pulse Oximetry 99 99 98 05/30/20 18:15 05/30/20 18:30 05/30/20 18:45 Temperature Pulse Rate 130 H 132 H 131 H Respiratory Rate 18 24 24 Blood Pressure 103/55 L 104/62 90/58 L Pulse Oximetry 99 98 97 05/30/20 19:00 05/30/20 19:03 Temperature Pulse Rate 136 H 145 H Respiratory Rate 24 27 H Blood Pressure 114/68 Pulse Oximetry 98 98 MDM - Arrhythmia/Palpitations Lab Data Attestation: I reviewed the patient's lab results. Result diagrams: 05/30/20 12:52 05/30/20 12:52 Labs: Lab Results 05/30/20 05/30/20 05/30/20 Range/Units 12:52 12:52 12:52 WBC 6.3 (4.5-11.0) X10^3/uL RBC 3.06 L (4.0-5.2) X10^6/uL Hgb 10.4 L (12.0-16.0) g/dL Hct 30.2 L (36-46) % MCV 98.7 (80-100) fL MCH 34.0 (26-34) PG MCHC 34.4 (30-36) % RDW 19.8 H (11.6-14.8) % Plt Count 178 (150-400) X10^3/uL Neut % (Auto) Not Reportable Lymph % (Auto) Not Reportable Gaston % (Auto) Not Reportable Eos % (Auto) Not Reportable Baso % (Auto) Not Reportable Lymph # (Auto) Not Reportable Gaston # (Auto) Not Reportable Baso # (Auto) Not Reportable Total Counted 100 Seg Neutrophils % 53.0 (38-70) % Band Neutrophils % 1.0 L (3-7) % Lymphocytes % (Manual) 29.0 (25-45) % Atypical Lymphs % 10.0 H ( - 0) % Monocytes % (Manual) 6.0 (2-11) % Eosinophils % (Manual) 0.0 L (2-4) % Basophils % (Manual) 1.0 (0-1) % Neutrophils # (Manual) 3402 (4531-9821) /uL RBC Morphology Not Reportable Anisocytosis 2+ H Macrocytosis 1+ H Spherocytes 1+ H PT 15.2 H (10.1-12.7) SECONDS INR 1.3 (0.9-1.3) APTT 25 L (26.4-36.2) SECONDS D-Dimer 921 H (<230) ng/mL Sodium 135 L (137-145) mmol/L Potassium 4.3 (3.4-5.1) mmol/L Chloride 104 (98-107) mmol/L Carbon Dioxide 22 (22-32) mmol/L BUN 18 H (7-17) mg/dL Creatinine 0.91 (0.52-1.04) mg/dL Estimated GFR 58.6 L (>60) mL/min BUN/Creatinine Ratio 19.8 (6-22) Glucose 114 H (80-110) mg/dL Calcium 8.6 (8.4-10.2) mg/dL Magnesium 2.0 (1.6-2.3) mg/dL Total Bilirubin 1.2 (0.2-1.3) mg/dL AST 47 H (14-36) IU/L ALT 19 (<35) IU/L Alkaline Phosphatase 79 (38-126) U/L Total Creatine Kinase 32 (30-135) U/L CK-MB (CK-2) TNP CK-MB (CK-2) Rel Index TNP Troponin I 0.078 H (0.01-0.034) ng/mL Total Protein 5.9 L (6.3-8.2) g/dL Albumin 3.6 (3.5-5.0) g/dL Globulin 2.3 (1.7-4.1) g/dL Albumin/Globulin Ratio 1.6 (1.0-2.8) TSH (0.47-4.68) uIU/mL SARS-CoV-2 (PCR) (Negative) 05/30/20 05/30/20 05/30/20 Range/Units 12:52 14:47 15:53 WBC (4.5-11.0) X10^3/uL RBC (4.0-5.2) X10^6/uL Hgb (12.0-16.0) g/dL Hct (36-46) % MCV (80-100) fL MCH (26-34) PG MCHC (30-36) % RDW (11.6-14.8) % Plt Count (150-400) X10^3/uL Neut % (Auto) Lymph % (Auto) Gaston % (Auto) Eos % (Auto) Baso % (Auto) Lymph # (Auto) Gaston # (Auto) Baso # (Auto) Total Counted Seg Neutrophils % (38-70) % Band Neutrophils % (3-7) % Lymphocytes % (Manual) (25-45) % Atypical Lymphs % ( - 0) % Monocytes % (Manual) (2-11) % Eosinophils % (Manual) (2-4) % Basophils % (Manual) (0-1) % Neutrophils # (Manual) (5498-1705) /uL RBC Morphology Anisocytosis Macrocytosis Spherocytes PT (10.1-12.7) SECONDS INR (0.9-1.3) APTT (26.4-36.2) SECONDS D-Dimer (<230) ng/mL Sodium (137-145) mmol/L Potassium (3.4-5.1) mmol/L Chloride (98-107) mmol/L Carbon Dioxide (22-32) mmol/L BUN (7-17) mg/dL Creatinine (0.52-1.04) mg/dL Estimated GFR (>60) mL/min BUN/Creatinine Ratio (6-22) Glucose (80-110) mg/dL Calcium (8.4-10.2) mg/dL Magnesium (1.6-2.3) mg/dL Total Bilirubin (0.2-1.3) mg/dL AST (14-36) IU/L ALT (<35) IU/L Alkaline Phosphatase (38-126) U/L Total Creatine Kinase (30-135) U/L CK-MB (CK-2) CK-MB (CK-2) Rel Index Troponin I 0.080 H (0.01-0.034) ng/mL Total Protein (6.3-8.2) g/dL Albumin (3.5-5.0) g/dL Globulin (1.7-4.1) g/dL Albumin/Globulin Ratio (1.0-2.8) TSH 2.69 (0.47-4.68) uIU/mL SARS-CoV-2 (PCR) Negative (Negative) Imaging Data Chest x-ray: Radiologist's Impresson: [facility] [place] [address] [id number] ReportSigned Patient: Day Swenson JMR#: [id number]: 5Acct:[id number]/Sex: 85 / FDate of Service: 05/30/20Loc: EDAccession Number: [id number] Procedure: XR chest 1V Ordering Provider: Kaitlyn Tobar D.O. PROCEDURE: XR CHEST 1V INDICATIONS: afib rvr. TECHNIQUE: One view of the chest was acquired. COMPARISON: [facility], , CHEST 1 VIEW, 05/17/2013, 18:15. FINDINGS: Surgical changes and devices: None. Lungs and pleura: Lungs are c abnormal with a chronic appearing interstitial prominence and poor visualization of the retrocardiac left lung base which is suspicious for representing pneumonia. lear. No pleural effusions or pneumothorax. Mediastinum: Mediastinal contours appear normal. Heart size is normal. Bones and chest wall: No suspicious bony lesions. Overlying soft tissues appear unremarkable. IMPRESSION: Retrocardiac left lower lobe pneumonia is suspected. Chronic interstitial prominence, suspect prior smoking history. Dictated by: Yobani Garza M.D. on 05/30/2020 at 13:42 Approved by: Yobani Garza M.D. on 05/30/2020 at 13:43 ECG Data Attestation: I personally reviewed and interpreted this ECG as follows: Prior ECG tracings: available for review Interpretation: Rapid narrow tachycardia. Majority of beats appear at regular intervals with only occasional irregularity. Rate of 162 QRS 82 and QTC of 462. Nonspecific change. Suspect atrial fibrillation although atrial flutter is in the differential. Patient has prior from 06/02/2018 with Q-wave in 1 and aVL with changes in V5 V6 on prior EKGs. MDM Narrative Medical decision making narrative: This is an 85-year-old female comes emergency department with AFib RVR or possibly atrial flutter patient has occasional irregularities but is is typically irregular is AFib. Patient has been in the 160s with minimal improvement. She dropped her pressure with Cardizem. Patient maintained her pressure in the 1 teen range without. Discussed with Cardiology troponin was indeterminate with a very slight rise on repeat. No clear ST elevation. Patient does not have any chest pain or shortness of breath. Her labs do not show any acute cause. Cardiology was familiar with the patient and suspect she is going to require a cardioversion with [facility]. Plan to changed to amiodarone with a bolus over 30 minutes and drip. Cardizem was DC. Patient's heart rate improved to the 130s but otherwise stated the same rate. She has had intermittent dips in her pressure but has been asymptomatic. Heparin drip was also started. Case was discussed with hospitalist who accepts for transfer. Discharge Plan Departure Patient Disposition: [facility] Clinical Impression: Atrial fibrillation with RVR, Elevated troponin Prescriptions: No Action simvastatin [Zocor] 40 mg tablet 40 mg PO BEDTIME Qty: 90 RF: 3 citalopram 40 mg tablet 40 mg PO DAILY Qty: 90 RF: 0 oxycodone 10 mg tablet See Rx Instructions .ROUTE .COMPLEX Qty: 180 RF: 0 venlafaxine 75 mg capsule,extended release 24hr 75 mg PO DAILY Qty: 90 RF: 1 furosemide 20 mg tablet 30 mg PO DAILY Qty: 135 RF: 1 Disabled Parking Permit 1 dev miscellaneous DIRECTED RF: 0 ferrous sulfate [iron] 325 mg (65 mg iron) Tablet 325 mg PO DAILY RF: 0 multivitamin Capsule 1 cap PO DAILY RF: 0 metoprolol tartrate 25 mg Tablet 25 mg PO DAILY RF: 0 Referrals: Chance Funk DO [Primary Care Provider] -
[2020-05-30] MEDS: SODIUM CHLORIDE 0.9% 1,000 ML 500 ML IV (13:11)
[2020-05-30] MEDS: ASPIRIN 81 MG CHEW TAB 324 MG PO (13:16)
[2020-05-30] MEDS: dilTIAZem 5 MG/ML SDV 10 MG IV (13:18)
[2020-05-30 13:26] LABS: Hematocrit 30.2 % (36-46); Hemoglobin 10.4 g/dL (12.0-16.0); Mean Corpuscular HGB Conc 34.4 % (30-36); Mean Corpuscular Volume 98.7 fL (80-100); Platelet Count 178 X10^3/uL (150-400); Red Blood Cell Count 3.06 X10^6/uL (4.0-5.2); Red Cell Distribution Width 19.8 % (11.6-14.8); White Blood Cell Count 6.3 X10^3/uL (4.5-11.0)
[2020-05-30 13:27] LABS: Add Manual Diff / Slide Review YES
[2020-05-30 13:32] LABS: Alanine Aminotransferase 19 IU/L (<35); Albumin 3.6 g/dL (3.5-5.0); Albumin Globulin Ratio 1.6 (1.0-2.8); Alkaline Phosphatase 79 U/L (38-126); Aspartate Aminotransferase 47 IU/L (14-36); BUN Creatinine Ratio 19.8 (6-22); Bilirubin Total 1.2 mg/dL (0.2-1.3); Blood Urea Nitrogen 18 mg/dL (7-17); Calcium 8.6 mg/dL (8.4-10.2); Carbon Dioxide 22 mmol/L (22-32); Chloride 104 mmol/L (98-107); Creatine Kinase 32 U/L (30-135); Estimated Glomerular Filt Rate 58.6 mL/min (>60); Globulin 2.3 g/dL (1.7-4.1); Glucose 114 mg/dL (80-110); HEMOLYSIS 19 (0-50); Potassium 4.3 mmol/L (3.4-5.1); Sodium 135 mmol/L (137-145); Total Protein 5.9 g/dL (6.3-8.2)
[2020-05-30 13:33] LABS: INR 1.3 (0.9-1.3); Prothrombin Time 15.2 SECONDS (10.1-12.7)
[2020-05-30 13:35] LABS: D Dimer 921 ng/mL (<230); PTT Partial Thromboplastin Tim 25 SECONDS (26.4-36.2)
[2020-05-30] MEDS: dilTIAZem 125 MG in DEXTROSE 5 % IN WATER 100 ML IV (13:35)
[2020-05-30 13:41] LABS: Troponin I 0.078 ng/mL (0.01-0.034)
--- NOTE | 2020-05-30 13:47 | DI.CT.S_ITS ---
PROCEDURE: CT ANGIO CHEST PE PROTOCOL INDICATIONS: chest pains TECHNIQUE: After the administration of intravenous contrast, 2 mm thick sections acquired from the pulmonary apices to the posterior costophrenic angles. 3-dimensional maximum intensity projection (MIP) coronal and sagittal reformats were then acquired through the thorax. For radiation dose reduction, the following was used: automated exposure control, adjustment of mA and/or kV according to patient size. COMPARISON: None. FINDINGS: Image quality: Excellent. Pulmonary arteries: Pulmonary arteries are normal in size, and demonstrate no intraluminal filling defects to suggest central pulmonary embolism. Lungs and pleura: Moderate left pleural effusion with compressive atelectasis in the left lung base. Small right pleural effusion with minimal right basilar atelectasis. Ill-defined density consistent with scarring in the right upper lobe. Reference image 86/5. No suspicious pulmonary nodules. No airspace consolidation. Bibasilar peribronchial thickening. Mediastinum: Four-chamber cardiomegaly. Moderate pericardial effusion. Reflux of contrast into the inferior vena cava and hepatic veins may either indicate right heart failure or restriction from the pericardial effusion. No mediastinal or hilar adenopathy. Thoracic aorta is normal in caliber and enhancement. Esophagus is normal in caliber, without hiatal hernia. Bones and chest wall: No suspicious bony lesions. Ribs and thoracic spine appear intact throughout. Thyroid gland is unremarkable as visualized.. No axillary or supraclavicular adenopathy. Abdomen: Visualized upper abdominal solid organs appear normal in the early arterial phase of enhancement. IMPRESSION: 1. No evidence acute pulmonary emboli. 2. Four-chamber cardiomegaly, moderate pericardial effusion. 3. Reflux of contrast into the inferior vena cava and hepatic veins may indicate right heart failure or restriction from the pericardial effusion. 4. Moderate left pleural effusion with compressive atelectasis in the left lung base. 5. Small right pleural effusion. 6. Bibasilar peribronchial thickening. Dictated by: Darrick Evans M.D. on 05/30/2020 at 14:37 Approved by: Darrick Evans M.D. on 05/30/2020 at 14:44
[2020-05-30 13:52] LABS: Neutrophils Absolute Manual 3402 /uL (3000-5900); Total Cells Counted 100
[2020-05-30 13:53] LABS: Anisocytosis 2+; Macrocytosis 1+; Spherocytes 1+
[2020-05-30 14:22] LABS: Thyroid Stimulating Hormone 2.69 uIU/mL (0.47-4.68)
--- NOTE | 2020-05-30 15:06 | PC.NURSE ---
Patient blood pressure trending down, heart rate remains 150-[address] Tobar aware, cardiology paged. Diltiazem decreased to 5mg.
[2020-05-30] MEDS: AMIODARONE 150 MG/100 ML PIGGYBACK 200 MG IV (15:27)
[2020-05-30] MEDS: HEPARIN 5,000 UNIT/ML VIAL 4000 UNIT IV (15:32)
[2020-05-30] MEDS: HEPARIN DRIP 25,000 UNIT/500 ML IV.SOLN 20 UNIT IV (15:45)
--- NOTE | 2020-05-30 15:47 | PC.NURSE ---
Kyara PRATT double checked Amniodarone drip and bolus.
[2020-05-30] MEDS: AMIODARONE 360 MG/200 ML PIGGYBACK 33.33 MG IV (15:59)
[2020-05-30 16:22] LABS: COVID19 -Nasal RAPID Negative (Negative)
--- NOTE | 2020-05-30 16:56 | PC.NURSE ---
Drop in Blood pressure, provider aware. Patient denies chest pain, SOB or dizziness. Verbal order for 500ml bolus. Amiodarone remains at 33.3mls/hr
== END 2020-05-30 19:13 | disposition short-term general hospital (02) ==
PROVIDERS: Emergency Provider Emergency Medicine; PCP Family Medicine
DX: I48.91 Unspecified atrial fibrillation (principal); R77.8 Other specified abnormalities of plasma proteins
CPT/HCPCS: 36415; 71045; 71275; 80053; 82550; 83735; 84443; 84484; 85007; 85025; 85379; 85610; 85730; 87635; 93005; 96365; 96366; 96367; 96368; 99285; C9803; J0282; J1644

== ENCOUNTER → 2020-06-29 11:13 | Outpatient (CLI) | payer MEDICARE, SELFPAY ==
[2020-06-29] MEDS: COVID-19 VACC #1, MRNA(MOD) 100 MCG/0.5 ML VIAL IM (11:28)
== END ==
PROVIDERS: PCP Family Medicine; Visit Provider Internal Medicine
DX: Z23 Encounter for immunization (principal)
CPT/HCPCS: 0011A; 91301

== ENCOUNTER → 2020-08-04 12:12 | Outpatient (CLI) | payer MEDICARE, SELFPAY ==
[2020-08-04] MEDS: COVID-19 VACC #2, MRNA(MOD) 100 MCG/0.5 ML VIAL IM (12:24)
== END ==
PROVIDERS: PCP Family Medicine; Visit Provider Internal Medicine
DX: Z23 Encounter for immunization (principal)
CPT/HCPCS: 0012A; 91301

== ENCOUNTER 2020-08-24 10:54 | Inpatient (IN) | payer OTHER, SELFPAY ==
[2020-08-24] VITALS (43 sets, daily range): BP systolic 88–171; BP diastolic 54–99; PULSE 64–129; RESP 12–25; TEMP 36.7–36.8; O2SAT 93–99; BMI 23.3; BMI 20.9
[2020-08-24 11:20] LABS: Creatine Kinase 177 U/L (30-135)
[2020-08-24 11:33] LABS: NT-proBNP (BNP-Adult 18+) 11600 pg/mL (<450); Troponin I 0.021 ng/mL (0.01-0.034)
[2020-08-24 11:36] LABS: CKMB % Relative Index 1.6 % (1.5-5.0); Creatine Kinase MB 2.86 ng/mL (<2.37)
--- NOTE | 2020-08-24 11:42 | DI.RAD.S_ITS ---
PROCEDURE: XR CHEST 1V INDICATIONS: syncope TECHNIQUE: One view of the chest was acquired. COMPARISON: [facility], , XR CHEST 1V, 05/30/2020, 13:14. [facility], , CHEST 1 VIEW, 05/17/2013, 18:15. FINDINGS: Surgical changes and devices: None. Lungs and pleura: Lungs are unchanged on the right but there is opacification persisting at the left lower lobe behind the heart that was not present in April of 2013. . No pleural effusions or pneumothorax. Mediastinum: Mediastinal contours appear normal. Heart size is normal. Bones and chest wall: No suspicious bony lesions. Overlying soft tissues appear unremarkable. IMPRESSION: Chronic mild interstitial prominence. Opacification behind the left heart is again noted, potentially pneumonia in that area. Dictated by: Yobani Garza M.D. on 08/24/2020 at 12:53 Approved by: Yobani Garza M.D. on 08/24/2020 at 12:57
[2020-08-24 11:55] LABS: Alanine Aminotransferase 21 IU/L (<35); Albumin 3.4 g/dL (3.5-5.0); Albumin Globulin Ratio 1.3 (1.0-2.8); Alkaline Phosphatase 74 U/L (38-126); Aspartate Aminotransferase 69 IU/L (14-36); Bilirubin Total 1.6 mg/dL (0.2-1.3); Blood Urea Nitrogen 22 mg/dL (7-17); Calcium 9.4 mg/dL (8.4-10.2); Carbon Dioxide 27 mmol/L (22-32); Chloride 108 mmol/L (98-107); Estimated Glomerular Filt Rate 31.2 mL/min (>60); Globulin 2.7 g/dL (1.7-4.1); Glucose 88 mg/dL (80-110); HEMOLYSIS < 15 (0-50); Potassium 4.6 mmol/L (3.4-5.1); Sodium 139 mmol/L (137-145); Total Protein 6.1 g/dL (6.3-8.2)
[2020-08-24 12:02] LABS: Hematocrit 34.1 % (36-46); Hemoglobin 11.6 g/dL (12.0-16.0); Mean Corpuscular HGB Conc 33.9 % (30-36); Mean Corpuscular Hemoglobin 33.4 PG (26-34); Mean Corpuscular Volume 98.5 fL (80-100); Platelet Count 256 X10^3/uL (150-400); Red Blood Cell Count 3.46 X10^6/uL (4.0-5.2); Red Cell Distribution Width 21.5 % (11.6-14.8); White Blood Cell Count 6.9 X10^3/uL (4.5-11.0)
[2020-08-24 12:05] LABS: Add Manual Diff / Slide Review YES
[2020-08-24 12:34] LABS: Neutrophils Absolute Manual 2346 /uL (3000-5900); Smudge Cells 1+; Total Cells Counted 100
[2020-08-24 12:35] LABS: Anisocytosis 2+; Platelet Estimate Adequate on smear
[2020-08-24 12:36] LABS: Poikilocytosis 1+
[2020-08-24 12:56] LABS: Appearance Urine UA CLOUDY; Bilirubin Urine UA NEGATIVE (NEGATIVE); Color Urine UA YELLOW; Glucose Urine UA NEGATIVE (Negative); Ketones Urine UA TRACE (NEGATIVE); Leukocyte Esterase Urine UA 3+ (NEGATIVE); Nitrite Urine UA POSITIVE (Negative); Occult Blood Urine UA 3+ (Negative); Protein Urine UA 2+ (Negative); Specific Gravity Urine UA 1.025 (1.000-1.035); Urobilinogen Urine UA 0.2 E.U./dL (0.2)
[2020-08-24 13:06] LABS: Bacteria Urine Many (>30); Culture Indicated Urine Specimen Cultured; RBC Urine 5-10/HPF (0-5/HPF); WBC Urine >100/HPF (0-5/HPF)
--- NOTE | 2020-08-24 15:23 | ED_ITS ---
HPI - Dizziness General Chief Complaint: Dizziness Stated Complaint: Nausea/Dizzy Time Seen by Provider: 08/24/20 15:20 Source: patient and EMS Mode of arrival: EMS History of Present Illness HPI Narrative: This is an 85-year-old female comes emergency department with dizziness. She describes near syncope and dizziness/lightheadedness when she goes from a seated or lying position to standing quickly. If she is walking she can often feel quite dizzy. She denies headache, she has occasionally had some blurry vision changes that has to take her time to focus. She has not syncopized or passed out. No chest pain or pressure, no shortness of breath. She can not feel any tachycardia or elevated heart rate or if she is in atrial fibrillation. She did have an episode of nausea and vomiting last week but has not had any subsequently. No abdominal pain. No back or flank pain. No diarrhea, no constipation, no bright red blood or melena. No urinary symptoms. Patient did have multiple falls prior being seen here and ultimately transferred to [place] for her AFib RVR with elevated troponin approximately 3-4 weeks ago. Patient states she has not had any falls or head injuries since then. She has had loss of medication changes including being placed on amiodarone as well as having her metoprolol changed. She is unsure if she has other medication changes noted. She does live with her daughter who is sister but it has been difficult even with assistance. Related Data Home Medications Medication Instructions Recorded Confirmed Disabled Parking Permit 1 dev MISCELLANEOUS DIRECTED 06/02/18 08/25/20 metoprolol tartrate 25 mg tablet 25 mg PO BID 07/13/20 08/25/20 amiodarone 200 mg tablet 200 mg PO DAILY 08/25/20 08/25/20 latanoprost 0.005 % eye drops 1 drp EYE-RIGHT BEDTIME 08/25/20 08/25/20 (Xalatan) oxycodone 10 mg tablet 5 mg PO 4-6XD 08/25/20 08/25/20 rosuvastatin 10 mg tablet (Crestor) 10 mg PO ONCE HS 08/25/20 08/25/20 venlafaxine 75 mg capsule,extended 75 mg PO DAILY 08/25/20 08/25/20 release 24 hr (Effexor XR) Previous Rx's Medication Instructions Recorded apixaban 2.5 mg tablet 2.5 mg PO BID #180 tab 06/23/20 magnesium oxide 400 mg PO DAILY #90 tab 07/14/20 Allergies Allergy/AdvReac Type Severity Reaction Status Date / Time cefoxitin [CEFOXITIN] Allergy Mild HIVES Verified 08/24/20 11:02 Sulfa (Sulfonamide Allergy Unknown Doesn't Verified 08/24/20 11:02 Antibiotics) remember Review of Systems Review of Systems ROS Unobtainable: All systems reviewed & are unremarkable except as noted in HPI and below Patient History Medical History Balance problem Breast cancer, left Chicken pox Colitis (~1984) Colon polyps (~1984) Crohn's disease (~1984) Depression Diverticular disease (~1984) Diverticulitis Dizziness Easy bruisability Hemorrhoid (~1984) Hypertension Knee pain Leukemia (~08/2018) Leukemia, chronic Measles Mitral valve disease Osteoporosis Pericardial effusion Physical deconditioning Physician orders for life-sustaining treatment (POLST) form indicates patient wish for [id number] status Vertigo Surgical History Anesthesia History of bunionectomy of both great toes History of section (~1959) History of ileostomy (~1983) History of total colectomy Family History Brother Diabetes mellitus Heart disease Brother Diabetes mellitus Heart disease Mother Hypertension Father Cancer Sister Cancer Social History household members: children Smoking Status: Never smoker alcohol intake: never substance use type: does not use Smoking Status: Never smoker Substance Use Type: does not use Exam Narrative Exam Narrative: GENERAL: Alert and oriented x three, thin female in mild distress. HEENT: Head normocephalic, atraumatic, EOMI, pupils reactive, face symmetric, moist mucous membranes NECK: Supple, full range of motion CARDIOVASCULAR: Irregularly irregular rate and rhythm without murmurs, rubs or gallops. No swelling bilateral lower extremities. Mild ABD. RESPIRATORY: Breath sounds equal bilaterally, no wheezes rales or rhonchi. ABDOMEN: Soft, nontender. Normoactive bowel sounds all 4 quadrants. No guarding or rebound, rigidity, no mass, nondistended : No CVA tenderness EXTREMITIES: Normal range of motion, no clubbing or edema. Neurovascularly intact NEUROLOGICAL: Cranial nerves II through XII grossly intact. Moving all extremities SKIN: Warm, dry, no petechiae, no rashes or lesions. Initial Vital Signs Initial Vital Signs: Vital Signs Temperature 98.1 F 08/24/20 11:00 Pulse Rate 108 H 08/24/20 11:00 Respiratory Rate 16 08/24/20 11:00 Blood Pressure 128/68 08/24/20 11:00 Pulse Oximetry 96 08/24/20 11:00 Procedures Cardioversion Time of Cardioversion: 18:44 Consent Signed: Yes Indication: afib with RVR with symptomatic hypotension. Stability: Unstable Number of attempts (shocks): 1 Joules used: 150 Cardiac rhythm post-cardioversion: Sinus rhythm with first degree AV block Procedural Sedation Consent signed: Yes Indication: cardioversion ASA Class: II Mallampati Airway Classification: Class II Time of Last PO Intake: 17:00 Preparation: cardiac/vascular sonographer applied, pulse oximeter, capnometry used, suppl emental O2 applied, suction/airway equipment at bedside and IV secured IV Etomidate dose (mg): 5 ED Sedation Level: Moderate (Concious) Patient Tolerated Procedure: Well Complications: hypoventilation (Patient had spasm, low ETco2) Interventions: Airway repositioned and Assist by BVM (3-4 times and patient pulled off. ) Course Orders Ordered: Acetaminophen (Acetaminophen 325 Mg Tablet) 650 mg PO Q6HR PRN PRN Reason: Fever/Mild Pain (1-3) Al Hydrox/Mg Hydrox/Simethicone (Mag Hydrox/Alum/Simeth 30 Ml Udc) 30 ml PO Q6HR PRN PRN Reason: Dyspepsia Amiodarone HCl (Amiodarone 200 Mg Tablet) 200 mg PO DAILY [facility] Last Admin: 08/25/20 09:28 Dose: 200 mg Documented by: DORINDA Apixaban (Apixaban 5 Mg Tablet) 2.5 mg PO BID [facility] Last Admin: 08/25/20 20:54 Dose: 2.5 mg Documented by: Admin: 08/25/20 09:27 Dose: 2.5 mg Documented by: DORINDA Atorvastatin Calcium (Atorvastatin 20 Mg Tablet) 20 mg PO BEDTIME [facility] Last Admin: 08/25/20 20:54 Dose: 20 mg Documented by: LEVI Latanoprost (Latanoprost 0.005% Ophth 2.5 Ml) 1 drops EYE-RIGHT BEDTIME [facility] Last Admin: 08/25/20 20:55 Dose: 1 drops Documented by: LEVI Levothyroxine Sodium (Levothyroxine 25 Mcg Tablet) 25 mcg PO DAILY@0600 [facility] Magnesium Oxide (Magnesium Oxide 400 Mg Tablet) 400 mg PO DAILY [facility] Last Admin: 08/25/20 09:27 Dose: 400 mg Documented by: DORINDA Metoclopramide HCl (Metoclopramide 10 Mg/2 Ml Inj) 5 mg IV Q6HR PRN PRN Reason: Nausea And Vomiting Metoprolol Tartrate (Metoprolol Ir 25 Mg Tablet) 25 mg PO BID [facility] Last Admin: 08/25/20 20:54 Dose: 25 mg Documented by: Admin: 08/25/20 09:28 Dose: 25 mg Documented by: DORINDA Naloxone HCl (Naloxone 0.4 Mg/Ml Vial) 0.2 mg IV Q2MIN PRN PRN Reason: Opiate Reversal Nitrofurantoin Macrocrystals (Nitrofurantoin Er 100 Mg Capsule) 100 mg PO BID [facility] Stop: 08/29/20 09:01 Last Admin: 08/25/20 20:54 Dose: 100 mg Documented by: Admin: 08/25/20 12:52 Dose: 100 mg Documented by: DORINDA Oxycodone HCl (Oxycodone Ir 5 Mg Tablet) 5 mg PO Q6HR PRN PRN Reason: Pain, Moderate (4-6) Sennosides (Sennosides 8.6 Mg Tablet) 17.2 mg PO BEDTIME PRN PRN Reason: Constipation Venlafaxine HCl (Venlafaxine Er 75 Mg Cap) 75 mg PO DAILY [facility] Last Admin: 08/25/20 09:27 Dose: 75 mg Documented by: DORINDA Discontinued Medications Amiodarone HCl (Amiodarone 200 Mg Tablet) 200 mg PO NOW ONE Stop: 08/24/20 17:05 Last Admin: 08/24/20 17:35 Dose: 200 mg Documented by: VIELKA Etomidate (Etomidate 2 Mg/Ml 10 Ml Vial) 5 mg IV NOW ONE Stop: 08/24/20 18:30 Last Admin: 08/24/20 18:42 Dose: 5 mg Documented by: VIELKA Sodium Chloride (Normal Saline 0.9%) 1,000 mls @ 500 mls/hr IV BOLUS ONE Stop: 08/24/20 17:22 Last Infusion: 08/24/20 17:42 Dose: 0 mls/hr Documented by: Admin: 08/24/20 15:33 Dose: 500 mls/hr Documented by: VIELKA Piperacillin Sod/Tazobactam (Sod 3.375 gm/ Sodium Chloride) 100 mls @ 25 mls/hr IV Q8H JANETH Last Infusion: 08/24/20 22:11 Dose: 25 mls/hr Documented by: Admin: 08/24/20 21:28 Dose: 25 mls/hr Documented by: MARTA Piperacillin Sod/Tazobactam (Sod 3.375 gm/ Sodium Chloride) 100 mls @ 25 mls/hr IV Q8H [facility] Last Admin: 08/25/20 09:22 Dose: Not Given Documented by: Admin: 08/24/20 22:32 Dose: Not Given Documented by: DOTTY Lactated Ringer's (Lactated Ringers) 1,362 mls @ 454 mls/hr 30 ml/kg infuse ove r 3 hr (1362 ml) IV NOW ONE Stop: 08/25/20 06:20 Last Admin: 08/25/20 03:56 Dose: 454 mls/hr Documented by: YASSINE Metoprolol Tartrate (Metoprolol Ir 25 Mg Tablet) 25 mg PO NOW ONE Stop: 08/24/20 17:05 Last Admin: 08/24/20 17:35 Dose: 25 mg Documented by: VIELKA Nitrofurantoin Macrocrystals (Nitrofurantoin Er 100 Mg Capsule) 100 mg PO NOW ONE Stop: 08/24/20 15:51 Last Admin: 08/24/20 15:55 Dose: 100 mg Documented by: VIELKA Non-Formulary Medication (Rosuvastatin [Crestor]) 10 mg PO ONCE HS JANETH Pantoprazole Sodium (Pantoprazole Dr 20 Mg Tablet) 20 mg PO 0600 [facility] Last Admin: 08/25/20 06:08 Dose: 20 mg Documented by: YASSINE Consultations Consultation #1: Dr. Matos, patient did have a UMESH in May, she was cardioverted at that time. My understanding is she has been continued to be anticoagulated appropriately. She is in AFib RVR with hypotension particularly when standing position. He feels would be appropriate to go ahead and cardiovert at this time. No medication changes. We did give patient's home medications without much improvement in her rhythm or rate. His patient's symptoms improved can DC home with follow-up outpatient. If necessary recontact. Vital Signs Vital signs: Vital Signs - 8 hr 08/24/20 12:45 08/24/20 13:00 08/24/20 13:01 Pulse Rate 113 H 113 H 110 H Respiratory Rate 18 20 19 Blood Pressure 171/82 H 92/55 L Pulse Oximetry 98 96 98 08/24/20 13:15 08/24/20 13:30 08/24/20 13:45 Pulse Rate 109 H 116 H 114 H Respiratory Rate 20 15 17 Blood Pressure 93/63 101/61 104/55 L Pulse Oximetry 98 98 99 08/24/20 14:00 08/24/20 14:16 08/24/20 14:30 Pulse Rate 118 H 113 H 110 H Respiratory Rate 17 18 22 Blood Pressure 106/70 93/54 L 116/55 L Pulse Oximetry 98 98 98 08/24/20 14:46 08/24/20 15:00 08/24/20 15:15 Pulse Rate 99 H 101 H 100 H Respiratory Rate 14 15 14 Blood Pressure 102/70 110/70 102/60 Pulse Oximetry 98 98 98 08/24/20 15:30 08/24/20 15:45 08/24/20 16:00 Pulse Rate 107 H 107 H 109 H Respiratory Rate 15 21 18 Blood Pressure 107/60 114/69 112/71 Pulse Oximetry 97 98 98 08/24/20 16:24 08/24/20 16:27 08/24/20 16:28 Pulse Rate 116 H 123 H 114 H Respiratory Rate 14 21 22 Blood Pressure 146/65 H 114/72 106/69 Pulse Oximetry 98 99 99 08/24/20 16:30 08/24/20 16:32 08/24/20 16:33 Pulse Rate 129 H 114 H 122 H Respiratory Rate 23 Blood Pressure 94/59 L 146/65 H 94/59 L Pulse Oximetry 94 08/24/20 17:00 08/24/20 17:30 08/24/20 18:00 Pulse Rate 113 H 118 H 115 H Respiratory Rate 13 14 13 Blood Pressure 97/62 98/67 101/61 Pulse Oximetry 99 99 99 08/24/20 18:30 08/24/20 18:35 08/24/20 18:40 Pulse Rate 111 H 109 H 110 H Respiratory Rate 15 15 Blood Pressure 112/68 129/64 122/73 Pulse Oximetry 98 97 99 08/24/20 18:44 08/24/20 18:45 08/24/20 18:46 Pulse Rate 77 76 74 Respiratory Rate 18 19 16 Blood Pressure 141/99 H 148/80 H Pulse Oximetry 97 98 98 08/24/20 18:50 08/24/20 18:51 08/24/20 18:55 Pulse Rate 73 71 68 Respiratory Rate 19 16 17 Blood Pressure 160/71 H 159/73 H 138/65 Pulse Oximetry 99 96 98 08/24/20 19:00 08/24/20 19:05 08/24/20 19:10 Pulse Rate 66 66 64 Respiratory Rate 14 22 13 Blood Pressure 138/61 124/63 130/60 Pulse Oximetry 97 97 98 08/24/20 19:12 Pulse Rate 65 Respiratory Rate 13 Blood Pressure 129/58 L Pulse Oximetry 97 MDM - Dizziness Lab Data Result diagrams: 08/24/20 10:57 08/25/20 04:58 Labs: Lab Results 08/24/20 08/24/20 08/24/20 Range/Units 10:51 10:51 10:57 WBC (4.5-11.0) X10^3/uL RBC (4.0-5.2) X10^6/uL Hgb (12.0-16.0) g/dL Hct (36-46) % MCV (80-100) fL MCH (26-34) PG MCHC (30-36) % RDW (11.6-14.8) % Plt Count (150-400) X10^3/uL Neut % (Auto) Lymph % (Auto) [place] % (Auto) Eos % (Auto) Baso % (Auto) Lymph # (Auto) [place] # (Auto) Baso # (Auto) Total Counted Seg Neutrophils % (38-70) % Band Neutrophils % (3-7) % Lymphocytes % (Manual) (25-45) % Atypical Lymphs % ( - 0) % Monocytes % (Manual) (2-11) % Eosinophils % (Manual) (2-4) % Neutrophils # (Manual) (8358-6655) /uL Smudge Cells Platelet Estimate RBC Morphology Poikilocytosis Anisocytosis Sodium 139 (137-145) mmol/L Potassium 4.6 (3.4-5.1) mmol/L Chloride 108 H (98-107) mmol/L Carbon Dioxide 27 (22-32) mmol/L BUN 22 H (7-17) mg/dL Creatinine 1.57 H (0.52-1.04) mg/dL Estimated GFR 31.2 L (>60) mL/min BUN/Creatinine Ratio 14.0 (6-22) Glucose 88 (80-110) mg/dL Calcium 9.4 (8.4-10.2) mg/dL Magnesium 2.3 (1.6-2.3) mg/dL Total Bilirubin 1.6 H (0.2-1.3) mg/dL AST 69 H (14-36) IU/L ALT 21 (<35) IU/L Alkaline Phosphatase 74 (38-126) U/L Total Creatine Kinase 177 H (30-135) U/L CK-MB (CK-2) 2.86 H (<2.37) ng/mL CK-MB (CK-2) Rel Index 1.6 (1.5-5.0) % Troponin I 0.021 (0.01-0.034) ng/mL NT-Pro-B Natriuret Pep 79060 H (<450) pg/mL Total Protein 6.1 L (6.3-8.2) g/dL Albumin 3.4 L (3.5-5.0) g/dL Globulin 2.7 (1.7-4.1) g/dL Albumin/Globulin Ratio 1.3 (1.0-2.8) TSH 29.9 H (0.47-4.68) uIU/mL Urine Color Urine Appearance Urine pH (4.5-8.0) Ur Specific [place] (1.000-1.035) Urine Protein (Negative) Urine Glucose (UA) (Negative) g/dL Urine Ketones (NEGATIVE) Urine Occult Blood (Negative) Urine Nitrate (Negative) Urine Bilirubin (NEGATIVE) Urine Urobilinogen (0.2) E.U./dL Ur Leukocyte Esterase (NEGATIVE) Urine RBC (0-5/HPF) Urine WBC (0-5/HPF) Urine Bacteria (None) Ur Culture Indicated? SARS-CoV-2 (PCR) (Negative) 08/24/20 08/24/20 08/24/20 Range/Units 10:57 12:48 15:39 WBC 6.9 (4.5-11.0) X10^3/uL RBC 3.46 L (4.0-5.2) X10^6/uL Hgb 11.6 L (12.0-16.0) g/dL Hct 34.1 L (36-46) % MCV 98.5 (80-100) fL MCH 33.4 (26-34) PG MCHC 33.9 (30-36) % RDW 21.5 H (11.6-14.8) % Plt Count 256 (150-400) X10^3/uL Neut % (Auto) Not Reportable Lymph % (Auto) Not Reportable [place] % (Auto) Not Reportable Eos % (Auto) Not Reportable Baso % (Auto) Not Reportable Lymph # (Auto) Not Reportable [place] # (Auto) Not Reportable Baso # (Auto) Not Reportable Total Counted 100 Seg Neutrophils % 30.0 L (38-70) % Band Neutrophils % 4.0 (3-7) % Lymphocytes % (Manual) 44.0 (25-45) % Atypical Lymphs % 5.0 H ( - 0) % Monocytes % (Manual) 16.0 H (2-11) % Eosinophils % (Manual) 1.0 L (2-4) % Neutrophils # (Manual) 2346 L (3497-2330) /uL Smudge Cells 1+ H Platelet Estimate Adequate on smear RBC Morphology See below Poikilocytosis 1+ H Anisocytosis 2+ H Sodium 137 (137-145) mmol/L Potassium 4.5 (3.4-5.1) mmol/L Chloride 106 (98-107) mmol/L Carbon Dioxide 27 (22-32) mmol/L BUN 22 H (7-17) mg/dL Creatinine 1.42 H (0.52-1.04) mg/dL Estimated GFR 35.1 L (>60) mL/min BUN/Creatinine Ratio 15.5 (6-22) Glucose 77 L (80-110) mg/dL Calcium 8.9 (8.4-10.2) mg/dL Magnesium (1.6-2.3) mg/dL Total Bilirubin (0.2-1.3) mg/dL AST (14-36) IU/L ALT (<35) IU/L Alkaline Phosphatase (38-126) U/L Total Creatine Kinase (30-135) U/L CK-MB (CK-2) (<2.37) ng/mL CK-MB (CK-2) Rel Index (1.5-5.0) % Troponin I 0.016 (0.01-0.034) ng/mL NT-Pro-B Natriuret Pep (<450) pg/mL Total Protein (6.3-8.2) g/dL Albumin (3.5-5.0) g/dL Globulin (1.7-4.1) g/dL Albumin/Globulin Ratio (1.0-2.8) TSH (0.47-4.68) uIU/mL Urine Color Yellow Urine Appearance Cloudy Urine pH 5.0 (4.5-8.0) Ur Specific [place] 1.025 (1.000-1.035) Urine Protein 2+ H (Negative) Urine Glucose (UA) Negative (Negative) g/dL Urine Ketones Trace H (NEGATIVE) Urine Occult Blood 3+ H (Negative) Urine Nitrate Positive H (Negative) Urine Bilirubin Negative (NEGATIVE) Urine Urobilinogen 0.2 (0.2) E.U./dL Ur Leukocyte Esterase 3+ H (NEGATIVE) Urine RBC 5-10/hpf H (0-5/HPF) Urine WBC >100/hpf H (0-5/HPF) Urine Bacteria Many (>30) H (None) Ur Culture Indicated? Specimen cultured SARS-CoV-2 (PCR) (Negative) 08/24/20 08/24/20 Range/Units 17:55 17:55 WBC (4.5-11.0) X10^3/uL RBC (4.0-5.2) X10^6/uL Hgb (12.0-16.0) g/dL Hct (36-46) % MCV (80-100) fL MCH (26-34) PG MCHC (30-36) % RDW (11.6-14.8) % Plt Count (150-400) X10^3/uL Neut % (Auto) Lymph % (Auto) [place] % (Auto) Eos % (Auto) Baso % (Auto) Lymph # (Auto) [place] # (Auto) Baso # (Auto) Total Counted Seg Neutrophils % (38-70) % Band Neutrophils % (3-7) % Lymphocytes % (Manual) (25-45) % Atypical Lymphs % ( - 0) % Monocytes % (Manual) (2-11) % Eosinophils % (Manual) (2-4) % Neutrophils # (Manual) (2533-1617) /uL Smudge Cells Platelet Estimate RBC Morphology Poikilocytosis Anisocytosis Sodium (137-145) mmol/L Potassium (3.4-5.1) mmol/L Chloride (98-107) mmol/L Carbon Dioxide (22-32) mmol/L BUN (7-17) mg/dL Creatinine (0.52-1.04) mg/dL Estimated GFR (>60) mL/min BUN/Creatinine Ratio (6-22) Glucose (80-110) mg/dL Calcium (8.4-10.2) mg/dL Magnesium (1.6-2.3) mg/dL Total Bilirubin (0.2-1.3) mg/dL AST (14-36) IU/L ALT (<35) IU/L Alkaline Phosphatase (38-126) U/L Total Creatine Kinase (30-135) U/L CK-MB (CK-2) (<2.37) ng/mL CK-MB (CK-2) Rel Index (1.5-5.0) % Troponin I (0.01-0.034) ng/mL NT-Pro-B Natriuret Pep (<450) pg/mL Total Protein (6.3-8.2) g/dL Albumin (3.5-5.0) g/dL Globulin (1.7-4.1) g/dL Albumin/Globulin Ratio (1.0-2.8) TSH (0.47-4.68) uIU/mL Urine Color Urine Appearance Urine pH (4.5-8.0) Ur Specific [place] (1.000-1.035) Urine Protein (Negative) Urine Glucose (UA) (Negative) g/dL Urine Ketones (NEGATIVE) Urine Occult Blood (Negative) Urine Nitrate (Negative) Urine Bilirubin (NEGATIVE) Urine Urobilinogen (0.2) E.U./dL Ur Leukocyte Esterase (NEGATIVE) Urine RBC (0-5/HPF) Urine WBC (0-5/HPF) Urine Bacteria (None) Ur Culture Indicated? SARS-CoV-2 (PCR) Negative Negative (Negative) Point of Care Testing Test Results Not applicable Glucose POC 96 Imaging Data Chest x-ray: Radiologist's Impression: [address] [id number] ReportSigned Patient: Day Swenson Marni#: [id number]: 5Acct:[id number]/Sex: 85 / FDate of Service: 08/24/20Loc: EDAccession Number: [id number] Procedure: XR chest 1V Ordering Provider: Kaitlyn Tobar D.O. PROCEDURE: XR CHEST 1V INDICATIONS: syncope TECHNIQUE: One view of the chest was acquired. COMPARISON: [facility], XR CHEST 1V, 05/30/2020, 13:14. [facility], CHEST 1 VIEW, 05/17/2013, 18:15. FINDINGS: Surgical changes and devices: None. Lungs and pleura: Lungs are unchanged on the right but there is opacification persisting at the left lower lobe behind the heart that was not present in April of 2013. . No pleural effusions or pneumothorax. Mediastinum: Mediastinal contours appear normal. Heart size is normal. Bones and chest wall: No suspicious bony lesions. Overlying soft tissues appear unremarkable. IMPRESSION: Chronic mild interstitial prominence. Opacification behind the left heart is again noted, potentially pneumonia in that area. Dictated by: Yobani Garza M.D. on 08/24/2020 at 12:53 Approved by: Yobani Garza M.D. on 08/24/2020 at 12:57 CT scan - head: Radiologist's Impression: [address] [id number] Scan ReportSigned Patient: Day Swenson LUI#: [id number]: 5Acct:[id number]/Sex: 85 / FDate of Service: 08/24/20[facility]: [id number] Number: [id number] Procedure: CT head/brain wo con Ordering Provider: Kaitlyn Tobar D.O. PROCEDURE: CT HEAD/BRAIN WO CON INDICATIONS: dizzy TECHNIQUE: Noncontrast 4.5 mm thick angled axial sections acquired from the foramen magnum to the vertex, with coronal and sagittal reformats. For radiation dose reduction, the following was used: automated exposure control, adjustment of mA and/or kV according to patient size. COMPARISON: [facility], CT, HEAD WITHOUT CONTRAST, 11/20/2014, 19:11. FINDINGS: Image quality: Excellent. CSF spaces: Basal cisterns are patent. No extra-axial fluid collections. The ventricles are symmetric in size and shape. Brain: No intracranial bleeds or masses. There is cerebral volume loss for age, with resultant ventricular and sulcal prominence. There are periventricular and deep white matter chronic small vessel ischemic changes. There is intracranial internal carotid artery atherosclerosis. Skull and face: Calvarium and visualized facial bones appear intact, without suspicious lesions. Sinuses: Visualized sinuses and mastoids are clear. IMPRESSION: 1. No acute intracranial process. 2. Moderate to severe atrophy and chronic microvascular ischemic changes. Dictated by: Carole Pfeiffer M.D. on 08/24/2020 at 21:19 Approved by: Carole Pfeiffer M.D. on 08/24/2020 at 21:19 ECG Data Interpretation: EKG shows AFib with RVR, rate of 111, QRS of 100 and QTC of 440. No acute ST changes but patient does have nonspecific changes also seen on a prior EKG. Patient has repeat EKG with rate of 107 QRS of 94 and QTC of 493. Appears to be atrial fibrillation again. No acute ST changes appreciated CUU-iotkavtnfyftmozfz-bjduu rhythm first-degree AV block. Rate of 67 P are 234. QRS of 94 and QTC of 473. No acute ST elevation or depression noted. MDM Narrative Medical decision making narrative: This is an 85-year-old female comes with complaint of lightheadedness and near syncope when standing and even when seated. Patient states particularly bad describes her orthostatic hypotension. She is in AFib with RVR, her pressures have been soft better particular low with standing. Fluids made minimal improvement. Patient's home medications made minimal improvement. Labs show possible UTI but no other signs of sepsis and I suspect her hypotension is related to her cardiac rhythm. We were able to get notes from her hospital stay [place], she had a UMESH and was cardioverted there. She had amiodarone initiated, her metoprolol was adjusted and she continues to be on Eliquis daily. Patient's labs, cardiac enzymes, electrolytes and renal function all appear stable. After discussion with Cardiology decision was made to cardiovert the patient. She tolerated procedure well. Patient's blood pressure improved significantly. When we temp today ambulate the patient she was still dizzy. Her daughter later stated that she has been dizzy for at least 5 years. Patient is able to ambulate safely. Head CT was obtained as patient's dizziness initially seemed to be secondary to her hypotension but as she is no longer hypotensive felt was appropriate and prudent to obtain this. Patient does not any acute neurological changes on exam and admitted to hospitalist Attempted to get records. [facility] says no history of being seen there but was able to obtain recent records from May. Critical Care Time Critical Care Time Critical Care Time: Yes Total Critical Care Time: 125 Attestation: The high probability of a clinically significant, sudden or life threatening deterioration of the [cardiac] system(s) required my full and direct attention, intervention and personal management. The aggregate critical care time was [] minutes. This time is in addition to time spent performing reported procedures but includes the following: [x] Data Review and interpretation [x] Patient assessment and monitoring of vital signs [x] Documentation [x] Medication orders and management Discharge Plan Departure Patient Disposition: Admitted As Inpatient Clinical Impression: Atrial fibrillation with RVR Admit Date/Time: 08/24/20 20:42 Admit Provider: Hanna Dixon
[2020-08-24] MEDS: SODIUM CHLORIDE 0.9% 1,000 ML 500 ML IV (15:33)
[2020-08-24] MEDS: NITROFURANTOIN ER 100 MG CAPSULE PO (15:55)
[2020-08-24 16:03] LABS: BUN Creatinine Ratio 15.5 (6-22); Blood Urea Nitrogen 22 mg/dL (7-17); Calcium 8.9 mg/dL (8.4-10.2); Carbon Dioxide 27 mmol/L (22-32); Chloride 106 mmol/L (98-107); Estimated Glomerular Filt Rate 35.1 mL/min (>60); Glucose 77 mg/dL (80-110); HEMOLYSIS 17 (0-50); Potassium 4.5 mmol/L (3.4-5.1); Sodium 137 mmol/L (137-145)
[2020-08-24 16:15] LABS: Troponin I 0.016 ng/mL (0.01-0.034)
[2020-08-24] MEDS: METOPROLOL IR 25 MG TABLET PO (17:35)
[2020-08-24] MEDS: AMIODARONE 200 MG TABLET PO (17:35)
[2020-08-24 18:17] LABS: COVID19 -Nasal RAPID Negative (Negative)
[2020-08-24] MEDS: ETOMIDATE 2 MG/ML 10 ML VIAL 5 MG IV (18:42)
[2020-08-24 19:05] LABS: COVID19 - ADMIT (NP swab/PCR) Negative (Negative)
--- NOTE | 2020-08-24 20:37 | DI.CT.S_ITS ---
PROCEDURE: CT HEAD/BRAIN WO CON INDICATIONS: dizzy TECHNIQUE: Noncontrast 4.5 mm thick angled axial sections acquired from the foramen magnum to the vertex, with coronal and sagittal reformats. For radiation dose reduction, the following was used: automated exposure control, adjustment of mA and/or kV according to patient size. COMPARISON: [facility], CT, HEAD WITHOUT CONTRAST, 11/20/2014, 19:11. FINDINGS: Image quality: Excellent. CSF spaces: Basal cisterns are patent. No extra-axial fluid collections. The ventricles are symmetric in size and shape. Brain: No intracranial bleeds or masses. There is cerebral volume loss for age, with resultant ventricular and sulcal prominence. There are periventricular and deep white matter chronic small vessel ischemic changes. There is intracranial internal carotid artery atherosclerosis. Skull and face: Calvarium and visualized facial bones appear intact, without suspicious lesions. Sinuses: Visualized sinuses and mastoids are clear. IMPRESSION: 1. No acute intracranial process. 2. Moderate to severe atrophy and chronic microvascular ischemic changes. Dictated by: Carole Pfeiffer M.D. on 08/24/2020 at 21:19 Approved by: Carole Pfeiffer M.D. on 08/24/2020 at 21:19
[2020-08-24 21:28] LABS: Magnesium 2.3 mg/dL (1.6-2.3)
[2020-08-24] MEDS: PIPERACILLIN/TAZO 3.375 GM in SODIUM CHLORIDE 0.9% 100 ML 25 ML IV (21:28)
--- NOTE | 2020-08-24 21:33 | P.HP_ITS ---
History of Present Illness History of Present Illness Date Patient Seen: 08/24/20 Time Patient Seen: 21:33 Chief complaint: Nausea/Dizzy Narrative: This is an 85-year-old female comes emergency department with dizziness. She describes near syncope and dizziness/lightheadedness when she goes from a seated or lying position to standing quickly. If she is walking she can often feel quite dizzy. She denies headache, she has occasionally had some blurry vision changes that has to take her time to focus. She has not syncopized or passed out. No chest pain or pressure, no shortness of breath. She can not feel any tachycardia or elevated heart rate or if she is in atrial fibrillation. She did have an episode of nausea and vomiting last week but has not had any subsequently. No abdominal pain. No back or flank pain. No diarrhea, no constipation, no bright red blood or melena. No urinary symptoms. Patient did have multiple falls prior being seen here and ultimately transferred to [facility] for her AFib RVR with elevated troponin approximately 3-4 weeks ago. Patient states she has not had any falls or head injuries since then. She has had loss of medication changes including being placed on amiodarone as well as having her metoprolol changed. She is unsure if she has other medication changes noted. She does live with her daughter who is wheelchair-bound, making ADL's difficult even with assistance. Patient has a history of breast cancer, A Fib with RVR, HFpEF, large granular lymphocytic leukemia, s/p total cholectomy, osteoporosis, hypertension, hyperlipidemia, and depression. Her AFib was last converted with cardioversion on 05/31/2020 at [facility]. Since this last hospitalization she has felt tired and weak and dizzy. She had a hospital visit on 05/30/2020 when patient was seen for rapid atrial fibrillation with rap id heart rates of 130-150s. She was seen by small products ii assembler, had med adjustment and was started on anticoagulation med Eliquis prior to discharge. She was also diagnosed with pulmonary hypertension with moderate to severe tricuspid regurgitation. Today in ED patient was successfully cardioverted. Patient's post cardioversion EKG demonstrated sinus rhythm, first-degree AV block at a rate of 67, P 234, no ST or T-wave changes. Patient's current vitals BP 129/58, HR 65, RR 13, O2 saturation 97% on room air. Patient was found to have continued macrocytic anemia with a hemoglobin of 11.6 and hematocrit 34.1, patient was found to have MEÑO demonstrated by a slight bump in BUN at 22 and creatinine 1.42, glucose 77, GFR 35.1, total creatinine kinase 177. Also an elevated CK-MB 2.86 and troponin 0.016. Patient had a positive urinalysis sent for culture. Patient has sofa score of 3. Patient's BNP of 11,600 was elevated demonstrating mild exacerbation of HFpEF. Patient's chest x-ray demonstrated chronic mild interstitial prominence. Opacification behind the left heart is again noted, potentially pneumonia in that area. Patient admitted with atrial fibrillation with RVR, MEÑO, UTI/sepsis, HFpEF exacerbation. Patient History Medical History Balance problem Breast cancer, left Chicken pox Colitis (~1984) Colon polyps (~1984) Crohn's disease (~1984) Depression Diverticular disease (~1984) Diverticulitis Dizziness Easy bruisability Hemorrhoid (~1984) Hypertension Knee pain Leukemia (~08/2018) Leukemia, chronic Measles Mitral valve disease Osteoporosis Pericardial effusion Physical deconditioning Physician orders for life-sustaining treatment (POLST) form indicates patient wish for [id number] status Vertigo Surgical History Anesthesia History of bunionectomy of both great toes History of section (~1959) History of ileostomy (~1983) History of total colectomy Family & Social History Family History Brother Diabetes mellitus Heart disease Brother Diabetes mellitus Heart disease Mother Hypertension Father Cancer Sister Cancer Social History: household members children Safety & Behavioral: Feels Safe in Current Yes Environment Been Physically Hurt or No Threatened By a Person Tobacco & Substance use: Smoking Status Never smoker alcohol intake never Substance Use Type does not use Meds Home Medications and Allergies Home Medications Medication Instructions Recorded Confirmed Type Disabled Parking Permit 1 dev MISCELLANEOUS DIRECTED 06/02/18 06/09/20 History apixaban 2.5 mg tablet 2.5 mg PO BID #180 tab 06/23/20 08/25/20 Rx metoprolol tartrate 25 mg tablet 25 mg PO BID 07/13/20 08/25/20 History magnesium oxide 400 mg PO DAILY #90 tab 07/14/20 08/25/20 Rx amiodarone 200 mg tablet 200 mg PO DAILY 08/25/20 08/25/20 History latanoprost 0.005 % eye drops 1 drp EYE-RIGHT BEDTIME 08/25/20 08/25/20 History (Xalatan) oxycodone 10 mg tablet 5 mg PO 4-6XD 08/25/20 08/25/20 History rosuvastatin 10 mg tablet (Crestor) 10 mg PO ONCE HS 08/25/20 08/25/20 History venlafaxine 75 mg capsule,extended 75 mg PO DAILY 08/25/20 08/25/20 History release 24 hr (Effexor XR) Allergies Allergy/AdvReac Type Severity Reaction Status Date / Time cefoxitin [CEFOXITIN] Allergy Mild HIVES Verified 08/24/20 11:02 Sulfa (Sulfonamide Allergy Unknown Doesn't Verified 08/24/20 11:02 Antibiotics) remember Review of Systems Review of Systems Narrative: Patient has no complaints at this time. Exam Vital Signs (past 8 hours): - 08/24/20 13:45 08/24/20 14:00 08/24/20 14:16 Pulse Rate 114 H 118 H 113 H Respiratory Rate 17 17 18 Blood Pressure 104/55 L 106/70 93/54 L Pulse Oximetry 99 98 98 08/24/20 14:30 08/24/20 14:46 08/24/20 15:00 Pulse Rate 110 H 99 H 101 H Respiratory Rate 22 14 15 Blood Pressure 116/55 L 102/70 110/70 Pulse Oximetry 98 98 98 08/24/20 15:15 08/24/20 15:30 08/24/20 15:45 Pulse Rate 100 H 107 H 107 H Respiratory Rate 14 15 21 Blood Pressure 102/60 107/60 114/69 Pulse Oximetry 98 97 98 08/24/20 16:00 08/24/20 16:24 08/24/20 16:27 Pulse Rate 109 H 116 H 123 H Respiratory Rate 18 14 21 Blood Pressure 112/71 146/65 H 114/72 Pulse Oximetry 98 98 99 08/24/20 16:28 08/24/20 16:30 08/24/20 16:32 Pulse Rate 114 H 129 H 114 H Respiratory Rate 22 23 Blood Pressure 106/69 94/59 L 146/65 H Pulse Oximetry 99 94 08/24/20 16:33 08/24/20 17:00 08/24/20 17:30 Pulse Rate 122 H 113 H 118 H Respiratory Rate 13 14 Blood Pressure 94/59 L 97/62 98/67 Pulse Oximetry 99 99 08/24/20 18:00 08/24/20 18:30 08/24/20 18:35 Pulse Rate 115 H 111 H 109 H Respiratory Rate 13 15 Blood Pressure 101/61 112/68 129/64 Pulse Oximetry 99 98 97 08/24/20 18:40 08/24/20 18:44 08/24/20 18:45 Pulse Rate 110 H 77 76 Respiratory Rate 15 18 19 Blood Pressure 122/73 141/99 H Pulse Oximetry 99 97 98 08/24/20 18:46 08/24/20 18:50 08/24/20 18:51 Pulse Rate 74 73 71 Respiratory Rate 16 19 16 Blood Pressure 148/80 H 160/71 H 159/73 H Pulse Oximetry 98 99 96 08/24/20 18:55 08/24/20 19:00 08/24/20 19:05 Pulse Rate 68 66 66 Respiratory Rate 17 14 22 Blood Pressure 138/65 138/61 124/63 Pulse Oximetry 98 97 97 08/24/20 19:10 08/24/20 19:12 Pulse Rate 64 65 Respiratory Rate 13 13 Blood Pressure 130/60 129/58 L Pulse Oximetry 98 97 Oxygen Delivery Method Room Air Narrative Exam Narrative: General: Patient is a small framed elderly female moderately- nourished in no distress at this time. HEENT: Normocephalic, atraumatic, extraocular muscles intact, oral pharynx is clear and mucous membranes are dry, poor dention, missing teeth. Neck is supple and symmetric, trachea is midline, no adenopathy, no thyroid enlargement, nontender, no masses palpated. Negative for JVD Lungs: Auscultation of all lung greenberg are clear without adventitious sounds, wheezes, rhonchi, or rales. no nasal flaring, retractions, or tachypneic labored Cardio: regular rate and rhythm without murmur, rubs, or gallops, no carotid bruit, no cardiac pulsations present. Abdomen: Soft nontender, negative for organomegaly, or masses. Bowel sounds are present in 2 quadrants without guarding or rebound, Positive Left CVA tenderness. Patient has ileostomy bag present without signs of infection. Musculoskeletal: Muscle strength and tone are equal within normal limits, no deformity, crepitus, effusions, cyanosis, clubbing or edema present. Full range of motion intact radial and pedal pulses are normal. Skin: Warm dry and intact without rashes, ulcerations or petechiae. Neuro: Alert and orientated x3, strength is +5/5 in all extremities, sensation to touch intact, no gross deficits noted of cranial nerves. Psych: Patient has a well-kept appearance, appropriate affect, mental status attitude thought context and judgment are appropriate for age. Objective Labs Result Diagrams: 08/24/20 10:57 08/24/20 15:39 Labs: Laboratory Results - last 24 hr 08/24/20 08/24/20 08/24/20 10:51 10:57 10:57 WBC 6.9 RBC 3.46 L Hgb 11.6 L Hct 34.1 L MCV 98.5 MCH 33.4 MCHC 33.9 RDW 21.5 H Plt Count 256 Neut % (Auto) Not Reportable Lymph % (Auto) Not Reportable [place] % (Auto) Not Reportable Eos % (Auto) Not Reportable Baso % (Auto) Not Reportable Lymph # (Auto) Not Reportable [place] # (Auto) Not Reportable Baso # (Auto) Not Reportable Total Counted 100 Seg Neutrophils % 30.0 L Band Neutrophils % 4.0 Lymphocytes % (Manual) 44.0 Atypical Lymphs % 5.0 H Monocytes % (Manual) 16.0 H Eosinophils % (Manual) 1.0 L Neutrophils # (Manual) 2346 L Smudge Cells 1+ H Platelet Estimate Adequate on smear RBC Morphology See below Poikilocytosis 1+ H Anisocytosis 2+ H Sodium 139 Potassium 4.6 Chloride 108 H Carbon Dioxide 27 BUN 22 H Creatinine 1.57 H Estimated GFR 31.2 L BUN/Creatinine Ratio 14.0 Glucose 88 Calcium 9.4 Magnesium 2.3 Total Bilirubin 1.6 H AST 69 H ALT 21 Alkaline Phosphatase 74 Total Creatine Kinase 177 H CK-MB (CK-2) 2.86 H CK-MB (CK-2) Rel Index 1.6 Troponin I 0.021 NT-Pro-B Natriuret Pep 80104 H Total Protein 6.1 L Albumin 3.4 L Globulin 2.7 Albumin/Globulin Ratio 1.3 Urine Color Urine Appearance Urine pH Ur Specific [place] Urine Protein Urine Glucose (UA) Urine Ketones Urine Occult Blood Urine Nitrate Urine Bilirubin Urine Urobilinogen Ur Leukocyte Esterase Urine RBC Urine WBC Urine Bacteria Ur Culture Indicated? SARS-CoV-2 (PCR) 08/24/20 08/24/20 08/24/20 12:48 15:39 17:55 WBC RBC Hgb Hct MCV MCH MCHC RDW Plt Count Neut % (Auto) Lymph % (Auto) [place] % (Auto) Eos % (Auto) Baso % (Auto) Lymph # (Auto) [place] # (Auto) Baso # (Auto) Total Counted Seg Neutrophils % Band Neutrophils % Lymphocytes % (Manual) Atypical Lymphs % Monocytes % (Manual) Eosinophils % (Manual) Neutrophils # (Manual) Smudge Cells Platelet Estimate RBC Morphology Poikilocytosis Anisocytosis Sodium 137 Potassium 4.5 Chloride 106 Carbon Dioxide 27 BUN 22 H Creatinine 1.42 H Estimated GFR 35.1 L BUN/Creatinine Ratio 15.5 Glucose 77 L Calcium 8.9 Magnesium Total Bilirubin AST ALT Alkaline Phosphatase Total Creatine Kinase CK-MB (CK-2) CK-MB (CK-2) Rel Index Troponin I 0.016 NT-Pro-B Natriuret Pep Total Protein Albumin Globulin Albumin/Globulin Ratio Urine Color Yellow Urine Appearance Cloudy Urine pH 5.0 Ur Specific [place] 1.025 Urine Protein 2+ H Urine Glucose (UA) Negative Urine Ketones Trace H Urine Occult Blood 3+ H Urine Nitrate Positive H Urine Bilirubin Negative Urine Urobilinogen 0.2 Ur Leukocyte Esterase 3+ H Urine RBC 5-10/hpf H Urine WBC >100/hpf H Urine Bacteria Many (>30) H Ur Culture Indicated? Specimen cultured SARS-CoV-2 (PCR) Negative 08/24/20 17:55 WBC RBC Hgb Hct MCV MCH MCHC RDW Plt Count Neut % (Auto) Lymph % (Auto) [place] % (Auto) Eos % (Auto) Baso % (Auto) Lymph # (Auto) [place] # (Auto) Baso # (Auto) Total Counted Seg Neutrophils % Band Neutrophils % Lymphocytes % (Manual) Atypical Lymphs % Monocytes % (Manual) Eosinophils % (Manual) Neutrophils # (Manual) Smudge Cells Platelet Estimate RBC Morphology Poikilocytosis Anisocytosis Sodium Potassium Chloride Carbon Dioxide BUN Creatinine Estimated GFR BUN/Creatinine Ratio Glucose Calcium Magnesium Total Bilirubin AST ALT Alkaline Phosphatase Total Creatine Kinase CK-MB (CK-2) CK-MB (CK-2) Rel Index Troponin I NT-Pro-B Natriuret Pep Total Protein Albumin Globulin Albumin/Globulin Ratio Urine Color Urine Appearance Urine pH Ur Specific [place] Urine Protein Urine Glucose (UA) Urine Ketones Urine Occult Blood Urine Nitrate Urine Bilirubin Urine Urobilinogen Ur Leukocyte Esterase Urine RBC Urine WBC Urine Bacteria Ur Culture Indicated? SARS-CoV-2 (PCR) Negative Assessment & Plan Assessment & Plan narrative: 1. Atrial fibrillation paroxysmal with RVR, acute on chronic, present on admission -cardioversion to sinus rhythm on 05/31/2020 [facility], -S/P cardioversion to sinus rhythm on 08/24/2020 -ED Consult#1: Dr. Matos, patient did have a UMESH in May, she was cardioverted at that time. She has been continued to be anticoagulated appropriately. If patient's symptoms improved can DC home with follow-up outpatient. If necessary recontact. -will continue patient's amiodarone 200 mg daily, metoprolol 25 mg twice daily, rosuvastatin 10 mg daily -will hold patient's Lasix -encourage lower extremity elevation -last echo 05/31/2020 EF 70 75% -monitor for complications stroke, heart failure, dementia,cardiac, pulmonary, metabolic, drugs, neurogenic, sepsis, malignancy. -Risk factors hypertension, age, cardiac disease, -Admit telemetry -vital signs q.4 hours, activity as tolerated, up with assistance, bed side commode, have patient sit at edge of bed for minutes before standing. -Maintain O2 >92%., keep potassium> 4, magnesium> 2, in and out Qshift, Ortho stats Q shifts, monitor I&O Q shift -H&H, CMP, Mag, trend troponins, monitor electrolytes 2. MEÑO/UTI/sepsis, acute, present on admission -BUN at 22 and creatinine 1.42(last known on 06/02/2020 0.94), glucose 77, GFR 35.1, total creatinine kinase 177. Also an elevated CK-MB 2.86 and troponin 0.016. Patient had a positive urinalysis sent for culture. Patient has sofa score of 3. Patient also had sustained symptomatic hypotension in ED prior to cardioversion. -fluid resuscitation-suspect patient is slightly dehydrated from recent heat wave. Patient had 500cc bolus in ED, orderd sepsis LR 3 hour bundle. -Zosyn 3.375 Q24 hours -urine culture/blood cultures pending 3. Chronic vertigo/unstable gait, acute on chronic, present on admission-likely exacerbated by MEÑO/UTI/sepsis -ordered PT and OT consult 4. Pulmonary hypertension with moderate to severe tricuspid regurgitation, chronic, present on admission -continue patient's metoprolol 5. HFpEF, chronic, present on admission -last TTE from 07/27/2019 demonstrates small and hyperdynamic left ventricle, mild LVOT gradient of 18 mmHg which increases to 22 mmHg with Basil vagal. RSVP of at least 60 mmHg severely dilated left atrium with mild mitral stenosis. Diastolic dysfunction noted. -echocardiogram 05/31/2020 small left ventricular cavity with hyperdynamic systolic function EF 70-75. No LVOT obstruction present. Small to moderate pericardial effusion noted 6. Hyperlipidemia, chronic, present on admission -continue patient's rosuvastatin 10 mg daily 7. Macrocytic anemia, chronic, present on admission -continue to monitor CBC -transfuse for a hGB<7 or HCT<21 5. Depression, chronic, present on admission -patient denies depression symptoms or suicidal ideation -continue patient's venlafexine Code status: DNR Surrogate decision maker: Daughter Ginny PEACOCK PCR: Negative DVT/VTE prophylaxis: Contraindicated, patient on Eliquis and SCDs Expected length of stay: Less than 2 midnight
[2020-08-24 21:59] LABS: Thyroid Stimulating Hormone 29.9 uIU/mL (0.47-4.68)
[2020-08-25] VITALS (15 sets, daily range): BP systolic 108–154; BP diastolic 50–81; PULSE 56–79; RESP 15–18; TEMP 36.1–36.6; O2SAT 94–98
[2020-08-25] MEDS: LACTATED RINGERS 454 ML IV (03:56)
[2020-08-25 05:19] LABS: INR 1.7 (0.9-1.3); Prothrombin Time 18.6 SECONDS (10.1-12.7)
[2020-08-25 05:24] LABS: Alanine Aminotransferase 18 IU/L (<35); Albumin 2.6 g/dL (3.5-5.0); Albumin Globulin Ratio 1.2 (1.0-2.8); Alkaline Phosphatase 58 U/L (38-126); Aspartate Aminotransferase 53 IU/L (14-36); BUN Creatinine Ratio 15.2 (6-22); Bilirubin Total 1.5 mg/dL (0.2-1.3); Blood Urea Nitrogen 19 mg/dL (7-17); Calcium 8.2 mg/dL (8.4-10.2); Carbon Dioxide 23 mmol/L (22-32); Chloride 109 mmol/L (98-107); Estimated Glomerular Filt Rate 40.6 mL/min (>60); Globulin 2.2 g/dL (1.7-4.1); Glucose 65 mg/dL (80-110); HEMOLYSIS < 15 (0-50); Sodium 137 mmol/L (137-145); Total Protein 4.8 g/dL (6.3-8.2)
[2020-08-25 05:33] LABS: NT-proBNP (BNP-Adult 18+) 7030 pg/mL (<450)
[2020-08-25 05:41] LABS: Procalcitonin 0.14 ng/mL (<0.5)
[2020-08-25] MEDS: PANTOPRAZOLE DR 20 MG TABLET PO (06:08)
--- NOTE | 2020-08-25 06:59 | PC.NURSE ---
Pt. denies pain. Pt. assisted to BSC with 2 assist using FWW and voided adequate amt. Pt. c/o dizziness with sitting and standing, no syncope. Orthostatic B/P obtained and seems to be ok. Upon getting back to bed from using the BSC, noted pt's IV site to be infiltrated, IV stopped and attempted to start IV without success. BRISEIDA Dixon notified of this as well as unable to give IV Zosyn, suggested to have PICC line placed since pt. is a hard stick.
--- NOTE | 2020-08-25 07:33 | PC.NURSE ---
Noted pt's BG this am per lab result was 65, BG obtained via finger stick with a result of 69, given OJ with a pack of sugar. Finger done after 15-20 min. with a result of 71. Report given to Johanny PRATT on day shift.
[2020-08-25] MEDS: VENLAFAXINE ER 75 MG CAP PO (09:27)
[2020-08-25] MEDS: MAGNESIUM OXIDE 400 MG TABLET PO (09:27)
[2020-08-25] MEDS: APIXABAN 5 MG TABLET 2.5 MG PO ×2 (09:27→20:54)
[2020-08-25] MEDS: AMIODARONE 200 MG TABLET PO (09:28)
[2020-08-25] MEDS: METOPROLOL IR 25 MG TABLET PO ×2 (09:28→20:54)
--- NOTE | 2020-08-25 11:36 | OT.IP.TRT ---
Occupational Therapy Treatment Note M2 OT-IP Current Condition Start: 08/25/20 15:53 Freq: Status: Active Protocol: Document 08/25/20 15:54 CGR (Rec: 08/25/20 16:13 CGR [id number]) Occupational Therapy Current Condition Current Condition Evaluation Date 08/25/20 Treatment Diagnosis dizziness, sucessful cardioversion 08/24, UTI/sepsis. Diagnosis Onset Date 08/24/20 M3 OT- IP Subjective and Pain Start: 08/25/20 15:53 Freq: Status: Active Protocol: Document 08/25/20 15:54 CGR (Rec: 08/25/20 16:13 CGR [id number]) OT- Subjective Occupational Therapy Visit Type Type Initial Evaluation Visit Start Time 11:04 Visit Stop Time 11:36 Total Visit Minutes 32 OT Pain Assessment Pain When Pain Assessed At Rest Pain Present Pain Present Denied Pain M4 OT- IP ADL's Start: 08/25/20 15:53 Freq: Status: Active Protocol: Document 08/25/20 15:54 CGR (Rec: 08/25/20 16:13 CGR [id number]) OT [id number] Comments OT Self-Feeding Comments Not meal time OT ADL-Grooming General Evaluation Grooming Ability Standby Assistance Comments OT Grooming Comments for washing hands OT ADL-Oral Care Comments Oral Care Comments not performed OT ADL-Dressing Comments OT Dressing Comments not performed OT ADL-Toileting General Evaluation Toileting Ability Standby Assistance,Contact Guard Assistance Areas Needing Assistance Manage Clothing,Perform Perineal Hygiene Comments OT Toileting Comments seated on toielt, pt voided OT ADL-Bathing Comments OT Bathing Comments not performed M5 OT- IP IADL's Start: 08/25/20 15:53 Freq: Status: Active Protocol: Document 08/25/20 15:54 CGR (Rec: 08/25/20 16:13 CGR [id number]) OT-Instrumental Activities of Daily Living Deficits IADL Deficits Identified Deficits Home Safety Awareness Awareness of Need for Assistance at Home Decreased Awareness Ability to Problem Solve Emergency Unable to Problem Solve Situations Home Safety Comments Pt demonstrates poor safety awareness with mobility. 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 M6 OT- IP Functional Cognition Start: 08/25/20 15:53 Freq: Status: Active Protocol: Document 08/25/20 15:54 CGR (Rec: 08/25/20 16:13 CGR [id number]) Cognitive Factors Limiting Selfcare Function Cognitive Ability Level of Alertness Alert,Confusional State Patient Orientation Name,Age,Birthday,Month,Date, Year,Day of Week,Place, Situation Attention Span Ability Capable of Focused Attention, Capable of Sustained Attention Ability to Follow Commands Able to Follow One Step Commands with Increased Time, Able to Follow One Step Commands with Repetition Cognitive Comments Cognitive Assessment Comments Pt is oriented but appears confused at times, unable to remember things that just happened and has difficulty keeping up a conversation. OT- Vision and Hearing OT- Vision Assessment Visual Acuity Glasses For Reading Visual Attentiveness WFL Occular Pursuits WFL Visual Convergence WFL M7 OT- IP Mobility and Balance Start: 08/25/20 15:53 Freq: Status: Active Protocol: Document 08/25/20 15:54 CGR (Rec: 08/25/20 16:13 CGR [id number]) OT- Bed Mobility Assessment Supine to Sit Supine to Sit Assist Standby Assistance Scooting Scooting to Edge of Bed Standby Assistance OT-Transfer Assessment Sit to and From Stand Sit to and from Stand Standby Assistance,Contact Guard Assistance Transfers Transfer Ability Standby Assistance,Contact Guard Assistance Technique Transfer Destination Bed,Chair,Toilet Transfer Technique Stand Step Pivot Devices Transfer Assistive Devices Gait Belt,Front Wheeled Walker Comments Mobility Comments Pt states dizziness with mobility. OT- Balance Assessment Sitting Balance and Reactions Static Sitting Balance Ability Good Dynamic Sitting Balance Ability Fair M8 OT- IP Objective Assessments Start: 08/25/20 15:53 Freq: Status: Active Protocol: Document 08/25/20 15:54 CGR (Rec: 08/25/20 16:13 CGR [id number]) OT Gross Range of Motion Upper Extremity Range of Motion Assessment Right Impaired ROM Impairments R shld impaired OT Strength Comments Strength Comments grossly 4/5, R shld not tested OT- Coordination Assessment Upper Extremity Finger to Nose Test Within Functional Limits Finger Tapping Test Within Functional Limits OT-Muscle Tone Assessment Muscle Tone WNL Yes OT Sensation Assessment Edema Edema Absent M9 OT- IP Assessment and Plan Start: 08/25/20 15:53 Freq: Status: Active Protocol: Document 08/25/20 15:54 CGR (Rec: 08/25/20 16:13 CGR [id number]) OT Summary Assessment and Plan Potential Rehabilitation Potential Good Analytic Complexity at Evaluation Moderate Summary OT Impairments Balance,Functional Cognition, Functional Mobility,Grooming, Dressing,Toileting,Bathing, Toilet Transfers,Shower Transfers,Activity Tolerance Progress Towards Goals Progressing Toward Goals Assessment Summary Pt presents as a moderate complexity evaluation s/p admit for dizziness and need of cardioversion. Pt also found with UTI. Pt displays signs of confusion and poor safety. Pt states she has needed increased assist and started using a walker recently since heart problems have occured. Pt would benefit from SNF if she does not improved in the next few days. Recommendation at this time is for SNF. Goals Grooming Goal Independent Dressing Goal Independent Toileting Goal Independent Bathing Goal Independent Toilet Transfer Goal Independent Shower Transfer Goal Independent Days to Meet Goals 15 Frequency of Treatment Frequency Of Treatment Once a Day Treatment Plan OT Treatment Plan ADL Training,Functional Cognition Training,Functional Mobility,Patient/Family Education,Discharge Planning Other Treatment Recommendations and Next shower Treatment Focus Discharge Recommendations OT Discharge Recommendations SNF Rehab Transportation Needs at Discharge Private Vehicle,Wheelchair/ Cabulance
--- NOTE | 2020-08-25 11:45 | PT.IIE ---
Surgical History (Last Reviewed 08/24/20 @ 21:34 [facility] Anesthesia Medical History (Last Reviewed 08/24/20 @ 21:34 [facility] Balance problem Breast cancer, left Chicken pox Colitis (~1984) Colon polyps (~1984) Crohn's disease (~1984) Depression Diverticular disease (~1984) Diverticulitis Dizziness Easy bruisability Hemorrhoid (~1984) Hypertension Knee pain Leukemia (~08/2018) Leukemia, chronic Measles Mitral valve disease Osteoporosis Pericardial effusion Physical deconditioning Physician orders for life-sustaining treatment (POLST) form indicates patient wish for wh-ooc-hmewukrhsze status Vertigo Physical Therapy Inpatient Evaluation/Re-Eval M1 PT/OT-IP Prior Functional Status Start: 08/25/20 13:18 Freq: NEEDED Status: Active Protocol: Document 08/25/20 11:45 AB (Rec: 08/25/20 13:31 AB [id number]) Medical Review Prior Functional Status Medical History Reviewed Yes Communication able to answer question but with confusion and memory issues Mobility and Gait stated that she just started using a FWW ~ 2 weeks ago due to dizziness and unsteadiness due to this dizziness. prior to that, pt was not using any AD for mobility and is independent Social History Household Members children Living Arrangements House Number of Floors (Floors) One Floor Number of Stairs To Enter/Railing? 3 steps to enter with R rail ascending Home Environment Standard Height Toilet,Tub/ Shower Home Equipment Front Wheel Walker,Straight Cane,Grab Bars Near Toilet, Grab Bars In Shower M2 PT-IP Current Condition Start: 08/25/20 13:18 Freq: NEEDED Status: Active Protocol: Document 08/25/20 11:45 AB (Rec: 08/25/20 13:31 AB [email or web address]) Physical Therapy Current Condition Current Condition Evaluation Date 08/25/20 Treatment Diagnosis A-fib; UTI, dizziness; difficulty in walking Onset Date 08/24/20 Precautions Other Precautions falls M3 PT-IP Subjective Start: 08/25/20 13:18 Freq: NEEDED Status: Active Protocol: Document 08/25/20 11:45 AB (Rec: 08/25/20 13:31 AB [id number]) Subjective Physical Therapy Visit Type Type Initial Evaluation Visit Start Time 11:45 Visit Stop Time 12:15 Total Visit Minutes 30 Number of RESEARCH PROGRAM COORDINATOR Visits 0 Physical Therapy Visit Comments Patient Comments pt is agreeable to do PT Therapy Pain Assessment Pain Present Pain Present Denied Pain M4 PT-IP Mobility and Gait Start: 08/25/20 13:18 Freq: NEEDED Status: Active Protocol: Document 08/25/20 11:45 AB (Rec: 08/25/20 13:31 AB [id number]) PT-Bed Mobility Assessment Supine to Sit Supine to Sit Minimal Assistance Sit to Supine Sit to Supine Moderate Assistance,1 Person Assistance Scooting Scooting to Edge of Bed Moderate Assistance PT-Transfer Assessment Sit to and From Stand Sit to and from Stand Minimal Assistance,1 Person Assistance,Use of Upper Extremities Equipment Transfer Assistive Device Gait Belt,Front Wheeled Walker Orthotic/Prosthetic Devices or Brace: No Transfers Transfer Destination Bed,Chair Transfer Technique Stand Step Pivot Transfer Ability Level of Assist Minimal Assistance,1 Person Assistance,Use of Upper Extremities Comments Mobility Comments pt sitting on chair and agreed to do PT. pt stated that at times, she gets sudden onset of dizziness but did not complain of dizziness during PT session. completed sit to stand min A and cues and ambulated in room using FWW min A and cues for upright posture and use of FWW. pt ambulated towards the EOB. pt can be impulsive. instructed to demonstrate bed mobility and pt tried to climb into the bed to get into the bed. educated pt regarding safety and PT instructed pt on how to safely do supine<>sit. completed with mod A for sit to supine as pt tends to just fall backwards on the bed and required assist for trunk positioning. required min A for supine to sit. required max cues for all tasks. completed transfer back to chair using FWW min A and cues . positioned pt on chair. call light and table placed within reach. chair alarm on. Gait Assessment Gait Gait Assistance Required: Minimum Assistance Distance (Feet) 40 Able to Maintain Weight Bearing Status Yes During Gait Assistive Devices Assistive Device Gait Belt,Front Wheeled Walker Orthotic/Prosthetic Devices or Brace: No Gait Deviations General Gait Pattern Decreased Stride Length, Decreased Feet Clearance,Step- to Gait Factors Limiting Gait Function Factors Limiting Gait Function Decreased Activity Tolerance, Decreased Strength,Poor Balance,Poor Safety Awareness PT-Balance Assessment Sitting Balance and Reactions Static Sitting Balance Ability Good Dynamic Sitting Balance Ability Fair Standing Balance and Reactions Static Standing Balance Ability Fair Dynamic Standing Balance Ability Fair Device Used FWW M5 PT-IP Objective Assessments Start: 08/25/20 13:18 Freq: NEEDED Status: Active Protocol: Document 08/25/20 11:45 AB (Rec: 08/25/20 13:31 AB [id number]) Orientation Orientation/Cognition Level of Alertness Alert Safety Awareness Decreased Safety Awareness Memory Description Short Term Impaired,Senior Living Impaired Gross Range of Motion Lower Extremity ROM Assessment Within Functional Limits Strength Lower Extremity Strength Hip 4-/5 Knee 4-/5 Muscle Tone Muscle Tone WNL Yes M6 PT-IP Treatment Start: 08/25/20 13:18 Freq: NEEDED Status: Active Protocol: Document 08/25/20 11:45 AB (Rec: 08/25/20 13:31 AB [id number]) Physical Therapy Treatment Education Education Provided Safety M7 PT-IP Assessment and Plan Start: 08/25/20 13:18 Freq: NEEDED Status: Active Protocol: Document 08/25/20 11:45 AB (Rec: 08/25/20 13:31 AB [id number]) PT Summary Assessment and Plan Potential Rehabilitation Potential Good Status of Condition at Evaluation Stable Summary Impairments Pain,ROM,Strength,Balance, Coordination,Sensation,Tone, Cognition,Bed Mobility, Transfers,Gait,Activity Tolerance Assessment Summary pt requiring min to mod A for bed mobility, min A for transfers and ambulation using FWW. requires max cues for all tasks and has decrease safety awareness affecting mobility independence. pt will require 24/7 assist availability to safely d/c home and will benefit from HHPT vs SNF rehab. will continue to assess progress. Goals Bed Mobility Goal Standby Assistance Transfer Goal Standby Assistance,Front Wheeled Walker Gait Goal Standby Assistance,Front Wheel Walker Gait Distance 100 Other Goals improve ambulation using fWW 150 ft up/down 3 steps using R rail SBA Days to Meet Goals 5 Frequency of Treatment Frequency Of Treatment Once a Day Treatment Plan Physical Therapy Treatment Plan Bed Mobility Training,Transfer Training,Gait Training, Therapeutic Exercise,Balance Retraining,Discharge Planning, Neuromuscular Re-ed, Coordination Retraining Precautions Other Precautions falls Recommendations To Nursing Amount of Assist Needed 1 Person Assist Discharge Recommendations PT Discharge Recommendations Home with 24/7 Assist Available,Home Health,SNF Rehab,Home vs SNF Transportation Needs at Discharge Private Vehicle,Wheelchair/ Cabulance
[2020-08-25] MEDS: NITROFURANTOIN ER 100 MG CAPSULE PO ×2 (12:52→20:54)
--- NOTE | 2020-08-25 14:36 | CM.IDA ---
Addendum entered by RAE Miller 08/25/20 15:54: Correction: Patient w/UTI+ so cognition is certainly impaired, RN and therapies suggest patient may clear cognitively in order to return home but if not SNF might be appropriate (?) PLOF still not clear. According to TERENCE Orlando, dtr is w/c bound (?) need to confirm. This SAFETY TEACHER unable to continue assessment w/dtr Ginny before end of shift, will ask that DCP team f/u w/ dtr tomorrow NATE Original Note: Initial DCP Assessment Note Pt is an 85 yo female, resident of [place], arrives w/nausea/dizziness PCP: Chance Funk Payer: [employer] [facility] According to Dr Vang, patient's dizziness has been going on for months and patient may be DC today w/close outpatient f/u (ENT and Switchboard Operator Receptionist?) recommended. Discussed patient w/ OT CJ this morning; patient is quite impulsive d/t short term memory loss and CJ unsure of actual baseline vs the PLOF that patient is reporting. OT and PT recommending home w/16/09 assist and HH Met w/patient, introduced role. Patient states her dtr Ginny lives w/her and is available to assist, dtr will transport home upon DC. Discussed Home Health and patient hesitant, states she is unsure if she needs this service. Patient gives this SAFETY TEACHER permission to review DCP w/dtr Ginny. Will attempt to connect w/family to review DCP options, patient eager to return home RAE Miller Discharge Planning/Care Management CM Discharge Assessment Start: 08/25/20 14:33 Freq: Status: Active Protocol: Document 08/25/20 14:34 NATE (Rec: 08/25/20 14:36 NATE [id number]) Discharge Planning Assessment Assigned Supervisor Roving Department RAE Mathew DPOA/Assigned Designee Name Ginny Swenson dtr Contact Information [phone], Advance Directives? Yes Advance Directives on File No History Provided By Patient Prior Living Arrangements House Household Members children Type of transporation used prior to Relies on Others admit Independent with ADL's No: Limited mobility d/t dizziness Is patient alert and oriented? Yes: With some confusion and memory loss Needs Assistance With Meal Prep,Managing Medications ,Home Chores / Shopping Patient/Family Preference Home with Home Health Barriers to Discharge Yes Comment Memory loss and limited mobility d/t dizziness, impulsive per therapy team Discharge Plan Home Transportation Arrangement Family
--- NOTE | 2020-08-25 14:44 | PC.NURSE ---
Addendum entered by Johanny Loera R.N. 08/25/20 14:45: Orthostatic VS perfomed this am, negative. However patient became lightheaded and dizzy while standing. Dr. Vang aware. Original Note: Day shift note: Up OOB with OT, voided, unmeasured. Described as large amount, dark yellow, odorous by OT. Urine hat placed in BR. High fall risk precautions maintained.
--- NOTE | 2020-08-25 19:57 | P.PN_ITS ---
Subjective Subjective Date Patient Seen: 08/25/20 Interval history: Patient is 85-year-old female with history of persistent atrial fibrillation, on amiodarone, chronic dizziness presented to the ED with complaints of dizziness. She was noted to be in AFib with mild elevated heart rate. She was cardioverted in the ED since she has been on chronic anticoagulation. Patient in dorsal is chronic dizziness for at least the past few months. It does not appear holiness of sinus rhythm has helped the dizziness. She got very dizzy and off balance when stood up from bed with physical therapy. However blood pressures were mildly elevated and she was not orthostatic. Therefore the dizziness seems positional. She had bacteria and leukocytes in urine but denies any urinary discomfort or urgency. Exam Vital Signs (past 8 hours): - 08/25/20 12:15 08/25/20 14:00 08/25/20 15:56 Temperature 97.2 F L 97.4 F L Pulse Rate 56 L 63 Pulse Rate [Orthostatic Lying] Pulse Rate [Orthostatic Sitting] Pulse Rate [Orthostatic Standing] Respiratory Rate 17 15 Blood Pressure 119/50 L 129/56 L Blood Pressure [Orthostatic Lying] Blood Pressure [Orthostatic Sitting] Blood Pressure [Orthostatic Standing] Pulse Oximetry 97 96 98 08/25/20 18:28 08/25/20 18:41 08/25/20 19:23 Temperature 97.3 F L Pulse Rate 72 Pulse Rate [Orthostatic Lying] 70 Pulse Rate [Orthostatic Sitting] 76 Pulse Rate [Orthostatic Standing] 79 Respiratory Rate 18 Blood Pressure 127/62 Blood Pressure [Orthostatic Lying] 108/58 L Blood Pressure [Orthostatic Sitting] 120/66 Blood Pressure [Orthostatic Standing] 114/56 L Pulse Oximetry 94 96 Oxygen Delivery Method Room Air Oxygen Flow Rate 0 Narrative Exam Narrative: General: Alert pleasant female in no acute distress HEENT: Pupils equal and reactive, no nystagmus, EOMI Lungs: Clear to auscultation Heart: Regular rhythm, systolic heart murmur Abdomen: Soft Extremities: No edema Neurological: Normal speech and affect, no focal weakness Objective Labs Result Diagrams: 08/24/20 10:57 08/25/20 04:58 Labs: Laboratory Results - last 24 hr 08/24/20 08/24/20 08/25/20 10:51 10:51 04:58 PT 18.6 H INR 1.7 H Sodium Potassium Chloride Carbon Dioxide BUN Creatinine Estimated GFR BUN/Creatinine Ratio Glucose Calcium Magnesium 2.3 Total Bilirubin AST ALT Alkaline Phosphatase NT-Pro-B Natriuret Pep Total Protein Albumin Globulin Albumin/Globulin Ratio Procalcitonin TSH 29.9 H 08/25/20 08/25/20 04:58 04:58 PT INR Sodium 137 Potassium 4.0 Chloride 109 H Carbon Dioxide 23 BUN 19 H Creatinine 1.25 H Estimated GFR 40.6 L BUN/Creatinine Ratio 15.2 Glucose 65 L Calcium 8.2 L Magnesium Total Bilirubin 1.5 H AST 53 H ALT 18 Alkaline Phosphatase 58 NT-Pro-B Natriuret Pep 7030 H Total Protein 4.8 L Albumin 2.6 L Globulin 2.2 Albumin/Globulin Ratio 1.2 Procalcitonin 0.14 TSH PFSH Medical History Balance problem Breast cancer, left Chicken pox Colitis (~1984) Colon polyps (~1984) Crohn's disease (~1984) Depression Diverticular disease (~1984) Diverticulitis Dizziness Easy bruisability Hemorrhoid (~1984) Hypertension Knee pain Leukemia (~08/2018) Leukemia, chronic Measles Mitral valve disease Osteoporosis Pericardial effusion Physical deconditioning Physician orders for life-sustaining treatment (POLST) form indicates patient wish for by-ojw-paclwjkgahz status Vertigo Surgical History Anesthesia History of bunionectomy of both great toes History of section (~1959) History of ileostomy (~1983) History of total colectomy Family History Brother Diabetes mellitus Heart disease Brother Diabetes mellitus Heart disease Mother Hypertension Father Cancer Sister Cancer Social History household members: children Smoking Status: Never smoker alcohol intake: never substance use type: does not use Assessment & Plan Assessment & Plan narrative: 1. Chronic dizziness -etiology unclear but seems to have positional component -patient not orthostatic, patient without improvement of dizziness when converted to sinus rhythm -PT/OT consult -patient has history of fall but has not had a fall recently 2. Persistent AFib -status post cardioversion in the ED and remains in sinus rhythm -continue amiodarone 200 mg q.d., metoprolol tartrate 25 mg b.i.d., rosuvastatin 10 mg q.d. per home routine -continue apixaban 2.5 mg b.i.d. -continue magnesium oxide 400 mg q.d. -last TTE from 07/27/2019 demonstrates small and hyperdynamic left ventricle, mild LVOT gradient of 18 mmHg which increases to 22 mmHg with Basil vagal, RSVP of at least 60 mmHg severely dilated left atrium with mild mitral stenosis. Diastolic dysfunction noted. 3. Chronic anemia, stable 4. Possible UTI -patient without dysuria so unclear if this is truly clinical UTI -urine culture growing Gram-negative bacilli -continue nitrofurantoin Patient admitted under observation. Possibly home tomorrow depending on PT/OT eval.
[2020-08-25] MEDS: ATORVASTATIN 20 MG TABLET PO (20:54)
[2020-08-25] MEDS: LATANOPROST 0.005% OPHTH 2.5 ML 1 DROPS EYE-RIGHT (20:55)
[2020-08-26] VITALS (10 sets, daily range): BP systolic 94–167; BP diastolic 47–86; PULSE 60–99; RESP 16–18; TEMP 36.2–36.9; O2SAT 96–99
[2020-08-26] MEDS: LEVOTHYROXINE 25 MCG TABLET PO (05:17)
[2020-08-26] MEDS: VENLAFAXINE ER 75 MG CAP PO (09:01)
[2020-08-26] MEDS: APIXABAN 5 MG TABLET 2.5 MG PO ×2 (09:01→20:24)
[2020-08-26] MEDS: NITROFURANTOIN ER 100 MG CAPSULE PO ×2 (09:01→20:24)
[2020-08-26] MEDS: AMIODARONE 200 MG TABLET PO (09:02)
[2020-08-26] MEDS: MAGNESIUM OXIDE 400 MG TABLET PO (09:02)
[2020-08-26] MEDS: SODIUM CHLORIDE 0.9% FLUSH 10 ML IV ×2 (09:02→20:25)
[2020-08-26] MEDS: METOPROLOL IR 25 MG TABLET PO (09:02)
--- NOTE | 2020-08-26 12:01 | P.DS_ITS ---
History of Present Illness History of Present Illness Chief complaint: Nausea/Dizzy Narrative: Patient is 85-year-old female with history of persistent atrial fibrillation, on amiodarone, chronic dizziness presented to the ED with complaints of dizziness. She was noted to be in AFib with mild elevated heart rate. She was cardioverted in the ED since she has been on chronic anticoagulation. Discharge Providers Provider Date of admission: 08/24/20 20:42 Discharge Date: 08/26/20 Primary care physician: Chance Funk DO Consults: 08/24/20 21:09 Consult to Occupational Therapy Evaluate & Treat Comment: Unstable gait Physician Instructions: Evaluate and treat 08/24/20 21:10 Consult to Physical Therapy Evaluate & Treat Comment: unstable gait Physician Instructions: Evaluate and Treat Discharge provider: Bala Vang MD Summary Hospital Course Discharge Diagnosis: 1. Chronic positional dizziness not related to AFib 2. Persistent atrial fibrillation status post cardioversion in ER 3. Asymptomatic bacteriuria 4. Chronic anemia 5. History of falls Procedures: Head CT no acute findings Patient reported chronic dizziness. Cardioversion to sinus rhythm did not improve symptoms. The dizziness is positional with symptoms coming on from sitting to standing. She was orthostatic in the ED. she was not orthostatic on the floor during symptoms. She has history of falls but no falls recently. Patient was assessed by PT. She may benefit from outpatient physical therapy. She also grew E coli in urine culture although this appears asymptomatic and not clinical UTI. She did get dose of Zosyn and a few doses of nitrofurantoin but does not need further antibiotic. Status at Discharge Cognitive/behavioral status at discharge: oriented Overall status at discharge: patient is back to baseline Time Spent with Patient Time spent: Less than 30 minutes Exam Vital Signs (past 8 hours): - 08/26/20 07:00 Temperature 98.4 F Pulse Rate 83 Respiratory Rate 16 Blood Pressure 120/54 L Pulse Oximetry 99 Oxygen Delivery Method Room Air Oxygen Flow Rate 0 Objective Labs Result Diagrams: 08/24/20 10:57 08/25/20 04:58 [facility] Medical History Balance problem Breast cancer, left Chicken pox Colitis (~1984) Colon polyps (~1984) Crohn's disease (~1984) Depression Diverticular disease (~1984) Diverticulitis Dizziness Easy bruisability Hemorrhoid (~1984) Hypertension Knee pain Leukemia (~08/2018) Leukemia, chronic Measles Mitral valve disease Osteoporosis Pericardial effusion Physical deconditioning Physician orders for life-sustaining treatment (POLST) form indicates patient wish for qd-qcb-sfnrqurjdrz status Vertigo Surgical History Anesthesia History of bunionectomy of both great toes History of section (~1959) History of ileostomy (~1983) History of total colectomy Family History Brother Diabetes mellitus Heart disease Brother Diabetes mellitus Heart disease Mother Hypertension Father Cancer Sister Cancer Social History household members: children Smoking Status: Never smoker alcohol intake: never substance use type: does not use Discharge Plan Discharge Plan Patient Disposition: Home Provider Discharge Comment: We evaluated you for dizziness. You had cardioversion in the ER for afib but I do not think it was causing your d izziness. Be careful getting up that you are holding on to something and have someone helping you. You might benefit from outpatient physical therapy. Discharge orders & Medications Prescriptions: Continued apixaban 2.5 mg tablet 2.5 mg PO BID Qty: 180 RF: 0 metoprolol tartrate 25 mg tablet 25 mg PO BID RF: 0 magnesium oxide 400 mg magnesium tablet 400 mg PO DAILY Qty: 90 RF: 3 Disabled Parking Permit 1 dev miscellaneous DIRECTED RF: 0 amiodarone 200 mg tablet 200 mg PO DAILY RF: 0 latanoprost [Xalatan] 0.005 % drops 1 drp EYE-RIGHT BEDTIME RF: 0 oxycodone 10 mg tablet 5 mg PO 4-6XD RF: 0 rosuvastatin [Crestor] 10 mg tablet 10 mg PO ONCE HS RF: 0 venlafaxine [Effexor XR] 75 mg capsule,extended release 24hr 75 mg PO DAILY RF: 0 Follow up/Referrals: Chance Funk DO [Primary Care Provider] - Diet/Activity/Treatments Diet: Regular Visit Report/Discharge Packet Instructions: DI for Atrial Fibrillation Discharge Data Primary Care Provider: Chance Funk Attending Provider: Hanna Dixon
--- NOTE | 2020-08-26 13:24 | PM.PN.1 ---
Subjective Subjective Date Patient Seen: 08/26/20 Interval history: Patient is 85-year-old female with history of persistent atrial fibrillation, on amiodarone, chronic dizziness presented to the ED with complaints of dizziness. She was noted to be in AFib with mild elevated heart rate. She was cardioverted in the ED since she has been on chronic anticoagulation. Patient has chronic dizziness which seems positional from sitting to standing. She is not dizzy we when lying down. Shinto of sinus rhythm did not improve dizziness. She has been very dizzy and off balance and would have fallen when staff has helped her out of bed. We have checked multiple orthostatic blood pressures. Sometimes she is not orthostatic. However at 1:00 p.m. vitals today she was severely orthostatic with lying BP 167/64, sitting 156/86 and standing 94/55 (waiting 90 seconds between each reading). So at least there seems to be component of orthostatic hypotension. We were planning to discharge today and patient seems unsafe for home setting and physical therapy does think she would benefit from acute skilled rehab to help with conditioning and improving safety with ambulation. Patient's daughter who is caregiver does note her dizziness was worse in the week prior to admission. Exam Vital Signs (past 8 hours): - 08/26/20 07:00 Temperature 98.4 F Pulse Rate 83 Respiratory Rate 16 Blood Pressure 120/54 L Pulse Oximetry 99 Oxygen Delivery Method Room Air Oxygen Flow Rate 0 Objective Labs Result Diagrams: 08/24/20 10:57 08/25/20 04:58 [facility] Medical History Balance problem Breast cancer, left Chicken pox Colitis (~1984) Colon polyps (~1984) Crohn's disease (~1984) Depression Diverticular disease (~1984) Diverticulitis Dizziness Easy bruisability Hemorrhoid (~1984) Hypertension Knee pain Leukemia (~08/2018) Leukemia, chronic Measles Mitral valve disease Osteoporosis Pericardial effusion Physical deconditioning Physician orders for life-sustaining treatment (POLST) form indicates patient wish for nd-har-mbqycdisoxq status Vertigo Surgical History Anesthesia History of bunionectomy of both great toes History of section (~1959) History of ileostomy (~1983) History of total colectomy Family History Brother Diabetes mellitus Heart disease Brother Diabetes mellitus Heart disease Mother Hypertension Father Cancer Sister Cancer Social History household members: children Smoking Status: Never smoker alcohol intake: never substance use type: does not use Assessment & Plan Assessment & Plan narrative: 1. Acute on chronic dizziness -could be multifactorial but clearly positional with standing position -patient has been intermittently orthostatic, on afternoon vitals August 26 her lying BP is 167/64, sitting 156/86 and standing 94/55 so she is severely orthostatic -dizziness did not improve after cardioversion in the ED to sinus rhythm -continue PT/OT consult -patient has history of recurrent falls -started patient on fludrocortisone 0.1 mg daily for BP support, she does not have edema on exam and is not on diuretic therapy -thigh-high compression stockings -up only with assistance 2. Persistent AFib -status post cardioversion in the ED and remains in sinus rhythm with occasional ectopy -continue amiodarone 200 mg q.d. -metoprolol succinate ER 25 mg q.d. (we had been giving metoprolol tartrate 25 mg b.i.d. based on home med reconciliation but patient's daughter reported her dosing was changed to the metoprolol succinate ER 25 mg q.d. after her hospitalization 2 months ago at [facility]) -continue apixaban 2.5 mg b.i.d. -continue magnesium oxide 400 mg q.d. -last TTE from 07/27/2019 demonstrates small and hyperdynamic left ventricle, mild LVOT gradient of 18 mmHg which increases to 22 mmHg with Basil vagal, RSVP of at least 60 mmHg severely dilated left atrium with mild mitral stenosis. Diastolic dysfunction noted. 3. Chronic anemia, stable -patient has a known chronic leukemia which is presumably cause of her anemia 4. Possible UTI -patient without dysuria so unclear if this is truly clinical UTI -urine culture grew pansensitive E coli -received 1 dose Zosyn, continue nitrofurantoin up to 5 days but can DC early if discharging Patient would benefit [facility] for conditioning and balance training. We are working towards insurance authorization.
--- NOTE | 2020-08-26 13:59 | CM.DPC ---
Addendum entered by RAE Villagomez 08/26/20 14:43: ADD: SW updated pt and Dtr on the SNF's being fairly full and their first preference of [facility] likely not an option and potential for [facility] or more likely [facility] if [facility] approves. BF Original Note: DCP SNF Planning: Per MD, met bedside with Dtr and pt and discussed plan of home with family today and Dtr with signigicant concerns as pt is below baseline and very weak. PT met bedside with pt and Dtr early afternoon due to triage needs and PT feels pt is not safe for d/c home and neither do pt and Dtr and requesting SNF. SW met bedside with pt, Dtr, and PT and confirmed they feel SNF is needed. SW discussed need to get [facility] auth for SNF and provided the SNF Choice List and preference is [facility] as pt went there a few years ago. SW discussed that if [facility] does not auth then need back up plan of private pay SNF (over $300 a day) or home with family assist and HH. Pt and Dtr acknowledge understanding. SW called [facility] and assigned CM will be Carolyn as Nandini is not in this weekend and left Carolyn a msg and faxed clinicals to review with [facility] as pt stable for d/c. SW called [facility] admissions with new referral and they currently will not have any openings until likely or Wed this week. Pt will need SNF placement tomorrow at latest so no referral faxed. ADILIA called [facility] and left msg and faxed referral to review. ADILIA called [facility] and discussed new referral as other [facility] preferred contracted facilities may be full and unable to accept. [facility] willing to review and may have a bed tomorrow potentially. SW faxed referral. ADILIA called [facility] admissions with new referral but they already have their max for admissions set up for tomorrow and would not be able to accept pt. SW faxed referral to [facility] as a back up but F2F will be needed if home with HH. Plan: SW to follow closely for [facility] review to determine if they will auth SNF and [facility] to review to determine if they can accept. RAE Villagomez
[2020-08-26] MEDS: FLUDROCORTISONE 0.1 MG TABLET PO (14:00)
--- NOTE | 2020-08-26 14:16 | OT.IP.TRT ---
Occupational Therapy Treatment Note M2 OT-IP Current Condition Start: 08/25/20 15:53 Freq: Status: Active Protocol: Document 08/25/20 15:54 CGR (Rec: 08/25/20 16:13 CGR [id number]) Occupational Therapy Current Condition Current Condition Evaluation Date 08/25/20 Treatment Diagnosis dizziness, sucessful cardioversion 08/24, UTI/sepsis. Diagnosis Onset Date 08/24/20 M3 OT- IP Subjective and Pain Start: 08/25/20 15:53 Freq: Status: Active Protocol: Document 08/26/20 14:24 CGR (Rec: 08/26/20 14:29 CGR [id number]) OT- Subjective Occupational Therapy Visit Type Type Progress Note Visit Start Time 14:03 Visit Stop Time 14:16 Total Visit Minutes 13 Notes Pt is fatigued after just completing P.T. services. OT Pain Assessment Pain When Pain Assessed At Rest Pain Present Pain Present Denied Pain M4 OT- IP ADL's Start: 08/25/20 15:53 Freq: Status: Active Protocol: Document 08/26/20 14:24 CGR (Rec: 08/26/20 14:29 CGR [id number]) OT [id number] Comments OT Self-Feeding Comments Not meal time OT ADL-Grooming General Evaluation Grooming Ability Standby Assistance Areas Needing Assistance Retrieving/Set-up of Grooming Items,Face Washing Comments OT Grooming Comments standing at sink with set up. OT ADL-Oral Care General Eval Oral Care Ability Contact Guard Assistance Areas of Assistance Brushing Teeth,Retrieving/Set- Up of Items Comments Oral Care Comments Standing at sink OT ADL-Dressing Comments OT Dressing Comments Not performed OT ADL-Toileting Comments OT Toileting Comments Not performed OT ADL-Bathing Comments OT Bathing Comments Not performed M5 OT- IP IADL's Start: 08/25/20 15:53 Freq: Status: Active Protocol: Document 08/25/20 15:54 CGR (Rec: 08/25/20 16:13 CGR [id number]) OT-Instrumental Activities of Daily Living Deficits IADL Deficits Identified Deficits Home Safety Awareness Awareness of Need for Assistance at Home Decreased Awareness Ability to Problem Solve Emergency Unable to Problem Solve Situations Home Safety Comments Pt demonstrates poor safety awareness with mobility. 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 M6 OT- IP Functional Cognition Start: 08/25/20 15:53 Freq: Status: Active Protocol: Document 08/25/20 15:54 CGR (Rec: 08/25/20 16:13 CGR [id number]) Cognitive Factors Limiting Selfcare Function Cognitive Ability Level of Alertness Alert,Confusional State Patient Orientation Name,Age,Birthday,Month,Date, Year,Day of Week,Place, Situation Attention Span Ability Capable of Focused Attention, Capable of Sustained Attention Ability to Follow Commands Able to Follow One Step Commands with Increased Time, Able to Follow One Step Commands with Repetition Cognitive Comments Cognitive Assessment Comments Pt is oriented but appears confused at times, unable to remember things that just happened and has difficulty keeping up a conversation. OT- Vision and Hearing OT- Vision Assessment Visual Acuity Glasses For Reading Visual Attentiveness WFL Occular Pursuits WFL Visual Convergence WFL M7 OT- IP Mobility and Balance Start: 08/25/20 15:53 Freq: Status: Active Protocol: Document 08/26/20 14:24 CGR (Rec: 08/26/20 14:29 CGR [id number]) OT-Transfer Assessment Sit to and From Stand Sit to and from Stand Minimal Assistance Transfers Transfer Ability Minimal Assistance Technique Transfer Destination Chair Transfer Technique Stand Step Pivot Devices Transfer Assistive Devices Gait Belt,Front Wheeled Walker Comments Mobility Comments Pt ambulated from the chair to the sink ~10 feet and return after ADLs standing. OT- Balance Assessment Sitting Balance and Reactions Static Sitting Balance Ability Good Dynamic Sitting Balance Ability Fair M8 OT- IP Objective Assessments Start: 08/25/20 15:53 Freq: Status: Active Protocol: Document 08/25/20 15:54 CGR (Rec: 08/25/20 16:13 CGR [id number]) OT Gross Range of Motion Upper Extremity Range of Motion Assessment Right Impaired ROM Impairments R shld impaired OT Strength Comments Strength Comments grossly 4/5, R shld not tested OT- Coordination Assessment Upper Extremity Finger to Nose Test Within Functional Limits Finger Tapping Test Within Functional Limits OT-Muscle Tone Assessment Muscle Tone WNL Yes OT Sensation Assessment Edema Edema Absent M9 OT- IP Assessment and Plan Start: 08/25/20 15:53 Freq: Status: Active Protocol: Document 08/26/20 14:24 CGR (Rec: 08/26/20 14:29 CGR [id number]) OT Summary Assessment and Plan Potential Rehabilitation Potential Good Analytic Complexity at Evaluation Moderate Summary OT Impairments Balance,Functional Cognition, Functional Mobility,Grooming, Dressing,Toileting,Bathing, Toilet Transfers,Shower Transfers,Activity Tolerance Progress Towards Goals Progressing Toward Goals Assessment Summary Pt presents as a moderate complexity evaluation s/p admit for dizziness and need of cardioversion. Pt also found with UTI. Pt continues to displays signs of confusion and poor insight. Pt c/o dizziness throughout session. Pt educated on leaning stomach onto sink to assist with balance with ADLs for another body point of contact. Pt states understanding. Pt states this is the longest she has stood in some time. Pt returned to chair and appears fatigued. Pt needs VC and tactile cues for proper use of walker and safe transfer. Pt would benefit from SNF upon discharge. Goals Grooming Goal Independent Dressing Goal Independent Toileting Goal Independent Bathing Goal Independent Toilet Transfer Goal Independent Shower Transfer Goal Independent Days to Meet Goals 15 Frequency of Treatment Frequency Of Treatment Once a Day Treatment Plan OT Treatment Plan ADL Training,Functional Cognition Training,Functional Mobility,Patient/Family Education,Discharge Planning Other Treatment Recommendations and Next shower Treatment Focus Discharge Recommendations OT Discharge Recommendations SNF Rehab Transportation Needs at Discharge Private Vehicle,Wheelchair/ Cabulance
--- NOTE | 2020-08-26 14:50 | PT.IPTN ---
Physical Therapy Treatment Note M2 PT-IP Current Condition Start: 08/25/20 13:18 Freq: NEEDED Status: Active Protocol: Document 08/25/20 11:45 AB (Rec: 08/25/20 13:31 AB [id number]) Physical Therapy Current Condition Current Condition Evaluation Date 08/25/20 Treatment Diagnosis A-fib; UTI, dizziness; difficulty in walking Onset Date 08/24/20 Precautions Other Precautions falls M3 PT-IP Subjective Start: 08/25/20 13:18 Freq: NEEDED Status: Active Protocol: Document 08/26/20 14:06 LJ (Rec: 08/26/20 14:50 LJ [id number]) Subjective Physical Therapy Visit Type Type Treatment Note Visit Start Time 13:26 Visit Stop Time 13:56 Total Visit Minutes 30 Number of EDGE ROLLER Visits 1 Physical Therapy Visit Comments Patient Comments pt is agreeable to do PT M4 PT-IP Mobility and Gait Start: 08/25/20 13:18 Freq: NEEDED Status: Active Protocol: Document 08/26/20 14:06 LJ (Rec: 08/26/20 14:50 LJ [id number]) PT-Bed Mobility Assessment Rolling Type of Rolling Log Rolling,Roll to Left Supine to Sit Supine to Sit Moderate Assistance,1 Person Assistance,Bedrails Scooting Scooting to Edge of Bed Moderate Assistance PT-Transfer Assessment Sit to and From Stand Sit to and from Stand Minimal Assistance,1 Person Assistance,Use of Upper Extremities Equipment Transfer Assistive Device Gait Belt,Front Wheeled Walker Orthotic/Prosthetic Devices or Brace: No Transfers Transfer Destination Bed,Chair Transfer Ability Level of Assist Minimal Assistance,1 Person Assistance,Use of Upper Extremities Comments Mobility Comments Pt in bed willing to participate in PT. Pt instructed to logroll to left for supine to sit. Rex and cues to go from SL to upright. Upon sitting upright pt felt dizzy and leaned backwards to supine position. She lay there several minutes to recover from dizziness then required ModA to move from supine to sitting on side of bed. Pt required rest break (~1 min) due to dizziness. Pt then stood Rex and performed lateral weight shifting transitioning to lifting feet off floor which was initially difficult for the pt. Pt then instructed to ambulate to chair. She had difficulty taking steps forward and when cued to lift feet higher and not shuffle she began marching . Pt instructed to returned to bedside. She requested to sit on side of bed due to dizziness. She then stood again and ambulated with chair follow for 6 feet then requested to sit due to dizziness. Pt required mod cueing for all mobility and ambulation. She was left sitting in the chair with all needs in reach and dtr in room . Gait Assessment Gait Gait Assistance Required: Minimum Assistance Distance (Feet) 6 Able to Maintain Weight Bearing Status Yes During Gait Assistive Devices Assistive Device Gait Belt,Front Wheeled Walker Orthotic/Prosthetic Devices or Brace: No Gait Deviations General Gait Pattern Decreased Stride Length, Decreased Feet Clearance, Flexed Trunk,Step-to Gait Factors Limiting Gait Function Factors Limiting Gait Function Decreased Activity Tolerance, Decreased Strength,Poor Balance,Poor Safety Awareness Comments Gait Comments see mobility section. Stair Climbing Assessment Comments Stair Climbing Comments unable at this time PT-Balance Assessment Sitting Balance and Reactions Static Sitting Balance Ability Good Dynamic Sitting Balance Ability Fair Standing Balance and Reactions Static Standing Balance Ability Fair Dynamic Standing Balance Ability Fair Device Used FWW M5 PT-IP Objective Assessments Start: 08/25/20 13:18 Freq: NEEDED Status: Active Protocol: Document 08/25/20 11:45 AB (Rec: 08/25/20 13:31 AB [id number]) Orientation Orientation/Cognition Level of Alertness Alert Safety Awareness Decreased Safety Awareness Memory Description Short Term Impaired,Custodial Impaired Gross Range of Motion Lower Extremity ROM Assessment Within Functional Limits Strength Lower Extremity Strength Hip 4-/5 Knee 4-/5 Muscle Tone Muscle Tone WNL Yes M6 PT-IP Treatment Start: 08/25/20 13:18 Freq: NEEDED Status: Active Protocol: Document 08/26/20 14:06 WHIT (Rec: 08/26/20 14:50 WHIT [id number]) Physical Therapy Treatment Education Education Provided Safety M7 PT-IP Assessment and Plan Start: 08/25/20 13:18 Freq: NEEDED Status: Active Protocol: Document 08/26/20 14:06 WHIT (Rec: 08/26/20 14:50 LJ [id number]) PT Summary Assessment and Plan Potential Rehabilitation Potential Good Status of Condition at Evaluation Stable Summary Impairments Pain,ROM,Strength,Balance, Coordination,Sensation,Tone, Cognition,Bed Mobility, Transfers,Gait,Activity Tolerance Assessment Summary Pt required Min to ModA for bed mobility and Rex for transfers. Mod cueing for all mobility and ambulation. Pt reports dizziness with tansitional movements and states that the room shakes [id number] and colors swirl sometimes. No nystagmus noted but would endorse a vestibular evaluation. Pt has not performed stair training and will need to do that prior to DC. SNF rehab recommended to improve strength and functional mobility. Goals Bed Mobility Goal Standby Assistance Transfer Goal Standby Assistance,Front Wheeled Walker Gait Goal Standby Assistance,Front Wheel Walker Gait Distance 100 Other Goals improve ambulation using fWW 150 ft up/down 3 steps using R rail SBA Days to Meet Goals 5 Frequency of Treatment Frequency Of Treatment Once a Day Treatment Plan Physical Therapy Treatment Plan Bed Mobility Training,Transfer Training,Gait Training, Therapeutic Exercise,Balance Retraining,Discharge Planning, Neuromuscular Re-ed, Coordination Retraining Precautions Other Precautions falls Recommendations To Nursing Amount of Assist Needed 1 Person Assist Discharge Recommendations PT Discharge Recommendations Home with 16/09 Assist Available,Home Health,SNF Rehab Transportation Needs at Discharge Private Vehicle,Wheelchair/ Cabulance
--- NOTE | 2020-08-26 17:49 | PC.NURSE ---
Pt sitting in chair, denies any discomfort at this time. Lungs clear, SpO2 95% RA Tele shows SB/first degree AVB per ICU staff. HL LFA intact/patent. Call light w/in reach, chair alarm on for pt safety.
[2020-08-26] MEDS: ATORVASTATIN 20 MG TABLET PO (20:25)
[2020-08-26] MEDS: LATANOPROST 0.005% OPHTH 2.5 ML 1 DROPS EYE-RIGHT (20:25)
[2020-08-27 02:00] VITALS: BP 118/58; BP 140/62; BP 140/70; PULSE 73; PULSE 76; PULSE 79
[2020-08-27 04:00] VITALS: BP 141/65; PULSE 64; RESP 16; TEMP 36.1; O2SAT 95
[2020-08-27] MEDS: LEVOTHYROXINE 25 MCG TABLET PO (05:38)
[2020-08-27 07:00] VITALS: BP 105/61; BP 114/64; BP 124/79; BP 124/97; PULSE 69; PULSE 73; PULSE 82; RESP 16; TEMP 36.7; O2SAT 98
--- NOTE | 2020-08-27 07:44 | PM.PN.1 ---
Subjective Subjective Date Patient Seen: 08/27/20 Interval history: She is sleeping during my visit today and appears to be quite hard of hearing and does not really engage. She apparently lives with her daughter but with this amount of weakness will not be able to return there soon and so sr. social media & mobile manager are applying to [facility] for assisted facility authorization. Her 08/24 labs of CBC and CMP were normal. The BNP was 11624, dropping to 7030 on 08/25. The albumin has dropped from 3.4 to 2.6. Exam Vital Signs (past 8 hours): - 08/27/20 02:00 08/27/20 04:00 Temperature 97.0 F L Pulse Rate 64 Pulse Rate [Orthostatic Lying] 73 Pulse Rate [Orthostatic Sitting] 79 Pulse Rate [Orthostatic Standing] 76 Respiratory Rate 16 Blood Pressure 141/65 H Blood Pressure [Orthostatic Lying] 140/70 Blood Pressure [Orthostatic Sitting] 140/62 Blood Pressure [Orthostatic Standing] 118/58 L Pulse Oximetry 95 Oxygen Delivery Method Room Air Oxygen Flow Rate 0 Narrative Exam Narrative: She is asleep, appears hard of hearing and does not respond to my attempts to engage her. Heart is irregularly irregular with a 2/6 systolic ejection murmur Lungs are clear to auscultation bilaterally Extremities have no ankle edema. Objective Labs Result Diagrams: 08/24/20 10:57 08/25/20 04:58 [facility] Medical History Balance problem Breast cancer, left Chicken pox Colitis (~1984) Colon polyps (~1984) Crohn's disease (~1984) Depression Diverticular disease (~1984) Diverticulitis Dizziness Easy bruisability Hemorrhoid (~1984) Hypertension Knee pain Leukemia (~08/2018) Leukemia, chronic Measles Mitral valve disease Osteoporosis Pericardial effusion Physical deconditioning Physician orders for life-sustaining treatment (POLST) form indicates patient wish for [id number]-ycl-hrmsyvwdbmn status Vertigo Surgical History Anesthesia History of bunionectomy of both great toes History of section (~1959) History of ileostomy (~1983) History of total colectomy Family History Brother Diabetes mellitus Heart disease Brother Diabetes mellitus Heart disease Mother Hypertension Father Cancer Sister Cancer Social History household members: children Smoking Status: Never smoker alcohol intake: never substance use type: does not use Assessment & Plan Assessment & Plan narrative: 1. Acute on chronic dizziness -could be multifactorial but clearly positional with standing position -patient has been intermittently orthostatic, on afternoon vitals August 26 her lying BP is 167/64, sitting 156/86 and standing 94/55 so she is severely orthostatic -dizziness did not improve after cardioversion in the ED from atrial fibrillation to sinus rhythm -continue PT/OT evals -she has a history of recurrent falls -started fludrocortisone 0.1 mg daily for BP support, she does not have edema on exam and is not on diuretic therapy -thigh-high compression stockings -up only with assistance 2. Persistent AFib -status post cardioversion in the ED and on exam today sounds like she is back in AFib, not unexpectedly. -continue amiodarone 200 mg q.d. -metoprolol succinate ER 25 mg q.d. (we had been giving metoprolol tartrate 25 mg b.i.d. based on home med reconciliation but patient's daughter reported her dosing was changed to the metoprolol succinate ER 25 mg q.d. after her hospitalization 2 months ago at [facility]) -continue apixaban 2.5 mg b.i.d. -continue magnesium oxide 400 mg q.d. -last TTE from 07/27/2019 demonstrates small and hyperdynamic left ventricle, mild LVOT gradient of 18 mmHg which increases to 22 mmHg with Basil vagal, RSVP of at least 60 mmHg severely dilated left atrium with mild mitral stenosis. Diastolic dysfunction noted. 3. Chronic anemia, stable -patient has a known chronic leukemia which is presumably cause of her anemia 4. Possible UTI -patient without dysuria so unclear if this is truly clinical UTI -urine culture grew pansensitive E coli -received 1 dose Zosyn, continue nitrofurantoin up to 5 days but can DC early if discharging Patient would benefit from acute rehab at assisted facility for conditioning and balance training. We are working towards insurance authorization.
--- NOTE | 2020-08-27 09:23 | CM.DANOTE ---
Addendum entered by Tabitha Del Real 08/27/20 14:06: Have made several attempts to fax clinical information to Carolyn at [facility] to review for SNF authorization. Unfortunately, all faxes to [facility] not going through. [facility] notified that problem is on their end. No discharge indicated today. CM team to follow up in AM to determine safest d/c plan. KJS Original Note: DCP/continued: Reviewed chart. Placed call to [facility] CM/Carolyn Villegas at ph# [phone]. Left vm with Carolyn requesting information on whether or not SNF authorized. P: Anticipate home with HH vs. SNF pending decision by [facility]. RAE Jerry
[2020-08-27] MEDS: VENLAFAXINE ER 75 MG CAP PO (09:55)
[2020-08-27] MEDS: APIXABAN 5 MG TABLET 2.5 MG PO ×2 (09:55→21:20)
[2020-08-27] MEDS: MAGNESIUM OXIDE 400 MG TABLET PO (09:55)
[2020-08-27] MEDS: FLUDROCORTISONE 0.1 MG TABLET PO (09:55)
[2020-08-27] MEDS: NITROFURANTOIN ER 100 MG CAPSULE PO ×2 (09:56→21:24)
[2020-08-27] MEDS: AMIODARONE 200 MG TABLET PO (09:57)
[2020-08-27] MEDS: SODIUM CHLORIDE 0.9% FLUSH 10 ML IV ×2 (09:57→21:20)
[2020-08-27 12:30] VITALS: BP 107/62; BP 110/53; BP 121/56; PULSE 66; PULSE 74; PULSE 89
--- NOTE | 2020-08-27 14:05 | PT.IPTN ---
Physical Therapy Treatment Note M2 PT-IP Current Condition Start: 08/25/20 13:18 Freq: NEEDED Status: Active Protocol: Document 08/27/20 14:49 MA (Rec: 08/27/20 15:10 MA [id number]) Physical Therapy Current Condition Current Condition Evaluation Date 08/25/20 Treatment Diagnosis A-fib; UTI, dizziness; difficulty in walking Onset Date 08/24/20 Precautions Other Precautions falls M3 PT-IP Subjective Start: 08/25/20 13:18 Freq: NEEDED Status: Active Protocol: Document 08/27/20 14:49 MA (Rec: 08/27/20 15:10 MA [id number]) Subjective Physical Therapy Visit Type Type Treatment Note Visit Start Time 13:45 Visit Stop Time 14:05 Total Visit Minutes 20 Number of AEROSPACE MANAGER Visits 1 Physical Therapy Visit Comments Patient Comments Pt is agreeable to PT Therapy Pain Assessment Pain Present Pain Present Denied Pain M4 PT-IP Mobility and Gait Start: 08/25/20 13:18 Freq: NEEDED Status: Active Protocol: Document 08/27/20 14:49 MA (Rec: 08/27/20 15:10 MA [id number]) PT-Bed Mobility Assessment Sit to Supine Sit to Supine Minimal Assistance,1 Person Assistance PT-Transfer Assessment Sit to and From Stand Sit to and from Stand Minimal Assistance,1 Person Assistance,Use of Upper Extremities Equipment Transfer Assistive Device Gait Belt,Front Wheeled Walker Orthotic/Prosthetic Devices or Brace: No Transfers Transfer Destination Bed,Chair Transfer Technique Stand Step Pivot Transfer Ability Level of Assist Contact Guard Assistance, Minimal Assistance,1 Person Assistance Comments Mobility Comments Pt is in room chair upon arrival. She needs Min Ax1 for sit>stand from chair and is CGA for stand>sit on bed at end of treatment. She is able to ambulate 30 feet with FWW and gait belt before sitting in w/c for tranfer to stairs. Pt is able to walk 10 additional feet with gait belt , FWW, CGA from door of room to bed. She is Min Ax1 for sit >supine needing assistance with que LEs. Gait Assessment Gait Gait Assistance Required: Contact Guard Assist,1 Person Assist Distance (Feet) 40 Able to Maintain Weight Bearing Status Yes During Gait Assistive Devices Assistive Device Gait Belt,Front Wheeled Walker Orthotic/Prosthetic Devices or Brace: No Gait Deviations General Gait Pattern Decreased Stride Length, Decreased Feet Clearance, Flexed Trunk,Step-to Gait Factors Limiting Gait Function Factors Limiting Gait Function Decreased Activity Tolerance, Decreased Strength,Poor Balance,Poor Safety Awareness Comments Gait Comments See mobility section Stair Climbing Assessment Evaluation Level of Assist On Stairs Moderate Assistance,1 Person Assistance Devices Stair Climbing Assistive Devices Right Railing Technique/Endurance Stair Climbing Direction Ascend and Descend Stair Climbing Technique Step to Step Number of Steps Climbed 3 Stair Climbing Set # Repetitions (reps) 1 Comments Stair Climbing Comments Pt is able to complete stair training CGA for ascending 3 stairs with R rail and Mod Ax1 for descending with rail on L . PT-Balance Assessment Sitting Balance and Reactions Static Sitting Balance Ability Good Dynamic Sitting Balance Ability Good Standing Balance and Reactions Static Standing Balance Ability Fair Dynamic Standing Balance Ability Fair Device Used FWW M5 PT-IP Objective Assessments Start: 08/25/20 13:18 Freq: NEEDED Status: Active Protocol: Document 08/25/20 11:45 AB (Rec: 08/25/20 13:31 AB [id number]) Orientation Orientation/Cognition Level of Alertness Alert Safety Awareness Decreased Safety Awareness Memory Description Short Term Impaired,Ceo Impaired Gross Range of Motion Lower Extremity ROM Assessment Within Functional Limits Strength Lower Extremity Strength Hip 4-/5 Knee 4-/5 Muscle Tone Muscle Tone WNL Yes M6 PT-IP Treatment Start: 08/25/20 13:18 Freq: NEEDED Status: Active Protocol: Document 08/27/20 14:49 MA (Rec: 08/27/20 15:10 MA [id number]) Physical Therapy Treatment Exercises Exercises Seated Knee Flexion/Extension Education Education Provided Safety Other Treatments Other Treatment Performed LAQ while waiting for MANAGER HAIR for w/c follow M7 PT-IP Assessment and Plan Start: 08/25/20 13:18 Freq: NEEDED Status: Active Protocol: Document 08/27/20 14:49 MA (Rec: 08/27/20 15:10 MA [id number]) PT Summary Assessment and Plan Potential Rehabilitation Potential Good Status of Condition at Evaluation Stable Summary Impairments Pain,ROM,Strength,Balance, Coordination,Sensation,Tone, Cognition,Bed Mobility, Transfers,Gait,Activity Tolerance Assessment Summary Pt has minimal dizziness this session upon standing. She is Min A for sit<>stand transfers from chair and bed. She is able to ambulate 40 ft total today, CGA with gait belt, FWW , and w/c follow. Pt is pushed in w/c to therapy stairs where she completes stair training CGA with R rail for ascending and Mod Ax1 for descending using rail and therapists arm for support. She is left supine in bed, bed alarm on with all needs within reach. Goals Bed Mobility Goal Standby Assistance Transfer Goal Standby Assistance,Front Wheeled Walker Gait Goal Standby Assistance,Front Wheel Walker Gait Distance 100 Other Goals improve ambulation using fWW 150 ft Continue working on stair training with goal of pt being SBA on 3 steps with R rail Days to Meet Goals 5 Frequency of Treatment Frequency Of Treatment Once a Day Treatment Plan Physical Therapy Treatment Plan Bed Mobility Training,Transfer Training,Gait Training, Therapeutic Exercise,Balance Retraining,Discharge Planning, Neuromuscular Re-ed, Coordination Retraining Precautions Other Precautions falls Recommendations To Nursing Amount of Assist Needed 1 Person Assist Discharge Recommendations PT Discharge Recommendations Home with / Assist Available,Home Health,SNF Rehab Transportation Needs at Discharge Private Vehicle,Wheelchair/ Cabulance
[2020-08-27 15:50] VITALS: BP 131/62; BP 135/52; BP 99/51; PULSE 70; PULSE 75; PULSE 84; RESP 22; TEMP 36.7; O2SAT 99
[2020-08-27 18:20] VITALS: BP 105/58; BP 111/55; BP 147/55; PULSE 67; PULSE 77; PULSE 81
[2020-08-27] MEDS: ATORVASTATIN 20 MG TABLET PO (21:20)
[2020-08-27] MEDS: LATANOPROST 0.005% OPHTH 2.5 ML 1 DROPS EYE-RIGHT (21:21)
[2020-08-28 00:30] VITALS: BP 127/57; PULSE 68; RESP 16; TEMP 35.8; O2SAT 98
[2020-08-28] MEDS: LEVOTHYROXINE 25 MCG TABLET PO (05:39)
[2020-08-28 07:35] VITALS: BP 124/56; PULSE 68; RESP 16; TEMP 35.8; O2SAT 97
[2020-08-28 07:40] VITALS: BP 101/61; BP 124/56; BP 74/50; PULSE 68; PULSE 78; PULSE 94
--- NOTE | 2020-08-28 07:50 | PM.PN.1 ---
Subjective Subjective Interval history: She is so much more alert and interactive today that I initially did not remember her from yesterday when she was sound asleep during my visit. Her insurance, [employer] has not approved a penitentiary facility as they have not had ?incoming fax abilities? over this holiday weekend. She tells me that her daughter Ginny lives with her. There are no new labs to review today. Exam Vital Signs (past 8 hours): - 08/28/20 00:30 Temperature 96.5 F L Pulse Rate 68 Respiratory Rate 16 Blood Pressure 127/57 L Pulse Oximetry 98 Oxygen Delivery Method Room Air Oxygen Flow Rate 0 Narrative Exam Narrative: She is alert and oriented x3. She is quite spry. No apparent distress Heart is irregularly irregular without murmur Lungs are clear to auscultation bilaterally Extremities have no ankle edema Abdomen is soft, bowel sounds positive, nontender, no organomegaly. Objective Labs Result Diagrams: 08/24/20 10:57 08/25/20 04:58 [facility] Medical History Balance problem Breast cancer, left Chicken pox Colitis (~1984) Colon polyps (~1984) Crohn's disease (~1984) Depression Diverticular disease (~1984) Diverticulitis Dizziness Easy bruisability Hemorrhoid (~1984) Hypertension Knee pain Leukemia (~08/2018) Leukemia, chronic Measles Mitral valve disease Osteoporosis Pericardial effusion Physical deconditioning Physician orders for life-sustaining treatment (POLST) form indicates patient wish for kt-coj-cufkqiswktl status Vertigo Surgical History Anesthesia History of bunionectomy of both great toes History of section (~1959) History of ileostomy (~1983) History of total colectomy Family History Brother Diabetes mellitus Heart disease Brother Diabetes mellitus Heart disease Mother Hypertension Father Cancer Sister Cancer Social History household members: children Smoking Status: Never smoker alcohol intake: never substance use type: does not use Assessment & Plan Assessment & Plan narrative: 1. Acute on chronic dizziness -multifactorial but clearly positional with standing position -patient has been intermittently orthostatic, on afternoon vitals August 26 her lying BP is 167/64, sitting 156/86 and standing 94/55 so she was severely orthostatic -dizziness did not improve after cardioversion in the ED from atrial fibrillation to sinus rhythm -continue PT/OT evals -she has a history of recurrent falls -started fludrocortisone 0.1 mg daily for BP support, she does not have edema on exam and is not on diuretic therapy -thigh-high compression stockings -appears stable for discharge to penitentiary. Physical therapy has recommended penitentiary facility due to the ongoing issue of dizziness. 2. Persistent AFib -status post cardioversion in the ED and on exam today sounds like she is back in AFib, not unexpectedly. -continue amiodarone 200 mg q.d. -metoprolol succinate ER 25 mg q.d. (we had been giving metoprolol tartrate 25 mg b.i.d. based on home med reconciliation but patient's daughter reported her dosing was changed to the metoprolol succinate ER 25 mg q.d. after her hospitalization [address] [facility]) -continue apixaban 2.5 mg b.i.d. -continue magnesium oxide 400 mg q.d. -last TTE from 07/27/2019 demonstrates small and hyperdynamic left ventricle, mild LVOT gradient of 18 mmHg which increases to 22 mmHg with Basil vagal, RSVP of at least 60 mmHg severely dilated left atrium with mild mitral stenosis. Diastolic dysfunction noted. 3. Chronic anemia, stable -patient has a known chronic leukemia which is presumably the cause of her anemia 4. Possible UTI -patient without dysuria so unclear if this is truly clinical UTI -urine culture grew pansensitive E coli -received 1 dose Zosyn, continue nitrofurantoin up to 5 days but can DC early if discharging Patient would benefit from acute rehab at penitentiary facility for conditioning and balance training. We are working towards insurance authorization.
[2020-08-28] MEDS: APIXABAN 5 MG TABLET 2.5 MG PO ×2 (09:35→21:52)
[2020-08-28] MEDS: MAGNESIUM OXIDE 400 MG TABLET PO (09:35)
[2020-08-28] MEDS: VENLAFAXINE ER 75 MG CAP PO (09:35)
[2020-08-28] MEDS: AMIODARONE 200 MG TABLET PO (09:38)
[2020-08-28] MEDS: FLUDROCORTISONE 0.1 MG TABLET PO (09:38)
[2020-08-28] MEDS: NITROFURANTOIN ER 100 MG CAPSULE PO ×2 (09:38→22:08)
[2020-08-28] MEDS: METOPROLOL ER 25 MG TABLET 12.5 MG PO (09:38)
[2020-08-28] MEDS: SODIUM CHLORIDE 0.9% FLUSH 10 ML IV ×2 (09:39→21:54)
--- NOTE | 2020-08-28 10:29 | PC.NURSE ---
AM Shift note. pt AO to self and situation today, receptive to care. Left FA PIV flushing. Tele reading SR with 1st degree AV block, BBB. Reporting dizziness and denying pain. Refusing SCD's but wearing CLARE hose to below her knees. pt reporting mild discomfort to bilateral heels, when assessed they were both pink so I added 1 pillow to float heels. pt able to communicate needs to ileostomy bag and staff assisting upon her requests. Tolerating her heart healthy diet without concerns.
[2020-08-28 11:18] VITALS: BP 110/61; PULSE 68; RESP 16; TEMP 36.4; O2SAT 99
--- NOTE | 2020-08-28 14:20 | PT.IPTN ---
Physical Therapy Treatment Note M2 PT-IP Current Condition Start: 08/25/20 13:18 Freq: NEEDED Status: Active Protocol: Document 08/28/20 14:24 MA (Rec: 08/28/20 14:37 MA [id number]) Physical Therapy Current Condition Current Condition Evaluation Date 08/25/20 Treatment Diagnosis A-fib; UTI, dizziness; difficulty in walking Onset Date 08/24/20 Precautions Other Precautions falls M3 PT-IP Subjective Start: 08/25/20 13:18 Freq: NEEDED Status: Active Protocol: Document 08/28/20 14:24 MA (Rec: 08/28/20 14:37 MA [id number]) Subjective Physical Therapy Visit Type Type Treatment Note Visit Start Time 13:52 Visit Stop Time 14:20 Total Visit Minutes 28 Number of LISW Visits 3 Physical Therapy Visit Comments Patient Comments Pt is agreeable to PT Therapy Pain Assessment Pain Present Pain Present Denied Pain M4 PT-IP Mobility and Gait Start: 08/25/20 13:18 Freq: NEEDED Status: Active Protocol: Document 08/28/20 14:24 MA (Rec: 08/28/20 14:37 MA [id number]) PT-Bed Mobility Assessment Supine to Sit Supine to Sit Standby Assistance,Head of Bed Elevated PT-Transfer Assessment Sit to and From Stand Sit to and from Stand Contact Guard Assistance,Use of Upper Extremities Equipment Transfer Assistive Device Gait Belt,Front Wheeled Walker Orthotic/Prosthetic Devices or Brace: No Transfers Transfer Destination Bed,Chair,Wheelchair Transfer Technique Stand Step Pivot Transfer Ability Level of Assist Contact Guard Assistance Comments Mobility Comments Pt is supine upon arrival. She is SBA for bed mobility with HOB elevated today. She is CGA getting off bed due to bed height. Pt is able to walk 136 ft around nurses station SBA with FWW and W/C follow in case pt fatigues. She is able to complete full loop before sitting in w/c SBA while LISW prepares room chair. Pt is then able to walk 10 ft to room chair where she is needs Min A for walker management to complete full 180 degree turn to sit in chair. Gait Assessment Gait Gait Assistance Required: Standby Assistance Distance (Feet) 146 Able to Maintain Weight Bearing Status Yes During Gait Assistive Devices Assistive Device Gait Belt,Front Wheeled Walker Orthotic/Prosthetic Devices or Brace: No Gait Deviations General Gait Pattern Decreased Stride Length, Decreased Feet Clearance, Flexed Trunk Factors Limiting Gait Function Factors Limiting Gait Function Decreased Activity Tolerance, Decreased Sensation,Poor Balance,Poor Safety Awareness Comments Gait Comments See mobility section PT-Balance Assessment Sitting Balance and Reactions Static Sitting Balance Ability Good Dynamic Sitting Balance Ability Good Standing Balance and Reactions Static Standing Balance Ability Fair Dynamic Standing Balance Ability Fair Device Used FWW M5 PT-IP Objective Assessments Start: 08/25/20 13:18 Freq: NEEDED Status: Active Protocol: Document 08/25/20 11:45 AB (Rec: 08/25/20 13:31 AB [id number]) Orientation Orientation/Cognition Level of Alertness Alert Safety Awareness Decreased Safety Awareness Memory Description Short Term Impaired,Dive Master Impaired Gross Range of Motion Lower Extremity ROM Assessment Within Functional Limits Strength Lower Extremity Strength Hip 4-/5 Knee 4-/5 Muscle Tone Muscle Tone WNL Yes M6 PT-IP Treatment Start: 08/25/20 13:18 Freq: NEEDED Status: Active Protocol: Document 08/27/20 14:49 MA (Rec: 08/27/20 15:10 MA [id number]) Physical Therapy Treatment Exercises Exercises Seated Knee Flexion/Extension Education Education Provided Safety Other Treatments Other Treatment Performed LAQ while waiting for SENIOR FINANCIAL ANALYST for w/c follow M7 PT-IP Assessment and Plan Start: 08/25/20 13:18 Freq: NEEDED Status: Active Protocol: Document 08/28/20 14:24 MA (Rec: 08/28/20 14:37 MA [id number]) PT Summary Assessment and Plan Potential Rehabilitation Potential Good Status of Condition at Evaluation Stable Summary Impairments Pain,ROM,Strength,Balance, Coordination,Sensation,Tone, Cognition,Bed Mobility, Transfers,Gait,Activity Tolerance Assessment Summary Pt has dizziness upon supine> sit on EOB which goes away after 1 minute. She is SBA for all bed mobility today and CGA to get off high surfaces ( bed & raised w/c) due to pt's small stature. She is able to complete 136 ft loop around nurses station with FWW and gait belt, SBA. Pt only needs Min A for walker management when completing 180 degree turn to sit in chair. Pt's barrier to d/c is her continued dizziness upon positional changes making her unsafe for d/c home without / assistance. Goals Bed Mobility Goal Standby Assistance Transfer Goal Standby Assistance,Front Wheeled Walker Gait Goal Standby Assistance,Front Wheel Walker Gait Distance 100 Other Goals improve ambulation using fWW 150 ft Continue working on stair training with goal of pt being SBA on 3 steps with R rail Days to Meet Goals 5 Frequency of Treatment Frequency Of Treatment Once a Day Treatment Plan Physical Therapy Treatment Plan Bed Mobility Training,Transfer Training,Gait Training, Therapeutic Exercise,Balance Retraining,Discharge Planning, Neuromuscular Re-ed, Coordination Retraining Precautions Other Precautions falls Recommendations To Nursing Amount of Assist Needed Standby Assistance,1 Person Assist Discharge Recommendations PT Discharge Recommendations Home with 16/09 Assist Available,Home Health,SNF Rehab Transportation Needs at Discharge Private Vehicle,Wheelchair/ Cabulance
--- NOTE | 2020-08-28 14:45 | PC.NURSE ---
Pt did not want lunch but accepted an ensure. I checked pt ostomy and noted there was only a little bit so pt asked me to just leave it until later. She said she usually tried to empty it twice a day unless there is alot of air in it.
--- NOTE | 2020-08-28 15:46 | OT.IP.TRT ---
Occupational Therapy Treatment Note M2 OT-IP Current Condition Start: 08/25/20 15:53 Freq: Status: Active Protocol: Document 08/25/20 15:54 CGR (Rec: 08/25/20 16:13 CGR [id number]) Occupational Therapy Current Condition Current Condition Evaluation Date 08/25/20 Treatment Diagnosis dizziness, sucessful cardioversion 08/24, UTI/sepsis. Diagnosis Onset Date 08/24/20 M3 OT- IP Subjective and Pain Start: 08/25/20 15:53 Freq: Status: Active Protocol: Document 08/28/20 16:52 CGR (Rec: 08/28/20 16:57 CGR [id number]) OT- Subjective Occupational Therapy Visit Type Type Progress Note Visit Start Time 15:35 Visit Stop Time 15:46 Total Visit Minutes 11 Occupational Therapy Visit Comments Patient Comments I think I'll go back to bed. OT Pain Assessment Pain When Pain Assessed At Rest Pain Present Pain Present Denied Pain M4 OT- IP ADL's Start: 08/25/20 15:53 Freq: Status: Active Protocol: Document 08/28/20 16:52 CGR (Rec: 08/28/20 16:57 CGR [id number]) OT [id number] Comments OT Self-Feeding Comments Not meal time OT ADL-Grooming General Evaluation Grooming Ability Standby Assistance Areas Needing Assistance Face Washing Comments OT Grooming Comments standing at sink OT ADL-Oral Care General Eval Oral Care Ability Standby Assistance Areas of Assistance Brushing Teeth,Retrieving/Set- Up of Items Comments Oral Care Comments standing at sink OT ADL-Dressing Comments OT Dressing Comments not performed OT ADL-Toileting Comments OT Toileting Comments Pt declined need OT ADL-Bathing Comments OT Bathing Comments not performed M5 OT- IP IADL's Start: 08/25/20 15:53 Freq: Status: Active Protocol: Document 08/25/20 15:54 CGR (Rec: 08/25/20 16:13 CGR [id number]) OT-Instrumental Activities of Daily Living Deficits IADL Deficits Identified Deficits Home Safety Awareness Awareness of Need for Assistance at Home Decreased Awareness Ability to Problem Solve Emergency Unable to Problem Solve Situations Home Safety Comments Pt demonstrates poor safety awareness with mobility. 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 M6 OT- IP Functional Cognition Start: 08/25/20 15:53 Freq: Status: Active Protocol: Document 08/25/20 15:54 CGR (Rec: 08/25/20 16:13 CGR [id number]) Cognitive Factors Limiting Selfcare Function Cognitive Ability Level of Alertness Alert,Confusional State Patient Orientation Name,Age,Birthday,Month,Date, Year,Day of Week,Place, Situation Attention Span Ability Capable of Focused Attention, Capable of Sustained Attention Ability to Follow Commands Able to Follow One Step Commands with Increased Time, Able to Follow One Step Commands with Repetition Cognitive Comments Cognitive Assessment Comments Pt is oriented but appears confused at times, unable to remember things that just happened and has difficulty keeping up a conversation. OT- Vision and Hearing OT- Vision Assessment Visual Acuity Glasses For Reading Visual Attentiveness WFL Occular Pursuits WFL Visual Convergence WFL M7 OT- IP Mobility and Balance Start: 08/25/20 15:53 Freq: Status: Active Protocol: Document 08/28/20 16:52 CGR (Rec: 08/28/20 16:57 CGR [id number]) OT- Bed Mobility Assessment Sit to Supine Sit to Supine Assist Minimal Assistance Scooting Scooting to Edge of Bed Minimal Assistance OT-Transfer Assessment Sit to and From Stand Sit to and from Stand Contact Guard Assistance Transfers Transfer Ability Contact Guard Assistance Technique Transfer Destination Bed,Chair Transfer Technique Stand Step Pivot Devices Transfer Assistive Devices Gait Belt,Front Wheeled Walker Comments Mobility Comments CGA d/t reports of dizziness. OT- Balance Assessment Sitting Balance and Reactions Static Sitting Balance Ability Good Dynamic Sitting Balance Ability Fair M8 OT- IP Objective Assessments Start: 08/25/20 15:53 Freq: Status: Active Protocol: Document 08/25/20 15:54 CGR (Rec: 08/25/20 16:13 CGR [id number]) OT Gross Range of Motion Upper Extremity Range of Motion Assessment Right Impaired ROM Impairments R shld impaired OT Strength Comments Strength Comments grossly 4/5, R shld not tested OT- Coordination Assessment Upper Extremity Finger to Nose Test Within Functional Limits Finger Tapping Test Within Functional Limits OT-Muscle Tone Assessment Muscle Tone WNL Yes OT Sensation Assessment Edema Edema Absent M9 OT- IP Assessment and Plan Start: 08/25/20 15:53 Freq: Status: Active Protocol: Document 08/28/20 16:52 CGR (Rec: 08/28/20 16:57 CGR [id number]) OT Summary Assessment and Plan Potential Rehabilitation Potential Good Analytic Complexity at Evaluation Moderate Summary OT Impairments Balance,Functional Cognition, Functional Mobility,Grooming, Dressing,Toileting,Bathing, Toilet Transfers,Shower Transfers,Activity Tolerance Progress Towards Goals Progressing Toward Goals Assessment Summary Pt presents as a moderate complexity evaluation s/p admit for dizziness and need of cardioversion. Pt also found with UTI. Pt appears more clear in todays session and performed simple ADLs standing at sink with good balance. Pt will benefit from continued therapy services. SNF vs home. Goals Grooming Goal Independent Dressing Goal Independent Toileting Goal Independent Bathing Goal Independent Toilet Transfer Goal Independent Shower Transfer Goal Independent Days to Meet Goals 15 Frequency of Treatment Frequency Of Treatment Once a Day Treatment Plan OT Treatment Plan ADL Training,Functional Cognition Training,Functional Mobility,Patient/Family Education,Discharge Planning Other Treatment Recommendations and Next shower Treatment Focus Discharge Recommendations OT Discharge Recommendations Home vs SNF Transportation Needs at Discharge Private Vehicle
[2020-08-28 16:12] VITALS: BP 116/47; PULSE 68; RESP 14; TEMP 36.8; O2SAT 100
--- NOTE | 2020-08-28 16:21 | CM.DPC ---
DCP Continued: FLOOR WINDER Student met with patient she is still interested in SNF placement for Rehabilitation. [facility] did not have a bed available patient reported she is open to other SNF options. [facility] authorization received # [id number]. Called [facility] they do not have a bed available. Called Teri @ 1:15pm no answer, left a message. Called Nancy she agreed to assist with finding a SNF placement. PASRR initiated. PLAN: Anticipate D/C to SNF. CM team following closely. [facility] will assist with SNF placement. RAE Jerry MSW Student
[2020-08-28 20:30] VITALS: BP 124/52; PULSE 65; RESP 16; TEMP 36.1; O2SAT 98
[2020-08-28] MEDS: LATANOPROST 0.005% OPHTH 2.5 ML 1 DROPS EYE-RIGHT (21:53)
[2020-08-28] MEDS: ATORVASTATIN 20 MG TABLET PO (21:53)
[2020-08-29] VITALS (10 sets, daily range): BP systolic 68–174; BP diastolic 47–75; PULSE 58–76; RESP 16–18; TEMP 35.7–36.6; O2SAT 95–99
[2020-08-29] MEDS: LEVOTHYROXINE 25 MCG TABLET PO (06:09)
[2020-08-29] MEDS: METOPROLOL ER 25 MG TABLET 12.5 MG PO (08:47)
[2020-08-29] MEDS: NITROFURANTOIN ER 100 MG CAPSULE PO (08:47)
[2020-08-29] MEDS: VENLAFAXINE ER 75 MG CAP PO (08:47)
[2020-08-29] MEDS: FLUDROCORTISONE 0.1 MG TABLET PO (08:48)
[2020-08-29] MEDS: APIXABAN 5 MG TABLET 2.5 MG PO ×2 (08:48→21:02)
[2020-08-29] MEDS: MAGNESIUM OXIDE 400 MG TABLET PO (08:48)
--- NOTE | 2020-08-29 11:05 | PT.IPTN ---
Current Diagnoses Dizziness and giddiness (08/26/20) Physical Therapy Treatment Note M2 PT-IP Current Condition Start: 08/25/20 13:18 Freq: NEEDED Status: Active Protocol: Document 08/28/20 14:24 MA (Rec: 08/28/20 14:37 MA [id number]) Physical Therapy Current Condition Current Condition Evaluation Date 08/25/20 Treatment Diagnosis A-fib; UTI, dizziness; difficulty in walking Onset Date 08/24/20 Precautions Other Precautions falls M3 PT-IP Subjective Start: 08/25/20 13:18 Freq: NEEDED Status: Active Protocol: Document 08/29/20 11:05 AB (Rec: 08/29/20 13:18 AB [id number]) Subjective Physical Therapy Visit Type Type Treatment Note Visit Start Time 11:05 Visit Stop Time 11:25 Total Visit Minutes 20 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 Physical Therapy Visit Comments Patient Comments pt is agreeable to do PT Therapy Pain Assessment Pain Present Pain Present Denied Pain M4 PT-IP Mobility and Gait Start: 08/25/20 13:18 Freq: NEEDED Status: Active Protocol: Document 08/29/20 11:05 AB (Rec: 08/29/20 13:18 AB [id number]) PT-Bed Mobility Assessment Supine to Sit Supine to Sit Standby Assistance Scooting Scooting to Edge of Bed Standby Assistance PT-Transfer Assessment Sit to and From Stand Sit to and from Stand Contact Guard Assistance,1 Person Assistance,Use of Upper Extremities Equipment Transfer Assistive Device Front Wheeled Walker Transfers Transfer Destination Chair Transfer Technique Stand Step Pivot Transfer Ability Level of Assist Contact Guard Assistance, Minimal Assistance,1 Person Assistance,Use of Upper Extremities Comments Mobility Comments pt agreeable to do PT. BP monitored. BP in supine: 111/ 42. pt completed supine to sit SBA. c/o slight dizziness but decrease after a few minutes. BP in sittin/ 57. pt completed sit to stand CGA from EOB. c/o dizzines with (+) UE shaking. BP in standin/52. instructed pt to sit back down and rested . BP in sittin/65. pt agreed to sit up on chair and completed sit to stand CGA and completed step transfer using fWW bed to chair min A and cues. BP after transfers sitting o cnahir: 115/62. positioned pt on chair. ambulation not conducted due to decrease in BP with standing. call light and table placed within reach. informed nurse regarding BP. M5 PT-IP Objective Assessments Start: 08/25/20 13:18 Freq: NEEDED Status: Active Protocol: Document 08/25/20 11:45 AB (Rec: 08/25/20 13:31 AB [id number]) Orientation Orientation/Cognition Level of Alertness Alert Safety Awareness Decreased Safety Awareness Memory Description Short Term Impaired,Drafter Mechanical Impaired Gross Range of Motion Lower Extremity ROM Assessment Within Functional Limits Strength Lower Extremity Strength Hip 4-/5 Knee 4-/5 Muscle Tone Muscle Tone WNL Yes M6 PT-IP Treatment Start: 08/25/20 13:18 Freq: NEEDED Status: Active Protocol: Document 08/29/20 11:05 AB (Rec: 08/29/20 13:18 AB [id number]) Physical Therapy Treatment Education Education Provided Safety M7 PT-IP Assessment and Plan Start: 08/25/20 13:18 Freq: NEEDED Status: Active Protocol: Document 08/29/20 11:05 AB (Rec: 08/29/20 13:18 AB [email or web address]) PT Summary Assessment and Plan Potential Rehabilitation Potential Fair Summary Impairments Pain,ROM,Strength,Balance, Coordination,Sensation, Cognition,Bed Mobility, Transfers,Gait,Activity Tolerance Assessment Summary pt requiring CGA to min A with mobility and unable to tolerate much activity with decrease in BP in standing to 66/52 with c/o dizziness and ( +) UE shaking/tremors. pt will require SNF rehab to improve mobility and function. Goals Bed Mobility Goal Standby Assistance Transfer Goal Standby Assistance,Front Wheeled Walker Gait Goal Standby Assistance,Front Wheel Walker Gait Distance 100 Other Goals improve ambulation using fWW 150 ft Continue working on stair training with goal of pt being SBA on 3 steps with R rail Days to Meet Goals 5 Frequency of Treatment Frequency Of Treatment Once a Day Treatment Plan Physical Therapy Treatment Plan Bed Mobility Training,Transfer Training,Gait Training, Therapeutic Exercise,Balance Retraining,Discharge Planning, Neuromuscular Re-ed, Coordination Retraining Precautions Other Precautions falls Recommendations To Nursing Amount of Assist Needed 1 Person Assist Discharge Recommendations PT Discharge Recommendations SNF Rehab Transportation Needs at Discharge Private Vehicle,Wheelchair/ Cabulance
--- NOTE | 2020-08-29 11:31 | CM.DPNOTE ---
Faxed referral packet at [facility]'s request to [place] locations: Danny Pedroza; and [facility]. Left vm with Danny Pedroza. Spoke to Poonam at [facility] who said they do have a female bed available. I told her Antoine auth was approved and she said Great!. She will call us to confirm everything, but she wants to review. Fax confirmation received for both locations. Layne Bustos CM Asst.
[2020-08-29] MEDS: AMIODARONE 200 MG TABLET PO (11:47)
--- NOTE | 2020-08-29 11:59 | PC.NURSE ---
Addendum entered by Mary Stanford R.N. 08/29/20 13:48: Patient worked with physical therapy and she did some orthostatic blood pressures, when standing went down to 60s/50s and when patient sat down back up to [address] Nails is aware and ordered NS fluid bolus over one hour, this is a 1000cc bag. She is sitting up in the chair and denies discomfort or dizziness but states when she does stand and move she is always dizzy. She is discharged, depending on orthostatic vitals after fluid in, patient may go. Original Note: Patient denies pain, she is working with OT and having shower. 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 Given all medication and was sitting up in the chair well.
[2020-08-29] MEDS: SODIUM CHLORIDE 0.9% 1,000 ML 1000 ML IV (13:40)
--- NOTE | 2020-08-29 13:41 | OT.IP.TRT ---
Current Diagnoses Dizziness and giddiness (08/26/20) Occupational Therapy Treatment Note M2 OT-IP Current Condition Start: 08/25/20 15:53 Freq: Status: Active Protocol: Document 08/25/20 15:54 CGR (Rec: 08/25/20 16:13 CGR [id number]) Occupational Therapy Current Condition Current Condition Evaluation Date 08/25/20 Treatment Diagnosis dizziness, sucessful cardioversion 08/24, UTI/sepsis. Diagnosis Onset Date 08/24/20 M3 OT- IP Subjective and Pain Start: 08/25/20 15:53 Freq: Status: Active Protocol: Document 08/29/20 13:31 CCC (Rec: 08/29/20 13:41 CCC [id number]) OT- Subjective Occupational Therapy Visit Type Type Treatment Note Visit Start Time 11:50 Visit Stop Time 12:35 Total Visit Minutes 45 Occupational Therapy Visit Comments Patient Comments Pt wanting to shower. Patient/Caregiver Goals TO go to skilled rehab prior to going home. OT Pain Assessment Pain When Pain Assessed At Rest Pain Present Pain Present Denied Pain M4 OT- IP ADL's Start: 08/25/20 15:53 Freq: Status: Active Protocol: Document 08/29/20 13:31 CCC (Rec: 08/29/20 13:41 CCC [id number]) OT [id number] Comments OT Self-Feeding Comments Not meal time OT ADL-Grooming General Evaluation Grooming Ability Standby Assistance OT ADL-Dressing General Eval Lower Body Dressing Ability Maximum Assistance Areas Needing Assistance Underpants/Brief,Socks Comments OT Dressing Comments Assist to get brief up over her feet and up over her hips . MAX A to dhaval socks over her feet. Pt states prior stand to dhaval/doff her clothing items while holding onto something. OT ADL-Toileting Comments OT Toileting Comments Pt declined need OT ADL-Bathing Bathing Type Bathing Type Shower General Evaluation Bathing Ability Moderate Assistance Areas Needing Assistance Wash/Dry Upper Body,Wash/Dry Lower Extremities Comments OT Bathing Comments Pt having difficulty to wash/ dry her feet,back and needing assist for her hair. Pt would benefit from use of shower chair versus tub bench at home . Pt states prior stands for all showering needs. M5 OT- IP IADL's Start: 08/25/20 15:53 Freq: Status: Active Protocol: Document 08/25/20 15:54 CGR (Rec: 08/25/20 16:13 CGR [id number]) OT-Instrumental Activities of Daily Living Deficits IADL Deficits Identified Deficits Home Safety Awareness Awareness of Need for Assistance at Home Decreased Awareness Ability to Problem Solve Emergency Unable to Problem Solve Situations Home Safety Comments Pt demonstrates poor safety awareness with mobility. 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 M6 OT- IP Functional Cognition Start: 08/25/20 15:53 Freq: Status: Active Protocol: Document 08/29/20 13:31 [facility] (Rec: 08/29/20 13:41 [facility] [id number]) Cognitive Factors Limiting Selfcare Function Cognitive Comments Cognitive Assessment Comments Pt needing assist to help sequence through task of showering and step by step instructions for FWW safety and vc to push up from surface sitting when coming to stand. M7 OT- IP Mobility and Balance Start: 08/25/20 15:53 Freq: Status: Active Protocol: Document 08/29/20 13:31 [facility] (Rec: 08/29/20 13:41 [facility] [id number]) OT-Transfer Assessment Sit to and From Stand Sit to and from Stand Contact Guard Assistance Transfers Transfer Ability Contact Guard Assistance, Minimal Assistance Technique Transfer Destination Chair,Shower Stall Transfer Technique Stand Step Pivot Devices Transfer Assistive Devices Gait Belt,Front Wheeled Walker Comments Mobility Comments REGGIE with FWW to help step over the threshold of the shower. OT- Balance Assessment Sitting Balance and Reactions Static Sitting Balance Ability Good Dynamic Sitting Balance Ability Fair Standing Balance and Reactions Static Standing Balance Ability Fair M8 OT- IP Objective Assessments Start: 08/25/20 15:53 Freq: Status: Active Protocol: Document 08/25/20 15:54 CGR (Rec: 08/25/20 16:13 CGR [id number]) OT Gross Range of Motion Upper Extremity Range of Motion Assessment Right Impaired ROM Impairments R shld impaired OT Strength Comments Strength Comments grossly 4/5, R shld not tested OT- Coordination Assessment Upper Extremity Finger to Nose Test Within Functional Limits Finger Tapping Test Within Functional Limits OT-Muscle Tone Assessment Muscle Tone WNL Yes OT Sensation Assessment Edema Edema Absent M9 OT- IP Assessment and Plan Start: 07/02/21 15:53 Freq: Status: Active Protocol: Document 08/29/20 13:31 [facility] (Rec: 08/29/20 13:41 [facility] [id number]) OT Summary Assessment and Plan Potential Rehabilitation Potential Good Analytic Complexity at Evaluation Moderate Summary OT Impairments Balance,Functional Cognition, Functional Mobility,Grooming, Dressing,Toileting,Bathing, Toilet Transfers,Shower Transfers,Activity Tolerance Progress Towards Goals Progressing Toward Goals Assessment Summary Pt able to partake in showering today. Pt will benefit form short skilled rehab stay to help improve overall activity tolerance and safety for ADl and functional mobility needs. Per pt has a supportive daughter that is disable but can assist her when she eventually gets home. Goals Grooming Goal Independent Dressing Goal Independent Toileting Goal Independent Bathing Goal Independent Toilet Transfer Goal Independent Shower Transfer Goal Independent Days to Meet Goals 15 Frequency of Treatment Frequency Of Treatment Once a Day Treatment Plan OT Treatment Plan ADL Training,Functional Cognition Training,Functional Mobility,Patient/Family Education,Discharge Planning Other Treatment Recommendations and Next SLUMS Treatment Focus Discharge Recommendations OT Discharge Recommendations SNF Transportation Needs at Discharge Wheelchair/ Cabulance
--- NOTE | 2020-08-29 17:51 | P.PN_ITS ---
Subjective Subjective Interval history: Today she felt improved. No further complaints. Exam Vital Signs (past 8 hours): - 08/29/20 11:19 08/29/20 14:50 08/29/20 15:00 Temperature 97.5 F L Pulse Rate 74 Pulse Rate [Orthostatic Lying] 65 65 Pulse Rate [Orthostatic Sitting] 72 72 Pulse Rate [Orthostatic Standing] 73 73 Respiratory Rate 16 Blood Pressure 115/62 Blood Pressure [Orthostatic Lying] 174/75 H 174/75 H Blood Pressure [Orthostatic Sitting] 144/68 H 144/68 H Blood Pressure [Orthostatic Standing] 136/62 136/62 Pulse Oximetry 97 08/29/20 16:23 Temperature 96.3 F L Pulse Rate 65 Pulse Rate [Orthostatic Lying] Pulse Rate [Orthostatic Sitting] Pulse Rate [Orthostatic Standing] Respiratory Rate 16 Blood Pressure 146/56 H Blood Pressure [Orthostatic Lying] Blood Pressure [Orthostatic Sitting] Blood Pressure [Orthostatic Standing] Pulse Oximetry 99 Oxygen Delivery Method Room Air Oxygen Flow Rate 0 Narrative Exam Narrative: GEN: She is alert and oriented x3. No apparent distress CV: irregularly irregular without murmur PULM: clear to auscultation bilaterally EXT: no ankle edema ABD: soft, bowel sounds positive, nontender, no organomegaly. Objective Labs Result Diagrams: 08/24/20 10:57 08/25/20 04:58 [facility] Medical History Balance problem Breast cancer, left Chicken pox Colitis (~1984) Colon polyps (~1984) Crohn's disease (~1984) Depression Diverticular disease (~1984) Diverticulitis Dizziness Easy bruisability Hemorrhoid (~1984) Hypertension Knee pain Leukemia (~08/2018) Leukemia, chronic Measles Mitral valve disease Osteoporosis Pericardial effusion Physical deconditioning Physician orders for life-sustaining treatment (POLST) form indicates patient wish for lj-mru-hyrmtflyuay status Vertigo Surgical History Anesthesia History of bunionectomy of both great toes History of section (~1959) History of ileostomy (~1983) History of total colectomy Family History Brother Diabetes mellitus Heart disease Brother Diabetes mellitus Heart disease Mother Hypertension Father Cancer Sister Cancer Social History household members: children Smoking Status: Never smoker alcohol intake: never substance use type: does not use Assessment & Plan Assessment & Plan narrative: 1. Acute on chronic dizziness -multifactorial but clearly positional with standing position -patient has been intermittently orthostatic, on afternoon vitals August 29 her lying BP is 167/64, sitting 156/86 and standing BP in 60s so she was severely orthostatic ----orthostatics improved after IV fluid bolus -dizziness did not improve after cardioversion in the ED from atrial fibrillation to sinus rhythm -continue PT/OT evals -she has a history of recurrent falls -started fludrocortisone 0.1 mg daily for BP support, she does not have edema on exam and is not on diuretic therapy -thigh-high compression stockings -stable for discharge to custodial. Physical therapy has recommended custodial facility due to the ongoing issue of dizziness. 2. Persistent AFib -status post cardioversion in the ED and on exam today sounds like she is back in AFib, not unexpectedly. -continue amiodarone 200 mg q.d. -metoprolol succinate ER 25 mg q.d. (we had been giving metoprolol tartrate 25 mg b.i.d. based on home med reconciliation but patient's daughter reported her dosing was changed to the metoprolol succinate ER 25 mg q.d. after her hospitalization 2 months ago at [facility]) -continue apixaban 2.5 mg b.i.d. -continue magnesium oxide 400 mg q.d. -last TTE from 07/27/2019 demonstrates small and hyperdynamic left ventricle, mild LVOT gradient of 18 mmHg which increases to 22 mmHg with Basil vagal, RSVP of at least 60 mmHg severely dilated left atrium with mild mitral stenosis. Diastolic dysfunction noted. 3. Chronic anemia, stable -patient has a known chronic leukemia which is presumably the cause of her anemia 4. Possible UTI -patient without dysuria so unclear if this is truly clinical UTI -urine culture grew pansensitive E coli -received 1 dose Zosyn, continue nitrofurantoin up to 5 days but can DC early if discharging Patient would benefit from acute rehab at custodial facility for conditioning and balance training. She is stable for discharge.
[2020-08-29] MEDS: ATORVASTATIN 20 MG TABLET PO (21:02)
[2020-08-29] MEDS: LATANOPROST 0.005% OPHTH 2.5 ML 1 DROPS EYE-RIGHT (21:03)
[2020-08-29] MEDS: SODIUM CHLORIDE 0.9% FLUSH 10 ML IV (21:03)
--- NOTE | 2020-08-29 21:58 | PC.NURSE ---
Discussed plan with patient and daughter separately over the phone. Informed that her blood pressures are looking better after fluid bolus this am and likely will be discharged tomorrow to SNF due to no availability today. Patient doing well and ambulates to the bathroom to void 1 p assister with FWW but needs to change positions slowly due to orthostatics.
[2020-08-30 00:18] VITALS: BP 127/58; PULSE 72; RESP 16; TEMP 36.6; O2SAT 95
[2020-08-30 02:23] VITALS: BP 112/66; BP 145/77; BP 94/60; PULSE 117; PULSE 84; PULSE 97
[2020-08-30 04:00] VITALS: BP 141/57; PULSE 72; RESP 16; TEMP 36.1; O2SAT 97
[2020-08-30] MEDS: LEVOTHYROXINE 25 MCG TABLET PO (06:45)
[2020-08-30 08:05] VITALS: BP 112/65; BP 133/63; BP 95/52; PULSE 102; PULSE 72; PULSE 83
[2020-08-30 08:06] VITALS: BP 133/63; PULSE 72; RESP 16; TEMP 36.8; O2SAT 98
[2020-08-30 08:15] VITALS: BP 112/65; PULSE 83
[2020-08-30] MEDS: METOPROLOL ER 25 MG TABLET 12.5 MG PO (08:15)
[2020-08-30] MEDS: FLUDROCORTISONE 0.1 MG TABLET PO (08:15)
[2020-08-30] MEDS: VENLAFAXINE ER 75 MG CAP PO (08:15)
[2020-08-30] MEDS: MAGNESIUM OXIDE 400 MG TABLET PO (08:15)
[2020-08-30] MEDS: AMIODARONE 200 MG TABLET PO (08:16)
[2020-08-30] MEDS: APIXABAN 5 MG TABLET 2.5 MG PO (08:16)
[2020-08-30] MEDS: SODIUM CHLORIDE 0.9% FLUSH 10 ML IV (08:16)
--- NOTE | 2020-08-30 08:28 | CM.DPNOTE ---
Addendum entered by Layne Bustos 08/30/20 13:04: Called Sabina at [facility] to let her know pt. was Ananya Bustos CM Asst. Original Note: Contact [facility] when pt. Ananya Bustos CM Asst.
--- NOTE | 2020-08-30 08:44 | PM.DS.1 ---
History of Present Illness History of Present Illness Chief complaint: Nausea/Dizzy Narrative: Per Hanna Dixon: This is an 85-year-old female comes emergency department with dizziness. She describes near syncope and dizziness/lightheadedness when she goes from a seated or lying position to standing quickly. If she is walking she can often feel quite dizzy. She denies headache, she has occasionally had some blurry vision changes that has to take her time to focus. She has not syncopized or passed out. No chest pain or pressure, no shortness of breath. She can not feel any tachycardia or elevated heart rate or if she is in atrial fibrillation. She did have an episode of nausea and vomiting last week but has not had any subsequently. No abdominal pain. No back or flank pain. No diarrhea, no constipation, no bright red blood or melena. No urinary symptoms. Patient did have multiple falls prior being seen here and ultimately transferred to [facility] for her AFib RVR with elevated troponin approximately 3-4 weeks ago. Patient states she has not had any falls or head injuries since then. She has had loss of medication changes including being placed on amiodarone as well as having her metoprolol changed. She is unsure if she has other medication changes noted. She does live with her daughter who is wheelchair-bound, making ADL's difficult even with assistance. Patient has a history of breast cancer, AFib with RVR, HFpEF, large granular lymphocytic leukemia, s/p total cholectomy, osteoporosis, hypertension, hyperlipidemia, and depression. Her AFib was last converted with cardioversion on 05/31/2020 at [facility]. Since this last hospitalization she has felt tired and weak and dizzy. She had a hospital visit on 05/30/2020 when patient was seen for rapid atrial fibrillation with rapid heart rates of 130-150s. She was seen by livestock agent, had med adjustment and was started on anticoagulation med Eliquis prior to discharge. She was also diagnosed with pulmonary hypertension with moderate to severe tricuspid regurgitation. Today in ED patient was successfully cardioverted. Patient's post cardioversion EKG demonstrated sinus rhythm, first-degree AV block at a rate of 67, P 234, no ST or T-wave changes. Patient's current vitals BP 129/58, HR 65, RR 13, O2 saturation 97% on room air. Patient was found to have continued macrocytic anemia with a hemoglobin of 11.6 and hematocrit 34.1, patient was found to have MEÑO demonstrated by a slight bump in BUN at 22 and creatinine 1.42, glucose 77, GFR 35.1, total creatinine kinase 177. Also an elevated CK-MB 2.86 and troponin 0.016. Patient had a positive urinalysis sent for culture. Patient has sofa score of 3. Patient's BNP of 11,600 was elevated demonstrating mild exacerbation of HFpEF. Patient's chest x-ray demonstrated chronic mild interstitial prominence. Opacification behind the left heart is again noted, potentially pneumonia in that area. Patient admitted with atrial fibrillation with RVR, MEÑO, UTI/sepsis, HFpEF exacerbation. Discharge Providers Provider Date of admission: 08/26/20 19:11 Discharge Date: 08/30/20 Primary care physician: Chance Funk DO Consults: 08/24/20 21:09 Consult to Occupational Therapy Evaluate & Treat Comment: Unstable gait Physician Instructions: Evaluate and treat 08/24/20 21:10 Consult to Physical Therapy Evaluate & Treat Comment: unstable gait Physician Instructions: Evaluate and Treat Discharge provider: Isaac Caldera MD Summary Hospital Course Discharge Diagnosis: 1. Acute on chronic dizziness 2. Orthostatic hypotension 3. Atrial fibrillation s/p cardioversion, persistent 4. Chronic anemia 5. MEÑO 6. Heart failure with preserved ejection fraction 7. Depression Hospital Course: Please see initial discharge summary from Dr. Vang from 08/26/20. She ws initially admitted with dizziness. She had cardioversion but continued to have atrial fibrillation. She was planned for discharge, but this was held due to dizziness and orthostatic hypotension. She was given IV fluids and improved her symptoms. She was also started on Florinef. She had MEÑO which improved with IV fluids. She was discharged to SNF for physical therapy. Exam Vital Signs (past 8 hours): Oxygen Delivery Method Room Air Oxygen Flow Rate 0 Narrative Exam Narrative: EN: She is alert and oriented x3. No apparent distress CV: irregularly irregular without murmur PULM: clear to auscultation bilaterally EXT: no ankle edema ABD: soft, bowel sounds positive, nontender, no organomegaly. Objective Labs Result Diagrams: 08/24/20 10:57 08/25/20 04:58 [facility] Medical History Balance problem Breast cancer, left Chicken pox Colitis (~1984) Colon polyps (~1984) Crohn's disease (~1984) Depression Diverticular disease (~1984) Diverticulitis Dizziness Easy bruisability Hemorrhoid (~1984) Hypertension Knee pain Leukemia (~08/2018) Leukemia, chronic Measles Mitral valve disease Osteoporosis Pericardial effusion Physical deconditioning Physician orders for life-sustaining treatment (POLST) form indicates patient wish for kx-gzz-xwxapcyzsaw status Vertigo Surgical History Anesthesia History of bunionectomy of both great toes History of section (~1959) History of ileostomy (~1983) History of total colectomy Family History Brother Diabetes mellitus Heart disease Brother Diabetes mellitus Heart disease Mother Hypertension Father Cancer Sister Cancer Social History household members: children Smoking Status: Never smoker alcohol intake: never substance use type: does not use Discharge Plan Discharge Plan Patient Disposition: SNF Provider Discharge Comment: We evaluated you for dizziness. You had cardioversion in the ER for afib but I do not think it was causing your dizziness. Be careful getting up that you are holding on to something and have someone helping you. You might benefit from outpatient physical therapy. Discharge orders & Medications Prescriptions: New levothyroxine [Synthroid] 25 mcg Tablet 25 mcg PO DAILY@0600 Qty: 30 RF: 0 metoprolol succinate 25 mg Tablet Extended Release 24 Hr 12.5 mg PO DAILY Qty: 30 RF: 0 fludrocortisone 0.1 mg Tablet 0.1 mg PO DAILY Qty: 30 RF: 0 Continued apixaban 2.5 mg tablet 2.5 mg PO BID Qty: 180 RF: 0 magnesium oxide 400 mg magnesium tablet 400 mg PO DAILY Qty: 90 RF: 3 Disabled Parking Permit 1 dev miscellaneous DIRECTED RF: 0 amiodarone 200 mg tablet 200 mg PO DAILY RF: 0 latanoprost [Xalatan] 0.005 % drops 1 drp EYE-RIGHT BEDTIME RF: 0 rosuvastatin [Crestor] 10 mg tablet 10 mg PO ONCE HS RF: 0 venlafaxine [Effexor XR] 75 mg capsule,extended release 24hr 75 mg PO DAILY RF: 0 Changed oxycodone 10 mg tablet 5 mg PO 4-6XD Qty: 6 RF: 0 Discontinued metoprolol succinate 25 mg tablet extended release 24 hr 25 mg PO DAILY RF: 0 Follow up/Referrals: Chance Funk DO [Primary Care Provider] - Diet/Activity/Treatments Diet: Regular Visit Report/Discharge Packet Instructions: DI for Atrial Fibrillation, DI for Urinary Tract Infection (UTI), DI for Dizziness-Nonvertigo Discharge Data Primary Care Provider: Chance Funk
[2020-08-30] MEDS: SODIUM CHLORIDE 0.9% 1,000 ML 1000 ML IV (09:03)
--- NOTE | 2020-08-30 09:37 | CM.DPNOTE ---
Left VM for [facility] asking if they will be accepting pt. today. Layne Bustos CM Asst.
--- NOTE | 2020-08-30 10:10 | OT.IP.TRT ---
Current Diagnoses Dizziness and giddiness (08/26/20) Occupational Therapy Treatment Note M2 OT-IP Current Condition Start: 08/25/20 15:53 Freq: Status: Active Protocol: Document 08/25/20 15:54 [facility] (Rec: 08/25/20 16:13 [facility] [id number]) Occupational Therapy Current Condition Current Condition Evaluation Date 08/25/20 Treatment Diagnosis dizziness, sucessful cardioversion 08/24, UTI/sepsis. Diagnosis Onset Date 08/24/20 M3 OT- IP Subjective and Pain Start: 08/25/20 15:53 Freq: Status: Active Protocol: Document 08/30/20 12:29 [facility] (Rec: 08/30/20 12:40 [facility] [id number]) OT- Subjective Occupational Therapy Visit Type Type Treatment Note Visit Start Time 09:28 Visit Stop Time 10:10 Total Visit Minutes 42 Occupational Therapy Visit Comments Patient Comments Pt agreed to get up and do a cognitive test. Pt's daughter present at the end of the session. Patient/Caregiver Goals TO go to skilled rehab prior to going home. OT Pain Assessment Pain When Pain Assessed At Rest Pain Present Pain Present Denied Pain M4 OT- IP ADL's Start: 08/25/20 15:53 Freq: Status: Active Protocol: Document 08/30/20 12:29 [facility] (Rec: 08/30/20 12:40 [facility] [id number]) OT TED-Uvll-Dfxhnlm Comments OT Self-Feeding Comments Not meal time OT ADL-Grooming General Evaluation Grooming Ability Standby Assistance Comments OT Grooming Comments While seated in bed as pt got a little whoozy while standing and BP dropped a little, nursing notified. OT ADL-Oral Care General Eval Oral Care Ability Independent M5 OT- IP IADL's Start: 08/25/20 15:53 Freq: Status: Active Protocol: Document 08/25/20 15:54 [facility] (Rec: 08/25/20 16:13 [facility] [id number]) OT-Instrumental Activities of Daily Living Deficits IADL Deficits Identified Deficits Home Safety Awareness Awareness of Need for Assistance at Home Decreased Awareness Ability to Problem Solve Emergency Unable to Problem Solve Situations Home Safety Comments Pt demonstrates poor safety awareness with mobility. 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 M6 OT- IP Functional Cognition Start: 08/25/20 15:53 Freq: Status: Active Protocol: Document 08/30/20 12:29 [facility] (Rec: 08/30/20 12:40 [facility] [id number]) Cognitive Factors Limiting Selfcare Function Cognitive Ability Level of Alertness Alert Patient Orientation Name,Year,Place Attention Span Ability Capable of Focused Attention, Capable of Sustained Attention Ability to Follow Commands Able to Follow One Step Commands Memory Description Short Term Impaired,Working Impaired Problem Solving Ability Needs Assist to Identify Solutions Cognitive Tests SLUMS Pt scored 15/30 which implies dementia. Pt's daughter states has noticed in the past year that her mother is forgetful and not thinking well. Pt not able to solve 100-13, able to states 8 animals in 1 minute, able to recall 1 out of 5 words after time passed, not able to draw the clock accurately and left out the 1 and not able to draw the hour hands correctly after time given. Pt able to answer 2/4 questions right after paragraph read. Cognitive Comments Cognitive Assessment Comments Pt's daughter states will assist pt with finance from now on. Pt's daughter mentions that her mother is a hoader' and will not let her clean up or get rid of anything. Able to talk to pt with her daughter and pt agreed to let her daughter organize things at the house. Educated to pt that clutter can be a fall risk and also affect for memory. M7 OT- IP Mobility and Balance Start: 08/25/20 15:53 Freq: Status: Active Protocol: Document 08/30/20 12:29 [facility] (Rec: 08/30/20 12:40 [facility] [id number]) OT- Bed Mobility Assessment Supine to Sit Supine to Sit Assist Contact Guard Assistance Sit to Supine Sit to Supine Assist Contact Guard Assistance OT- Balance Assessment Sitting Balance and Reactions Static Sitting Balance Ability Good Dynamic Sitting Balance Ability Fair Standing Balance and Reactions Static Standing Balance Ability Fair M8 OT- IP Objective Assessments Start: 08/25/20 15:53 Freq: Status: Active Protocol: Document 08/25/20 15:54 [facility] (Rec: 08/25/20 16:13 [facility] [id number]) OT Gross Range of Motion Upper Extremity Range of Motion Assessment Right Impaired ROM Impairments R shld impaired OT Strength Comments Strength Comments grossly 4/5, R shld not tested OT- Coordination Assessment Upper Extremity Finger to Nose Test Within Functional Limits Finger Tapping Test Within Functional Limits OT-Muscle Tone Assessment Muscle Tone WNL Yes OT Sensation Assessment Edema Edema Absent M9 OT- IP Assessment and Plan Start: 08/25/20 15:53 Freq: Status: Active Protocol: Document 08/30/20 12:29 [facility] (Rec: 08/30/20 12:40 [facility] [id number]) OT Summary Assessment and Plan Potential Rehabilitation Potential Good Analytic Complexity at Evaluation Moderate Summary OT Impairments Balance,Functional Cognition, Functional Mobility,Grooming, Dressing,Toileting,Bathing, Toilet Transfers,Shower Transfers,Activity Tolerance Assessment Summary Pt feeling whoozy and therefore able to do cognitive assessment and talk to pt's daughter regarding OT needs. Pt going to skilled rehab today. Frequency of Treatment Frequency Of Treatment Once a Day Treatment Plan OT Treatment Plan ADL Training,Functional Cognition Training,Functional Mobility,Patient/Family Education,Discharge Planning Discharge Recommendations OT Discharge Recommendations SNF Rehab Transportation Needs at Discharge Private Vehicle,Wheelchair/ Cabulance
--- NOTE | 2020-08-30 10:28 | CM.DPC ---
DCP Discharge SNF Per MD, pt remains medically stable to d/c to SNF today. SW called [facility] in [place] and confirm they can accept pt today and earlier the better. SW met bedside with pt and Dtr and they are still agreeable with d/c plan to [facility] today. RN completed updated COVID swab. ADILIA faxed d/c packet with PASRR, signed med rec, script, d/c orders to [facility] with d/c summary and COVID to follow when available. ADILIA updated bottom buffer and [facility]. Plan: Patient to d/c to [facility] today via Dtr POV around 1100. RAE Villagomez
--- NOTE | 2020-08-30 11:00 | PC.NURSE ---
Attempted to call report to Kayleen from [facility]. Left message-no answer. Pt out via w/c by [employer] RESOURCES MANAGER to POV with daughter, packet and all belongings
[2020-08-30 11:13] LABS: COVID19 -Nasal RAPID Negative (Negative)
--- NOTE | 2020-08-30 11:40 | PC.NURSE ---
COVID test 08/30/20 negative
--- NOTE | 2020-08-30 12:10 | PT-IP ANOTE ---
Pt was not seen for PT this am due to discharged before arrived for treatment.
== END 2020-08-30 11:00 | DRG 149 ==
LOC: ED 15:20 → AC 20:43
PROVIDERS: Admitting Provider Nurse Practitioner Family; Emergency Provider Emergency Medicine; PCP Family Medicine; Referring Provider Emergency Medicine; Visit Provider Nurse Practitioner Family
DX: R42 Dizziness and giddiness (principal); I48.19 Other persistent atrial fibrillation; N17.9 Acute kidney failure, unspecified; I50.32 Chronic diastolic (congestive) heart failure; R82.71 Bacteriuria; I27.20 Pulmonary hypertension, unspecified; E78.5 Hyperlipidemia, unspecified; I95.1 Orthostatic hypotension; D53.9 Nutritional anemia, unspecified; F32.9 Major depressive disorder, single episode, unspecified; Z66 Do not resuscitate; Z20.822 Contact with and (suspected) exposure to COVID-19
CPT/HCPCS: 36415; 70450; 71045; 80048; 80053; 81001; 82550; 82553; 82962; 83735; 83880; 84145; 84443; 84484; 85007; 85025; 85610; 87077; 87086; 87186; 87635; 92960; 93005; 96361; 96365; 97116; 97129; 97161; 97166; 97530; 97535; 99152; 99153; 99285; 99291; 99292; C9803; G0378; J2543

== ENCOUNTER 2020-10-17 11:57 | Observation (INO) | payer OTHER, SELFPAY ==
[2020-08-24 22:32] VITALS: BMI 20.9
[2020-10-17] VITALS (25 sets, daily range): BP systolic 93–164; BP diastolic 53–86; PULSE 61–89; RESP 16–20; TEMP 36.3–36.9; O2SAT 93–100; BMI 20.5
--- NOTE | 2020-10-17 12:20 | DI.RAD.S_ITS ---
PROCEDURE: XR CHEST 2V INDICATIONS: WEAKNESS TECHNIQUE: 2 views of the chest were acquired. COMPARISON: [facility], CR, XR CHEST 1V, 05/30/2020, 13:14. [facility], CR, XR CHEST 1V, 08/24/2020, 11:56. FINDINGS: Surgical changes and devices: None. Lungs and pleura: Moderate left effusion is present, increased compared to prior exam. Mediastinum: Mediastinal contours are normal. Heart size is normal. Bones and chest wall: No suspicious bony abnormalities. Soft tissues appear unremarkable. IMPRESSION: Moderate effusion. Recommend continued interval follow-up as underlying mass lesion of potential malignant etiology cannot be excluded. Dictated by: Carole Pfeiffer M.D. on 10/17/2020 at 13:14 Approved by: Carole Pfeiffer M.D. on 10/17/2020 at 13:17
--- NOTE | 2020-10-17 12:26 | DI.CT.S_ITS ---
PROCEDURE: CT HEAD/BRAIN WO CON INDICATIONS: FALL TECHNIQUE: Noncontrast 4.5 mm thick angled axial sections acquired from the foramen magnum to the vertex, with coronal and sagittal reformats. For radiation dose reduction, the following was used: automated exposure control, adjustment of mA and/or kV according to patient size. COMPARISON: [facility], CT, CT HEAD/BRAIN WO CON, 08/24/2020, 20:43. FINDINGS: Image quality: Excellent. CSF spaces: Basal cisterns are patent. No extra-axial fluid collections. The ventricles are symmetric in size and shape. Brain: No intracranial bleeds or masses. There is cerebral volume loss for age, with resultant ventricular and sulcal prominence. There are periventricular and deep white matter chronic small vessel ischemic changes. There is intracranial internal carotid artery atherosclerosis. Skull and face: Calvarium and visualized facial bones appear intact, without suspicious lesions. Sinuses: Visualized sinuses and mastoids are clear. IMPRESSION: No acute intracranial finding. Global cerebral volume loss and chronic microvascular ischemic changes as seen on prior studies. Dictated by: Claudio Malave M.D. on 10/17/2020 at 12:42 Approved by: Claudio Malave M.D. on 10/17/2020 at 12:44
[2020-10-17 12:44] LABS: Hematocrit 28.2 % (36-46); Hemoglobin 9.7 g/dL (12.0-16.0); Mean Corpuscular HGB Conc 34.2 % (30-36); Mean Corpuscular Hemoglobin 34.2 PG (26-34); Mean Corpuscular Volume 99.8 fL (80-100); Platelet Count 218 X10^3/uL (150-400); Red Blood Cell Count 2.83 X10^6/uL (4.0-5.2); Red Cell Distribution Width 21.3 % (11.6-14.8); White Blood Cell Count 3.9 X10^3/uL (4.5-11.0)
[2020-10-17 12:48] LABS: Add Manual Diff / Slide Review YES
[2020-10-17 12:50] LABS: INR 1.5 (0.9-1.3); Prothrombin Time 17.3 SECONDS (10.1-12.7)
[2020-10-17 12:51] LABS: Bacteria Urine None Seen
[2020-10-17 12:52] LABS: Appearance Urine UA CLOUDY; Bilirubin Urine UA NEGATIVE (NEGATIVE); Color Urine UA YELLOW; Glucose Urine UA NEGATIVE (Negative); Ketones Urine UA TRACE (NEGATIVE); Leukocyte Esterase Urine UA 2+ (NEGATIVE); Nitrite Urine UA NEGATIVE (Negative); Occult Blood Urine UA 3+ (Negative); Protein Urine UA 3+ (Negative); Urobilinogen Urine UA 0.2 E.U./dL (0.2)
[2020-10-17 12:53] LABS: PTT Partial Thromboplastin Tim 46 SECONDS (26.4-36.2)
[2020-10-17 12:54] LABS: Alanine Aminotransferase 29 IU/L (<35); Albumin 3.2 g/dL (3.5-5.0); Albumin Globulin Ratio 1.3 (1.0-2.8); Alkaline Phosphatase 70 U/L (38-126); Aspartate Aminotransferase 84 IU/L (14-36); Bilirubin Total 1.5 mg/dL (0.2-1.3); Bilirubin Unconjugated 1.3 mg/dL (0.0-1.1); Globulin 2.4 g/dL (1.7-4.1); HEMOLYSIS 27 (0-50); Total Protein 5.6 g/dL (6.3-8.2)
[2020-10-17 12:56] LABS: Culture Indicated Urine Specimen Cultured; RBC Urine >100/HPF (0-5/HPF); WBC Urine >100/HPF (0-5/HPF)
[2020-10-17 12:56] LABS: BUN Creatinine Ratio 22.7 (6-22); Blood Urea Nitrogen 17 mg/dL (7-17); Calcium 9.1 mg/dL (8.4-10.2); Carbon Dioxide 27 mmol/L (22-32); Chloride 104 mmol/L (98-107); Creatine Kinase 45 U/L (30-135); Estimated Glomerular Filt Rate > 60.0 mL/min (>60); Glucose 102 mg/dL (80-110); HEMOLYSIS 29 (0-50); Potassium 3.9 mmol/L (3.4-5.1); Sodium 135 mmol/L (137-145)
[2020-10-17 13:02] LABS: COVID19 -Nasal RAPID Negative (Negative)
[2020-10-17 13:06] LABS: Troponin I 0.015 ng/mL (0.01-0.034)
[2020-10-17 13:11] LABS: Neutrophils Absolute Manual 1794 /uL (3000-5900); Total Cells Counted 100
[2020-10-17 13:12] LABS: Anisocytosis 2+; Smudge Cells 1+
[2020-10-17 13:36] LABS: Lactate (Lactic Acid) 1.4 mmol/L (0.7-2.1)
[2020-10-17] MEDS: CIPROFLOXACIN 400 MG/200 ML PIGGYBACK 200 MG IV (14:06)
[2020-10-17] MEDS: SODIUM CHLORIDE 0.9% 500 ML 1000 ML IV (14:07)
--- NOTE | 2020-10-17 16:01 | CM.SWNOTE ---
Addendum entered by Amy Jeffery 10/17/20 20:09: TOLL BRIDGE OPERATOR Note Patient is being admitted OBS, PT was not able to assess patient but CNAs conducted ambulation test for patient and patient failed. TOLL BRIDGE OPERATOR updated daughter Bharath about patient's admission to the hospital and that TOLL BRIDGE OPERATOR did not hear back from [facility]. Plan: Patient to admit to acute care and DCP to f/u with patient's POC RAE Erazo Original Note: TOLL BRIDGE OPERATOR Note TOLL BRIDGE OPERATOR receives consult and enters room to meet with patient. Patient is 85 y/o female who presents to the ED via EMS with concern for recent GLF, dizziness and generalized weakness. Patient presents with fatigue and falls asleep on and off during conversation with TOLL BRIDGE OPERATOR. Patient endorses that patient's daughter found her on the ground when daughter woke up this morning and EMS was contacted. Patient endorses that her daughter and grandson reside with her at home and her daughter assists with ADLs. Patient provides consent for TOLL BRIDGE OPERATOR to contact patient's daughter Bharath. TOLL BRIDGE OPERATOR provides patient with senior resource guide. TOLL BRIDGE OPERATOR calls gisselle Sinha (Ph. # [phone]). Bharath endorses that she is the main caregiver for patient and patient cannot do ADLs independently. Darkennedi reports concern that patient cannot stand or walk independently. Bharath endorses that her son assists to get patient from bed to chair and it is a 2 person assist. Darkennedi confirms that patient was at a SNF rehab for 3 weeks in August and recently returned home. TOLL BRIDGE OPERATOR reviews EMR and it is reported that patient was at [facility]. Bharath endorses that patient has been struggling with ambulating since return home. Bharath endorses that patient is too weak to walk with walker. Bharath endorses that the preference is for patient to reside to at home with support. Bharath endorses that patient was set up with HH referral with [facility]. Bharath endorses that [facility] has not met with patient in home due to scheduling miscommunication and patient did not want to meet with HH providers as soon as she returned home and preferred not to have them come in the mornings. Bharath endorses that patient needs RN and PT. Bharath endorses that if there is a HH referral in place still with [facility] that the service is still needed. TOLL BRIDGE OPERATOR calls Sabina at [facility] and leaves requesting return call. Plan: TOLL BRIDGE OPERATOR to f/u with [facility] to inquire about HH referral, patient is awaiting PT assessment, and TOLL BRIDGE OPERATOR to f/u with POC RAE Erazo
--- NOTE | 2020-10-17 16:39 | ED_ITS ---
HPI - General Adult <Dinorah Mills PA-C - Last Filed: 10/17/20 19:41> General Chief complaint: Urogenital-Female Stated complaint: Weakness Time Seen by Provider: 10/17/20 12:03 Source: patient and EMS Mode of arrival: EMS History of Present Illness HPI narrative: 85-year-old female with past medical history AFib, chronic leukemia, hyperlipidemia, hypertension presents to the ED with worsening weakness for 2 weeks. Patient brought in by her daughter who states that patient was discharged from a rehab facility 2 weeks ago and has been living with the daughter. Patient had worsening weakness, anorexia, nausea, hematuria over the last 2 weeks. Last night, daughter found patient had fallen from her bed, with positive head strike. Daughter noted a small abrasion on the nose. Patient had hallucinations yesterday, lucid today. Denies fever, chills, chest pain, shortness of breath, vomiting, diarrhea, constipation. Patient was unable to stand up or walk, per her doctor. Endorses hematuria, very cloudy and foul- smelling urine. Related Data Home Medications Medication Instructions Recorded Confirmed Disabled Parking Permit 1 dev MISCELLANEOUS DIRECTED 06/02/18 10/18/20 amiodarone 200 mg tablet 200 mg PO DAILY 08/25/20 11/01/20 latanoprost 0.005 % eye drops 1 drp EYE-BOTH BEDTIME 08/25/20 11/01/20 (Xalatan) venlafaxine 75 mg capsule,extended 75 mg PO DAILY 08/25/20 11/01/20 release 24 hr (Effexor XR) oxycodone 10 mg tablet See Rx Instructions .ROUTE 11/01/20 11/01/20 .COMPLEX PRN rosuvastatin 10 mg tablet 10 mg PO BEDTIME 11/01/20 11/01/20 Previous Rx's Medication Instructions Recorded apixaban 2.5 mg tablet 2.5 mg PO BID #180 tab 06/23/20 magnesium oxide 400 mg PO DAILY #90 tab 07/14/20 fludrocortisone 0.1 mg tablet 0.1 mg PO DAILY #90 tab 09/14/20 levothyroxine 25 mcg tablet 25 mcg PO DAILY@0600 #90 tab 09/14/20 (Synthroid) metoprolol succinate 25 mg 12.5 mg PO DAILY #45 tab 09/14/20 tablet,extended release 24 hr ondansetron 4 mg disintegrating 4 mg PO Q8H PRN #30 tab 10/06/20 tablet Allergies Allergy/AdvReac Type Severity Reaction Status Date / Time cefoxitin [CEFOXITIN] Allergy Mild HIVES Verified 10/17/20 12:29 Sulfa (Sulfonamide Allergy Unknown Doesn't Verified 10/17/20 12:29 Antibiotics) remember Review of Systems <Dinorah Mills PA-C - Last Filed: 10/17/20 19:41> Constitutional Constitutional: Reports anorexia, Denies chills, Reports daytime sleepiness, Denies fever(s), Reports lethargy, Reports malaise and Reports weakness Eyes Eyes: Reports system reviewed and no additional complaints, except as documented ENT Ears, Nose, Mouth, and Throat: Reports system reviewed and no additional complaints, except as documented Cardiovascular Cardiovascular: Denies chest pain, Denies rapid heart rate and Denies dyspnea Respiratory Respiratory: Denies cough and Denies dyspnea Gastrointestinal Gastrointestinal: Denies abdominal pain and Denies loose stools Genitourinary Genitourinary: Reports hematuria Comments: Hematuria, cloudy and foul smelling urine Musculoskeletal Musculoskeletal: Reports system reviewed and no additional complaints, except as documented Integumentary/Breasts Skin/Breast: Reports system reviewed and no additional complaints, except as documented Neurologic Neurologic: Reports system reviewed and no additional complaints, except as documented and Reports weakness Patient History <Dinorah Mills PA-C - Last Filed: 10/17/20 19:41> Medical History Balance problem Breast cancer, left Chicken pox Colitis (~1984) Colon polyps (~1984) Crohn's disease (~1984) Depression Diverticular disease (~1984) Diverticulitis Dizziness Easy bruisability Fatigue Frequent falls Hemorrhoid (~1984) Hypertension Knee pain Leukemia (~08/2018) Leukemia, chronic Measles Mitral valve disease Nausea with vomiting, unspecified Orthostatic hypotension Osteoporosis Pericardial effusion Physical deconditioning Physician orders for life-sustaining treatment (POLST) form indicates patient wish for [id number] status Vertigo Surgical History Anesthesia History of bunionectomy of both great toes History of section (~1959) History of ileostomy (~1983) History of total colectomy Family History Brother Diabetes mellitus Heart disease Brother Diabetes mellitus Heart disease Mother Hypertension Father Cancer Sister Cancer Social History household members: children Smoking Status: Never smoker alcohol intake: never substance use type: does not use Smoking Status: Never smoker Substance Use Type: does not use Exam <Dinorah Mills PA-C - Last Filed: 10/17/20 19:41> Initial Vital Signs Initial Vital Signs: Vital Signs Temperature 98.4 F 10/17/20 11:58 Pulse Rate 70 10/17/20 11:58 Respiratory Rate 20 10/17/20 11:58 Blood Pressure 153/73 H 10/17/20 11:58 Pulse Oximetry 96 10/17/20 11:58 Const General: cooperative, frail appearing, lethargic and No well hydrated Orientation: Orientation (Well-oriented) [facility] Head: normal to inspection Mouth: No moist mucous membranes Eyes General: appearance normal, both eyes and all related structures Neck Neck: normal visual inspection Chest Chest: normal inspection of the chest Resp Effort & Inspection: normal respiratory effort, able to speak in complete sentences, no audible wheezes and no cough Auscultation: clear to auscultation bilaterally Cardio Palpation: normal PMI Rate: regular rate Rhythm: regular rhythm GI Inspection: normal to inspection Palpation: soft and No guarding Other: Colostomy bag visualized, skin intact. No tenderness to palpation of the abdomen General: No CVA tenderness Back/Spine/Pelvis Back: normal to inspection Skin General: no rashes or lesions noted Neuro General: not awake and patient oriented x3 Cranial Nerves: CN's II-XI intact bilaterally Cognition: normal cognition Speech: speech normal Coordination: [id number] test normal Pupils: Normal pupillary reactivity/response: bilateral Other: Neurologically intact. Extrem General: normal to inspection <Sae Dumont DO - Last Filed: 11/02/20 07:11> Initial Vital Signs Initial Vital Signs: Vital Signs Temperature 98.4 F 10/17/20 11:58 Pulse Rate 70 10/17/20 11:58 Respiratory Rate 20 10/17/20 11:58 Blood Pressure 153/73 H 10/17/20 11:58 Pulse Oximetry 96 10/17/20 11:58 Course <Dinorah Mills PA-C - Last Filed: 10/17/20 19:41> Orders Ordered: Discontinued Medications Acetaminophen (Acetaminophen 325 Mg Tablet) 650 mg PO Q6HR PRN PRN Reason: Fever/Mild Pain (1-3) Amiodarone HCl (Amiodarone 200 Mg Tablet) 200 mg PO DAILY [facility] Last Admin: 10/18/20 10:00 Dose: 200 mg Documented by: ALFRED Apixaban (Apixaban 5 Mg Tablet) 2.5 mg PO BID [facility] Last Admin: 10/18/20 09:52 Dose: 2.5 mg Documented by: Admin: 10/17/20 22:29 Dose: 2.5 mg Documented by: WEN Atorvastatin Calcium (Atorvastatin 20 Mg Tablet) 20 mg PO BEDTIME [facility] Last Admin: 10/17/20 22:29 Dose: 20 mg Documented by: WEN Fludrocortisone Acetate (Fludrocortisone 0.1 Mg Tablet) 0.1 mg PO DAILY [facility] Last Admin: 10/18/20 09:52 Dose: 0.1 mg Documented by: ALFRED Sodium Chloride (Normal Saline 0.9%) 1,000 mls @ 1,000 mls/hr IV BOLUS ONE Stop: 10/17/20 14:09 Last Admin: 10/17/20 14:08 Dose: Not Given Documented by: RASHAWN Ciprofloxacin (Cipro) 400 mg in 200 mls @ 200 mls/hr IV Q12H [facility] Last Infusion: 10/18/20 02:40 Dose: 0 mls/hr Documented by: Admin: 10/18/20 01:35 Dose: 200 mls/hr Documented by: Infusion: 10/17/20 15:30 Dose: 0 mls/hr Documented by: Admin: 10/17/20 14:06 Dose: 200 mls/hr Documented by: RASHAWN Sodium Chloride (Normal Saline 0.9%) 500 mls @ 1,000 mls/hr IV BOLUS ONE Stop: 10/17/20 14:34 Last Infusion: 10/17/20 15:30 Dose: 0 mls/hr Documented by: Admin: 10/17/20 14:07 Dose: 1,000 mls/hr Documented by: RASHAWN Sodium Chloride (Normal Saline 0.9%) 1,000 mls @ 1,000 mls/hr IV BOLUS ONE Stop: 10/17/20 18:00 Last Infusion: 10/17/20 19:14 Dose: 0 mls/hr Documented by: Admin: 10/17/20 17:21 Dose: 1,000 mls/hr Documented by: RASHAWN Sodium Chloride (Normal Saline 0.9%) 1,000 mls @ 100 mls/hr IV CONT [facility] Last Admin: 10/18/20 09:46 Dose: 100 mls/hr Documented by: Infusion: 10/18/20 09:46 Dose: 0 mls/hr Documented by: Admin: 10/17/20 22:29 Dose: 100 mls/hr Documented by: WEN Latanoprost (Latanoprost 0.005% Ophth 2.5 Ml) 1 drops EYE-RIGHT BEDTIME [facility] Last Admin: 10/17/20 22:29 Dose: 1 drops Documented by: WEN Levothyroxine Sodium (Levothyroxine 25 Mcg Tablet) 25 mcg PO DAILY@0600 [facility] Last Admin: 10/18/20 05:37 Dose: 25 mcg Documented by: RUDOLPH Magnesium Oxide (Magnesium Oxide 400 Mg Tablet) 400 mg PO DAILY [facility] Last Admin: 10/18/20 09:52 Dose: 400 mg Documented by: ALFRED Metoprolol Succinate (Metoprolol Er 25 Mg Tablet) 12.5 mg PO DAILY [facility] Metoprolol Succinate (Metoprolol Er 25 Mg Tablet) 25 mg PO DAILY [facility] Last Admin: 10/18/20 09:55 Dose: Not Given Documented by: ALFRED Naloxone HCl (Naloxone 0.4 Mg/Ml Vial) 0.2 mg IV Q2MIN PRN PRN Reason: Opiate Reversal Nitrofurantoin Macrocrystals (Nitrofurantoin Er 100 Mg Capsule) 100 mg PO BID [facility] Stop: 10/22/20 09:59 Last Admin: 10/18/20 11:04 Dose: 100 mg Documented by: ALFRED Non-Formulary Medication (Magnesium Oxide) 400 mg PO DAILY [facility] Non-Formulary Medication (Rosuvastatin) 10 mg PO DAILY [facility] Ondansetron HCl (Ondansetron 4 Mg Odt) 4 mg PO Q8H PRN PRN Reason: nausea and vomiting Potassium Chloride (Potassium Chloride 20 Meq Tab) 40 meq PO NOW ONE Stop: 10/18/20 08:07 Last Admin: 10/18/20 10:00 Dose: 40 meq Documented by: ALFRED Venlafaxine HCl (Venlafaxine Er 75 Mg Cap) 75 mg PO DAILY [facility] Last Admin: 10/18/20 09:52 Dose: 75 mg Documented by: ALFRED Vital Signs Vital signs: Vital Signs - 8 hr 10/17/20 11:58 10/17/20 14:18 10/17/20 14:30 Temperature 98.4 F Pulse Rate 70 71 68 Pulse Rate [Orthostatic Lying] Pulse Rate [Orthostatic Sitting] Pulse Rate [Orthostatic Standing] Respiratory Rate 20 16 Blood Pressure 153/73 H 140/62 139/63 Blood Pressure [Orthostatic Lying] Blood Pressure [Orthostatic Sitting] Blood Pressure [Orthostatic Standing] Pulse Oximetry 96 97 97 10/17/20 15:00 10/17/20 15:30 10/17/20 16:00 Temperature Pulse Rate 69 64 61 Pulse Rate [Orthostatic Lying] Pulse Rate [Orthostatic Sitting] Pulse Rate [Orthostatic Standing] Respiratory Rate Blood Pressure 126/59 L 117/56 L 124/60 Blood Pressure [Orthostatic Lying] Blood Pressure [Orthostatic Sitting] Blood Pressure [Orthostatic Standing] Pulse Oximetry 99 97 10/17/20 16:30 10/17/20 16:46 10/17/20 16:50 Temperature Pulse Rate 64 89 78 Pulse Rate [Orthostatic Lying] Pulse Rate [Orthostatic Sitting] Pulse Rate [Orthostatic Standing] Respiratory Rate Blood Pressure 135/62 93/53 L 164/68 H Blood Pressure [Orthostatic Lying] Blood Pressure [Orthostatic Sitting] Blood Pressure [Orthostatic Standing] Pulse Oximetry 97 95 93 10/17/20 16:56 10/17/20 17:00 10/17/20 17:01 Temperature Pulse Rate 89 68 67 Pulse Rate [Orthostatic Lying] Pulse Rate [Orthostatic Sitting] Pulse Rate [Orthostatic Standing] Respiratory Rate 16 Blood Pressure 139/86 Blood Pressure [Orthostatic Lying] Blood Pressure [Orthostatic Sitting] Blood Pressure [Orthostatic Standing] Pulse Oximetry 98 97 10/17/20 17:30 10/17/20 18:00 10/17/20 18:30 Temperature Pulse Rate 65 65 66 Pulse Rate [Orthostatic Lying] Pulse Rate [Orthostatic Sitting] Pulse Rate [Orthostatic Standing] Respiratory Rate Blood Pressure 130/63 131/60 154/67 H Blood Pressure [Orthostatic Lying] Blood Pressure [Orthostatic Sitting] Blood Pressure [Orthostatic Standing] Pulse Oximetry 96 98 97 10/17/20 18:58 10/17/20 18:59 10/17/20 19:00 Temperature 97.7 F Pulse Rate 76 75 71 Pulse Rate [Orthostatic Lying] Pulse Rate [Orthostatic Sitting] Pulse Rate [Orthostatic Standing] Respiratory Rate 20 Blood Pressure 149/67 H 144/66 H 146/70 H Blood Pressure [Orthostatic Lying] Blood Pressure [Orthostatic Sitting] Blood Pressure [Orthostatic Standing] Pulse Oximetry 94 94 10/17/20 19:15 Temperature Pulse Rate Pulse Rate [Orthostatic Lying] 76 Pulse Rate [Orthostatic Sitting] 76 Pulse Rate [Orthostatic Standing] 74 Respiratory Rate Blood Pressure Blood Pressure [Orthostatic Lying] 149/67 H Blood Pressure [Orthostatic Sitting] 144/67 H Blood Pressure [Orthostatic Standing] 146/70 H Pulse Oximetry <Sae Dumont, DO - Last Filed: 11/02/20 07:11> Orders Ordered: Discontinued Medications Acetaminophen (Acetaminophen 325 Mg Tablet) 650 mg PO Q6HR PRN PRN Reason: Fever/Mild Pain (1-3) Amiodarone HCl (Amiodarone 200 Mg Tablet) 200 mg PO DAILY [facility] Last Admin: 10/18/20 10:00 Dose: 200 mg Documented by: ALFRED Apixaban (Apixaban 5 Mg Tablet) 2.5 mg PO BID [facility] Last Admin: 10/18/20 09:52 Dose: 2.5 mg Documented by: Admin: 10/17/20 22:29 Dose: 2.5 mg Documented by: WEN Atorvastatin Calcium (Atorvastatin 20 Mg Tablet) 20 mg PO BEDTIME [facility] Last Admin: 10/17/20 22:29 Dose: 20 mg Documented by: WEN Fludrocortisone Acetate (Fludrocortisone 0.1 Mg Tablet) 0.1 mg PO DAILY [facility] Last Admin: 10/18/20 09:52 Dose: 0.1 mg Documented by: CPETRIC Sodium Chloride (Normal Saline 0.9%) 1,000 mls @ 1,000 mls/hr IV BOLUS ONE Stop: 10/17/20 14:09 Last Admin: 10/17/20 14:08 Dose: Not Given Documented by: RASHAWN Ciprofloxacin (Cipro) 400 mg in 200 mls @ 200 mls/hr IV Q12H [facility] Last Infusion: 10/18/20 02:40 Dose: 0 mls/hr Documented by: Admin: 10/18/20 01:35 Dose: 200 mls/hr Documented by: Infusion: 10/17/20 15:30 Dose: 0 mls/hr Documented by: Admin: 10/17/20 14:06 Dose: 200 mls/hr Documented by: RASHAWN Sodium Chloride (Normal Saline 0.9%) 500 mls @ 1,000 mls/hr IV BOLUS ONE Stop: 10/17/20 14:34 Last Infusion: 10/17/20 15:30 Dose: 0 mls/hr Documented by: Admin: 10/17/20 14:07 Dose: 1,000 mls/hr Documented by: RASHAWN Sodium Chloride (Normal Saline 0.9%) 1,000 mls @ 1,000 mls/hr IV BOLUS ONE Stop: 10/17/20 18:00 Last Infusion: 10/17/20 19:14 Dose: 0 mls/hr Documented by: Admin: 10/17/20 17:21 Dose: 1,000 mls/hr Documented by: RASHAWN Sodium Chloride (Normal Saline 0.9%) 1,000 mls @ 100 mls/hr IV CONT [facility] Last Admin: 10/18/20 09:46 Dose: 100 mls/hr Documented by: Infusion: 10/18/20 09:46 Dose: 0 mls/hr Documented by: Admin: 10/17/20 22:29 Dose: 100 mls/hr Documented by: WEN Latanoprost (Latanoprost 0.005% Ophth 2.5 Ml) 1 drops EYE-RIGHT BEDTIME [facility] Last Admin: 10/17/20 22:29 Dose: 1 drops Documented by: WEN Levothyroxine Sodium (Levothyroxine 25 Mcg Tablet) 25 mcg PO DAILY@0600 [facility] Last Admin: 10/18/20 05:37 Dose: 25 mcg Documented by: RUDOLPH Magnesium Oxide (Magnesium Oxide 400 Mg Tablet) 400 mg PO DAILY [facility] Last Admin: 10/18/20 09:52 Dose: 400 mg Documented by: ALFRED Metoprolol Succinate (Metoprolol Er 25 Mg Tablet) 12.5 mg PO DAILY [facility] Metoprolol Succinate (Metoprolol Er 25 Mg Tablet) 25 mg PO DAILY [facility] Last Admin: 10/18/20 09:55 Dose: Not Given Documented by: ALFRED Naloxone HCl (Naloxone 0.4 Mg/Ml Vial) 0.2 mg IV Q2MIN PRN PRN Reason: Opiate Reversal Nitrofurantoin Macrocrystals (Nitrofurantoin Er 100 Mg Capsule) 100 mg PO BID [facility] Stop: 10/22/20 09:59 Last Admin: 10/18/20 11:04 Dose: 100 mg Documented by: ALFRED Non-Formulary Medication (Magnesium Oxide) 400 mg PO DAILY [facility] Non-Formulary Medication (Rosuvastatin) 10 mg PO DAILY [facility] Ondansetron HCl (Ondansetron 4 Mg Odt) 4 mg PO Q8H PRN PRN Reason: nausea and vomiting Potassium Chloride (Potassium Chloride 20 Meq Tab) 40 meq PO NOW ONE Stop: 10/18/20 08:07 Last Admin: 10/18/20 10:00 Dose: 40 meq Documented by: ALFRED Venlafaxine HCl (Venlafaxine Er 75 Mg Cap) 75 mg PO DAILY [facility] Last Admin: 10/18/20 09:52 Dose: 75 mg Documented by: ALFRED Vital Signs Vital signs: Vital Signs - 8 hr 10/17/20 11:58 10/17/20 14:18 10/17/20 14:30 Temperature 98.4 F Pulse Rate 70 71 68 Pulse Rate [Orthostatic Lying] Pulse Rate [Orthostatic Sitting] Pulse Rate [Orthostatic Standing] Respiratory Rate 20 16 Blood Pressure 153/73 H 140/62 139/63 Blood Pressure [Orthostatic Lying] Blood Pressure [Orthostatic Sitting] Blood Pressure [Orthostatic Standing] Pulse Oximetry 96 97 97 10/17/20 15:00 10/17/20 15:30 10/17/20 16:00 Temperature Pulse Rate 69 64 61 Pulse Rate [Orthostatic Lying] Pulse Rate [Orthostatic Sitting] Pulse Rate [Orthostatic Standing] Respiratory Rate Blood Pressure 126/59 L 117/56 L 124/60 Blood Pressure [Orthostatic Lying] Blood Pressure [Orthostatic Sitting] Blood Pressure [Orthostatic Standing] Pulse Oximetry 99 97 10/17/20 16:30 10/17/20 16:46 10/17/20 16:50 Temperature Pulse Rate 64 89 78 Pulse Rate [Orthostatic Lying] Pulse Rate [Orthostatic Sitting] Pulse Rate [Orthostatic Standing] Respiratory Rate Blood Pressure 135/62 93/53 L 164/68 H Blood Pressure [Orthostatic Lying] Blood Pressure [Orthostatic Sitting] Blood Pressure [Orthostatic Standing] Pulse Oximetry 97 95 93 10/17/20 16:56 10/17/20 17:00 10/17/20 17:01 Temperature Pulse Rate 89 68 67 Pulse Rate [Orthostatic Lying] Pulse Rate [Orthostatic Sitting] Pulse Rate [Orthostatic Standing] Respiratory Rate 16 Blood Pressure 139/86 Blood Pressure [Orthostatic Lying] Blood Pressure [Orthostatic Sitting] Blood Pressure [Orthostatic Standing] Pulse Oximetry 98 97 10/17/20 17:30 10/17/20 18:00 10/17/20 18:30 Temperature Pulse Rate 65 65 66 Pulse Rate [Orthostatic Lying] Pulse Rate [Orthostatic Sitting] Pulse Rate [Orthostatic Standing] Respiratory Rate Blood Pressure 130/63 131/60 154/67 H Blood Pressure [Orthostatic Lying] Blood Pressure [Orthostatic Sitting] Blood Pressure [Orthostatic Standing] Pulse Oximetry 96 98 97 10/17/20 18:58 10/17/20 18:59 10/17/20 19:00 Temperature 97.7 F Pulse Rate 76 75 71 Pulse Rate [Orthostatic Lying] Pulse Rate [Orthostatic Sitting] Pulse Rate [Orthostatic Standing] Respiratory Rate 20 Blood Pressure 149/67 H 144/66 H 146/70 H Blood Pressure [Orthostatic Lying] Blood Pressure [Orthostatic Sitting] Blood Pressure [Orthostatic Standing] Pulse Oximetry 94 94 10/17/20 19:15 Temperature Pulse Rate Pulse Rate [Orthostatic Lying] 76 Pulse Rate [Orthostatic Sitting] 76 Pulse Rate [Orthostatic Standing] 74 Respiratory Rate Blood Pressure Blood Pressure [Orthostatic Lying] 149/67 H Blood Pressure [Orthostatic Sitting] 144/67 H Blood Pressure [Orthostatic Standing] 146/70 H Pulse Oximetry Medical Decision Making <Dinorah Mills PA-C - Last Filed: 10/17/20 19:41> Medical Records Medical records reviewed: Yes I reviewed the patient's medical records. Lab Data Lab results reviewed: Yes I reviewed the patient's lab results. Result diagrams: 10/18/20 05:06 10/18/20 05:06 Labs: Lab Results 10/17/20 10/17/20 10/17/20 Range/Units 12:15 12:20 12:20 WBC 3.9 L (4.5-11.0) X10^3/uL RBC 2.83 L (4.0-5.2) X10^6/uL Hgb 9.7 L (12.0-16.0) g/dL Hct 28.2 L (36-46) % MCV 99.8 (80-100) fL MCH 34.2 H (26-34) PG MCHC 34.2 (30-36) % RDW 21.3 H (11.6-14.8) % Plt Count 218 (150-400) X10^3/uL Neut % (Auto) Not Reportable Lymph % (Auto) Not Reportable [place] % (Auto) Not Reportable Eos % (Auto) Not Reportable Baso % (Auto) Not Reportable Lymph # (Auto) Not Reportable [place] # (Auto) Not Reportable Baso # (Auto) Not Reportable Total Counted 100 Seg Neutrophils % 46.0 (38-70) % Lymphocytes % (Manual) 25.0 (25-45) % Atypical Lymphs % 19.0 H ( - 0) % Monocytes % (Manual) 10.0 (2-11) % Neutrophils # (Manual) 1794 L (5801-1203) /uL Smudge Cells 1+ H RBC Morphology See below Anisocytosis 2+ H PT (10.1-12.7) SECONDS INR (0.9-1.3) APTT (26.4-36.2) SECONDS Sodium 135 L (137-145) mmol/L Potassium 3.9 (3.4-5.1) mmol/L Chloride 104 (98-107) mmol/L Carbon Dioxide 27 (22-32) mmol/L BUN 17 (7-17) mg/dL Creatinine 0.75 (0.52-1.04) mg/dL Estimated GFR > 60.0 (>60) mL/min BUN/Creatinine Ratio 22.7 H (6-22) Glucose 102 (80-110) mg/dL Lactate (0.7-2.1) mmol/L Calcium 9.1 (8.4-10.2) mg/dL Magnesium (1.6-2.3) mg/dL Total Bilirubin (0.2-1.3) mg/dL Conjugated Bilirubin (0.0-0.3) md/dL Unconjugated Bilirubin (0.0-1.1) mg/dL AST (14-36) IU/L ALT (<35) IU/L Alkaline Phosphatase (38-126) U/L Total Creatine Kinase 45 (30-135) U/L CK-MB (CK-2) TNP CK-MB (CK-2) Rel Index TNP Troponin I 0.015 (0.01-0.034) ng/mL Total Protein (6.3-8.2) g/dL Albumin (3.5-5.0) g/dL Globulin (1.7-4.1) g/dL Albumin/Globulin Ratio (1.0-2.8) Urine Color Yellow Urine Appearance Cloudy Urine pH 7.0 (4.5-8.0) Ur Specific [place] 1.020 (1.000-1.035) Urine Protein 3+ H (Negative) Urine Glucose (UA) Negative (Negative) g/dL Urine Ketones Trace H (NEGATIVE) Urine Occult Blood 3+ H (Negative) Urine Nitrate Negative (Negative) Urine Bilirubin Negative (NEGATIVE) Urine Urobilinogen 0.2 (0.2) E.U./dL Ur Leukocyte Esterase 2+ H (NEGATIVE) Urine RBC >100/hpf H (0-5/HPF) Urine WBC >100/hpf H (0-5/HPF) Urine Bacteria None seen (None) Ur Culture Indicated? Specimen cultured SARS-CoV-2 (PCR) (Negative) 10/17/20 10/17/20 10/17/20 Range/Units 12:20 12:20 12:20 WBC (4.5-11.0) X10^3/uL RBC (4.0-5.2) X10^6/uL Hgb (12.0-16.0) g/dL Hct (36-46) % MCV (80-100) fL MCH (26-34) PG MCHC (30-36) % RDW (11.6-14.8) % Plt Count (150-400) X10^3/uL Neut % (Auto) Lymph % (Auto) [place] % (Auto) Eos % (Auto) Baso % (Auto) Lymph # (Auto) [place] # (Auto) Baso # (Auto) Total Counted Seg Neutrophils % (38-70) % Lymphocytes % (Manual) (25-45) % Atypical Lymphs % ( - 0) % Monocytes % (Manual) (2-11) % Neutrophils # (Manual) (2010-2076) /uL Smudge Cells RBC Morphology Anisocytosis PT 17.3 H (10.1-12.7) SECONDS INR 1.5 H (0.9-1.3) APTT 46 H D (26.4-36.2) SECONDS Sodium (137-145) mmol/L Potassium (3.4-5.1) mmol/L Chloride (98-107) mmol/L Carbon Dioxide (22-32) mmol/L BUN (7-17) mg/dL Creatinine (0.52-1.04) mg/dL Estimated GFR (>60) mL/min BUN/Creatinine Ratio (6-22) Glucose (80-110) mg/dL Lactate (0.7-2.1) mmol/L Calcium (8.4-10.2) mg/dL Magnesium 1.9 (1.6-2.3) mg/dL Total Bilirubin 1.5 H (0.2-1.3) mg/dL Conjugated Bilirubin 0.0 (0.0-0.3) md/dL Unconjugated Bilirubin 1.3 H (0.0-1.1) mg/dL AST 84 H (14-36) IU/L ALT 29 (<35) IU/L Alkaline Phosphatase 70 (38-126) U/L Total Creatine Kinase (30-135) U/L CK-MB (CK-2) CK-MB (CK-2) Rel Index Troponin I (0.01-0.034) ng/mL Total Protein 5.6 L (6.3-8.2) g/dL Albumin 3.2 L (3.5-5.0) g/dL Globulin 2.4 (1.7-4.1) g/dL Albumin/Globulin Ratio 1.3 (1.0-2.8) Urine Color Urine Appearance Urine pH (4.5-8.0) Ur Specific [place] (1.000-1.035) Urine Protein (Negative) Urine Glucose (UA) (Negative) g/dL Urine Ketones (NEGATIVE) Urine Occult Blood (Negative) Urine Nitrate (Negative) Urine Bilirubin (NEGATIVE) Urine Urobilinogen (0.2) E.U./dL Ur Leukocyte Esterase (NEGATIVE) Urine RBC (0-5/HPF) Urine WBC (0-5/HPF) Urine Bacteria (None) Ur Culture Indicated? SARS-CoV-2 (PCR) (Negative) 10/17/20 10/17/20 Range/Units 12:47 13:22 WBC (4.5-11.0) X10^3/uL RBC (4.0-5.2) X10^6/uL Hgb (12.0-16.0) g/dL Hct (36-46) % MCV (80-100) fL MCH (26-34) PG MCHC (30-36) % RDW (11.6-14.8) % Plt Count (150-400) X10^3/uL Neut % (Auto) Lymph % (Auto) [place] % (Auto) Eos % (Auto) Baso % (Auto) Lymph # (Auto) [place] # (Auto) Baso # (Auto) Total Counted Seg Neutrophils % (38-70) % Lymphocytes % (Manual) (25-45) % Atypical Lymphs % ( - 0) % Monocytes % (Manual) (2-11) % Neutrophils # (Manual) (1655-1743) /uL [place] Cells RBC Morphology Anisocytosis PT (10.1-12.7) SECONDS INR (0.9-1.3) APTT (26.4-36.2) SECONDS Sodium (137-145) mmol/L Potassium (3.4-5.1) mmol/L Chloride (98-107) mmol/L Carbon Dioxide (22-32) mmol/L BUN (7-17) mg/dL Creatinine (0.52-1.04) mg/dL Estimated GFR (>60) mL/min BUN/Creatinine Ratio (6-22) Glucose (80-110) mg/dL Lactate 1.4 (0.7-2.1) mmol/L Calcium (8.4-10.2) mg/dL Magnesium (1.6-2.3) mg/dL Total Bilirubin (0.2-1.3) mg/dL Conjugated Bilirubin (0.0-0.3) md/dL Unconjugated Bilirubin (0.0-1.1) mg/dL AST (14-36) IU/L ALT (<35) IU/L Alkaline Phosphatase (38-126) U/L Total Creatine Kinase (30-135) U/L CK-MB (CK-2) CK-MB (CK-2) Rel Index Troponin I (0.01-0.034) ng/mL Total Protein (6.3-8.2) g/dL Albumin (3.5-5.0) g/dL Globulin (1.7-4.1) g/dL Albumin/Globulin Ratio (1.0-2.8) Urine Color Urine Appearance Urine pH (4.5-8.0) Ur Specific [place] (1.000-1.035) Urine Protein (Negative) Urine Glucose (UA) (Negative) g/dL Urine Ketones (NEGATIVE) Urine Occult Blood (Negative) Urine Nitrate (Negative) Urine Bilirubin (NEGATIVE) Urine Urobilinogen (0.2) E.U./dL Ur Leukocyte Esterase (NEGATIVE) Urine RBC (0-5/HPF) Urine WBC (0-5/HPF) Urine Bacteria (None) Ur Culture Indicated? SARS-CoV-2 (PCR) Negative (Negative) Imaging Data CT scan - head: Attestation: I personally reviewed and interpreted this imaging study as follows: My Impression: No acute intracranial findings Radiologist's Impression: PROCEDURE: CT HEAD/BRAIN WO CON INDICATIONS: FALL TECHNIQUE: Noncontrast 4.5 mm thick angled axial sections acquired from the foramen magnum to the vertex, with coronal and sagittal reformats. For radiation dose reduction, the following was used: automated exposure control, adjustment of mA and/or kV according to patient size. COMPARISON: [facility], CT, CT HEAD/BRAIN WO CON, 08/24/2020, 20:43. FINDINGS: Image quality: Excellent. CSF spaces: Basal cisterns are patent. No extra-axial fluid collections. The ventricles are symmetric in size and shape. Brain: No intracranial bleeds or masses. There is cerebral volume loss for age, with resultant ventricular and sulcal prominence. There are periventricular and deep white matter chronic small vessel ischemic changes. There is intracranial internal carotid artery atherosclerosis. Skull and face: Calvarium and visualized facial bones appear intact, without suspicious lesions. Sinuses: Visualized sinuses and mastoids are clear. IMPRESSION: No acute intracranial finding. Global cerebral volume loss and chronic microvascular ischemic changes as seen on prior studies. Chest x-ray: Attestation: I personally reviewed and interpreted this imaging study as follows: My Impression: Moderate pleural effusion Radiologist's Impression: PROCEDURE: XR CHEST 2V INDICATIONS: WEAKNESS TECHNIQUE: 2 views of the chest were acquired. COMPARISON: [facility], CR, XR CHEST 1V, 05/30/2020, 13:14. Merged with [facility], CR, XR CHEST 1V, 08/24/2020, 11:56. FINDINGS: Surgical changes and devices: None. Lungs and pleura: Moderate left effusion is present, increased compared to prior exam. Mediastinum: Mediastinal contours are normal. Heart size is normal. Bones and chest wall: No suspicious bony abnormalities. Soft tissues appear unremarkable. IMPRESSION: Moderate effusion. Recommend continued interval follow-up as underlying mass lesion of potential malignant etiology cannot be excluded. ECG Data Attestation: I personally reviewed and interpreted this ECG as follows: Interpretation: NSR MDM Narrative Medical decision making narrative: Patient comes in to the ED with increasing weakness, hematuria, cloudy and foul-smelling urine. UA positive for UTI, treatment started with Ciprofloxacin. Also considered COVID infection, pneumonia, brain bleed, ACS. EKG normal sinus rhythm, COVID negative, CT head negative, troponin negative, chest x-ray shows moderate pleural effusions. Will try an ambulation to determine dispo. Likely admit. <Sae Dumont, - Last Filed: 11/02/20 07:11> Lab Data Labs: Lab Results 10/17/20 10/17/20 10/17/20 Range/Units 12:15 12:20 12:20 WBC 3.9 L (4.5-11.0) X10^3/uL RBC 2.83 L (4.0-5.2) X10^6/uL Hgb 9.7 L (12.0-16.0) g/dL Hct 28.2 L (36-46) % MCV 99.8 (80-100) fL MCH 34.2 H (26-34) PG MCHC 34.2 (30-36) % RDW 21.3 H (11.6-14.8) % Plt Count 218 (150-400) X10^3/uL Neut % (Auto) Not Reportable Lymph % (Auto) Not Reportable [place] % (Auto) Not Reportable Eos % (Auto) Not Reportable Baso % (Auto) Not Reportable Lymph # (Auto) Not Reportable [place] # (Auto) Not Reportable Baso # (Auto) Not Reportable Total Counted 100 Seg Neutrophils % 46.0 (38-70) % Lymphocytes % (Manual) 25.0 (25-45) % Atypical Lymphs % 19.0 H ( - 0) % Monocytes % (Manual) 10.0 (2-11) % Neutrophils # (Manual) 1794 L (7643-2625) /uL Smudge Cells 1+ H RBC Morphology See below Anisocytosis 2+ H PT (10.1-12.7) SECONDS INR (0.9-1.3) APTT (26.4-36.2) SECONDS Sodium 135 L (137-145) mmol/L Potassium 3.9 (3.4-5.1) mmol/L Chloride 104 (98-107) mmol/L Carbon Dioxide 27 (22-32) mmol/L BUN 17 (7-17) mg/dL Creatinine 0.75 (0.52-1.04) mg/dL Estimated GFR > 60.0 (>60) mL/min BUN/Creatinine Ratio 22.7 H (6-22) Glucose 102 (80-110) mg/dL Lactate (0.7-2.1) mmol/L Calcium 9.1 (8.4-10.2) mg/dL Magnesium (1.6-2.3) mg/dL Total Bilirubin (0.2-1.3) mg/dL Conjugated Bilirubin (0.0-0.3) md/dL Unconjugated Bilirubin (0.0-1.1) mg/dL AST (14-36) IU/L ALT (<35) IU/L Alkaline Phosphatase (38-126) U/L Total Creatine Kinase 45 (30-135) U/L CK-MB (CK-2) TNP CK-MB (CK-2) Rel Index TNP Troponin I 0.015 (0.01-0.034) ng/mL Total Protein (6.3-8.2) g/dL Albumin (3.5-5.0) g/dL Globulin (1.7-4.1) g/dL Albumin/Globulin Ratio (1.0-2.8) Urine Color Yellow Urine Appearance Cloudy Urine pH 7.0 (4.5-8.0) Ur Specific [place] 1.020 (1.000-1.035) Urine Protein 3+ H (Negative) Urine Glucose (UA) Negative (Negative) g/dL Urine Ketones Trace H (NEGATIVE) Urine Occult Blood 3+ H (Negative) Urine Nitrate Negative (Negative) Urine Bilirubin Negative (NEGATIVE) Urine Urobilinogen 0.2 (0.2) E.U./dL Ur Leukocyte Esterase 2+ H (NEGATIVE) Urine RBC >100/hpf H (0-5/HPF) Urine WBC >100/hpf H (0-5/HPF) Urine Bacteria None seen (None) Ur Culture Indicated? Specimen cultured SARS-CoV-2 (PCR) (Negative) 10/17/20 10/17/20 10/17/20 Range/Units 12:20 12:20 12:20 WBC (4.5-11.0) X10^3/uL RBC (4.0-5.2) X10^6/uL Hgb (12.0-16.0) g/dL Hct (36-46) % MCV (80-100) fL MCH (26-34) PG MCHC (30-36) % RDW (11.6-14.8) % Plt Count (150-400) X10^3/uL Neut % (Auto) Lymph % (Auto) [place] % (Auto) Eos % (Auto) Baso % (Auto) Lymph # (Auto) [place] # (Auto) Baso # (Auto) Total Counted Seg Neutrophils % (38-70) % Lymphocytes % (Manual) (25-45) % Atypical Lymphs % ( - 0) % Monocytes % (Manual) (2-11) % Neutrophils # (Manual) (8297-9174) /uL Smudge Cells RBC Morphology Anisocytosis PT 17.3 H (10.1-12.7) SECONDS INR 1.5 H (0.9-1.3) APTT 46 H D (26.4-36.2) SECONDS Sodium (137-145) mmol/L Potassium (3.4-5.1) mmol/L Chloride (98-107) mmol/L Carbon Dioxide (22-32) mmol/L BUN (7-17) mg/dL Creatinine (0.52-1.04) mg/dL Estimated GFR (>60) mL/min BUN/Creatinine Ratio (6-22) Glucose (80-110) mg/dL Lactate (0.7-2.1) mmol/L Calcium (8.4-10.2) mg/dL Magnesium 1.9 (1.6-2.3) mg/dL Total Bilirubin 1.5 H (0.2-1.3) mg/dL Conjugated Bilirubin 0.0 (0.0-0.3) md/dL Unconjugated Bilirubin 1.3 H (0.0-1.1) mg/dL AST 84 H (14-36) IU/L ALT 29 (<35) IU/L Alkaline Phosphatase 70 (38-126) U/L Total Creatine Kinase (30-135) U/L CK-MB (CK-2) CK-MB (CK-2) Rel Index Troponin I (0.01-0.034) ng/mL Total Protein 5.6 L (6.3-8.2) g/dL Albumin 3.2 L (3.5-5.0) g/dL Globulin 2.4 (1.7-4.1) g/dL Albumin/Globulin Ratio 1.3 (1.0-2.8) Urine Color Urine Appearance Urine pH (4.5-8.0) Ur Specific [place] (1.000-1.035) Urine Protein (Negative) Urine Glucose (UA) (Negative) g/dL Urine Ketones (NEGATIVE) Urine Occult Blood (Negative) Urine Nitrate (Negative) Urine Bilirubin (NEGATIVE) Urine Urobilinogen (0.2) E.U./dL Ur Leukocyte Esterase (NEGATIVE) Urine RBC (0-5/HPF) Urine WBC (0-5/HPF) Urine Bacteria (None) Ur Culture Indicated? SARS-CoV-2 (PCR) (Negative) 10/17/20 10/17/20 Range/Units 12:47 13:22 WBC (4.5-11.0) X10^3/uL RBC (4.0-5.2) X10^6/uL Hgb (12.0-16.0) g/dL Hct (36-46) % MCV (80-100) fL MCH (26-34) PG MCHC (30-36) % RDW (11.6-14.8) % Plt Count (150-400) X10^3/uL Neut % (Auto) Lymph % (Auto) [place] % (Auto) Eos % (Auto) Baso % (Auto) Lymph # (Auto) [place] # (Auto) Baso # (Auto) Total Counted Seg Neutrophils % (38-70) % Lymphocytes % (Manual) (25-45) % Atypical Lymphs % ( - 0) % Monocytes % (Manual) (2-11) % Neutrophils # (Manual) (6816-1589) /uL Smudge Cells RBC Morphology Anisocytosis PT (10.1-12.7) SECONDS INR (0.9-1.3) APTT (26.4-36.2) SECONDS Sodium (137-145) mmol/L Potassium (3.4-5.1) mmol/L Chloride (98-107) mmol/L Carbon Dioxide (22-32) mmol/L BUN (7-17) mg/dL Creatinine (0.52-1.04) mg/dL Estimated GFR (>60) mL/min BUN/Creatinine Ratio (6-22) Glucose (80-110) mg/dL Lactate 1.4 (0.7-2.1) mmol/L Calcium (8.4-10.2) mg/dL Magnesium (1.6-2.3) mg/dL Total Bilirubin (0.2-1.3) mg/dL Conjugated Bilirubin (0.0-0.3) md/dL Unconjugated Bilirubin (0.0-1.1) mg/dL AST (14-36) IU/L ALT (<35) IU/L Alkaline Phosphatase (38-126) U/L Total Creatine Kinase (30-135) U/L CK-MB (CK-2) CK-MB (CK-2) Rel Index Troponin I (0.01-0.034) ng/mL Total Protein (6.3-8.2) g/dL Albumin (3.5-5.0) g/dL Globulin (1.7-4.1) g/dL Albumin/Globulin Ratio (1.0-2.8) Urine Color Urine Appearance Urine pH (4.5-8.0) Ur Specific [place] (1.000-1.035) Urine Protein (Negative) Urine Glucose (UA) (Negative) g/dL Urine Ketones (NEGATIVE) Urine Occult Blood (Negative) Urine Nitrate (Negative) Urine Bilirubin (NEGATIVE) Urine Urobilinogen (0.2) E.U./dL Ur Leukocyte Esterase (NEGATIVE) Urine RBC (0-5/HPF) Urine WBC (0-5/HPF) Urine Bacteria (None) Ur Culture Indicated? SARS-CoV-2 (PCR) Negative (Negative) Discharge Plan Departure Patient Disposition: Admitted as Observation Clinical Impression: UTI (urinary tract infection) Qualifiers: Urinary tract infection type: site unspecified Hematuria presence: with hematuria Qualified Code(s): N39.0 - Urinary tract infection, site not specified Admit Date/Time: 10/17/20 19:58 Admit Provider: Hanna Dixon <Sae Dumont, - Last Filed: 11/02/20 07:11> Cosign ED Attending Cosignature Attestation: Dr Dumont Co-Sign Statement: I was available for consultation during this patient's emergency department visit. This chart is signed by myself for administrative purposes only. I did not have direct contact with this patient during this visit. They were seen independently by the APC.
--- NOTE | 2020-10-17 16:57 | PC.NURSE ---
Assisted patient to stand with walker and patient complained of dizziness and weakness. We checked blood pressure which was low 93/53. Assisted patient back to bed and updated provider.
[2020-10-17] MEDS: SODIUM CHLORIDE 0.9% 1,000 ML 1000 ML IV (17:21)
--- NOTE | 2020-10-17 19:29 | PC.NURSE ---
Pt most likely fell at some point in the night, small lac across bridge of nose, on Eliquis. ANTHONY Copeland notified.
--- NOTE | 2020-10-17 21:44 | PM.HP.1 ---
History of Present Illness History of Present Illness Date Patient Seen: 10/17/20 Time Patient Seen: 21:45 Chief complaint: Weakness Narrative: Patient is a 85 year old female Day Swenson presented to the ED, via her daughter who states that patient was discharged from a rehab facility 2 weeks ago following August Hopsitalization and that her mother had worsening weakness, anorexia, nausea, hematuria over the last 2 weeks. Last night, daughter found the patient had a GLF from her bed, with positive head strike without LOC currently on Eliquis. Daughter noted a small abrasion on the nose. And also reported the patient had hallucinations yesterday, though is lucid today. Patient was last admitted on 08/24-08/30/20 for acute on chronic dizziness, Orthostatic hypotension, Atrial fibrillation s/p cardioversion, persistent, Chronic anemia, MEÑO, Heart failure with preserved ejection fraction, Depression. She had cardioversion but continued to have atrial fibrillation. She was planned for discharge, but this was held due to dizziness and orthostatic hypotension. She was given IV fluids and improved her symptoms. She was discharged to SNF for physical therapy. Patient reports on admit that she fell the day before yesterday in the bathroom, that was precipitated by her daughter slipping and falling which then caused her to slip and fall and hit the back of her head. Though she counter acts that statement by stating I know I fell and hit the back of my head with one of my falls, but I do not know when. Patient is a poor historian and her story does not correlate with the daughter's statement in the ED. Patient admits to having more frequent falls although unable to recall specific amount, but she states that she has chronic dizziness and for the past month has been experiencing seeing things that were not there, hallucinating, and dreaming while she is awake. She also states that her appetite had been decreased while she was in rehab because she did like the food, but has had a normal appetite since being at home. Denies headache, changes in vision, numbness, tingling, fever, body aches, chills, chest pain, shortness of breath, vomiting, diarrhea, abdominal pain, dysuria, frequency, urgency, or constipation. Patient was unable to stand up or walk, per her doctor. Patient endorsed chronic incontinence, new onset hematuria, cloudy and foul-smelling urine. Patient's confusion and disorientation seem to be worsened from 05/31/20 admit. Patient has a history of recurrent falls, chronic dizziness, Orthostatic hypotension, breast cancer, AFib with RVR, HFpEF, large granular lymphocytic leukemia, s/p total cholectomy, osteoporosis, hypertension, hyperlipidemia, and depression. Her AFib was last converted with cardioversion on 05/31/2020 at [facility]. Since this last hospitalization she has felt tired and weak and dizzy. She had a hospital visit on 05/30/2020 when patient was seen for rapid atrial fibrillation with RVR. She was also diagnosed with pulmonary hypertension with moderate to severe tricuspid regurgitation. Upon admit today patient's vitals are stable with a temp of 97.7?, BP 116/58, HR 65, RR 18, O2 saturation 98% on room air. WBC 3.9, without neutrophils, HGB 9.7, HCT 28.2 due to patient's chronic anemia. Sodium 135, total bili 1.5 unconjugated bili 1.3, AST 84, albumin low at 3.2, INR 1.5, troponin within normal limits. Patient's urinalysis was positive for protein, trace ketones, occult blood, leuko Estrace, RBC> 100, WBC> 100, negative for nitrates-sent for culture. Head CT demonstrated global cerebral volume loss and chronic microvascular ischemic changes as seen on previous CT. Chest x-ray demonstrated moderate effusion, underlying mass lesion of potential malignancy etiology. Patient is admitted for observation ground level fall with head injury without loss of consciousness on chronic Eliquis, UTI. Patient History Medical History (Updated 10/18/20 @ 02:39 by EDA Beavers) Balance problem Breast cancer, left Chicken pox Colitis (~1984) Colon polyps (~1984) Crohn's disease (~1984) Depression Diverticular disease (~1984) Diverticulitis Dizziness Easy bruisability Fatigue Frequent falls Hemorrhoid (~1984) Hypertension Knee pain Leukemia (~08/2018) Leukemia, chronic Measles Mitral valve disease Nausea with vomiting, unspecified Orthostatic hypotension Osteoporosis Pericardial effusion Physical deconditioning Physician orders for life-sustaining treatment (POLST) form indicates patient wish for [id number] status Vertigo Surgical History Anesthesia History of bunionectomy of both great toes History of section (~1959) History of ileostomy (~1983) History of total colectomy Family & Social History Family History Brother Diabetes mellitus Heart disease Brother Diabetes mellitus Heart disease Mother Hypertension Father Cancer Sister Cancer Social History: household members daughter, and grand daughter Prior Living Arrangements House Safety & Behavioral: Feels Safe in Current Yes Environment Been Physically Hurt or No Threatened By a Person Suicidal Ideation Description None Suicide Plan Description No Plan Tobacco & Substance use: Smoking Status Never smoker alcohol intake never Substance Use Type does not use Meds Home Medications and Allergies Home Medications Medication Instructions Recorded Confirmed Type Disabled Parking Permit 1 dev MISCELLANEOUS DIRECTED 06/02/18 08/25/20 History apixaban 2.5 mg tablet 2.5 mg PO BID #180 tab 06/23/20 08/25/20 Rx magnesium oxide 400 mg PO DAILY #90 tab 07/14/20 08/25/20 Rx amiodarone 200 mg tablet 200 mg PO DAILY 08/25/20 08/25/20 History latanoprost 0.005 % eye drops 1 drp EYE-RIGHT BEDTIME 08/25/20 08/25/20 History (Xalatan) venlafaxine 75 mg capsule,extended 75 mg PO DAILY 08/25/20 08/25/20 History release 24 hr (Effexor XR) fludrocortisone 0.1 mg tablet 0.1 mg PO DAILY #90 tab 09/14/20 Rx levothyroxine 25 mcg tablet 25 mcg PO DAILY@0600 #90 tab 09/14/20 Rx (Synthroid) metoprolol succinate 25 mg 12.5 mg PO DAILY #45 tab 09/14/20 Rx tablet,extended release 24 hr rosuvastatin 10 mg tablet See Rx Instructions .ROUTE 09/14/20 Rx .COMPLEX #90 tab ondansetron 4 mg disintegrating 4 mg PO Q8H PRN #30 tab 10/06/20 10/06/20 Rx tablet oxycodone 10 mg tablet See Rx Instructions .ROUTE 10/12/20 Rx .COMPLEX #180 tab Allergies Allergy/AdvReac Type Severity Reaction Status Date / Time cefoxitin [CEFOXITIN] Allergy Mild HIVES Verified 10/17/20 12:29 Sulfa (Sulfonamide Allergy Unknown Doesn't Verified 10/17/20 12:29 Antibiotics) remember Review of Systems Review of Systems Narrative: All 12 point systems reviewed with the patient and are negative except otherwise documented, though should be noted that patient is a poor historian, and her contribution to ROS and HPI may not be accurate. Exam Vital Signs (past 8 hours): - 10/17/20 14:18 10/17/20 14:30 10/17/20 15:00 Temperature Pulse Rate 71 68 69 Pulse Rate [Orthostatic Lying] Pulse Rate [Orthostatic Sitting] Pulse Rate [Orthostatic Standing] Respiratory Rate 16 Blood Pressure 140/62 139/63 126/59 L Blood Pressure [Orthostatic Lying] Blood Pressure [Orthostatic Sitting] Blood Pressure [Orthostatic Standing] Pulse Oximetry 97 97 10/17/20 15:30 10/17/20 16:00 10/17/20 16:30 Temperature Pulse Rate 64 61 64 Pulse Rate [Orthostatic Lying] Pulse Rate [Orthostatic Sitting] Pulse Rate [Orthostatic Standing] Respiratory Rate Blood Pressure 117/56 L 124/60 135/62 Blood Pressure [Orthostatic Lying] Blood Pressure [Orthostatic Sitting] Blood Pressure [Orthostatic Standing] Pulse Oximetry 99 97 97 10/17/20 16:46 10/17/20 16:50 10/17/20 16:56 Temperature Pulse Rate 89 78 89 Pulse Rate [Orthostatic Lying] Pulse Rate [Orthostatic Sitting] Pulse Rate [Orthostatic Standing] Respiratory Rate Blood Pressure 93/53 L 164/68 H Blood Pressure [Orthostatic Lying] Blood Pressure [Orthostatic Sitting] Blood Pressure [Orthostatic Standing] Pulse Oximetry 95 93 10/17/20 17:00 10/17/20 17:01 10/17/20 17:30 Temperature Pulse Rate 68 67 65 Pulse Rate [Orthostatic Lying] Pulse Rate [Orthostatic Sitting] Pulse Rate [Orthostatic Standing] Respiratory Rate 16 Blood Pressure 139/86 130/63 Blood Pressure [Orthostatic Lying] Blood Pressure [Orthostatic Sitting] Blood Pressure [Orthostatic Standing] Pulse Oximetry 98 97 96 10/17/20 18:00 10/17/20 18:30 10/17/20 18:58 Temperature Pulse Rate 65 66 76 Pulse Rate [Orthostatic Lying] Pulse Rate [Orthostatic Sitting] Pulse Rate [Orthostatic Standing] Respiratory Rate Blood Pressure 131/60 154/67 H 149/67 H Blood Pressure [Orthostatic Lying] Blood Pressure [Orthostatic Sitting] Blood Pressure [Orthostatic Standing] Pulse Oximetry 98 97 94 10/17/20 18:59 10/17/20 19:00 10/17/20 19:15 Temperature 97.7 F Pulse Rate 75 71 Pulse Rate [Orthostatic Lying] 76 Pulse Rate [Orthostatic Sitting] 76 Pulse Rate [Orthostatic Standing] 74 Respiratory Rate 20 Blood Pressure 144/66 H 146/70 H Blood Pressure [Orthostatic Lying] 149/67 H Blood Pressure [Orthostatic Sitting] 144/67 H Blood Pressure [Orthostatic Standing] 146/70 H Pulse Oximetry 94 10/17/20 19:30 10/17/20 20:00 10/17/20 20:15 Temperature 97.6 F Pulse Rate 65 65 67 Pulse Rate [Orthostatic Lying] Pulse Rate [Orthostatic Sitting] Pulse Rate [Orthostatic Standing] Respiratory Rate 18 16 Blood Pressure 131/62 116/58 L 125/56 L Blood Pressure [Orthostatic Lying] Blood Pressure [Orthostatic Sitting] Blood Pressure [Orthostatic Standing] Pulse Oximetry 100 98 93 Oxygen Delivery Method Room Air Oxygen Flow Rate 0 Narrative Exam Narrative: General: Patient is a well-developed, well-nourished dennys elderly female in no distress at this time. HEENT: Normocephalic, atraumatic, extraocular muscles intact, oral pharynx is clear and mucous membranes are dry, lips are cracked. Neck is supple and symmetric, trachea is midline, no adenopathy, no thyroid enlargement, nontender, no masses palpated. Negative for JVD Chest: no nasal flaring, retractions, or tachypneic labored work of breathing. Lungs: Auscultation of all lung greenberg are clear without adventitious sounds, wheezes, rhonchi, or rales. Cardio: regular rate and rhythm without murmur, rubs, or gallops, no carotid bruit, no cardiac pulsations present. Abdomen: Soft nontender, negative for organomegaly, or masses. Bowel sounds are present, colostomy bag intact without bleeding, or signs of infection nontender, abd without guarding or rebound, no suprapubic tenderness, no CVA tenderness. Musculoskeletal: no deformity, crepitus, effusions, cyanosis, clubbing or edema present. Full range of motion intact radial and pedal pulses are normal. Skin: Warm dry and intact without rashes, ulcerations or petechiae. Neuro: Alert and orientated to self, place, and time but appears slightly dazed or confused. sensation to touch intact, no gross deficits noted of cranial nerves. Psych: Patient has a well-kept appearance, slightly flat affect, patient demonstrates no eye contact during admit, patient's thought process is slightly scattered, she verbalizes contradicting information and history, unsure if this is an acute decline or part of a chronic decline. Objective Labs Result Diagrams: 10/17/20 12:20 10/17/20 12:20 Labs: Laboratory Results - last 24 hr 10/17/20 10/17/20 10/17/20 12:15 12:20 12:20 WBC 3.9 L RBC 2.83 L Hgb 9.7 L Hct 28.2 L MCV 99.8 MCH 34.2 H MCHC 34.2 RDW 21.3 H Plt Count 218 Neut % (Auto) Not Reportable Lymph % (Auto) Not Reportable Saunders % (Auto) Not Reportable Eos % (Auto) Not Reportable Baso % (Auto) Not Reportable Lymph # (Auto) Not Reportable Saunders # (Auto) Not Reportable Baso # (Auto) Not Reportable Total Counted 100 Seg Neutrophils % 46.0 Lymphocytes % (Manual) 25.0 Atypical Lymphs % 19.0 H Monocytes % (Manual) 10.0 Neutrophils # (Manual) 1794 L Smudge Cells 1+ H RBC Morphology See below Anisocytosis 2+ H PT INR APTT Sodium 135 L Potassium 3.9 Chloride 104 Carbon Dioxide 27 BUN 17 Creatinine 0.75 Estimated GFR > 60.0 BUN/Creatinine Ratio 22.7 H Glucose 102 Lactate Calcium 9.1 Total Bilirubin Conjugated Bilirubin Unconjugated Bilirubin AST ALT Alkaline Phosphatase Total Creatine Kinase 45 CK-MB (CK-2) TNP CK-MB (CK-2) Rel Index TNP Troponin I 0.015 Total Protein Albumin Globulin Albumin/Globulin Ratio Urine Color Yellow Urine Appearance Cloudy Urine pH 7.0 Ur Specific [place] 1.020 Urine Protein 3+ H Urine Glucose (UA) Negative Urine Ketones Trace H Urine Occult Blood 3+ H Urine Nitrate Negative Urine Bilirubin Negative Urine Urobilinogen 0.2 Ur Leukocyte Esterase 2+ H Urine RBC >100/hpf H Urine WBC >100/hpf H Urine Bacteria None seen Ur Culture Indicated? Specimen cultured SARS-CoV-2 (PCR) 10/17/20 10/17/20 10/17/20 12:20 12:20 12:47 WBC RBC Hgb Hct MCV MCH MCHC RDW Plt Count Neut % (Auto) Lymph % (Auto) Saunders % (Auto) Eos % (Auto) Baso % (Auto) Lymph # (Auto) Saunders # (Auto) Baso # (Auto) Total Counted Seg Neutrophils % Lymphocytes % (Manual) Atypical Lymphs % Monocytes % (Manual) Neutrophils # (Manual) Smudge Cells RBC Morphology Anisocytosis PT 17.3 H INR 1.5 H APTT 46 H D Sodium Potassium Chloride Carbon Dioxide BUN Creatinine Estimated GFR BUN/Creatinine Ratio Glucose Lactate Calcium Total Bilirubin 1.5 H Conjugated Bilirubin 0.0 Unconjugated Bilirubin 1.3 H AST 84 H ALT 29 Alkaline Phosphatase 70 Total Creatine Kinase CK-MB (CK-2) CK-MB (CK-2) Rel Index Troponin I Total Protein 5.6 L Albumin 3.2 L Globulin 2.4 Albumin/Globulin Ratio 1.3 Urine Color Urine Appearance Urine pH Ur Specific [place] Urine Protein Urine Glucose (UA) Urine Ketones Urine Occult Blood Urine Nitrate Urine Bilirubin Urine Urobilinogen Ur Leukocyte Esterase Urine RBC Urine WBC Urine Bacteria Ur Culture Indicated? SARS-CoV-2 (PCR) Negative 10/17/20 13:22 WBC RBC Hgb Hct MCV MCH MCHC RDW Plt Count Neut % (Auto) Lymph % (Auto) Saunders % (Auto) Eos % (Auto) Baso % (Auto) Lymph # (Auto) Saunders # (Auto) Baso # (Auto) Total Counted Seg Neutrophils % Lymphocytes % (Manual) Atypical Lymphs % Monocytes % (Manual) Neutrophils # (Manual) Smudge Cells RBC Morphology Anisocytosis PT INR APTT Sodium Potassium Chloride Carbon Dioxide BUN Creatinine Estimated GFR BUN/Creatinine Ratio Glucose Lactate 1.4 Calcium Total Bilirubin Conjugated Bilirubin Unconjugated Bilirubin AST ALT Alkaline Phosphatase Total Creatine Kinase CK-MB (CK-2) CK-MB (CK-2) Rel Index Troponin I Total Protein Albumin Globulin Albumin/Globulin Ratio Urine Color Urine Appearance Urine pH Ur Specific [place] Urine Protein Urine Glucose (UA) Urine Ketones Urine Occult Blood Urine Nitrate Urine Bilirubin Urine Urobilinogen Ur Leukocyte Esterase Urine RBC Urine WBC Urine Bacteria Ur Culture Indicated? SARS-CoV-2 (PCR) Assessment & Plan Assessment & Plan narrative: Norah Swenson is an 85-year-old female with a history of recurrent falls, chronic dizziness, unsteady gait, Orthostatic hypotension, breast cancer, AFib with RVR, HFpEF, large granular lymphocytic leukemia, s/p total cholectomy, osteoporosis, hypertension, hyperlipidemia, and depression, admitted for observation ground level fall with head injury without loss of consciousness on chronic Eliquis, and possible UTI, had high risk of brain bleed, sepsis, or hemorrhage, after failing outpatient management. Patient overnight to be rehydrated, and monitored for signs of head injury, stroke, hemorrhage or sepsis. 1. Ground level fall with head injury without loss of consciousness on chronic Eliquis, acute on chronic, in the setting of chronic vertigo/unstable gait, chronic orthostatic hypotension, acute on chronic, present on admission, mild altered mental status-unclear if this a progressive chronic or acute due to fall, present on admit -patient appears to be quite dehydrated suspect combination orthostatic hypotension, dehydration, with vertigo. Patient has been having increasing frequent falls. Also concerning and possible contributing cause the underlying mass lesion of potential malignancy etiology found on xray. -patient requires outpatient PCP evaluation and management of her health and safety. -patient to follow-up with PCP for further evaluation of possible potential malignancy. recommend follow up Chest CT and evaluate altered mental status, and reports of recent hallucinations- that were not present on admit today. -patient needs Social work Safety assessment for in home safety. In home FALL Risk Evaluation. -recommend home physical therapy for strength training, encourage use of mobility devices. -Head CT demonstrated global cerebral volume loss and chronic microvascular ischemic changes as seen on previous CT. Chest x-ray demonstrated moderate effusion, underlying mass lesion of potential malignancy etiology -monitor for closed head injury. post concussive syndrome -patient given 3 L bolus in ED, IV fluids: NS at 100 cc/HR 2. Malnourished as evidence by BMI 21.7, acute on chronic, present on admission -orderd evaluation by dietary, -PCP follow-up and monitoring of weight -patient was a 54.9 kg 04/2020- On admit 45.4 kg 3. Possible asymptomatic bacteremia, not clinical UTI, acute, present on admission - urinalysis was positive for protein, trace ketones, occult blood, leuko Estrace, RBC> 100, WBC> 100, negative for nitrates-sent for culture. -patient denies any urinary s/s, no abd pain, CVA tenderness, no elevated WBC/neutrophils, patient is hemodynamically stable, no elevated temperature,urine was negative for nitrates and bacteria, though positive for WBC, leuko esterase, RBCs. My suspicion is low for infection and so held antibiotics at this time.This is presents more as dehydration than Infection. On previous admit was found to have grown E coli on urine culture, but remained asymptomatic and did not develop in too a clinical UTI. - Blood and urine cultures are pending. 3. Elevated Aspartate aminotransferase (AST), acute, present on admission - total bili 1.5 unconjugated bili 1.3, AST 84, albumin 3.2- mon admit -monitor liver enzymes and for liver injury 4. Pulmonary hypertension with moderate to severe tricuspid regurgitation, chronic, present on admission -continue patient's metoprolol 5. HFpEF, chronic, present on admission -last TTE from 07/27/2019 demonstrates small and hyperdynamic left ventricle, mild LVOT gradient of 18 mmHg which increases to 22 mmHg with Basil vagal. RSVP of at least 60 mmHg severely dilated left atrium with mild mitral stenosis. Diastolic dysfunction noted. -echocardiogram 05/31/2020 small left ventricular cavity with hyperdynamic systolic function EF 70-75. No LVOT obstruction present. Small to moderate pericardial effusion noted 6. Hyperlipidemia, chronic, present on admission -continue patient's rosuvastatin 10 mg daily 7. Macrocytic anemia, chronic, present on admission - HGB 9.7, HCT 28.2 on admission -continue to monitor CBC -transfuse for a hGB<7 or HCT<21 5. Depression, chronic, present on admission -patient denies depression symptoms or suicidal ideation -continue patient's venlafexine Code status: DNR Surrogate decision maker: Daughter Ginny PEACOCK PCR: Negative DVT/VTE prophylaxis: Contraindicated, patient on Eliquis and SCDs Expected length of stay: Less than 2 midnight Scores [facility] [place] coma scale eye opening: Spontaneous [place] coma scale verbal response: Orientated [place] coma scale motor response: Obey commands [place] coma scale total score: 15 SOFA PaO2/FIO2: >=400 mmHg Platelets: >= 150 Bilirubin: 1.2-1.9 mg/dL Hypotension: MAP >= 70 mmHg [place] Coma Scale: 15 Renal: < 1.2 mg/dL SOFA Score: 1
[2020-10-17 21:48] LABS: Magnesium 1.9 mg/dL (1.6-2.3)
[2020-10-17] MEDS: LATANOPROST 0.005% OPHTH 2.5 ML 1 DROPS EYE-RIGHT (22:29)
[2020-10-17] MEDS: APIXABAN 5 MG TABLET 2.5 MG PO (22:29)
[2020-10-17] MEDS: SODIUM CHLORIDE 0.9% 1,000 ML 100 ML IV (22:29)
[2020-10-17] MEDS: ATORVASTATIN 20 MG TABLET PO (22:29)
[2020-10-18] VITALS (7 sets, daily range): BP systolic 101–154; BP diastolic 48–80; PULSE 71–140; RESP 16–18; TEMP 36.1–36.5; O2SAT 95–97
[2020-10-18] MEDS: CIPROFLOXACIN 400 MG/200 ML PIGGYBACK 200 MG IV (01:35)
[2020-10-18 05:24] LABS: INR 2.1 (0.9-1.3); Prothrombin Time 23.7 SECONDS (10.1-12.7)
[2020-10-18 05:27] LABS: Hemoglobin 8.4 g/dL (12.0-16.0); Mean Corpuscular HGB Conc 34.5 % (30-36); Mean Corpuscular Hemoglobin 34.2 PG (26-34); Mean Corpuscular Volume 99.2 fL (80-100); Platelet Count 187 X10^3/uL (150-400); Red Blood Cell Count 2.46 X10^6/uL (4.0-5.2); Red Cell Distribution Width 21.4 % (11.6-14.8)
[2020-10-18 05:31] LABS: Add Manual Diff / Slide Review YES; Hematocrit 24.4 % (36-46)
[2020-10-18 05:32] LABS: Alanine Aminotransferase 27 IU/L (<35); Albumin 2.4 g/dL (3.5-5.0); Albumin Globulin Ratio 1.1 (1.0-2.8); Alkaline Phosphatase 60 U/L (38-126); Aspartate Aminotransferase 65 IU/L (14-36); BUN Creatinine Ratio 16.4 (6-22); Bilirubin Total 1.2 mg/dL (0.2-1.3); Blood Urea Nitrogen 12 mg/dL (7-17); Carbon Dioxide 25 mmol/L (22-32); Chloride 108 mmol/L (98-107); Estimated Glomerular Filt Rate > 60.0 mL/min (>60); Globulin 2.2 g/dL (1.7-4.1); Glucose 72 mg/dL (80-110); HEMOLYSIS < 15 (0-50); Potassium 3.5 mmol/L (3.4-5.1); Sodium 136 mmol/L (137-145); Total Protein 4.6 g/dL (6.3-8.2)
[2020-10-18] MEDS: LEVOTHYROXINE 25 MCG TABLET PO (05:37)
[2020-10-18 06:28] LABS: Neutrophils Absolute Manual 2040 /uL (3000-5900); Total Cells Counted 100
[2020-10-18 06:29] LABS: Anisocytosis 1+
[2020-10-18] MEDS: SODIUM CHLORIDE 0.9% 1,000 ML 100 ML IV (09:46)
[2020-10-18] MEDS: FLUDROCORTISONE 0.1 MG TABLET PO (09:52)
[2020-10-18] MEDS: MAGNESIUM OXIDE 400 MG TABLET PO (09:52)
[2020-10-18] MEDS: VENLAFAXINE ER 75 MG CAP PO (09:52)
[2020-10-18] MEDS: APIXABAN 5 MG TABLET 2.5 MG PO (09:52)
[2020-10-18] MEDS: POTASSIUM CHLORIDE 20 MEQ TAB 40 MEQ PO (10:00)
[2020-10-18] MEDS: AMIODARONE 200 MG TABLET PO (10:00)
--- NOTE | 2020-10-18 10:29 | P.DS_ITS ---
History of Present Illness History of Present Illness Date Patient Seen: 10/18/20 Time Patient Seen: 10:29 Chief complaint: Weakness Narrative: Per Hanna Dixon, MARTIN-WILMA: Patient is a 85 year old female Day Swenson presented to the ED, via her daughter who states that patient was discharged from a rehab facility 2 weeks ago following August Hopsitalization and that her mother had worsening weakness, anorexia, nausea, hematuria over the last 2 weeks. Last night, daughter found the patient had a GLF from her bed, with positive head strike without LOC currently on Eliquis. Daughter noted a small abrasion on the nose. And also reported the patient had hallucinations yesterday, though is lucid today. Patient was last admitted on 08/24-08/30/20 for acute on chronic dizziness, Orthostatic hypotension, Atrial fibrillation s/p cardioversion, persistent, Chronic anemia, MEÑO, Heart failure with preserved ejection fraction, Depression. She had cardioversion but continued to have atrial fibrillation. She was planned for discharge, but this was held due to dizziness and orthostatic hypotension. She was given IV fluids and improved her symptoms. She was discharged to SNF for physical therapy. Patient reports on admit that she fell the day before yesterday in the bathroom, that was precipitated by her daughter slipping and f alling which then caused her to slip and fall and hit the back of her head. Though she counter acts that statement by stating I know I fell and hit the back of my head with one of my falls, but I do not know when. Patient is a poor historian and her story does not correlate with the daughter's statement in the ED. Patient admits to having more frequent falls although unable to recall specific amount, but she states that she has chronic dizziness and for the past month has been experiencing seeing things that were not there, hallucinating, and dreaming while she is awake. She also states that her appetite had been decreased while she was in rehab because she did like the food, but has had a normal appetite since being at home. Denies headache, changes in vision, numbness, tingling, fever, body aches, chills, chest pain, shortness of breath, vomiting, diarrhea, abdominal pain, dysuria, frequency, urgency, or constipation. Patient was unable to stand up or walk, per her doctor. Patient endorsed chronic incontinence, new onset hematuria, cloudy and foul-smelling urine. Patient's confusion and disorientation seem to be worsened from 05/31/20 admit. Patient has a history of recurrent falls, chronic dizziness, Orthostatic hypotension, breast cancer, AFib with RVR, HFpEF, large granular lymphocytic leukemia, s/p total cholectomy, osteoporosis, hypertension, hyperlipidemia, and depression. Her AFib was last converted with cardioversion on 05/31/2020 at [facility]. Since this last hospitalization she has felt tired and weak and dizzy. She had a hospital visit on 05/30/2020 when patient was seen for rapid atrial fibrillation with RVR. She was also diagnosed with pulmonary hypertension with moderate to severe tricuspid regurgitation. Upon admit today patient's vitals are stable with a temp of 97.7?, BP 116/58, HR 65, RR 18, O2 saturation 98% on room air. WBC 3.9, without neutrophils, HGB 9.7, HCT 28.2 due to patient's chronic anemia. Sodium 135, total bili 1.5 unconjugated bili 1.3, AST 84, albumin low at 3.2, INR 1.5, troponin within normal limits. Patient's urinalysis was positive for protein, trace ketones, occult blood, leuko Estrace, RBC> 100, WBC> 100, negative for nitrates-sent for culture. Head CT demonstrated global cerebral volume loss and chronic microvascular ischemic changes as seen on previous CT. Chest x-ray demonstrated moderate effusion, underlying mass lesion of potential malignancy etiology. Patient is admitted for observation ground level fall with head injury without loss of consciousness on chronic Eliquis, UTI. Discharge Providers Provider Date of admission: 10/17/20 19:58 Discharge Date: 10/18/20 Primary care physician: Chance Funk DO Consults: 10/17/20 14:45 Consult to IRRIGATION FOREMAN - Cat Cracker Operator Stat Comment: Care management 10/17/20 15:16 Consult to Physical Therapy Evaluate & Treat Comment: Weakness Physician Instructions: Evaluate and Treat 10/17/20 21:08 Consult to Discharge Planning Routine Comment: Fall , Safety risk Consult to Physical Therapy Evaluate & Treat Comment: Frequent fall, safety risk Physician Instructions: Evaluate and Treat 10/18/20 03:48 Consult to Dietitian, Adult Routine Comment: Reason For Exam: malnoursihed BMI 21.7 Discharge provider: Isaac Wang DO Summary Hospital Course Discharge Diagnosis: 1. Ground level fall 2. Orthostatic hypotension, chronic 3. Acute cystitis 4. Pulmonary hypertension with moderate to severe tricuspid regurgitation, chronic, present on admission 5. HFpEF, chronic, present on admission 6. Hyperlipidemia, chronic, present on admissio 7. Macrocytic anemia, chronic, present on admissio 8. Depression, chronic, present on admission Hospital Course: Norah Swenson is an 85-year-old female with a history of recurrent falls, chronic dizziness, unsteady gait, Orthostatic hypotension, breast cancer, AFib with RVR, HFpEF, large granular lymphocytic leukemia, s/p total cholectomy, osteoporosis, hypertension, hyperlipidemia, and depression, admitted for observation after a ground level fall with head injury without loss of consciousness on chronic [facility]. She has chronic orthostatic hypotension, and the following morning patient stated that the patient had returned to her baseline once discharging from her SNF stay. She had a positive UA, and despite lack of dysuria she did have frequency. She was started on macrobid. She was seen by physical therapy and is recommended for home health services. She was orthostatic but minimally symptomatic, and has not changed since her previous admission and SNF stay. Exam Vital Signs (past 8 hours): - 10/18/20 03:44 10/18/20 05:00 10/18/20 06:53 Temperature 97.0 F L Pulse Rate 71 Pulse Rate [Orthostatic Lying] 74 Pulse Rate [Orthostatic Sitting] 80 Pulse Rate [Orthostatic Standing] 140 H Respiratory Rate 16 Blood Pressure 145/67 H Blood Pressure [Orthostatic Lying] 154/68 H Blood Pressure [Orthostatic Sitting] 138/66 Blood Pressure [Orthostatic Standing] 117/80 Pulse Oximetry 95 95 10/18/20 08:55 10/18/20 09:55 Temperature 97.7 F Pulse Rate 81 Pulse Rate [Orthostatic Lying] Pulse Rate [Orthostatic Sitting] Pulse Rate [Orthostatic Standing] Respiratory Rate 16 Blood Pressure 127/62 104/48 L Blood Pressure [Orthostatic Lying] Blood Pressure [Orthostatic Sitting] Blood Pressure [Orthostatic Standing] Pulse Oximetry 96 Oxygen Delivery Method Room Air Oxygen Flow Rate 0 Narrative Exam Narrative: General: Patient is a well-developed, well-nourished dennys elderly female in no distress at this time. HEENT: NCAT MMM Lungs: Auscultation of all lung greenberg are clear. No, wheezes, rhonchi, or rales. Cardio: RRR no m/r/g. Abdomen: S, NT, ND. Musculoskeletal:no effusions or tenderness Skin: Warm dry and intact without rashes, ulcerations or petechiae. Neuro: Alert and orientated to self, place, and time. Cognitive impairment evident. No focal deficits. Objective Labs Result Diagrams: 10/18/20 05:06 10/18/20 05:06 Labs: Laboratory Results - last 24 hr 10/17/20 10/17/20 10/17/20 12:15 12:20 12:20 WBC 3.9 L RBC 2.83 L Hgb 9.7 L Hct 28.2 L MCV 99.8 MCH 34.2 H MCHC 34.2 RDW 21.3 H Plt Count 218 Neut % (Auto) Not Reportable Lymph % (Auto) Not Reportable Dickson % (Auto) Not Reportable Eos % (Auto) Not Reportable Baso % (Auto) Not Reportable Lymph # (Auto) Not Reportable Dickson # (Auto) Not Reportable Baso # (Auto) Not Reportable Total Counted 100 Seg Neutrophils % 46.0 Band Neutrophils % Lymphocytes % (Manual) 25.0 Atypical Lymphs % 19.0 H Monocytes % (Manual) 10.0 Eosinophils % (Manual) Neutrophils # (Manual) 1794 L Smudge Cells 1+ H RBC Morphology See below Anisocytosis 2+ H PT INR APTT Sodium 135 L Potassium 3.9 Chloride 104 Carbon Dioxide 27 BUN 17 Creatinine 0.75 Estimated GFR > 60.0 BUN/Creatinine Ratio 22.7 H Glucose 102 Lactate Calcium 9.1 Magnesium Total Bilirubin Conjugated Bilirubin Unconjugated Bilirubin AST ALT Alkaline Phosphatase Total Creatine Kinase 45 CK-MB (CK-2) TNP CK-MB (CK-2) Rel Index TNP Troponin I 0.015 Total Protein Albumin Globulin Albumin/Globulin Ratio Urine Color Yellow Urine Appearance Cloudy Urine pH 7.0 Ur Specific [place] 1.020 Urine Protein 3+ H Urine Glucose (UA) Negative Urine Ketones Trace H Urine Occult Blood 3+ H Urine Nitrate Negative Urine Bilirubin Negative Urine Urobilinogen 0.2 Ur Leukocyte Esterase 2+ H Urine RBC >100/hpf H Urine WBC >100/hpf H Urine Bacteria None seen Ur Culture Indicated? Specimen cultured SARS-CoV-2 (PCR) 10/17/20 10/17/20 10/17/20 12:20 12:20 12:20 WBC RBC Hgb Hct MCV MCH MCHC RDW Plt Count Neut % (Auto) Lymph % (Auto) Dickson % (Auto) Eos % (Auto) Baso % (Auto) Lymph # (Auto) Dickson # (Auto) Baso # (Auto) Total Counted Seg Neutrophils % Band Neutrophils % Lymphocytes % (Manual) Atypical Lymphs % Monocytes % (Manual) Eosinophils % (Manual) Neutrophils # (Manual) Smudge Cells RBC Morphology Anisocytosis PT 17.3 H INR 1.5 H APTT 46 H D Sodium Potassium Chloride Carbon Dioxide BUN Creatinine Estimated GFR BUN/Creatinine Ratio Glucose Lactate Calcium Magnesium 1.9 Total Bilirubin 1.5 H Conjugated Bilirubin 0.0 Unconjugated Bilirubin 1.3 H AST 84 H ALT 29 Alkaline Phosphatase 70 Total Creatine Kinase CK-MB (CK-2) CK-MB (CK-2) Rel Index Troponin I Total Protein 5.6 L Albumin 3.2 L Globulin 2.4 Albumin/Globulin Ratio 1.3 Urine Color Urine Appearance Urine pH Ur Specific [place] Urine Protein Urine Glucose (UA) Urine Ketones Urine Occult Blood Urine Nitrate Urine Bilirubin Urine Urobilinogen Ur Leukocyte Esterase Urine RBC Urine WBC Urine Bacteria Ur Culture Indicated? SARS-CoV-2 (PCR) 10/17/20 10/17/20 10/18/20 12:47 13:22 05:06 WBC 4.0 L RBC 2.46 L Hgb 8.4 L Hct 24.4 L MCV 99.2 MCH 34.2 H MCHC 34.5 RDW 21.4 H Plt Count 187 Neut % (Auto) Not Reportable Lymph % (Auto) Not Reportable Dickson % (Auto) Not Reportable Eos % (Auto) Not Reportable Baso % (Auto) Not Reportable Lymph # (Auto) Not Reportable Dickson # (Auto) Not Reportable Baso # (Auto) Not Reportable Total Counted 100 Seg Neutrophils % 45.0 Band Neutrophils % 6.0 Lymphocytes % (Manual) 29.0 Atypical Lymphs % 10.0 H Monocytes % (Manual) 9.0 Eosinophils % (Manual) 1.0 L Neutrophils # (Manual) 2040 L Smudge Cells RBC Morphology See below Anisocytosis 1+ H PT INR APTT Sodium Potassium Chloride Carbon Dioxide BUN Creatinine Estimated GFR BUN/Creatinine Ratio Glucose Lactate 1.4 Calcium Magnesium Total Bilirubin Conjugated Bilirubin Unconjugated Bilirubin AST ALT Alkaline Phosphatase Total Creatine Kinase CK-MB (CK-2) CK-MB (CK-2) Rel Index Troponin I Total Protein Albumin Globulin Albumin/Globulin Ratio Urine Color Urine Appearance Urine pH Ur Specific [place] Urine Protein Urine Glucose (UA) Urine Ketones Urine Occult Blood Urine Nitrate Urine Bilirubin Urine Urobilinogen Ur Leukocyte Esterase Urine RBC Urine WBC Urine Bacteria Ur Culture Indicated? SARS-CoV-2 (PCR) Negative 10/18/20 10/18/20 05:06 05:06 WBC RBC Hgb Hct MCV MCH MCHC RDW Plt Count Neut % (Auto) Lymph % (Auto) Dickson % (Auto) Eos % (Auto) Baso % (Auto) Lymph # (Auto) Dickson # (Auto) Baso # (Auto) Total Counted Seg Neutrophils % Band Neutrophils % Lymphocytes % (Manual) Atypical Lymphs % Monocytes % (Manual) Eosinophils % (Manual) Neutrophils # (Manual) Smudge Cells RBC Morphology Anisocytosis PT 23.7 H D INR 2.1 H APTT Sodium 136 L Potassium 3.5 Chloride 108 H Carbon Dioxide 25 BUN 12 Creatinine 0.73 Estimated GFR > 60.0 BUN/Creatinine Ratio 16.4 Glucose 72 L Lactate Calcium 8.0 L Magnesium Total Bilirubin 1.2 Conjugated Bilirubin Unconjugated Bilirubin AST 65 H ALT 27 Alkaline Phosphatase 60 Total Creatine Kinase CK-MB (CK-2) CK-MB (CK-2) Rel Index Troponin I Total Protein 4.6 L Albumin 2.4 L Globulin 2.2 Albumin/Globulin Ratio 1.1 Urine Color Urine Appearance Urine pH Ur Specific [place] Urine Protein Urine Glucose (UA) Urine Ketones Urine Occult Blood Urine Nitrate Urine Bilirubin Urine Urobilinogen Ur Leukocyte Esterase Urine RBC Urine WBC Urine Bacteria Ur Culture Indicated? SARS-CoV-2 (PCR) [facility] Medical History (Updated 10/18/20 @ 02:39 by EDA Beavers) Balance problem Breast cancer, left Chicken pox Colitis (~1984) Colon polyps (~1984) Crohn's disease (~1984) Depression Diverticular disease (~1984) Diverticulitis Dizziness Easy bruisability Fatigue Frequent falls Hemorrhoid (~1984) Hypertension Knee pain Leukemia (~08/2018) Leukemia, chronic Measles Mitral valve disease Nausea with vomiting, unspecified Orthostatic hypotension Osteoporosis Pericardial effusion Physical deconditioning Physician orders for life-sustaining treatment (POLST) form indicates patient wish for [id number] status Vertigo Surgical History Anesthesia History of bunionectomy of both great toes History of section (~1959) History of ileostomy (~1983) History of total colectomy Family History Brother Diabetes mellitus Heart disease Brother Diabetes mellitus Heart disease Mother Hypertension Father Cancer Sister Cancer Social History household members: children Smoking Status: Never smoker alcohol intake: never substance use type: does not use Discharge Plan Discharge Plan Patient Disposition: Home Health Service Provider Discharge Comment: You were admitted to the hospital with a urinary tract infection. Some of your symptoms improved, but many are chronic in nature. Home health was re-ordered for you. Please complete course of oral antibiotics for possible UTI at home. Discharge orders & Medications Prescriptions: New nitrofurantoin monohyd/m-cryst [Macrobid] 100 mg Capsule 100 mg PO BID 4 Days Qty: 8 RF: 0 Continued apixaban 2.5 mg tablet 2.5 mg PO BID Qty: 180 RF: 0 rosuvastatin 10 mg tablet See Rx Instructions .ROUTE .COMPLEX Qty: 90 RF: 0 fludrocortisone 0.1 mg tablet 0.1 mg PO DAILY Qty: 90 RF: 1 levothyroxine [Synthroid] 25 mcg tablet 25 mcg PO DAILY@0600 Qty: 90 RF: 1 metoprolol succinate 25 mg tablet extended release 24 hr 12.5 mg PO DAILY Qty: 45 RF: 1 oxycodone 10 mg tablet See Rx Instructions .ROUTE .COMPLEX Qty: 180 RF: 0 magnesium oxide 400 mg magnesium tablet 400 mg PO DAILY Qty: 90 RF: 3 ondansetron 4 mg tablet,disintegrating 4 mg PO Q8H PRN (Reason: nausea and vomiting) Qty: 30 RF: 1 Disabled Parking Permit 1 dev miscellaneous DIRECTED RF: 0 amiodarone 200 mg tablet 200 mg PO DAILY RF: 0 latanoprost [Xalatan] 0.005 % drops 1 p EYE-BOTH BEDTIME RF: 0 venlafaxine [Effexor XR] 75 mg capsule,extended release 24hr 75 mg PO DAILY RF: 0 Follow up/Referrals: Chance Funk DO [Primary Care Provider] - Diet/Activity/Treatments Diet: Diet as Tolerated Activity: As tolerated Visit Report/Discharge Packet Instructions: DI for Dehydration -- Adult, DI for Urinary Tract Infection (UTI), How to Prevent Falls, DI for Prescription Opioid Use Discharge Data Primary Care Provider: Chance Funk Attending Provider: Hanna Dixon
--- NOTE | 2020-10-18 10:39 | CM.DANOTE ---
Addendum entered by Mesha Cornelius R.N. 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 Asked her if patient had improved with her mobility when she came back from [place], and daughter indicated, not really, she watched TV most of the time when she was there, and didn't work with therapy all the time. Daughter is requesting to have [facility] come in the afternoons, as patient likes to sleep in, and it takes daughter time to get her ready. Let her know that this machine adjuster leader case trim will call [facility] and make requests for afternoon visits. Called [facility] and spoke to Sabina, and asked if they can see patient in the afternoon, and she stated, she would alert the team. Addendum entered by Mesha Cornelius R.N. 10/18/20 11:21: Contacted patient's daughter, Bharath, who had just woken up. Let her know that patient will be discharged today, as order is in, and will order [facility]. Did let her know that patient has not yet worked with P.T. Let her know that for home health, nursing, P.T, O.T, RECOVERY OPERATOR HELPER, and bath aide can be ordered, which daughter indicated, would be a good idea. She will be planning on coming in later today. Will go ahead and send orders to [facility], and will update Sabina at [facility]. Original Note: DCP; Case received, EMR reviewed and met with patient. Introduced self and role. Was able to obtain some information from patient regarding her home needs and living situation, as well as looking at ER RECOVERY OPERATOR HELPER note from yesterday. DCP assessment completed with information currently available. Patient is an 85 year old female who admitted yesterday evening to the care of the hospitalist team. PCP: Dr. Funk. Payer: confirmed: [facility] [place] [employer]. Patient came to the hospital via ambulance secondary to weakness. Patient holds current diagnosis of UTI, and is planned to go home on oral antibiotics, and to encourage fluids. Patient had been in the ER and [facility], had worked with patient and daughter regarding resources. Patient had been recently discharged from [facility] in [place], and returned home with daughter as caregiver. It is noted that [facility] had not been in touch with daughter regarding visits, and that Amy had tried to reach them yesterday. Called Sabina at [facility], and she mentioned that they had attempted to see patient 3 times, and daughter had indicated that she was too tired. Sabina indicated that patient would need a new face to face for [place]. Had Dr. Wang sign face to face. Patient is pleasant. She was sitting up in bed, alert. Confirmed that she lives with her daughter, Bharath, here in [place], and her grand son. She is dependent upon showers, meals, and toileting, for she is a fall risk. She uses a walker. P: Patient should be discharged home today, for she is able to go home with oral antibiotics, but she will be working with P.T. first. Will attempt to meet up with daughter today, and will fax [facility] over her face to face, orders, H&P, DC Summary. Will add nursing, P.T, O.T, and possibly RECOVERY OPERATOR HELPER/bath aide. eMsha Cornelius RN/Collar Setter Overlock
[2020-10-18] MEDS: NITROFURANTOIN ER 100 MG CAPSULE PO (11:04)
--- NOTE | 2020-10-18 12:15 | PT.IIE ---
Surgical History (Last Reviewed 10/18/20 @ 02:43 [facility] Anesthesia Medical History (Last Updated 10/18/20 @ 02:39 by [facility] Balance problem Breast cancer, left Chicken pox Colitis (~1984) Colon polyps (~1984) Crohn's disease (~1984) Depression Diverticular disease (~1984) Diverticulitis Dizziness Easy bruisability Fatigue Frequent falls Hemorrhoid (~1984) Hypertension Knee pain Leukemia (~08/2018) Leukemia, chronic Measles Mitral valve disease Nausea with vomiting, unspecified Orthostatic hypotension Osteoporosis Pericardial effusion Physical deconditioning Physician orders for life-sustaining treatment (POLST) form indicates patient wish for nb-zfl-jusglwjccwk status Vertigo Physical Therapy Inpatient Evaluation/Re-Eval M1 PT/OT-IP Prior Functional Status Start: 10/18/20 14:48 Freq: NEEDED Status: Active Protocol: Document 10/18/20 12:15 AB (Rec: 10/18/20 15:[facility] Medical Review Prior Functional Status Medical History Reviewed Yes Communication able to make needs known; with confusion Mobility and Gait stated that she uses either a FWW or a 4WW for ambulation and daughter provides assist as needed but able to ambulate with SBA from daughter Social History Household Members children Living Arrangements House Number of Floors (Floors) One Floor Number of Stairs To Enter/Railing? 3 steps L rail ascending Home Environment Standard Height Toilet,Tub/ Shower Home Equipment Front Wheel Walker,Four Wheel Walker,Straight Cane,Grab Bars In Shower M2 PT-IP Current Condition Start: 10/18/20 14:48 Freq: NEEDED Status: Active Protocol: Document 10/18/20 12:15 AB (Rec: 10/18/20 15:01 AB [email or web address]) Physical Therapy Current Condition Current Condition Evaluation Date 10/18/20 Treatment Diagnosis weakness; GLF; difficulty in walking Onset Date 10/17/20 Precautions Other Precautions falls; orthostatic hypotension M3 PT-IP Subjective Start: 10/18/20 14:48 Freq: NEEDED Status: Active Protocol: Document 10/18/20 12:15 AB (Rec: 10/18/20 15:01 AB [email or web address]) Subjective Physical Therapy Visit Type Type Initial Evaluation Visit Start Time 12:15 Visit Stop Time 12:50 Total Visit Minutes 35 Number of PHYSICIAN GENERAL PRACTICE Visits 0 Physical Therapy Visit Comments Patient Comments agreeable to do PT M4 PT-IP Mobility and Gait Start: 10/18/20 14:48 Freq: NEEDED Status: Active Protocol: Document 10/18/20 12:15 AB (Rec: 10/18/20 15:01 AB [email or web address]) PT-Bed Mobility Assessment Supine to Sit Supine to Sit Maximum Assistance,1 Person Assistance PT-Transfer Assessment Sit to and From Stand Sit to and from Stand Minimal Assistance,Moderate Assistance,1 Person Assistance ,Use of Upper Extremities Equipment Transfer Assistive Device Gait Belt,Front Wheeled Walker Orthotic/Prosthetic Devices or Brace: No Transfers Transfer Destination Chair Transfer Technique Stand Step Pivot Transfer Ability Level of Assist Minimal Assistance,Moderate Assistance,1 Person Assistance ,Use of Upper Extremities Comments Mobility Comments BP monitored. BP in supine: 122/59. pt completed supine to sit max A and max cues. able to sit on EOB SBA to CGA. BP in sitting : 127/57. c/o dizziness and shakiness. pt tolerated sitting on EOB for 2 more minutes and BP checked again: 124/52. pt completed sit to stand min A and cues. BP in standin/54. c/o increase dizziness and noted increase shakiness. BP checked after 2 min of standing but pt has to sit down midway. BP : 102/56. pt rested for a few seconds and agreed to transfer to chair for lunch. completed step transfer to chair using FWW min to mod A and cues. BP after transfers: 130/63. asked pt if willing to ambulate and refused. stated that she is still feeling very dizzy and shakey from standing and cannot ambulate. positioned pt on chair. call light and table placed within reach. Left pt with NAC. Gait Assessment Comments Gait Comments unable at this time PT-Balance Assessment Sitting Balance and Reactions Static Sitting Balance Ability Good Dynamic Sitting Balance Ability Fair Standing Balance and Reactions Static Standing Balance Ability Fair Dynamic Standing Balance Ability Poor Device Used FWW M5 PT-IP Objective Assessments Start: 10/18/20 14:48 Freq: NEEDED Status: Active Protocol: Document 10/18/20 12:15 AB (Rec: 10/18/20 15:01 AB [id number]) Orientation Orientation/Cognition Level of Alertness Confusional State Orientation Name Safety Awareness Decreased Safety Awareness Gross Range of Motion Lower Extremity ROM Assessment Within Functional Limits Strength Lower Extremity Strength Hip 4-/5 Knee 4-/5 Muscle Tone Muscle Tone WNL Yes M6 PT-IP Treatment Start: 10/18/20 14:48 Freq: NEEDED Status: Active Protocol: Document 10/18/20 12:15 AB (Rec: 10/18/20 15:01 AB [email or web address]) Physical Therapy Treatment Education Education Provided Safety M7 PT-IP Assessment and Plan Start: 10/18/20 14:48 Freq: NEEDED Status: Active Protocol: Document 10/18/20 12:15 AB (Rec: 10/18/20 15:01 AB [email or web address]) PT Summary Assessment and Plan Potential Rehabilitation Potential Fair Status of Condition at Evaluation Evolving Summary Impairments Pain,ROM,Strength,Balance, Coordination,Sensation,Tone, Cognition,Bed Mobility, Transfers,Gait,Activity Tolerance Assessment Summary pt requiring min to mod A with transfers and unable to tolerate much activity with c/ o increas dizziness and shakiness with decrease in BP from 122/59 in supine to 101/ 54 in standing. pt unable to ambulate at this time. will continue to assess progress for safe d/c home. pt may require SNF rehab or will need 24/7 assist available at home . Goals Bed Mobility Goal Standby Assistance Transfer Goal Standby Assistance,Front Wheeled Walker Gait Goal Standby Assistance,Front Wheel Walker Gait Distance 100 Other Goals up/down 3 steps L rail ascending SBA Days to Meet Goals 10 Frequency of Treatment Frequency Of Treatment Once a Day Treatment Plan Physical Therapy Treatment Plan Bed Mobility Training,Transfer Training,Gait Training, Therapeutic Exercise,Balance Retraining,Discharge Planning, Neuromuscular Re-ed, Coordination Retraining Precautions Other Precautions falls; BP Recommendations To Nursing Amount of Assist Needed 1 Person Assist Discharge Recommendations PT Discharge Recommendations Home with 24/7 Assist Available,SNF Rehab,Home vs SNF Transportation Needs at Discharge Private Vehicle,Wheelchair/ Cabulance
--- NOTE | 2020-10-18 13:37 | PC.NURSE ---
Per P.T. patient was assisted to transfer to chair for lunch, unable to ambulate at this time due to feeling shaky and dizzy, Dr. Wang notified and aware of ingoing/chronic dizziness and BP issues. Tolerating sitting up in chair for lunch at this time without further complaint, tolerating meals. Per case management patient's daughter will be in to pick her up and take her home for discharge.
--- NOTE | 2020-10-18 15:48 | PC.NURSE ---
Discharge instructions reviewed with patient and her daughter, they state understanding and have no further questions or concerns at this time. IV dc'd intact. Prescription sent in electronically by MD. Home health referral per case management, re-ordered. Escorted out via wheelchair to discharge to home with daughter and family.
== END 2020-10-18 15:51 | disposition home health service (06) ==
LOC: ED 19:54 → AC 19:59
PROVIDERS: Admitting Provider Nurse Practitioner Family; Emergency Provider Student in an Organized Health Care Education/Training Program; PCP Family Medicine; Visit Provider Nurse Practitioner Family
DX: R53.1 Weakness (principal); S00.31XA Abrasion of nose, initial encounter; N39.0 Urinary tract infection, site not specified; J90 Pleural effusion, not elsewhere classified; W01.198A Fall on same level from slipping, tripping and stumbling with subsequent striking against other object, initial encounter; Y92.092 Bedroom in other non-institutional residence as the place of occurrence of the external cause; C95.10 Chronic leukemia of unspecified cell type not having achieved remission; I48.19 Other persistent atrial fibrillation; D53.9 Nutritional anemia, unspecified; E78.5 Hyperlipidemia, unspecified; N17.9 Acute kidney failure, unspecified; F32.9 Major depressive disorder, single episode, unspecified; I11.0 Hypertensive heart disease with heart failure; I50.9 Heart failure, unspecified; I95.1 Orthostatic hypotension; Z91.81 History of falling; I27.20 Pulmonary hypertension, unspecified; I36.1 Nonrheumatic tricuspid (valve) insufficiency; Z79.01 Long term (current) use of anticoagulants; Z20.822 Contact with and (suspected) exposure to COVID-19
CPT/HCPCS: 36415; 70450; 71046; 80048; 80053; 80076; 81001; 82550; 83605; 83735; 84484; 85007; 85025; 85610; 85730; 87040; 87077; 87086; 87186; 87635; 93005; 93010; 96361; 96365; 96366; 97162; 99284; C9803; G0378; J0744

== ENCOUNTER 2020-11-01 23:11 | Inpatient (IN) | payer OTHER, SELFPAY ==
[2020-10-17 21:04] VITALS: BMI 20.5
[2020-11-01 23:23] VITALS: BP 102/58; PULSE 80; RESP 18; TEMP 37; O2SAT 93; BMI 22.7
[2020-11-01 23:33] VITALS: PULSE 82; RESP 28; O2SAT 94
--- NOTE | 2020-11-01 23:51 | DI.CT.S_ITS ---
PROCEDURE: CT HEAD/BRAIN WO CON INDICATIONS: Fall/injury/altered mental status TECHNIQUE: Noncontrast 4.5 mm thick angled axial sections acquired from the foramen magnum to the vertex, with coronal and sagittal reformats. For radiation dose reduction, the following was used: automated exposure control, adjustment of mA and/or kV according to patient size. COMPARISON: [facility], CT, CT HEAD/BRAIN WO CON, 10/17/2020, 12:36. [facility], CT, CT HEAD/BRAIN WO CON, 08/24/2020, 20:43. FINDINGS: Image quality: Excellent. CSF spaces: Basal cisterns are patent. No extra-axial fluid collections. The ventricles are symmetric in size and shape. Brain: No intracranial bleeds or masses. There is cerebral volume loss for age, with resultant ventricular and sulcal prominence. There are periventricular and deep white matter chronic small vessel ischemic changes. There is intracranial internal carotid artery atherosclerosis. Skull and face: Calvarium and visualized facial bones appear intact, without suspicious lesions. Sinuses: Visualized sinuses and mastoids are clear. IMPRESSION: No acute intracranial disease process. Dictated by: Marita Singer MD, PhD on 11/02/2020 at 7:26 Approved by: Marita Singer MD, PhD on 11/02/2020 at 7:28
--- NOTE | 2020-11-01 23:52 | DI.CT.S_ITS ---
PROCEDURE: CT CERVICAL SPINE WO CON INDICATIONS: Fall/injury TECHNIQUE: Noncontrast 3 mm thick sections acquired from the skull base to the T4 level. Sagittal and coronal reformats were then constructed. For radiation dose reduction, the following was used: automated exposure control, adjustment of mA and/or kV according to patient size. COMPARISON: None. FINDINGS: Image quality: Excellent. Bones: No fractures or dislocations. Visualized superior ribs are intact. Spine degenerative disc disease and facet arthropathy. Soft tissues: Prevertebral soft tissues are normal in thickness. No paravertebral hematomas. No apical pneumothoraces. Large left-sided pleural fluid collection. IMPRESSION: No fracture. No osseous lesion. If symptoms and/or clinical suspicion for pathology persists, further assessment with repeat radiographs (7-10 days) or advanced imaging (e.g. CT, MRI or bone scan) should be considered. Dictated by: Marita Singer MD, PhD on 11/02/2020 at 7:42 Approved by: Marita Singer MD, PhD on 11/02/2020 at 7:46
--- NOTE | 2020-11-01 23:53 | ED_ITS ---
HPI - Altered Mental Status General Chief Complaint: Dizziness Stated Complaint: fell out of bed, back pain Time Seen by Provider: 11/01/20 23:39 Source: patient, family and EMS Mode of arrival: EMS Limitations: no limitations History of Present Illness HPI narrative: Patient here for altered mental status. Brought in by EMS from home. Daughter at bedside. Daughter found patient on carpeted floor at home by her bed. Patient unsure why she was on the floor. Daughter states all day she has been hallucinating and confused. She states her urine has been foul odor. Decreased oral intake as well. Patient admitted here for UTI last month. Did go to short course of long-term home facility but now back home. Patient is DNR DNI. However amenable for medications and IV fluids. Patient does have odor of urine. Patient has clear speech. Answering appropriately at this time. Is oriented to self and daughter and where she has had right now. Has decrease in oral intake. Has had weight loss as well. Patient denies any injury at this time from the fall other than knee pain which she has full fle xion extension without any difficulty. Denies any back pain or head pain or neck pain. Denies abdominal pain. Denies any other limb pain or hip pain Related Data Home Medications Medication Instructions Recorded Confirmed Disabled Parking Permit 1 dev MISCELLANEOUS DIRECTED 06/02/18 10/18/20 amiodarone 200 mg tablet 200 mg PO DAILY 08/25/20 11/01/20 latanoprost 0.005 % eye drops 1 drp EYE-BOTH BEDTIME 08/25/20 11/01/20 (Xalatan) venlafaxine 75 mg capsule,extended 75 mg PO DAILY 08/25/20 11/01/20 release 24 hr (Effexor XR) oxycodone 10 mg tablet See Rx Instructions .ROUTE 11/01/20 11/01/20 .COMPLEX PRN rosuvastatin 10 mg tablet 10 mg PO BEDTIME 11/01/20 11/01/20 Previous Rx's Medication Instructions Recorded apixaban 2.5 mg tablet 2.5 mg PO BID #180 tab 06/23/20 magnesium oxide 400 mg PO DAILY #90 tab 07/14/20 fludrocortisone 0.1 mg tablet 0.1 mg PO DAILY #90 tab 09/14/20 levothyroxine 25 mcg tablet 25 mcg PO DAILY@0600 #90 tab 09/14/20 (Synthroid) metoprolol succinate 25 mg 12.5 mg PO DAILY #45 tab 09/14/20 tablet,extended release 24 hr ondansetron 4 mg disintegrating 4 mg PO Q8H PRN #30 tab 10/06/20 tablet Allergies Allergy/AdvReac Type Severity Reaction Status Date / Time cefoxitin [CEFOXITIN] Allergy Mild HIVES Verified 10/17/20 12:29 Sulfa (Sulfonamide Allergy Unknown Doesn't Verified 10/17/20 12:29 Antibiotics) remember Review of Systems Review of Systems Narrative: GENERAL: Denies chills, complains fatigue, malaise, denies fever, sweats. HEENT: Denies sinus pain, ear pain, sore throat RESPIRATORY: Denies dyspnea, cough CARDIOVASCULAR: Denies chest pain, palpitations GASTROINTESTINAL: Denies nausea, vomiting, abdominal pain : Complains dysuria, frequency, denies hematuria MUSCULOSKELETAL: denies muscle or bony pain SKIN: Denies rash, skin lesions NEUROLOGIC: Denies weakness, numbnes complains of altered mental status ROS Unobtainable: All systems reviewed & are unremarkable except as noted in HPI and below Patient History Medical History (Updated 11/02/20 @ 00:41 by Baron Huerta MD) Balance problem Breast cancer, left Chicken pox Colitis (~1984) Colon polyps (~1984) Crohn's disease (~1984) Depression Diverticular disease (~1984) Diverticulitis Dizziness Easy bruisability Fatigue Frequent falls Hemorrhoid (~1984) Hypertension Knee pain Leukemia (~08/2018) Leukemia, chronic Measles Mitral valve disease Nausea with vomiting, unspecified Orthostatic hypotension Osteoporosis Pericardial effusion Physical deconditioning Physician orders for life-sustaining treatment (POLST) form indicates patient wish for up-qgw-iocwmdsqeai status Vertigo Surgical History Anesthesia History of bunionectomy of both great toes History of section (~1959) History of ileostomy (~1983) History of total colectomy Family History Brother Diabetes mellitus Heart disease Brother Diabetes mellitus Heart disease Mother Hypertension Father Cancer Sister Cancer Social History household members: children Smoking Status: Never smoker alcohol intake: never substance use type: does not use Smoking Status: Never smoker Substance Use Type: does not use Exam Initial Vital Signs Initial Vital Signs: Vital Signs Temperature 98.6 F 11/01/20 23:23 Pulse Rate 80 11/01/20 23:23 Respiratory Rate 18 11/01/20 23:23 Blood Pressure 102/58 L 11/01/20 23:23 Pulse Oximetry 93 11/01/20 23:23 Course Course Course Narrative: No new issues during course of stay Decision to Admit Date: 11/02/20 Decision to Admit time: 00:39 Orders Ordered: ED Orders 11/01/20 23:50 EKG-12 Lead Stat 11/01/20 23:51 CT head/brain wo con Stat 11/01/20 23:52 CT cervical spine wo con Stat 11/01/20 23:57 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) Stat 11/01/20 23:58 Complete Blood Count AUTO DIFF Stat Comprehensive Metabolic Panel Stat Lactate (Lactic Acid) Stat Procalcitonin Stat Troponin & CK Cardiac Panel Stat 11/02/20 00:43 US abdomen limited Stat 11/02/20 00:48 Blood Culture Stat 11/02/20 01:35 Urinalysis and Microscopic Stat Acetaminophen (Acetaminophen 325 Mg Tablet) 650 mg PO Q6HR PRN PRN Reason: Fever/Mild Pain (1-3) Al Hydrox/Mg Hydrox/Simethicone (Mag Hydrox/Alum/Simeth 30 Ml Udc) 30 ml PO Q6HR PRN PRN Reason: Dyspepsia Lactated Ringer's (Lactated Ringers) 1,000 mls @ 150 mls/hr IV CONT JANETH Piperacillin Sod/Tazobactam (Sod 3.375 gm/ Sodium Chloride) 100 mls @ 25 mls/hr IV Q8H JANETH Magnesium Hydroxide (Magnesium Hydroxide 30 Ml Udc) 30 ml PO DAILY PRN PRN Reason: Constipation Naloxone HCl (Naloxone 0.4 Mg/Ml Vial) 0.2 mg IV Q2MIN PRN PRN Reason: Opiate Reversal Ondansetron HCl (Ondansetron 4 Mg/2 Ml Inj) 4 mg IV Q8HR PRN PRN Reason: Nausea And Vomiting Sennosides (Sennosides 8.6 Mg Tablet) 17.2 mg PO BEDTIME JANETH Discontinued Medications Sodium Chloride (Normal Saline 0.9%) 1,000 mls @ 1,000 mls/hr IV BOLUS ONE Stop: 11/02/20 00:51 Last Infusion: 11/02/20 00:39 Dose: 0 mls/hr Documented by: Admin: 11/02/20 00:12 Dose: 1,000 mls/hr Documented by: JULIANA Levofloxacin (Levaquin) 500 mg in 100 mls @ 100 mls/hr IV NOW ONE Stop: 11/02/20 01:43 Last Infusion: 11/02/20 02:13 Dose: 0 mls/hr Documented by: Admin: 11/02/20 01:00 Dose: 100 mls/hr Documented by: MARTA Sodium Chloride (Normal Saline 0.9%) 1,000 mls @ 1,000 mls/hr IV BOLUS ONE Stop: 11/02/20 01:56 Last Infusion: 11/02/20 02:12 Dose: 0 mls/hr Documented by: Admin: 11/02/20 00:59 Dose: 1,000 mls/hr Documented by: MARTA Reevaluation(s) Reevaluation #1: Reviewed results with patient and daughter. They agree for admit Time: 00:39 Consultations Consultation #1: Spoke with hospitalistHanna will admit Time: 01:28 Vital Signs Vital signs: Vital Signs - 8 hr 11/01/20 23:23 Temperature 98.6 F Pulse Rate 80 Respiratory Rate 18 Blood Pressure 102/58 L Pulse Oximetry 93 MDM - Altered Mental Status Differential Diagnosis Differential diagnosis: Likely altered mental status, dementia, other (Dehydration/UTI) and sepsis Medical Records Medical records narrative: Urine Culture Final 10/19/20-823 Organism 1 Escherichia coli [place] Count >100,000 CFU/ml 1. Escherichia coli M.I.C. RX --------- --- * Amoxicillin/Clavulanate <=2 S * Ampicillin 4 S * Ampicillin/Sulbactam <=2 S * Cefazolin <=4 S * Cefepime <=1 S * Ceftriaxone <=1 S * Ciprofloxacin <=0.25 S * Ertapenem <=0.5 S * Gentamicin <=1 S * Imipenem <=0.25 S * Levofloxacin <=0.12 S * Nitrofurantoin <=16 S * Tobramycin <=1 S * Trimethoprim/Sulfamethoxazole <=20 S * Piperacillin/Tazobactam <=4 S Lab Data Result diagrams: 11/01/20 23:58 11/01/20 23:58 Labs: Lab Results 11/01/20 11/01/20 11/01/20 Range/Units 23:58 23:58 23:58 WBC 5.4 (4.5-11.0) X10^3/uL RBC 2.69 L (4.0-5.2) X10^6/uL Hgb 9.2 L (12.0-16.0) g/dL Hct 27.1 L (36-46) % MCV 100.7 H (80-100) fL MCH 34.1 H (26-34) PG MCHC 33.9 (30-36) % RDW 21.3 H (11.6-14.8) % Plt Count 209 (150-400) X10^3/uL Neut % (Auto) Not Reportable Lymph % (Auto) Not Reportable [place] % (Auto) Not Reportable Eos % (Auto) Not Reportable Baso % (Auto) Not Reportable Lymph # (Auto) Not Reportable [place] # (Auto) Not Reportable Baso # (Auto) Not Reportable Total Counted 100 Seg Neutrophils % 34.0 L (38-70) % Band Neutrophils % 3.0 (3-7) % Lymphocytes % (Manual) 51.0 H (25-45) % Atypical Lymphs % 7.0 H ( - 0) % Monocytes % (Manual) 4.0 (2-11) % Eosinophils % (Manual) 1.0 L (2-4) % Neutrophils # (Manual) 1998 L (6172-5692) /uL RBC Morphology See below Anisocytosis 2+ H Sodium 135 L (137-145) mmol/L Potassium 3.9 (3.4-5.1) mmol/L Chloride 104 (98-107) mmol/L Carbon Dioxide 24 (22-32) mmol/L BUN 13 (7-17) mg/dL Creatinine 0.93 (0.52-1.04) mg/dL Estimated GFR 57.2 L (>60) mL/min BUN/Creatinine Ratio 14.0 (6-22) Glucose 113 H (80-110) mg/dL Lactate (0.7-2.1) mmol/L Calcium 7.9 L (8.4-10.2) mg/dL Phosphorus (2.8-4.1) mg/dL Magnesium (1.6-2.3) mg/dL Total Bilirubin 1.7 H (0.2-1.3) mg/dL AST 140 H (14-36) IU/L ALT 77 H (<35) IU/L Alkaline Phosphatase 79 (38-126) U/L Total Creatine Kinase 30 (30-135) U/L CK-MB (CK-2) TNP CK-MB (CK-2) Rel Index TNP Troponin I 0.024 (0.01-0.034) ng/mL Total Protein 5.0 L (6.3-8.2) g/dL Albumin 2.7 L (3.5-5.0) g/dL Globulin 2.3 (1.7-4.1) g/dL Albumin/Globulin Ratio 1.2 (1.0-2.8) Procalcitonin 0.12 (<0.5) ng/mL SARS-CoV-2 (PCR) (Negative) 11/01/20 11/01/20 11/02/20 Range/Units 23:58 23:58 00:00 WBC (4.5-11.0) X10^3/uL RBC (4.0-5.2) X10^6/uL Hgb (12.0-16.0) g/dL Hct (36-46) % MCV (80-100) fL MCH (26-34) PG MCHC (30-36) % RDW (11.6-14.8) % Plt Count (150-400) X10^3/uL Neut % (Auto) Lymph % (Auto) [place] % (Auto) Eos % (Auto) Baso % (Auto) Lymph # (Auto) [place] # (Auto) Baso # (Auto) Total Counted Seg Neutrophils % (38-70) % Band Neutrophils % (3-7) % Lymphocytes % (Manual) (25-45) % Atypical Lymphs % ( - 0) % Monocytes % (Manual) (2-11) % Eosinophils % (Manual) (2-4) % Neutrophils # (Manual) (8053-5038) /uL RBC Morphology Anisocytosis Sodium (137-145) mmol/L Potassium (3.4-5.1) mmol/L Chloride (98-107) mmol/L Carbon Dioxide (22-32) mmol/L BUN (7-17) mg/dL Creatinine (0.52-1.04) mg/dL Estimated GFR (>60) mL/min BUN/Creatinine Ratio (6-22) Glucose (80-110) mg/dL Lactate 4.0 H (0.7-2.1) mmol/L Calcium (8.4-10.2) mg/dL Phosphorus 3.5 (2.8-4.1) mg/dL Magnesium 1.9 (1.6-2.3) mg/dL Total Bilirubin (0.2-1.3) mg/dL AST (14-36) IU/L ALT (<35) IU/L Alkaline Phosphatase (38-126) U/L Total Creatine Kinase (30-135) U/L CK-MB (CK-2) CK-MB (CK-2) Rel Index Troponin I (0.01-0.034) ng/mL Total Protein (6.3-8.2) g/dL Albumin (3.5-5.0) g/dL Globulin (1.7-4.1) g/dL Albumin/Globulin Ratio (1.0-2.8) Procalcitonin (<0.5) ng/mL SARS-CoV-2 (PCR) Negative (Negative) Imaging Data CT scan - head: Radiologist's Impression: Read by overnight radiologist moderate nonspecific periventricular and deep white matter disease. CT - cervical spine: Radiologist's Impression: Read by overnight radiologist. No acute fracture ECG Data Interpretation: Junctional rhythm rate [address] elevation or depression MDM Narrative Medical decision making narrative: Appropriate for admission for urinary tract infection causing altered mental status. Lactic acid elevated. However. No elevate creatinine or T bilirubin over 2.0. Platelets greater than 100,000 Discharge Plan Departure Patient Disposition: Admitted as Observation Clinical Impression: UTI (urinary tract infection) Qualifiers: Urinary tract infection type: site unspecified Hematuria presence: with hematuria Qualified Code(s): N39.0 - Urinary tract infection, site not specified Admit Date/Time: 11/02/20 01:27 Admit Provider: Hanna Dixon
[2020-11-02] VITALS (16 sets, daily range): BP systolic 90–149; BP diastolic 44–72; PULSE 73–98; RESP 14–25; TEMP 36.3–37.1; O2SAT 95–100; BMI 22.8
[2020-11-02] MEDS: SODIUM CHLORIDE 0.9% 1,000 ML 1000 ML IV ×3 (00:12→17:31)
[2020-11-02 00:24] LABS: Creatine Kinase 30 U/L (30-135)
[2020-11-02 00:25] LABS: Alanine Aminotransferase 77 IU/L (<35); Albumin 2.7 g/dL (3.5-5.0); Albumin Globulin Ratio 1.2 (1.0-2.8); Alkaline Phosphatase 79 U/L (38-126); Aspartate Aminotransferase 140 IU/L (14-36); Bilirubin Total 1.7 mg/dL (0.2-1.3); Blood Urea Nitrogen 13 mg/dL (7-17); Calcium 7.9 mg/dL (8.4-10.2); Carbon Dioxide 24 mmol/L (22-32); Chloride 104 mmol/L (98-107); Estimated Glomerular Filt Rate 57.2 mL/min (>60); Globulin 2.3 g/dL (1.7-4.1); Glucose 113 mg/dL (80-110); HEMOLYSIS < 15 (0-50); Hematocrit 27.1 % (36-46); Hemoglobin 9.2 g/dL (12.0-16.0); Mean Corpuscular HGB Conc 33.9 % (30-36); Mean Corpuscular Hemoglobin 34.1 PG (26-34); Mean Corpuscular Volume 100.7 fL (80-100); Platelet Count 209 X10^3/uL (150-400); Potassium 3.9 mmol/L (3.4-5.1); Red Blood Cell Count 2.69 X10^6/uL (4.0-5.2); Red Cell Distribution Width 21.3 % (11.6-14.8); Sodium 135 mmol/L (137-145); White Blood Cell Count 5.4 X10^3/uL (4.5-11.0)
[2020-11-02 00:26] LABS: Add Manual Diff / Slide Review YES
[2020-11-02 00:36] LABS: Troponin I 0.024 ng/mL (0.01-0.034)
[2020-11-02 00:41] LABS: Procalcitonin 0.12 ng/mL (<0.5)
--- NOTE | 2020-11-02 00:43 | DI.US.S_ITS ---
PROCEDURE: US ABDOMEN LIMITED INDICATIONS: Abdominal pain TECHNIQUE: Real-time focused scanning was performed of the abdomen, with image documentation. COMPARISON: None. FINDINGS: Liver is normal in size and homogeneous in echotexture. 2.7 x 1.6 x 2.6 centimeter cyst noted in the left lobe of the liver adjacent to the gallbladder. Gallbladder is sonographically normal. No gallstones. No gallbladder wall thickening. No pericholecystic fluid. No sonographic Chandler sign. Biliary tree is nondilated. Pancreas is sonographically normal. IMPRESSION: No sonographic evidence of cholelithiasis or cholecystitis. If there is continued clinical concern for cholecystitis, a nuclear medicine HIDA scan should be considered for further evaluation. Dictated by: Marita Singer MD, PhD on 11/02/2020 at 7:56 Approved by: Marita Singer MD, PhD on 11/02/2020 at 7:57
[2020-11-02 00:54] LABS: Neutrophils Absolute Manual 1998 /uL (3000-5900); Total Cells Counted 100
[2020-11-02 00:55] LABS: Anisocytosis 2+
[2020-11-02] MEDS: levoFLOXacin 500 MG/100 ML PIGGYBACK 100 MG IV (01:00)
[2020-11-02 01:06] LABS: COVID19 - ADMIT (NP swab/PCR) Negative (Negative)
[2020-11-02 01:42] LABS: Appearance Urine UA CLOUDY; Bilirubin Urine UA NEGATIVE (NEGATIVE); Color Urine UA YELLOW; Glucose Urine UA NEGATIVE (Negative); Ketones Urine UA TRACE (NEGATIVE); Leukocyte Esterase Urine UA 3+ (NEGATIVE); Nitrite Urine UA POSITIVE (Negative); Occult Blood Urine UA 3+ (Negative); Protein Urine UA 2+ (Negative); Urobilinogen Urine UA 0.2 E.U./dL (0.2)
[2020-11-02 01:46] LABS: pH Urine UA 6.5 (4.5-8.0)
[2020-11-02 01:52] LABS: Bacteria Urine Many (>30); Culture Indicated Urine Specimen Cultured; RBC Urine 5-10/HPF (0-5/HPF); Squamous Epithelial Cell Urine 0-1 /HPF (0-5/HPF); WBC Urine >100/HPF (0-5/HPF)
[2020-11-02 02:05] LABS: Magnesium 1.9 mg/dL (1.6-2.3); Phosphorous 3.5 mg/dL (2.8-4.1); Reflexed Lactate in 2 Hours Y
[2020-11-02] MEDS: LACTATED RINGERS 1,000 ML 150 ML IV (03:30)
[2020-11-02 03:31] LABS: Lactate 2HR (Lactic Acid Rflx) 2.5 mmol/L (0.7-2.1)
[2020-11-02 03:32] LABS: BUN Creatinine Ratio 15.1 (6-22); Blood Urea Nitrogen 13 mg/dL (7-17); Calcium 7.3 mg/dL (8.4-10.2); Carbon Dioxide 22 mmol/L (22-32); Chloride 107 mmol/L (98-107); Estimated Glomerular Filt Rate > 60.0 mL/min (>60); Glucose 113 mg/dL (80-110); HEMOLYSIS < 15 (0-50); Potassium 3.8 mmol/L (3.4-5.1); Sodium 134 mmol/L (137-145)
[2020-11-02 03:44] LABS: NT-proBNP (BNP-Adult 18+) 3190 pg/mL (<450); Troponin I 0.032 ng/mL (0.01-0.034)
--- NOTE | 2020-11-02 06:00 | PM.HP.1 ---
History of Present Illness History of Present Illness Chief complaint: fell out of bed, back pain Narrative: ?a history of recurrent falls, chronic dizziness, Orthostatic hypotension, breast cancer, AFib with RVR, HFpEF, pulmonary hypertension with moderate to severe tricuspid regurgitation, large granular lymphocytic leukemia, s/p total cholectomy & colostomy, osteoporosis, hypertension, hyperlipidemia, and depression.? Her AFib was last converted with cardioversion on 05/31/2020 at [facility] was seen in ED today for altered mental status.? Brought in by EMS from home.? Daughter at bedside.? Daughter found patient on carpeted floor at home by her bed.? Patient unsure why she was on the floor.? Daughter states all day she has been hallucinating and confused.? She states her urine has been foul odor.? Decreased oral intake as well.? Patient admitted here for UTI last month.? Did go to short course of halfway home facility but now back home.? Patient is DNR DNI.? However amenable for medications and IV fluids.? Patient does have odor of urine.? Patient has clear speech.? Answering appropriately at this time.? Is oriented to self and daughter and where she has had right now. Has decrease in oral intake.? Has had weight loss as well.? Patient denies any injury at this time from the fall other than knee pain which she has full flexion extension without any difficulty. Upon admit patient is alert and orientated x3 and answers appropriately, denies chest pain, shortness of breath, abdominal pain, nausea, vomiting, diarrhea, chills, urinary symptoms, bowel issues, headache, changes in vision, numbness tingling, recent illness injury or trauma. Patient's vitals upon admit patient is hypotensive with a BP of 102/58, map 73, documented previous blood pressures on last admit 145/67, 154/68. Patient's HR 80, RR 18, O2 saturation 93% on room air.. Sodium 135, glucose 113, GFR 57.2 last known GFR greater than 60. Patient has a lactate of 4.0, total bili 1.7, AST 140, ALT 77, troponin 0.024, total protein 5.0, albumin 2.7, procalcitonin 0.12, sofa score of 3. Patient given sepsis bundle in ED, Levaquin 500 mg 2 L IV fluid. Patient admitted with mild sepsis with encephalopathy likely due to urosepsis. Patient History Medical History Balance problem Breast cancer, left Chicken pox Colitis (~1984) Colon polyps (~1984) Crohn's disease (~1984) Depression Diverticular disease (~1984) Diverticulitis Dizziness Easy bruisability Fatigue Frequent falls Hemorrhoid (~1984) Hypertension Knee pain Leukemia (~08/2018) Leukemia, chronic Measles Mitral valve disease Nausea with vomiting, unspecified Orthostatic hypotension Osteoporosis Pericardial effusion Physical deconditioning Physician orders for life-sustaining treatment (POLST) form indicates patient wish for [id number] status Vertigo Surgical History Anesthesia History of bunionectomy of both great toes History of section (~1959) History of ileostomy (~1983) History of total colectomy Family & Social History Family History Brother Diabetes mellitus Heart disease Brother Diabetes mellitus Heart disease Mother Hypertension Father Cancer Sister Cancer Social History: household members children Prior Living Arrangements House Safety & Behavioral: Feels Safe in Current Yes Environment Been Physically Hurt or No Threatened By a Person Suicidal Ideation Description None Suicide Plan Description No Plan Tobacco & Substance use: Smoking Status Never smoker alcohol intake never Substance Use Type does not use Meds Home Medications and Allergies Home Medications Medication Instructions Recorded Confirmed Type Disabled Parking Permit 1 dev MISCELLANEOUS DIRECTED 06/02/18 10/18/20 History apixaban 2.5 mg tablet 2.5 mg PO BID #180 tab 06/23/20 11/01/20 Rx magnesium oxide 400 mg PO DAILY #90 tab 07/14/20 11/01/20 Rx amiodarone 200 mg tablet 200 mg PO DAILY 08/25/20 11/01/20 History latanoprost 0.005 % eye drops 1 drp EYE-BOTH BEDTIME 08/25/20 11/01/20 History (Xalatan) venlafaxine 75 mg capsule,extended 75 mg PO DAILY 08/25/20 11/01/20 History release 24 hr (Effexor XR) fludrocortisone 0.1 mg tablet 0.1 mg PO DAILY #90 tab 09/14/20 11/01/20 Rx levothyroxine 25 mcg tablet 25 mcg PO DAILY@0600 #90 tab 09/14/20 11/01/20 Rx (Synthroid) metoprolol succinate 25 mg 12.5 mg PO DAILY #45 tab 09/14/20 11/01/20 Rx tablet,extended release 24 hr ondansetron 4 mg disintegrating 4 mg PO Q8H PRN #30 tab 10/06/20 10/18/20 Rx tablet oxycodone 10 mg tablet See Rx Instructions .ROUTE 11/01/20 11/01/20 History .COMPLEX PRN rosuvastatin 10 mg tablet 10 mg PO BEDTIME 11/01/20 11/01/20 History Allergies Allergy/AdvReac Type Severity Reaction Status Date / Time cefoxitin [CEFOXITIN] Allergy Mild HIVES Verified 10/17/20 12:29 Sulfa (Sulfonamide Allergy Unknown Doesn't Verified 10/17/20 12:29 Antibiotics) remember Review of Systems Review of Systems Narrative: All 12 point systems reviewed with the patient and are negative except otherwise documented. Exam Vital Signs (past 8 hours): - 11/01/20 23:23 11/01/20 23:33 11/02/20 03:00 Temperature 98.6 F 98.1 F Pulse Rate 80 82 83 Respiratory Rate 18 28 H 16 Blood Pressure 102/58 L 120/44 L Pulse Oximetry 93 94 95 11/02/20 04:09 11/02/20 04:30 11/02/20 05:00 Temperature Pulse Rate 79 81 80 Respiratory Rate 21 25 H 22 Blood Pressure 90/51 L Pulse Oximetry 99 100 98 11/02/20 05:03 Temperature Pulse Rate 95 H Respiratory Rate 23 Blood Pressure 105/51 L Pulse Oximetry 97 Oxygen Delivery Method Nasal Cannula Narrative Exam Narrative: Patient is a well-developed, well-nourished dennys thin elderly female in no distress at this time. HEENT:? Normocephalic, atraumatic, extraocular muscles intact, oral pharynx is clear and mucous membranes are moist.? Neck is supple and symmetric, trachea is midline, no adenopathy, no thyroid enlargement, nontender, no masses palpated.? Negative for JVD Chest:? no nasal flaring, retractions, tachypneic, or labored work of breathing. Lungs:? Auscultation of all lung greenberg are clear without adventitious sounds, wheezes, rhonchi, or rales. Cardio:? regular rate and rhythm with whooshing mumur heard at left 5th IC stenal border, without, rubs, or gallops, no carotid bruit, no cardiac pulsations present. Abdomen:? Soft nontender, negative for organomegaly, or masses.? Bowel sounds are present, colostomy bag intact without bleeding, or signs of infection nontender, abd without guarding or rebound, no suprapubic tenderness,? no CVA tenderness. Musculoskeletal: no deformity, crepitus, effusions, cyanosis, clubbing or edema present.? Full range of motion intact radial and pedal pulses are normal. Skin:? Warm dry and intact without rashes, ulcerations or petechiae.? Neuro:? Alert and orientated to self, place, and time. sensation to touch intact, no gross deficits noted of cranial nerves. Psych:? Patient has a well-kept appearance, appropriate affect. Objective Labs Result Diagrams: 11/01/20 23:58 11/02/20 03:07 Labs: Laboratory Results - last 24 hr 11/01/20 11/01/20 11/01/20 23:58 23:58 23:58 WBC 5.4 RBC 2.69 L Hgb 9.2 L Hct 27.1 L MCV 100.7 H MCH 34.1 H MCHC 33.9 RDW 21.3 H Plt Count 209 Neut % (Auto) Not Reportable Lymph % (Auto) Not Reportable Campbell % (Auto) Not Reportable Eos % (Auto) Not Reportable Baso % (Auto) Not Reportable Lymph # (Auto) Not Reportable Campbell # (Auto) Not Reportable Baso # (Auto) Not Reportable Total Counted 100 Seg Neutrophils % 34.0 L Band Neutrophils % 3.0 Lymphocytes % (Manual) 51.0 H Atypical Lymphs % 7.0 H Monocytes % (Manual) 4.0 Eosinophils % (Manual) 1.0 L Neutrophils # (Manual) 1998 L RBC Morphology See below Anisocytosis 2+ H Sodium 135 L Potassium 3.9 Chloride 104 Carbon Dioxide 24 BUN 13 Creatinine 0.93 Estimated GFR 57.2 L BUN/Creatinine Ratio 14.0 Glucose 113 H Lactate Calcium 7.9 L Phosphorus Magnesium Total Bilirubin 1.7 H AST 140 H ALT 77 H Alkaline Phosphatase 79 Total Creatine Kinase 30 CK-MB (CK-2) TNP CK-MB (CK-2) Rel Index TNP Troponin I 0.024 NT-Pro-B Natriuret Pep Total Protein 5.0 L Albumin 2.7 L Globulin 2.3 Albumin/Globulin Ratio 1.2 Procalcitonin 0.12 Urine Color Urine Appearance Urine pH Ur Specific Latta Urine Protein Urine Glucose (UA) Urine Ketones Urine Occult Blood Urine Nitrate Urine Bilirubin Urine Urobilinogen Ur Leukocyte Esterase Urine RBC Urine WBC Ur Squamous Epith Cells Urine Bacteria Ur Culture Indicated? Nasal Screen MRSA (PCR) SARS-CoV-2 (PCR) 11/01/20 11/01/20 11/02/20 23:58 23:58 00:00 WBC RBC Hgb Hct MCV MCH MCHC RDW Plt Count Neut % (Auto) Lymph % (Auto) Campbell % (Auto) Eos % (Auto) Baso % (Auto) Lymph # (Auto) Campbell # (Auto) Baso # (Auto) Total Counted Seg Neutrophils % Band Neutrophils % Lymphocytes % (Manual) Atypical Lymphs % Monocytes % (Manual) Eosinophils % (Manual) Neutrophils # (Manual) RBC Morphology Anisocytosis Sodium Potassium Chloride Carbon Dioxide BUN Creatinine Estimated GFR BUN/Creatinine Ratio Glucose Lactate 4.0 H Calcium Phosphorus 3.5 Magnesium 1.9 Total Bilirubin AST ALT Alkaline Phosphatase Total Creatine Kinase CK-MB (CK-2) CK-MB (CK-2) Rel Index Troponin I NT-Pro-B Natriuret Pep Total Protein Albumin Globulin Albumin/Globulin Ratio Procalcitonin Urine Color Urine Appearance Urine pH Ur Specific Latta Urine Protein Urine Glucose (UA) Urine Ketones Urine Occult Blood Urine Nitrate Urine Bilirubin Urine Urobilinogen Ur Leukocyte Esterase Urine RBC Urine WBC Ur Squamous Epith Cells Urine Bacteria Ur Culture Indicated? Nasal Screen MRSA (PCR) SARS-CoV-2 (PCR) Negative 11/02/20 11/02/20 11/02/20 01:35 03:07 03:07 WBC RBC Hgb Hct MCV MCH MCHC RDW Plt Count Neut % (Auto) Lymph % (Auto) Campbell % (Auto) Eos % (Auto) Baso % (Auto) Lymph # (Auto) Campbell # (Auto) Baso # (Auto) Total Counted Seg Neutrophils % Band Neutrophils % Lymphocytes % (Manual) Atypical Lymphs % Monocytes % (Manual) Eosinophils % (Manual) Neutrophils # (Manual) RBC Morphology Anisocytosis Sodium 134 L Potassium 3.8 Chloride 107 Carbon Dioxide 22 BUN 13 Creatinine 0.86 Estimated GFR > 60.0 BUN/Creatinine Ratio 15.1 Glucose 113 H Lactate 2.5 H Calcium 7.3 L Phosphorus Magnesium Total Bilirubin AST ALT Alkaline Phosphatase Total Creatine Kinase CK-MB (CK-2) CK-MB (CK-2) Rel Index Troponin I 0.032 NT-Pro-B Natriuret Pep 3190 H Total Protein Albumin Globulin Albumin/Globulin Ratio Procalcitonin Urine Color Yellow Urine Appearance Cloudy Urine pH 6.5 Ur Specific Latta 1.010 Urine Protein 2+ H Urine Glucose (UA) Negative Urine Ketones Trace H Urine Occult Blood 3+ H Urine Nitrate Positive H Urine Bilirubin Negative Urine Urobilinogen 0.2 Ur Leukocyte Esterase 3+ H Urine RBC 5-10/hpf H Urine WBC >100/hpf H Ur Squamous Epith Cells 0-1 /hpf Urine Bacteria Many (>30) H Ur Culture Indicated? Specimen cultured Nasal Screen MRSA (PCR) SARS-CoV-2 (PCR) 11/02/20 03:30 WBC RBC Hgb Hct MCV MCH MCHC RDW Plt Count Neut % (Auto) Lymph % (Auto) Campbell % (Auto) Eos % (Auto) Baso % (Auto) Lymph # (Auto) Campbell # (Auto) Baso # (Auto) Total Counted Seg Neutrophils % Band Neutrophils % Lymphocytes % (Manual) Atypical Lymphs % Monocytes % (Manual) Eosinophils % (Manual) Neutrophils # (Manual) RBC Morphology Anisocytosis Sodium Potassium Chloride Carbon Dioxide BUN Creatinine Estimated GFR BUN/Creatinine Ratio Glucose Lactate Calcium Phosphorus Magnesium Total Bilirubin AST ALT Alkaline Phosphatase Total Creatine Kinase CK-MB (CK-2) CK-MB (CK-2) Rel Index Troponin I NT-Pro-B Natriuret Pep Total Protein Albumin Globulin Albumin/Globulin Ratio Procalcitonin Urine Color Urine Appearance Urine pH Ur Specific Latta Urine Protein Urine Glucose (UA) Urine Ketones Urine Occult Blood Urine Nitrate Urine Bilirubin Urine Urobilinogen Ur Leukocyte Esterase Urine RBC Urine WBC Ur Squamous Epith Cells Urine Bacteria Ur Culture Indicated? Nasal Screen MRSA (PCR) Negative for mrsa SARS-CoV-2 (PCR) Assessment & Plan Assessment & Plan narrative: Norah Swenson is an 85-year-old female with a history of recurrent falls, chronic dizziness, unsteady gait, Orthostatic hypotension, pulmonary hypertension, breast cancer, AFib with RVR, HFpEF, large granular lymphocytic leukemia, s/p total cholectomy and colostomy, osteoporosis, hypertension, hyperlipidemia, and depression, admitted for mild sepsis with encephalopathy likely due to urosepsis 1. Acute mild sepsis with encephalopathy, likely due to urosepsis, acute, present on admission -encephalopathy resolved -initial B/P 102/58, map 73, documented previous blood pressures on last admit 145/67, 154/68. HR 80, RR 18, O2 saturation 93% on room air. Sodium 135, glucose 113, GFR 57.2 last known GFR greater than 60. lactate of 4.0, troponin 0.024, total protein 5.0, albumin 2.7, procalcitonin 0.12, sofa score: 3. -sepsis bundle in ED, Levaquin 500 mg 2 L IV fluid. -patient needs Social work Safety assessment for in home safety. In home FALL Risk Evaluation. -recommend home physical therapy for strength training, encourage use of mobility devices. -Rule out causes of sepsis- loss gastrointestinal, renal, skin, hemorrhage, and 3rd space loss -monitor airway, antiemetics for nausea and vomiting, hold diuretics, monitor electrolyte imbalance (K, Na, acid-base balance) estimate pre post fluid deficit body weight: Blood pressure, JVD, urine sodium, urine output, lactate, H&H. -patient to be monitored on tele medicine, vital signs q.4 hours, intake and output monitored Q shift,weight measure daily, diet: Clear liquids patient may advance as tolerated to heart healthy, Bladder scan if decreased u/o, if greater than 500cc, straight cath, call for urinary output less than 200 mL per shift, temp >38.5, systolic <100 or Heart rate >110 or an SaO2 less than 92%, -IV fluid: LR @150 cc/HR, gentle rehydration- reassess in am and determine to increase fluids or restriction depending on volume status. -Zosyn 3.375 IV q.6 hours-urine and blood cultures pending -monitor in repeat inflammatory markers in a.m. -check orthostatics Q am, activity as tolerated- up with assist only Fall precautions 2. Malnourished as evidence by BMI 22.9 improved from 21.7, acute on chronic, present on admission -recommended evaluation by dietary, -PCP follow-up and monitoring of weight -patient was a 54.9 kg 04/2020- On admit 45.4 kg 3. Elevated Liver enzymes, (AST/ALT/TB), acute on chronic , present on admission -initial: total bili 1.7, AST 140, ALT 77, albumin 2.7 - previous admit total bili 1.5 unconjugated bili 1.3, AST 84, albumin 3.7 -monitor liver enzymes and for liver injury 4. Pulmonary hypertension with moderate to severe tricuspid regurgitation, and chronic atrial fibrillation with RVR on Plavix, chronic, present on admission -continue patient's metoprolol, amiodarone, Plavix, magnesium 5. HFpEF, chronic, in the setting of chronic orthostatic hypotension, chronic, present on admission -last TTE from 07/27/2019 demonstrates small and hyperdynamic left ventricle, mild LVOT gradient of 18 mmHg which increases to 22 mmHg with Basil vagal.? RSVP of at least 60 mmHg severely dilated left atrium with mild mitral stenosis.? Diastolic dysfunction noted. -echocardiogram 05/31/2020 small left ventricular cavity with hyperdynamic systolic function EF 70-75.? No LVOT obstruction present.? Small to moderate? pericardial effusion noted -continue patient's fludrocortisone- orthostatics Qam 6. Hyperlipidemia, chronic, present on admission -continue patient's rosuvastatin 10 mg daily 7. Macrocytic anemia, chronic, present on admission -initial HGB 9.2, HCT 27.1, MCV 100.7 - Last admit:HGB 9.7, HCT 28.2 -continue to monitor H&H -transfuse for a hGB<7 or HCT<21 5. Depression, chronic, present on admission -patient denies depression symptoms or suicidal ideation -continue patient's venlafexine Code status:? DNR Surrogate decision maker:? Daughter Ginny PEACOCK PCR:? Negative DVT/VTE prophylaxis:? Contraindicated, patient on Eliquis and SCDs only Disposition: Expected length of stay less than 2 midnights admitted for observation for hydration and IV antibiotics for correction urosepsis. I have utilized all available immediate resources to obtain, update, or review the patient's current medications. I confirmed that the patient's advanced care plan is present, Code status is documented and/or surrogate decision maker is listed in the patient's medical record. Time Spent With Patient Critical Care time: I spent a total of [] minutes of critical care time on this patient's care today; this time is exclusive of procedural time.
[2020-11-02 08:44] LABS: Lactate (Lactic Acid) 1.1 mmol/L (0.7-2.1)
[2020-11-02] MEDS: SODIUM CHLORIDE 0.9% 500 ML 1000 ML IV (09:00)
--- NOTE | 2020-11-02 09:02 | PC.NURSE ---
Addendum entered by Hanna Gibson R.N. 11/02/20 14:24: Due to patient weakness, 2PA OOB, to BSC. PT ordered. Daughter updated, Reports a few weeks of progressive weakness, nearly bedbound at present, at home. Has home care nursing just restarted last week. And OT. Discussed and updated POC, Addendum entered by Hanna Gibson R.N. 11/02/20 14:07: Pt has been incontinent to brief, bladder scan showing < 100mls. Urine is quite odorous and cloudy. Denies dysuria. VSS Bp 100/50's WCTM Original Note: Am shift Pt is resting in bed, wakes easily. Pleasant, cooperative with care, forgetful. Unsure of date or month, or president. But states she is in the hospital, and birthday are correct. IVF stopped, BP labile, manage with boluses as needed. IV ABX infusing.Bladder scan due @ 0900. Afebrile. No concerns at present.
[2020-11-02] MEDS: PIPERACILLIN/TAZO 3.375 GM in SODIUM CHLORIDE 0.9% 100 ML 25 ML IV ×2 (09:25→16:34)
--- NOTE | 2020-11-02 16:58 | CM.DANOTE ---
DCP/Assessment: Reviewed chart. Patient is a 85yr old female admitted to [facility] after fall out of bed. PCP is Dr. Funk. Primary payor is 1)[facility] 2)Self pay. Met with patient explained CM/SW role. Patient sleepy at time of visit. Patient reports that she resides in [place] with her daughter/Bharath. Patient does provide CM team with permission to speak with her daughter for d/c planning purposes. Patient reports that at home she does not use any DME however, she does report using walker when she goes to the bathroom? Patient reports that she has had several falls due to dizziness. Patient believes that she is getting HH through [facility] but is not sure? Also patient reports that she was at SNF in [facility] a few months ago. Patient indicates that she was only there about 1 week after she was hospitalized at [facility]. At this time d/c needs unknown. Patient has PT evaluation pending. If SNF needed will need to obtain authorization from [place]. Hopeful patient will be able to return home with resume HH. CM team will need to follow up with daughter on services currently placed. P: Pending [facility] Discharge Planning/Care Management CM Discharge Assessment Start: 11/02/20 16:49 Freq: Status: Active Protocol: Document 11/02/20 16:50 [facility] (Rec: 11/02/20 16:57 [facility] [id number]) Discharge Planning Assessment Assigned Qualification Engineer RAE Jerry Contact Information Bharath Swenson (daughter) # [phone] Advance Directives? Yes Advance Directives on File Yes History Provided By Patient,Medical Record Prior Living Arrangements House Household Members children Type of transporation used prior to Relies on Others admit Independent with ADL's No: Therapy evaluation pending Is patient alert and oriented? No: Currently with UTI Caregiver for Another No Comment Patient denies using any DME Comment Anticipate that patient will need SNF vs. return home with HH? Patient believes that prior to admit she was on service with [facility]. Transportation Arrangement Family Whiteboard Updated in Patient Room with Yes name and ext. # of Qualification Engineer Review Status In Process Next Review Type Continued Stay Review
--- NOTE | 2020-11-02 17:49 | PC.NURSE ---
1750 Pt BP 90/54, hospitalist notified, orders received for bolus liter NS- HR 77, RR 16, bilateral breath sounds clear.
[2020-11-03 00:19] VITALS: BP 97/54; PULSE 76; RESP 12; TEMP 36.6; O2SAT 99
[2020-11-03] MEDS: PIPERACILLIN/TAZO 3.375 GM in SODIUM CHLORIDE 0.9% 100 ML 25 ML IV ×3 (00:44→17:13)
[2020-11-03 04:00] VITALS: BP 106/57; PULSE 79; RESP 18; TEMP 37.1; O2SAT 100
[2020-11-03 05:25] LABS: Hematocrit 22.6 % (36-46); Hemoglobin 7.8 g/dL (12.0-16.0); Mean Corpuscular HGB Conc 34.3 % (30-36); Mean Corpuscular Hemoglobin 34.1 PG (26-34); Mean Corpuscular Volume 99.4 fL (80-100); Platelet Count 187 X10^3/uL (150-400); Red Blood Cell Count 2.27 X10^6/uL (4.0-5.2); Red Cell Distribution Width 21.7 % (11.6-14.8); White Blood Cell Count 3.5 X10^3/uL (4.5-11.0)
[2020-11-03 05:34] LABS: BUN Creatinine Ratio 12.8 (6-22); Blood Urea Nitrogen 11 mg/dL (7-17); Calcium 7.2 mg/dL (8.4-10.2); Carbon Dioxide 24 mmol/L (22-32); Chloride 109 mmol/L (98-107); Estimated Glomerular Filt Rate > 60.0 mL/min (>60); Glucose 90 mg/dL (80-110); HEMOLYSIS < 15 (0-50); Potassium 3.1 mmol/L (3.4-5.1); Sodium 135 mmol/L (137-145)
[2020-11-03 10:00] VITALS: BP 134/62; PULSE 77; RESP 17; TEMP 36.5; O2SAT 99
[2020-11-03] MEDS: VENLAFAXINE ER 75 MG CAP PO (10:47)
[2020-11-03] MEDS: APIXABAN 5 MG TABLET 2.5 MG PO ×2 (10:47→21:14)
[2020-11-03] MEDS: METOPROLOL ER 25 MG TABLET 12.5 MG PO (10:48)
--- NOTE | 2020-11-03 11:42 | PT.IIE ---
Surgical History (Last Reviewed 11/02/20 @ 06:08 [facility] Anesthesia Medical History (Last Reviewed 11/02/20 @ 06:08 by Hanna Dixon [facility]) Balance problem Breast cancer, left Chicken pox Colitis (~1984) Colon polyps (~1984) Crohn's disease (~1984) Depression Diverticular disease (~1984) Diverticulitis Dizziness Easy bruisability Fatigue Frequent falls Hemorrhoid (~1984) Hypertension Knee pain Leukemia (~08/2018) Leukemia, chronic Measles Mitral valve disease Nausea with vomiting, unspecified Orthostatic hypotension Osteoporosis Pericardial effusion Physical deconditioning Physician orders for life-sustaining treatment (POLST) form indicates patient wish for ej-jlo-zabghrarofj status Vertigo Physical Therapy Inpatient Evaluation/Re-Eval M1 PT/OT-IP Prior Functional Status Start: 11/03/20 13:34 Freq: NEEDED Status: Active Protocol: Document 11/03/20 11:42 AB (Rec: 11/03/20 13:42 AB [id number]) Medical Review Prior Functional Status Medical History Reviewed Yes Communication able to make needs known Mobility and Gait pt stated that her daughter assists her with all mobilities; usually just stays in bed but able to get up with daughter to use the toilet using a FWW. pt stated that she sponge bathes and does not do showers Social History Household Members children Living Arrangements House Number of Floors (Floors) One Floor Number of Stairs To Enter/Railing? 2 steps L rail to enter Home Environment Standard Height Toilet,Tub/ Shower Home Equipment Front Wheel Walker,Four Wheel Walker,Straight Cane,Grab Bars In Shower M2 PT-IP Current Condition Start: 11/03/20 13:34 Freq: NEEDED Status: Active Protocol: Document 11/03/20 11:42 AB (Rec: 11/03/20 13:42 AB [email or web address]) Physical Therapy Current Condition Current Condition Evaluation Date 11/03/20 Treatment Diagnosis sepsis; UTI; difficulty in walking Onset Date 11/02/20 Precautions Other Precautions falls, BP M3 PT-IP Subjective Start: 11/03/20 13:34 Freq: NEEDED Status: Active Protocol: Document 11/03/20 11:42 AB (Rec: 11/03/20 13:42 AB [id number]) Subjective Physical Therapy Visit Type Type Initial Evaluation Visit Start Time 11:42 Visit Stop Time 12:06 Total Visit Minutes 24 Number of REPRODUCTION MACHINE LOADER Visits 0 Physical Therapy Visit Comments Patient Comments agreeable to do PT M4 PT-IP Mobility and Gait Start: 11/03/20 13:34 Freq: NEEDED Status: Active Protocol: Document 11/03/20 11:42 AB (Rec: 11/03/20 13:42 AB [email or web address]) PT-Bed Mobility Assessment Supine to Sit Supine to Sit Maximum Assistance Scooting Scooting to Edge of Bed Maximum Assistance PT-Transfer Assessment Sit to and From Stand Sit to and from Stand Maximum Assistance,1 Person Assistance,Use of Upper Extremities Equipment Transfer Assistive Device Gait Belt,Front Wheeled Walker Orthotic/Prosthetic Devices or Brace: No Transfers Transfer Destination Chair Transfer Technique Stand Step Pivot Transfer Ability Level of Assist Maximum Assistance,1 Person Assistance,Use of Upper Extremities Comments Mobility Comments BP in supine: 108/56. completed supine to sit max A with HOB elevated. pt able to sit on EOB SBA to CGA. BP checked: 112/58. completed sit to stand max A and cues and step transfer to chair using fWW max A and max cues. required max A x2 for positioning on chair. pt refused to ambulate. call light and table placed within reach. PT-Balance Assessment Sitting Balance and Reactions Static Sitting Balance Ability Good Dynamic Sitting Balance Ability Fair Standing Balance and Reactions Static Standing Balance Ability Poor Dynamic Standing Balance Ability Poor Device Used FWW M5 PT-IP Objective Assessments Start: 11/03/20 13:34 Freq: NEEDED Status: Active Protocol: Document 11/03/20 11:42 AB (Rec: 11/03/20 13:42 AB [email or web address]) Orientation Orientation/Cognition Level of Alertness Confusional State Orientation Name Safety Awareness Decreased Safety Awareness Memory Description Short Term Impaired Gross Range of Motion Lower Extremity ROM Assessment Within Functional Limits Strength Lower Extremity Strength Assessment Left Impaired Knee 3+/5 Sensation Assessment Sensation Gross Sensation WNL Muscle Tone Muscle Tone WNL Yes M6 PT-IP Treatment Start: 11/03/20 13:34 Freq: NEEDED Status: Active Protocol: Document 11/03/20 11:42 AB (Rec: 11/03/20 13:42 AB [email or web address]) Physical Therapy Treatment Education Education Provided Safety M7 PT-IP Assessment and Plan Start: 11/03/20 13:34 Freq: NEEDED Status: Active Protocol: Document 11/03/20 11:42 AB (Rec: 11/03/20 13:42 AB [id number]) PT Summary Assessment and Plan Potential Rehabilitation Potential Fair Status of Condition at Evaluation Evolving Summary Impairments Pain,ROM,Strength,Balance, Coordination,Sensation,Tone, Cognition,Bed Mobility, Transfers,Gait,Activity Tolerance Assessment Summary pt requiring max A with mobility and max cues. pt lives her daughter and if daughter will be able to provide necessary assistance to pt, pt may go home and will require HHPT but at this time may require SNF rehab to improve mobility. Goals Bed Mobility Goal Standby Assistance Transfer Goal Standby Assistance,Front Wheeled Walker Gait Goal Standby Assistance,Front Wheel Walker Gait Distance 50 Other Goals up/down 2 steps L rail min A Days to Meet Goals 10 Frequency of Treatment Frequency Of Treatment Once a Day Treatment Plan Physical Therapy Treatment Plan Bed Mobility Training,Transfer Training,Gait Training, Therapeutic Exercise,Balance Retraining,Discharge Planning, Hot or Cold Pack,Neuromuscular Re-ed,Coordination Retraining Precautions Other Precautions falls, BP Recommendations To Nursing Amount of Assist Needed 2 Person Assist Discharge Recommendations PT Discharge Recommendations Home with 16/09 Assist Available,Home Health,SNF Rehab,Home vs SNF Transportation Needs at Discharge Private Vehicle,Wheelchair/ Cabulance
[2020-11-03 12:00] VITALS: BP 112/56; BP 116/55; BP 140/60; BP 90/53; PULSE 73; PULSE 77; PULSE 82; PULSE 92; RESP 16; RESP 19; TEMP 36.4; TEMP 37.4; O2SAT 91; O2SAT 97
[2020-11-03] MEDS: AMIODARONE 200 MG TABLET PO (14:28)
[2020-11-03] MEDS: POTASSIUM CHLORIDE 20 MEQ TAB 40 MEQ PO (14:28)
--- NOTE | 2020-11-03 14:37 | PC.NURSE ---
Am shift Pt is A/o x2, forgetful at times. Pt is drowsy, wakes to voice, but reports I am too tired yet Late breakfast. Pt is up to chair with PT and remains a 2PA. Ambulation slow and requires frequent cues. TKO Midline with zosyn infusing. Call light in reach. Offloading pressure to coccyx.
--- NOTE | 2020-11-03 15:18 | PM.PN.1 ---
Subjective Subjective Date Patient Seen: 11/03/20 Time Patient Seen: 08:00 Interval history: Today she has no complaints. Her confusion is slightly improved. She appears weak. Her blood pressure was low overnight and she received additional IV fluids. Exam Vital Signs (past 8 hours): - 11/03/20 10:00 11/03/20 12:00 Temperature 97.7 F 97.5 F L Pulse Rate 77 77 Respiratory Rate 17 19 Blood Pressure 134/62 112/56 L Pulse Oximetry 99 91 Oxygen Delivery Method Room Air Oxygen Flow Rate 2 Narrative Exam Narrative: GEN: no acute distress HEENT:?PERRL, moist mucous membranes Lungs:? clear bilaterally Cardio:? regular rate and rhythm, 2/6 systolic murmur Abdomen:? Soft nontender, no organomegaly, normal bowel sounds Skin:?warm, dry, no rashes Neuro:? Alert and orientated self, place, year Objective Labs Result Diagrams: 11/03/20 05:00 11/03/20 05:00 Labs: Laboratory Results - last 24 hr 11/03/20 11/03/20 11/03/20 05:00 05:00 08:30 WBC 3.5 L RBC 2.27 L Hgb 7.8 L Hct 22.6 L MCV 99.4 MCH 34.1 H MCHC 34.3 RDW 21.7 H Plt Count 187 Sodium 135 L Potassium 3.1 L Chloride 109 H Carbon Dioxide 24 BUN 11 Creatinine 0.86 Estimated GFR > 60.0 BUN/Creatinine Ratio 12.8 Glucose 90 Calcium 7.2 L Blood Type O Positive Antibody Screen Negative [facility], [facility] Medical History Balance problem Breast cancer, left Chicken pox Colitis (~1984) Colon polyps (~1984) Crohn's disease (~1984) Depression Diverticular disease (~1984) Diverticulitis Dizziness Easy bruisability Fatigue Frequent falls Hemorrhoid (~1984) Hypertension Knee pain Leukemia (~08/2018) Leukemia, chronic Measles Mitral valve disease Nausea with vomiting, unspecified Orthostatic hypotension Osteoporosis Pericardial effusion Physical deconditioning Physician orders for life-sustaining treatment (POLST) form indicates patient wish for pg-qoy-dmathyuxwvk status Vertigo Surgical History Anesthesia History of bunionectomy of both great toes History of section (~1959) History of ileostomy (~1983) History of total colectomy Family History Brother Diabetes mellitus Heart disease Brother Diabetes mellitus Heart disease Mother Hypertension Father Cancer Sister Cancer Social History household members: children Smoking Status: Never smoker alcohol intake: never substance use type: does not use Assessment & Plan Assessment & Plan narrative: Ms. Swenson is an 85W with PMH orthostatic hypotension, pulmonary hypertension, breast cancer in remission, AFib with RVR, HFpEF, large granular lymphocytic leukemia in remission, s/p total cholectomy and colostomy, osteoporosis, hypertension, hyperlipidemia, and depression who was admitted with urinary tract infection with sepsis causing metabolic encephalopathy 1. Sepsis from urinary tract infection with encephalopathy -initial lactate 4, which improved with fluids -she has had low blood pressures in the 90s, improved with IV fluids -started on zosyn, with urine and blood cultures pending -Zosyn 3.375 IV q.6 hours-urine and blood cultures pending 2. Transaminitis -continue to trend, patient currently asymptomatic -abdominal ultrasound with no acute process 3. Pulmonary hypertension with moderate to severe tricuspid regurgitation, and chronic atrial fibrillation with RVR on Plavix, chronic, present on admission -continue patient's metoprolol, amiodarone, Plavix, magnesium -monitor for tachycardia and hypotension 4. HFpEF, chronic, in the setting of chronic orthostatic hypotension -last TTE from 07/27/2019 demonstrates small and hyperdynamic left ventricle, mild LVOT gradient of 18 mmHg which increases to 22 mmHg with Basil vagal -careful with IV fluids, stop maintenance fluids 5. Orthostatic hypotension -continue patient's fludrocortisone- orthostatics Qam 6. Hyperlipidemia, chronic, present on admission -continue patient's rosuvastatin 10 mg daily 7. Macrocytic anemia, chronic, present on admission -initial HGB 9.2 -transfuse for a hGB<7 5. Depression, chronic, present on admission -patient denies depression symptoms or suicidal ideation -continue patient's venlafexine Code status:? DNR Surrogate decision maker:? Daughter Ginny Swenson Time Spent With Patient Critical Care time: I spent a total of [] minutes of critical care time on this patient's care today; this time is exclusive of procedural time.
[2020-11-03 20:45] VITALS: BP 109/54; PULSE 72; RESP 17; TEMP 37.3; O2SAT 98
[2020-11-03] MEDS: ATORVASTATIN 20 MG TABLET 10 MG PO (21:15)
[2020-11-03] MEDS: SENNOSIDES 8.6 MG TABLET 17.2 MG PO (21:16)
[2020-11-03] MEDS: ACETAMINOPHEN 325 MG TABLET 650 MG PO (21:18)
[2020-11-04] VITALS (8 sets, daily range): BP systolic 96–148; BP diastolic 57–66; PULSE 71–87; RESP 15–18; TEMP 36.4–36.8; O2SAT 92–96
[2020-11-04] MEDS: PIPERACILLIN/TAZO 3.375 GM in SODIUM CHLORIDE 0.9% 100 ML 25 ML IV ×2 (00:42→09:02)
[2020-11-04] MEDS: SODIUM CHLORIDE 0.9% 250 ML 21 ML IV ×2 (00:47→14:34)
[2020-11-04] MEDS: SODIUM CHLORIDE 0.9% FLUSH 10 ML IV ×3 (06:39→20:58)
[2020-11-04] MEDS: LEVOTHYROXINE 25 MCG TABLET PO (06:39)
[2020-11-04 07:08] LABS: Hematocrit 21.3 % (36-46); Hemoglobin 7.4 g/dL (12.0-16.0); Mean Corpuscular HGB Conc 34.6 % (30-36); Mean Corpuscular Hemoglobin 34.1 PG (26-34); Mean Corpuscular Volume 98.7 fL (80-100); Platelet Count 181 X10^3/uL (150-400); Red Blood Cell Count 2.16 X10^6/uL (4.0-5.2); White Blood Cell Count 2.8 X10^3/uL (4.5-11.0)
[2020-11-04 07:15] LABS: Alanine Aminotransferase 68 IU/L (<35); Alkaline Phosphatase 59 U/L (38-126); Aspartate Aminotransferase 103 IU/L (14-36); BUN Creatinine Ratio 9.4 (6-22); Bilirubin Total 1.3 mg/dL (0.2-1.3); Bilirubin Unconjugated 0.9 mg/dL (0.0-1.1); Blood Urea Nitrogen 8 mg/dL (7-17); Calcium 7.4 mg/dL (8.4-10.2); Carbon Dioxide 24 mmol/L (22-32); Chloride 109 mmol/L (98-107); Estimated Glomerular Filt Rate > 60.0 mL/min (>60); Glucose 86 mg/dL (80-110); HEMOLYSIS < 15 (0-50); Potassium 2.8 mmol/L (3.4-5.1); Sodium 134 mmol/L (137-145)
[2020-11-04] MEDS: APIXABAN 5 MG TABLET 2.5 MG PO ×2 (09:02→20:57)
[2020-11-04] MEDS: FLUDROCORTISONE 0.1 MG TABLET PO (09:05)
[2020-11-04] MEDS: AMIODARONE 200 MG TABLET PO (09:05)
[2020-11-04] MEDS: METOPROLOL ER 25 MG TABLET 12.5 MG PO (09:06)
[2020-11-04] MEDS: POTASSIUM CHLORIDE 20 MEQ TAB 40 MEQ PO ×3 (09:06→17:13)
[2020-11-04] MEDS: VENLAFAXINE ER 75 MG CAP PO (09:07)
--- NOTE | 2020-11-04 09:56 | PT.IPTN ---
Physical Therapy Treatment Note M2 PT-IP Current Condition Start: 11/03/20 13:34 Freq: NEEDED Status: Active Protocol: Document 11/03/20 11:42 AB (Rec: 11/03/20 13:42 AB [email or web address]) Physical Therapy Current Condition Current Condition Evaluation Date 11/03/20 Treatment Diagnosis sepsis; UTI; difficulty in walking Onset Date 11/02/20 Precautions Other Precautions falls, BP M3 PT-IP Subjective Start: 11/03/20 13:34 Freq: NEEDED Status: Active Protocol: Document 11/04/20 09:56 AB (Rec: 11/04/20 11:50 AB [email or web address]) Subjective Physical Therapy Visit Type Type Treatment Note Visit Start Time 09:56 Visit Stop Time 10:18 Total Visit Minutes 22 Number of MECHANICAL DESIGN ENGINEER PRODUCTS Visits 0 Physical Therapy Visit Comments Patient Comments agreeable to do PT; requested to go back to bed M4 PT-IP Mobility and Gait Start: 11/03/20 13:34 Freq: NEEDED Status: Active Protocol: Document 11/04/20 09:56 AB (Rec: 11/04/20 11:50 AB [email or web address]) PT-Bed Mobility Assessment Sit to Supine Sit to Supine Maximum Assistance,1 Person Assistance,2 Person Assistance PT-Transfer Assessment Sit to and From Stand Sit to and from Stand Maximum Assistance,1 Person Assistance,Use of Upper Extremities Equipment Transfer Assistive Device Gait Belt,Front Wheeled Walker Orthotic/Prosthetic Devices or Brace: No Transfers Transfer Destination Bed Transfer Technique ambulated Transfer Ability Level of Assist Moderate Assistance,Maximum Assistance,1 Person Assistance ,Use of Upper Extremities Comments Mobility Comments checked with nurses and stated that pt got up for breakfast and might be time to go back to bed to rest if pt agrees. checked with pt and pt agreed to do PT. pt requested to go back to bed. pt continues to have dec Hgb and Hct and activity limitied for safety but pt agreed to work try and take a few steps to get into the bed. stated that she has not been exercising and would be good if she can walk a little. BP: 108/58. O2 sat at room air: 95% positioned chair a few feet away from bed. completed sit to stand max A and max cues and walked towards the bed ~ 4 ft using FWW max A and max cues. required max A x 2 for sit to supine. bed is too high for pt on lowest setting affecting ability to scoot posteriorly and requiring max A x 2. positioned pt on bed. call light and table placed within reach. Gait Assessment Gait Gait Assistance Required: Maximum Assistance,1 Person Assist Distance (Feet) 4 Able to Maintain Weight Bearing Status No During Gait Assistive Devices Assistive Device Gait Belt,Front Wheeled Walker Orthotic/Prosthetic Devices or Brace: No Gait Deviations General Gait Pattern Decreased Stride Length, Decreased Feet Clearance,Step- to Gait Factors Limiting Gait Function Factors Limiting Gait Function Decreased Activity Tolerance, Decreased Strength,Difficulty Following Directions,Limited Range of Motion,Poor Balance, Poor Safety Awareness Comments Gait Comments ablet o take steps during transfer using FWW M5 PT-IP Objective Assessments Start: 11/03/20 13:34 Freq: NEEDED Status: Active Protocol: Document 11/03/20 11:42 AB (Rec: 11/03/20 13:[email or web address] Orientation Orientation/Cognition Level of Alertness Confusional State Orientation Name Safety Awareness Decreased Safety Awareness Memory Description Short Term Impaired Gross Range of Motion Lower Extremity ROM Assessment Within Functional Limits Strength Lower Extremity Strength Assessment Left Impaired Knee 3+/5 Sensation Assessment Sensation Gross Sensation WNL Muscle Tone Muscle Tone WNL Yes M6 PT-IP Treatment Start: 11/03/20 13:34 Freq: NEEDED Status: Active Protocol: Document 11/04/20 09:56 AB (Rec: 11/04/20 11:50 AB [email or web address]) Physical Therapy Treatment Education Education Provided Safety M7 PT-IP Assessment and Plan Start: 11/03/20 13:34 Freq: NEEDED Status: Active Protocol: Document 11/04/20 09:56 AB (Rec: 11/04/20 11:50 AB [email or web address]) PT Summary Assessment and Plan Potential Rehabilitation Potential Good Summary Impairments Pain,ROM,Strength,Balance, Coordination,Sensation,Tone, Cognition,Bed Mobility, Transfers,Gait,Activity Tolerance Progress Towards Goals Slow Progress due to Medical Issues,Slow Progress due to Activity Tolerance Assessment Summary pt requiring max A for sit to stand and transfers using FWW and was able to take a few steps today using FWW. pt continues to have low Hgb and Hct affecting activity tolerance. pt lives with her daughter who provides her care . pt will require HHPT. will conduct caregiver training when appropriate. Goals Bed Mobility Goal Standby Assistance Transfer Goal Standby Assistance,Front Wheeled Walker Gait Goal Standby Assistance,Front Wheel Walker Gait Distance 50 Other Goals up/down 2 steps L rail min A Days to Meet Goals 10 Frequency of Treatment Frequency Of Treatment Once a Day Treatment Plan Physical Therapy Treatment Plan Bed Mobility Training,Transfer Training,Gait Training, Therapeutic Exercise,Balance Retraining,Discharge Planning, Hot or Cold Pack,Neuromuscular Re-ed,Coordination Retraining Precautions Other Precautions falls, BP Recommendations To Nursing Amount of Assist Needed 2 Person Assist Discharge Recommendations PT Discharge Recommendations Home with 16/09 Assist Available,Home Health,SNF Rehab,Home vs SNF Transportation Needs at Discharge Private Vehicle,Wheelchair/ Cabulance
--- NOTE | 2020-11-04 13:52 | P.PN_ITS ---
Subjective Subjective Date Patient Seen: 11/04/20 Time Patient Seen: 08:00 Interval history: Today she feels fatigued. But otherwise she denies any pain or shortness of breath. She is less confused than yesterday. Exam Vital Signs (past 8 hours): - 11/04/20 06:16 11/04/20 08:42 11/04/20 10:22 Temperature 97.5 F L 97.6 F Pulse Rate 73 81 71 Respiratory Rate 16 18 Blood Pressure 148/66 H 143/65 H 110/58 L Pulse Oximetry 92 95 11/04/20 11:00 Temperature 97.5 F L Pulse Rate 74 Respiratory Rate 17 Blood Pressure 110/58 L Pulse Oximetry 95 Oxygen Delivery Method Room Air Oxygen Flow Rate 0 Narrative Exam Narrative: GEN: no acute distress HEENT:?PERRL, moist mucous membranes Lungs:? clear bilaterally Cardio:? regular rate and rhythm, 2/6 systolic murmur Abdomen:? Soft nontender, no organomegaly, normal bowel sounds Skin:?warm, dry, no rashes Neuro:? Alert and orientated self, place, year Objective Labs Result Diagrams: 11/04/20 06:40 11/04/20 06:40 Labs: Laboratory Results - last 24 hr 11/04/20 11/04/20 11/04/20 06:40 06:40 06:40 WBC 2.8 L RBC 2.16 L Hgb 7.4 L Hct 21.3 L MCV 98.7 MCH 34.1 H MCHC 34.6 RDW 22.0 H Plt Count 181 Sodium 134 L Potassium 2.8 L Chloride 109 H Carbon Dioxide 24 BUN 8 Creatinine 0.85 Estimated GFR > 60.0 BUN/Creatinine Ratio 9.4 Glucose 86 Calcium 7.4 L Total Bilirubin 1.3 Conjugated Bilirubin 0.0 Unconjugated Bilirubin 0.9 AST 103 H ALT 68 H Alkaline Phosphatase 59 Total Protein 4.0 L Albumin 2.0 L Globulin 2.0 Albumin/Globulin Ratio 1.0 PFSH Medical History Balance problem Breast cancer, left Chicken pox Colitis (~1984) Colon polyps (~1984) Crohn's disease (~1984) Depression Diverticular disease (~1984) Diverticulitis Dizziness Easy bruisability Fatigue Frequent falls Hemorrhoid (~1984) Hypertension Knee pain Leukemia (~08/2018) Leukemia, chronic Measles Mitral valve disease Nausea with vomiting, unspecified Orthostatic hypotension Osteoporosis Pericardial effusion Physical deconditioning Physician orders for life-sustaining treatment (POLST) form indicates patient wish for qx-zqw-mqtbbgdfwsl status Vertigo Surgical History Anesthesia History of bunionectomy of both great toes History of section (~1959) History of ileostomy (~1983) History of total colectomy Family History Brother Diabetes mellitus Heart disease Brother Diabetes mellitus Heart disease Mother Hypertension Father Cancer Sister Cancer Social History household members: children Smoking Status: Never smoker alcohol intake: never substance use type: does not use Assessment & Plan Assessment & Plan narrative: Ms. Swenson is an 85W with PMH orthostatic hypotension, pulmonary hypertension, breast cancer in remission, AFib with RVR, HFpEF, large granular lymphocytic leukemia in remission, s/p total cholectomy and colostomy, osteoporosis, hypertension, hyperlipidemia, and depression who was admitted with urinary tract infection with sepsis causing metabolic encephalopathy 1. Sepsis from urinary tract infection with encephalopathy -initial lactate 4, which improved with fluids -she has had low blood pressures in the 90s, improved with IV fluids -started on zosyn, with urine and blood cultures pending -swich from zosyn to levofloxacin 2. Transaminitis -continue to trend, patient currently asymptomatic -abdominal ultrasound with no acute process 3. Pulmonary hypertension with moderate to severe tricuspid regurgitation, and chronic atrial fibrillation with RVR on Plavix, chronic, present on admission -continue patient's metoprolol, amiodarone, Plavix, magnesium -monitor for tachycardia and hypotension 4. HFpEF, chronic, in the setting of chronic orthostatic hypotension -last TTE from 07/27/2019 demonstrates small and hyperdynamic left ventricle, mild LVOT gradient of 18 mmHg which increases to 22 mmHg with Basil vagal -careful with IV fluids, stop maintenance fluids 5. Orthostatic hypotension -continue patient's fludrocortisone- orthostatics Qam 6. Hyperlipidemia, chronic, present on admission -continue patient's rosuvastatin 10 mg daily 7. Macrocytic anemia, chronic, present on admission -initial HGB 9.2, decreased to 7.4 -transfuse for a hGB<7 5. Depression, chronic, present on admission -patient denies depression symptoms or suicidal ideation -continue patient's venlafexine Code status:? DNR Surrogate decision maker:? Daughter Ginny Swenson Dispo: patient lives at home and is very weak, may benefit from SNF for PT/OT Time Spent With Patient Critical Care time: I spent a total of [] minutes of critical care time on this patient's care today; this time is exclusive of procedural time.
[2020-11-04] MEDS: levoFLOXacin 500 MG/100 ML PIGGYBACK 100 MG IV (14:36)
--- NOTE | 2020-11-04 14:53 | CM.DPNOTE ---
DCP Note Reviewed chart. Therapy team recommending home w/family and HH vs SNF. Patient's cognition much improved. Spoke w/ patient, dtr Bharath joined conversation via room phone. Bharath hopeful to take patient home upon DC but agreeable to SNF stay if PT and MD recommending; states she and her son have been caring for patient at home. Bharath suggests resumption of [facility] services if DC home. Suggested attempt at [facility] auth and SNF search as b/u plan? Patient/dtr agreeable. Explained patient inevitably DC home w/family and HH if medically cleared and no SNF available or [facility] auth not secured, dtr aware Faxed clinical to [facility] for review, SNF auth request. Also faxed SNF options that accept [facility] CHACHA, April Gracia, Paul (full), TAVIA and Otoniel Jeff Following closely for coordination of safest DCP available to patient. Will need [facility] if SNF bound JW
[2020-11-04 15:15] LABS: BUN Creatinine Ratio 11.8 (6-22); Blood Urea Nitrogen 10 mg/dL (7-17); Calcium 7.7 mg/dL (8.4-10.2); Carbon Dioxide 24 mmol/L (22-32); Chloride 110 mmol/L (98-107); Estimated Glomerular Filt Rate > 60.0 mL/min (>60); Glucose 110 mg/dL (80-110); HEMOLYSIS 26 (0-50); Potassium 3.9 mmol/L (3.4-5.1); Sodium 134 mmol/L (137-145)
[2020-11-04 18:52] LABS: Hematocrit 25.8 % (36-46); Hemoglobin 8.8 g/dL (12.0-16.0); Mean Corpuscular Hemoglobin 33.6 PG (26-34); Mean Corpuscular Volume 99.1 fL (80-100); Platelet Count 207 X10^3/uL (150-400); Red Cell Distribution Width 22.3 % (11.6-14.8); White Blood Cell Count 4.1 X10^3/uL (4.5-11.0)
[2020-11-04 19:04] LABS: BUN Creatinine Ratio 12.3 (6-22); Blood Urea Nitrogen 10 mg/dL (7-17); Calcium 7.5 mg/dL (8.4-10.2); Carbon Dioxide 21 mmol/L (22-32); Chloride 111 mmol/L (98-107); Estimated Glomerular Filt Rate > 60.0 mL/min (>60); Glucose 120 mg/dL (80-110); HEMOLYSIS < 15 (0-50); Magnesium 1.6 mg/dL (1.6-2.3); Potassium 4.8 mmol/L (3.4-5.1); Sodium 133 mmol/L (137-145)
[2020-11-04] MEDS: MAGNESIUM SULFATE 2 GM/50 ML PIGGYBACK IV (19:38)
[2020-11-04] MEDS: SENNOSIDES 8.6 MG TABLET 17.2 MG PO (20:57)
[2020-11-04] MEDS: ATORVASTATIN 20 MG TABLET 10 MG PO (20:57)
[2020-11-05 03:15] VITALS: BP 134/61; PULSE 80; RESP 18; TEMP 36.8; O2SAT 95
[2020-11-05] MEDS: LEVOTHYROXINE 25 MCG TABLET PO (05:11)
[2020-11-05 05:27] LABS: BUN Creatinine Ratio 13.8 (6-22); Blood Urea Nitrogen 12 mg/dL (7-17); Calcium 7.7 mg/dL (8.4-10.2); Carbon Dioxide 20 mmol/L (22-32); Chloride 109 mmol/L (98-107); Estimated Glomerular Filt Rate > 60.0 mL/min (>60); Glucose 103 mg/dL (80-110); HEMOLYSIS < 15 (0-50); Hematocrit 26.6 % (36-46); Hemoglobin 9.2 g/dL (12.0-16.0); Mean Corpuscular HGB Conc 34.4 % (30-36); Mean Corpuscular Hemoglobin 34.1 PG (26-34); Mean Corpuscular Volume 99.2 fL (80-100); Platelet Count 217 X10^3/uL (150-400); Red Blood Cell Count 2.69 X10^6/uL (4.0-5.2); Red Cell Distribution Width 21.9 % (11.6-14.8); Sodium 133 mmol/L (137-145); White Blood Cell Count 4.7 X10^3/uL (4.5-11.0)
[2020-11-05 05:33] LABS: Potassium 5.2 mmol/L (3.4-5.1)
[2020-11-05 08:00] VITALS: BP 113/69; PULSE 68; RESP 18; TEMP 37.1; O2SAT 96
--- NOTE | 2020-11-05 10:28 | PT.IPTN ---
Physical Therapy Treatment Note M2 PT-IP Current Condition Start: 11/03/20 13:34 Freq: NEEDED Status: Active Protocol: Document 11/03/20 11:42 AB (Rec: 11/03/20 13:42 AB [email or web address]) Physical Therapy Current Condition Current Condition Evaluation Date 11/03/20 Treatment Diagnosis sepsis; UTI; difficulty in walking Onset Date 11/02/20 Precautions Other Precautions falls, BP M3 PT-IP Subjective Start: 11/03/20 13:34 Freq: NEEDED Status: Active Protocol: Document 11/05/20 10:28 AW (Rec: 11/05/20 10:54 AW [id number]) Subjective Physical Therapy Visit Type Type Treatment Note Visit Start Time 10:05 Visit Stop Time 10:28 Total Visit Minutes 23 Notes H/H still low but improved today to 9.2/26.6. Number of BIRD TRAPPER Visits 0 Physical Therapy Visit Comments Patient Comments Pt is willing to participate with PT M4 PT-IP Mobility and Gait Start: 11/03/20 13:34 Freq: NEEDED Status: Active Protocol: Document 11/05/20 10:28 AW (Rec: 11/05/20 10:54 AW [id number]) PT-Bed Mobility Assessment Rolling Type of Rolling Bilateral Level of Assist Moderate Assistance Supine to Sit Supine to Sit Maximum Assistance Sit to Supine Sit to Supine Maximum Assistance,1 Person Assistance Scooting Scooting to Edge of Bed Maximum Assistance Scooting Up and Down in Bed Maximum Assistance PT-Transfer Assessment Comments Mobility Comments Pt was lying in bed as PT arrived. She was pleasant and willing to work with PT. BP 129/73 in supine. She began to move her legs toward right side EOB but needed max assist to right her trunk. In sitting, pt struggled to maintain upright position, requiring mod to max assist at all times for postural support. She needed max assist and max cues to scoot toward EOB. She sat ~4 minutes with max assist to counter retro lean. She complained of dizziness and began to appear faint. BP was 102/56. Pt was assisted back to supine max assist. She was able bridge her hips slightly to reposition toward center of bed and then required mod assist to roll side to side for placement of draw pad. Max assist x 2 to boost toward HOB. Pt was left with nursing attending. Gait Assessment Comments Gait Comments Unable today due to weakness and dizziness. PT-Balance Assessment Sitting Balance and Reactions Static Sitting Balance Ability Poor Dynamic Sitting Balance Ability Poor M5 PT-IP Objective Assessments Start: 11/03/20 13:34 Freq: NEEDED Status: Active Protocol: Document 11/03/20 11:42 AB (Rec: 11/03/20 13:42 AB [id number]) Orientation Orientation/Cognition Level of Alertness Confusional State Orientation Name Safety Awareness Decreased Safety Awareness Memory Description Short Term Impaired Gross Range of Motion Lower Extremity ROM Assessment Within Functional Limits Strength Lower Extremity Strength Assessment Left Impaired Knee 3+/5 Sensation Assessment Sensation Gross Sensation WNL Muscle Tone Muscle Tone WNL Yes M6 PT-IP Treatment Start: 11/03/20 13:34 Freq: NEEDED Status: Active Protocol: Document 11/05/20 10:28 AW (Rec: 11/05/20 10:54 AW [id number]) Physical Therapy Treatment Exercises Exercises Ankle Pumps,Gluteal Sets,Quad Sets Education Education Provided Safety Other Treatments Other Treatment Performed Pt completed exercises x 10 reps each and also performed bridge x 3 for bed mobility with poor ability to clear hips. M7 PT-IP Assessment and Plan Start: 11/03/20 13:34 Freq: NEEDED Status: Active Protocol: Document 11/05/20 10:28 AW (Rec: 11/05/20 10:54 AW [id number]) PT Summary Assessment and Plan Summary Impairments Pain,ROM,Strength,Balance, Coordination,Sensation,Tone, Cognition,Bed Mobility, Transfers,Gait,Activity Tolerance Progress Towards Goals Slow Progress due to Medical Issues,Slow Progress due to Activity Tolerance Assessment Summary Pt requiring mod to max assist for bed mobility and sitting EOB with poor trunk control. Activity tolerance extremely limited this date but pt was willing and able to participate with supine bed exercises. Pt's current need for mobility assist exceed what can be provided for her at home. She would benefit from SNF rehab to improve her strength and mobility independence. Goals Bed Mobility Goal Standby Assistance Transfer Goal Standby Assistance,Front Wheeled Walker Gait Goal Standby Assistance,Front Wheel Walker Gait Distance 50 Other Goals up/down 2 steps L rail min A Days to Meet Goals 10 Frequency of Treatment Frequency Of Treatment Once a Day Treatment Plan Physical Therapy Treatment Plan Bed Mobility Training,Transfer Training,Gait Training, Therapeutic Exercise,Balance Retraining,Discharge Planning, Hot or Cold Pack,Neuromuscular Re-ed,Coordination Retraining Other Recommendations and Next Treatment CGT if pt to go home Focus Precautions Other Precautions falls, BP Recommendations To Nursing Amount of Assist Needed 2 Person Assist Discharge Recommendations PT Discharge Recommendations Home with 16/09 Assist Available,Home Health,SNF Rehab,Home vs SNF Transportation Needs at Discharge Private Vehicle,Wheelchair/ Cabulance
--- NOTE | 2020-11-05 10:46 | PC.NURSE ---
Addendum entered by Polly Griffin R.N. 11/05/20 10:50: Pt sat up in bed to eat breakfast. Pt not nauseated, but experiencing lack of appetite; gagged and threw up small amount when tried to eat. Declined am meds at the time. Chicken noodle soup and Ensure ordered for lunch. Original Note: Morning shift: Report received, care assumed 0730. Pt drowsy but arousable. Oriented x3; slightly disoriented as to situation/diagnosis. VSS. Denies pain other than some tenderness to BLE upon palpation; edema present. Worked with PT. Per PT, sat at edge of bed but wasn't able to sustain an upright position. SNF recommended. Pt. back to bed, repositioned on left side.
[2020-11-05] MEDS: SODIUM CHLORIDE 0.9% FLUSH 10 ML IV ×2 (12:00→20:32)
[2020-11-05] MEDS: FLUDROCORTISONE 0.1 MG TABLET PO (12:00)
[2020-11-05] MEDS: APIXABAN 5 MG TABLET 2.5 MG PO ×2 (12:01→20:29)
[2020-11-05] MEDS: VENLAFAXINE ER 75 MG CAP PO (12:01)
[2020-11-05 13:05] VITALS: BP 104/57; PULSE 79; RESP 17; TEMP 36.9; O2SAT 96
[2020-11-05] MEDS: levoFLOXacin 250 MG/50 ML PIGGYBACK 50 MG IV (13:36)
--- NOTE | 2020-11-05 13:52 | PM.PN.1 ---
Subjective Subjective Date Patient Seen: 11/05/20 Time Patient Seen: 08:00 Interval history: Her mental status is much improved. She has no pain. Her blood pressures remain stable, but borderline. She has dizziness with activity, but this is chronic per the patient, she takes medication for this. Today her potassium is improved. Her PCP did reach out to the medical team and suggest hospice may be appropriate for this patient given her frequent admissions. Exam Vital Signs (past 8 hours): - 11/05/20 08:00 11/05/20 13:05 Temperature 98.8 F 98.4 F Pulse Rate 68 79 Respiratory Rate 18 17 Blood Pressure 113/69 104/57 L Pulse Oximetry 96 96 Oxygen Delivery Method Room Air Oxygen Flow Rate 0 Narrative Exam Narrative: GEN: no acute distress HEENT: PERRL, moist mucous membranes Lungs: clear bilaterally Cardio: regular rate and rhythm, 2/6 systolic murmur Abdomen: Soft nontender, no organomegaly, normal bowel sounds Skin: warm, dry, no rashes Neuro: Alert and orientated self, place, year Objective Labs Result Diagrams: 11/05/20 05:00 11/05/20 05:00 Labs: Laboratory Results - last 24 hr 11/04/20 11/04/20 11/04/20 14:52 18:40 18:40 WBC 4.1 L RBC 2.60 L Hgb 8.8 L Hct 25.8 L MCV 99.1 MCH 33.6 MCHC 34.0 RDW 22.3 H Plt Count 207 Sodium 134 L 133 L Potassium 3.9 4.8 Chloride 110 H 111 H Carbon Dioxide 24 21 L BUN 10 10 Creatinine 0.85 0.81 Estimated GFR > 60.0 > 60.0 BUN/Creatinine Ratio 11.8 12.3 Glucose 110 120 H Calcium 7.7 L 7.5 L Magnesium 1.6 11/05/20 11/05/20 05:00 05:00 WBC 4.7 RBC 2.69 L Hgb 9.2 L Hct 26.6 L MCV 99.2 MCH 34.1 H MCHC 34.4 RDW 21.9 H Plt Count 217 Sodium 133 L Potassium 5.2 H Chloride 109 H Carbon Dioxide 20 L BUN 12 Creatinine 0.87 Estimated GFR > 60.0 BUN/Creatinine Ratio 13.8 Glucose 103 Calcium 7.7 L Magnesium [facility] Medical History Balance problem Breast cancer, left Chicken pox Colitis (~1984) Colon polyps (~1984) Crohn's disease (~1984) Depression Diverticular disease (~1984) Diverticulitis Dizziness Easy bruisability Fatigue Frequent falls Hemorrhoid (~1984) Hypertension Knee pain Leukemia (~08/2018) Leukemia, chronic Measles Mitral valve disease Nausea with vomiting, unspecified Orthostatic hypotension Osteoporosis Pericardial effusion Physical deconditioning Physician orders for life-sustaining treatment (POLST) form indicates patient wish for el-ywe-jybtkkzdkyr status Vertigo Surgical History Anesthesia History of bunionectomy of both great toes History of section (~1959) History of ileostomy (~1983) History of total colectomy Family History Brother Diabetes mellitus Heart disease Brother Diabetes mellitus Heart disease Mother Hypertension Father Cancer Sister Cancer Social History household members: children Smoking Status: Never smoker alcohol intake: never substance use type: does not use Assessment & Plan Assessment & Plan narrative: Ms. Swenson is an 85W with PMH orthostatic hypotension, pulmonary hypertension, breast cancer in remission, AFib with RVR, HFpEF, large granular lymphocytic leukemia in remission, s/p total cholectomy and colostomy, osteoporosis, hypertension, hyperlipidemia, and depression who was admitted with urinary tract infection with sepsis causing metabolic encephalopathy 1. Sepsis from urinary tract infection with encephalopathy -initial lactate 4, which improved with fluids -she has had low blood pressures in the 90s, improved with IV fluids -started on zosyn, with urine and blood cultures pending but no growth to date -swich from zosyn to levofloxacin 2. Transaminitis -continue to trend, patient currently asymptomatic -abdominal ultrasound with no acute process 3. Pulmonary hypertension with moderate to severe tricuspid regurgitation, and chronic atrial fibrillation with RVR on Plavix, chronic, present on admission -continue patient's metoprolol, amiodarone, Plavix, magnesium -monitor for tachycardia and hypotension 4. HFpEF, chronic, in the setting of chronic orthostatic hypotension -last TTE from 07/27/2019 demonstrates small and hyperdynamic left ventricle, mild LVOT gradient of 18 mmHg which increases to 22 mmHg with Basil vagal -careful with IV fluids, stop maintenance fluids 5. Orthostatic hypotension -continue patient's fludrocortisone- orthostatics Qam 6. Hyperlipidemia, chronic, present on admission -continue patient's rosuvastatin 10 mg daily 7. Macrocytic anemia, chronic, present on admission -initial HGB 9.2, decreased to 7.4, now improving -transfuse for a hGB<7 5. Depression, chronic, present on admission -patient denies depression symptoms or suicidal ideation -continue patient's venlafexine Code status: DNR Surrogate decision maker: Daughter Ginny Swenson Dispo: patient lives at home and is very weak, requiring max assist, she is debilitated in setting of sepsis and UTI, she has chronic orthostatic hypotension which is further exacerbated by her illness, she would benefit from SNF for PT/OT to gain strength to safely return home Time Spent With Patient Critical Care time: I spent a total of [] minutes of critical care time on this patient's care today; this time is exclusive of procedural time.
--- NOTE | 2020-11-05 14:55 | CM.DPC ---
DCP/continued: Reviewed chart. Current d/c plan includes SNF when medically stable. Patient seen by therapy today and recommendation continues to be SNF. [facility] [employer] [employer] [facility] faxed updated notes to [facility] for SNF authorization. No return phone call from [facility] received today 11-05-20 as of 3:00pm. Met with patient to provide her update. Patient reports that she has no preference in SNF. Patient previously at [facility]. [facility] unable to accept due to no female beds. [facility] to follow up with [facility] and SNF's on Friday11-06-20. P: Pending. RAE Jerry
[2020-11-05 15:20] VITALS: BP 119/58; PULSE 82; RESP 17; TEMP 36.9; O2SAT 94
[2020-11-05 19:00] VITALS: BP 118/74; PULSE 109; RESP 17; TEMP 37.2; O2SAT 95
[2020-11-05] MEDS: ATORVASTATIN 20 MG TABLET 10 MG PO (20:29)
[2020-11-05] MEDS: SENNOSIDES 8.6 MG TABLET 17.2 MG PO (20:30)
[2020-11-05 23:45] VITALS: BP 107/67; PULSE 102; RESP 18; TEMP 36.6; O2SAT 94
[2020-11-06 04:24] VITALS: BP 114/71; PULSE 111; RESP 18; TEMP 36.7; O2SAT 94
[2020-11-06] MEDS: LEVOTHYROXINE 25 MCG TABLET PO (05:00)
[2020-11-06 08:00] VITALS: BP 99/70; PULSE 113; RESP 18; TEMP 37.1; O2SAT 95
[2020-11-06] MEDS: APIXABAN 5 MG TABLET 2.5 MG PO ×2 (08:38→20:26)
[2020-11-06] MEDS: VENLAFAXINE ER 75 MG CAP PO (08:38)
[2020-11-06] MEDS: METOPROLOL ER 25 MG TABLET 12.5 MG PO (08:38)
[2020-11-06] MEDS: SODIUM CHLORIDE 0.9% FLUSH 10 ML IV ×3 (08:39→20:27)
[2020-11-06] MEDS: FLUDROCORTISONE 0.1 MG TABLET PO (08:39)
--- NOTE | 2020-11-06 11:10 | PT.IPTN ---
Current Diagnoses Sepsis, unspecified organism (11/03/20) Physical Therapy Treatment Note M2 PT-IP Current Condition Start: 11/03/20 13:34 Freq: NEEDED Status: Active Protocol: Document 11/03/20 11:42 AB (Rec: 11/03/20 13:42 AB [id number]) Physical Therapy Current Condition Current Condition Evaluation Date 11/03/20 Treatment Diagnosis sepsis; UTI; difficulty in walking Onset Date 11/02/20 Precautions Other Precautions falls, BP M3 PT-IP Subjective Start: 11/03/20 13:34 Freq: NEEDED Status: Active Protocol: Document 11/06/20 10:42 SP (Rec: 11/06/20 11:56 SP [id number]) Subjective Physical Therapy Visit Type Type Treatment Note Visit Start Time 10:42 Visit Stop Time 11:10 Total Visit Minutes 18 Notes H/H still low but improved today to 9.2/26.6. Not reassessed today. Number of GLOVE TURNER Visits 1 Physical Therapy Visit Comments Patient Comments Pt is willing to participate with PT Therapy Pain Assessment Pain Present Pain Present Denied Pain M4 PT-IP Mobility and Gait Start: 11/03/20 13:34 Freq: NEEDED Status: Active Protocol: Document 11/06/20 10:42 SP (Rec: 11/06/20 11:56 SP [id number]) PT-Bed Mobility Assessment Rolling Type of Rolling Roll to Right Level of Assist Maximal Assistance,1 Person Assistance Supine to Sit Supine to Sit Maximum Assistance,1 Person Assistance,Head of Bed Elevated,Bedrails Sit to Supine Sit to Supine Total Assistance,2 Person Assistance Scooting Scooting to Edge of Bed Moderate Assistance Scooting Up and Down in Bed Dependent PT-Transfer Assessment Sit to and From Stand Sit to and from Stand Maximum Assistance,2 Person Assistance,Use of Upper Extremities Equipment Transfer Assistive Device Gait Belt,Front Wheeled Walker Orthotic/Prosthetic Devices or Brace: No Comments Mobility Comments Pt was lying in bed when GLOVE TURNER arrived. Pt willing to work with therapy, oriented x3. Supine BP 109/62 HR 116 SaO2 95% on RA. Pt able to reposition BLE toward EOB and scoot pelvis toward, completed elevated supine trunk righting to sit with [place] directioning RUE on bed rail for self support, and pull from therapist hand LUE w/ support to upper back for forward trunk support, redirected BUE on bed for self trunk posturing and scooting 15% A for trunk balance and Mod A for each RLE and LLE pelvis repositioning to EOB. Once seated at EOB CGA and self BUE support on bed and bed handle at L during vital assessment. BP 97/70s with report of little lightheadedness. Instructed diaphramatic breathing and stated felt better. GLOVE TURNER donned gait belt at on trunk at chest height while providing CGA. Pt agreeable to standing at EOB. GLOVE TURNER called nursing for 2nd per son assist to stand. Sit>stand Max A x2 with LUE on bed handle and RUE on FWW. Pt unable to come to full standing, provided max cues for head up, upright posture and buttock tucked underneath her, noted trunk leaning forward posture, buttocks back and knee extension feet starting to slide after 10 sec . GLOVE TURNER and Nurse assisted pt sit back EOB Max A x2 then dependent x2 with support at anterior knees and anterior trunk due to pt posturing slumped over forward with moaning and unalert to questioning. GLOVE TURNER/ nurse provided Dependent/total A x2 sit>supine then scoot up in bed usign transfer pad. Reassessed vitals in supine BP 157/75 HR 119 SaO1 94% on RA with nurse assessing manual HR and stated pt going through A -fib. Upon more pt questioning she became alert and stated didn't know she was unalert at EOB. Pt states others have told her this happens but she doesn't know when it happens. Pt SCDs reapplied BLE, elevated supine in bed with call light in RUE and blankets donned. Pt good recall to proper use of call light when asked. Pt had tray and bed alarmed by nursing. Gait Assessment Comments Gait Comments Attempted standing at EOB x2, pt unable to come to full standing Max A x2, see mobility details. Unable today due to weakness and dizziness . Stair Climbing Assessment Comments Stair Climbing Comments Unable at this time. Will need to assess prior to DC home 2 stairs L HR to enter home safely. PT-Balance Assessment Sitting Balance and Reactions Static Sitting Balance Ability Poor Dynamic Sitting Balance Ability Poor Standing Balance and Reactions Static Standing Balance Ability Poor Dynamic Standing Balance Ability Poor Device Used FWW M5 PT-IP Objective Assessments Start: 11/03/20 13:34 Freq: NEEDED Status: Active Protocol: Document 11/03/20 11:42 AB (Rec: 11/03/20 13:42 AB [id number]) Orientation Orientation/Cognition Level of Alertness Confusional State Orientation Name Safety Awareness Decreased Safety Awareness Memory Description Short Term Impaired Gross Range of Motion Lower Extremity ROM Assessment Within Functional Limits Strength Lower Extremity Strength Assessment Left Impaired Knee 3+/5 Sensation Assessment Sensation Gross Sensation WNL Muscle Tone Muscle Tone WNL Yes M6 PT-IP Treatment Start: 11/03/20 13:34 Freq: NEEDED Status: Active Protocol: Document 11/06/20 10:42 SP (Rec: 11/06/20 11:56 SP [id number]) Physical Therapy Treatment Exercises Exercises Ankle Pumps,Gluteal Sets,Quad Sets,Heel Slides Education Education Provided Safety Other Treatments Other Treatment Performed 5 reps each, Completed 3 modified bridges to lateral scoot to center self in bed end tx. M7 PT-IP Assessment and Plan Start: 11/03/20 13:34 Freq: NEEDED Status: Active Protocol: Document 11/06/20 10:42 SP (Rec: 11/06/20 11:56 SP [id number]) PT Summary Assessment and Plan Potential Rehabilitation Potential Good Status of Condition at Evaluation Evolving Summary Impairments Pain,ROM,Strength,Balance, Coordination,Sensation,Tone, Cognition,Bed Mobility, Transfers,Gait,Activity Tolerance Progress Towards Goals Slow Progress due to Medical Issues,Slow Progress due to Activity Tolerance Assessment Summary Pt requiring max assist x1 for sup>sit, scoot Mod A x1, sitting EOB with fair>poor fair trunk control. Activity tolerance extremely limited due to dizziness and became unalert attempting to stand and once seated at EOB from standing requiring total of 2 person to return to bed when able to give appropriate responses after couple minutes , noted hypertenson once back to supine and A- fib. Pt participate with supine bed exercises pre/ post sitting. Pt's current need for mobility assist exceed what can be provided for her at home. She would benefit from SNF rehab to improve her strength and mobility independence. Goals Bed Mobility Goal Standby Assistance Transfer Goal Standby Assistance,Front Wheeled Walker Gait Goal Standby Assistance,Front Wheel Walker Gait Distance 50 Other Goals up/down 2 steps L rail min A Days to Meet Goals 10 Frequency of Treatment Frequency Of Treatment Once a Day Treatment Plan Physical Therapy Treatment Plan Bed Mobility Training,Transfer Training,Gait Training, Therapeutic Exercise,Balance Retraining,Discharge Planning, Hot or Cold Pack,Neuromuscular Re-ed,Coordination Retraining Other Recommendations and Next Treatment bed mob, LE ex pre mobility, Focus standing at EOB, transfers is safe/ able. Assess vitals throughout activity. Precautions Other Precautions falls, BP Recommendations To Nursing Amount of Assist Needed 2 Person Assist Discharge Recommendations PT Discharge Recommendations SNF Rehab Transportation Needs at Discharge Wheelchair/Cabulance,Stretcher /Ambulance
[2020-11-06 12:00] VITALS: BP 112/67; PULSE 107; RESP 16; TEMP 36.9; O2SAT 97
--- NOTE | 2020-11-06 13:49 | PC.NURSE ---
1100- CRANE HOOKER requested a second person to assist with therapy session. Upon entering room, pt sitting at edge of bed, gait belt on, eyes open. Pt agreeable to stand. CRANE HOOKER reported stable VS in laying and sitting position. Posture is slouched prior to getting OOB. Upon standing, pt noted to be extremely weak by CRANE HOOKER and not lifting her head or following directions to walk. Pt is moaning at this time. Assisted pt back to supine position. BP 157/75 HR 113 radial. SPO2 93% on RA. Once positioned in bed, pt began answering questions and following directions. States she is unsure about why she was not answering questions or attempting to participate in therapy. Pt completed PT session in bed. Left call light in reach, bed alarm on.
[2020-11-06] MEDS: SODIUM CHLORIDE 0.9% 250 ML 21 ML IV (14:07)
[2020-11-06] MEDS: levoFLOXacin 250 MG/50 ML PIGGYBACK 50 MG IV (14:08)
--- NOTE | 2020-11-06 15:13 | P.PN_ITS ---
Subjective Subjective Date Patient Seen: 11/06/20 Interval history: Patient is mentating well. She only complains of her chronic dizziness and also extreme weakness. She is 2 person max assist. Exam Vital Signs (past 8 hours): - 11/06/20 08:00 11/06/20 12:00 Temperature 98.7 F 98.5 F Pulse Rate 113 H 107 H Respiratory Rate 18 16 Blood Pressure 99/70 112/67 Pulse Oximetry 95 97 Oxygen Delivery Method Room Air Oxygen Flow Rate 0 Narrative Exam Narrative: General: She is alert very pleasant elderly female in no acute distress Lungs: Clear to auscultation Heart: Regular rhythm Abdomen: Soft Extremities: No edema Objective Labs Result Diagrams: 11/05/20 05:00 11/05/20 05:00 [facility] Medical History Balance problem Breast cancer, left Chicken pox Colitis (~1984) Colon polyps (~1984) Crohn's disease (~1984) Depression Diverticular disease (~1984) Diverticulitis Dizziness Easy bruisability Fatigue Frequent falls Hemorrhoid (~1984) Hypertension Knee pain Leukemia (~08/2018) Leukemia, chronic Measles Mitral valve disease Nausea with vomiting, unspecified Orthostatic hypotension Osteoporosis Pericardial effusion Physical deconditioning Physician orders for life-sustaining treatment (POLST) form indicates patient wish for ip-ihe-[id number] status Vertigo Surgical History Anesthesia History of bunionectomy of both great toes History of section (~1959) History of ileostomy (~1983) History of total colectomy Family History Brother Diabetes mellitus Heart disease Brother Diabetes mellitus Heart disease Mother Hypertension Father Cancer Sister Cancer Social History household members: children Smoking Status: Never smoker alcohol intake: never substance use type: does not use Assessment & Plan Assessment & Plan narrative: Ms. Swenson is an 85W with PMH orthostatic hypotension, pulmonary hypertension, breast cancer in remission, AFib with RVR, HFpEF, large granular lymphocytic leukemia in remission, s/p total cholectomy and colostomy, osteoporosis, hypertension, hyperlipidemia, and depression who was admitted with urinary tract infection with sepsis causing metabolic encephalopathy 1. Sepsis from urinary tract infection with encephalopathy -initial lactate 4, which improved with fluids -she has had low blood pressures in the 90s, improved with IV fluids -started on zosyn, now on Levaquin with urine and blood cultures pending but no growth to date -the cultures were obtained after patient started on antibiotic in ED 2. Transaminitis -continue to trend, patient currently asymptomatic -abdominal ultrasound with no acute process 3. Pulmonary hypertension with moderate to severe tricuspid regurgitation, and chronic atrial fibrillation with RVR on Plavix, chronic, present on admission -continue patient's metoprolol, amiodarone, Plavix, magnesium -monitor for tachycardia and hypotension 4. HFpEF, chronic, in the setting of chronic orthostatic hypotension -last TTE from 07/27/2019 demonstrates small and hyperdynamic left ventricle, mild LVOT gradient of 18 mmHg which increases to 22 mmHg with Basil vagal -careful with IV fluids, stop maintenance fluids 5. Orthostatic hypotension -continue patient's fludrocortisone- orthostatics Qam 6. Hyperlipidemia, chronic, present on admission -continue patient's rosuvastatin 10 mg daily 7. Macrocytic anemia, chronic, present on admission -initial HGB 9.2, decreased to 7.4, now improving -transfuse for a hGB<7 5. Depression, chronic, present on admission -patient denies depression symptoms or suicidal ideation -continue patient's venlafexine Code status:? DNR Surrogate decision maker:? Daughter Ginny Swenson Dispo: patient lives at home and is very weak, requiring max assist, she is debilitated in setting of sepsis and UTI, she has chronic orthostatic hypotension which is further exacerbated by her illness, she would benefit from SNF for PT/OT to gain strength to safely return home. Have insurance authorization for patient to go to [facility] tomorrow Time Spent With Patient Critical Care time: I spent a total of [] minutes of critical care time on this patient's care today; this time is exclusive of procedural time.
[2020-11-06 16:00] VITALS: BP 117/61; PULSE 94; RESP 16; TEMP 37; O2SAT 95
[2020-11-06 20:00] VITALS: BP 114/68; PULSE 106; RESP 14; TEMP 36.7; O2SAT 94
[2020-11-06] MEDS: ATORVASTATIN 20 MG TABLET 10 MG PO (20:25)
[2020-11-06] MEDS: SENNOSIDES 8.6 MG TABLET 17.2 MG PO (20:26)
[2020-11-06 23:53] VITALS: BP 110/65; PULSE 109; RESP 14; TEMP 35.6; O2SAT 96
[2020-11-07 05:11] VITALS: BP 118/73; PULSE 120; RESP 18; TEMP 37.6; O2SAT 96
[2020-11-07] MEDS: LEVOTHYROXINE 25 MCG TABLET PO (05:58)
[2020-11-07 08:06] VITALS: BP 122/72; PULSE 115
[2020-11-07] MEDS: APIXABAN 5 MG TABLET 2.5 MG PO (08:06)
[2020-11-07] MEDS: METOPROLOL ER 25 MG TABLET 12.5 MG PO (08:06)
[2020-11-07] MEDS: FLUDROCORTISONE 0.1 MG TABLET PO (08:10)
[2020-11-07] MEDS: VENLAFAXINE ER 75 MG CAP PO (08:10)
[2020-11-07] MEDS: SODIUM CHLORIDE 0.9% FLUSH 10 ML IV (08:12)
[2020-11-07 08:43] VITALS: BP 113/68; PULSE 119; RESP 17; TEMP 36.6; O2SAT 95
[2020-11-07 09:10] VITALS: BP 113/68; PULSE 119
--- NOTE | 2020-11-07 10:41 | CM.DPC ---
Addendum entered by Tabitha Del Real 11/07/20 13:28: Met with patient this AM. Patient aware and agreeable to going to [facility]. Daughter/Darce also notified. RN given number to call report. Transportation arranged by [facility]. 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 PASRR completed as well. KJS Original Note: DCP Cont: Assisting RAE Lu, with discharge. Faxed over PASSR, and signed medication orders to [facility]. Patient has been made aware of sampler pickup time of 11:30. DC Summary is currently pending, and will send when completed, and COVID results. P: Patient is to go to [facility] this morning, sampler pickup time is 11:30. Mesha Cornelius RN/Senior Loan Officer
--- NOTE | 2020-11-07 11:42 | PC.NURSE ---
A&Ox3, some confusion and memory loss. VSS aside from some tachycardia, HR 119. Very dizzy with standing and muscle weakness with all extremities, 2 person julee to chair and back to bed. Assisted with breakfast, at 25%. PICC line patent and flushed with Ns and heparin. Swabbed for Covid, still pending. Transport came at 11:40 to take her to [facility]. Discharge paperwork given. Report called. Off of unit at 11:35.
[2020-11-07 12:45] LABS: COVID-19 CEPHEID PCR (VTM/NP) Negative (Negative)
--- NOTE | 2020-11-07 17:57 | P.DS_ITS ---
History of Present Illness History of Present Illness Chief complaint: fell out of bed, back pain Narrative: 85-year-old with a history of recurrent falls, chronic dizziness, Orthostatic hypotension, breast cancer, AFib with RVR, HFpEF, pulmonary hypertension with moderate to severe tricuspid regurgitation, large granular lymphocytic leukemia, s/p total cholectomy & colostomy, osteoporosis, hypertension, hyperlipidemia, and depression. Her AFib was last converted with cardioversion on 05/31/2020 at [facility] was seen in ED today for altered mental status. Brought in by EMS from home. Daughter at bedside. Daughter found patient on carpeted floor at home by her bed. Patient unsure why she was on the floor. Daughter states all day she has been hallucinating and confused. She states her urine has been foul odor. Decreased oral intake as well. Patient admitted here for UTI last month. Did go to [facility] but now back home. Patient is DNR DNI. However amenable for medications and IV fluids. Patient does have odor of urine. Patient has clear speech. Answering appropriately at this time. Is oriented to self and daughter and where she has had right now. Has decrease in oral intake. Has had weight loss as well. Patient denies any injury at this time from the fall other than knee pain which she has full flexion extension without any dif ficulty. Upon admit patient is alert and orientated x3 and answers appropriately, denies chest pain, shortness of breath, abdominal pain, nausea, vomiting, diarrhea, chills, urinary symptoms, bowel issues, headache, changes in vision, numbness tingling, recent illness injury or trauma. Discharge Providers Provider Date of admission: 11/03/20 11:25 Discharge Date: 11/07/20 Primary care physician: Chanec Funk DO Consults: 11/02/20 14:08 Consult to Physical Therapy Evaluate & Treat Comment: increased weaknes and falls Physician Instructions: Evaluate and Treat 11/02/20 20:11 Consult After Hours PICC Line RN Routine Comment: Discharge provider: Bala Vang MD Summary Hospital Course Discharge Diagnosis: 1. Sepsis due to urinary source 2. Acute encephalopathy metabolic 3. Acute transaminitis 4. Chronic orthostatic hypotension and dizziness 5. Chronic anemia 6. Heart failure with preserved ejection fraction Patient was admitted for urinary source of sepsis. Antibiotics had been started in ED prior to obtaining urine and blood cultures and therefore cultures were negative. She responded to Zosyn and switched over to Levaquin upon improvement in condition. Patient is 2 person max assist with PT and would benefit from jail rehab. On exam, she is alert and pleasant and in no acute distress. Lungs are clear. Heart sounds are regular. Extremities without edema. Neuro affect normal, speech normal, globally weak. Status at Discharge Cognitive/behavioral status at discharge: oriented Overall status at discharge: patient is not back to baseline Time Spent with Patient Time spent: Greater than 30 minutes Exam Vital Signs (past 8 hours): Oxygen Delivery Method Room Air Oxygen Flow Rate 0 Objective Labs Result Diagrams: 11/05/20 05:00 11/05/20 05:00 Labs: Laboratory Results - last 24 hr 11/07/20 09:45 SARS-CoV-2 (PCR) Negative [facility] Medical History Balance problem Breast cancer, left Chicken pox Colitis (~1984) Colon polyps (~1984) Crohn's disease (~1984) Depression Diverticular disease (~1984) Diverticulitis Dizziness Easy bruisability Fatigue Frequent falls Hemorrhoid (~1984) Hypertension Knee pain Leukemia (~08/2018) Leukemia, chronic Measles Mitral valve disease Nausea with vomiting, unspecified Orthostatic hypotension Osteoporosis Pericardial effusion Physical deconditioning Physician orders for life-sustaining treatment (POLST) form indicates patient wish for [id number] status Vertigo Surgical History Anesthesia History of bunionectomy of both great toes History of section (~1959) History of ileostomy (~1983) History of total colectomy Family History Brother Diabetes mellitus Heart disease Brother Diabetes mellitus Heart disease Mother Hypertension Father Cancer Sister Cancer Social History household members: children Smoking Status: Never smoker alcohol intake: never substance use type: does not use Discharge Plan Discharge Plan Patient Disposition: SNF Transfer to: [facility] Consult as needed: Dental, Hearing, Mental health, Podiatry and Vision Discharge orders & Medications Prescriptions: Continued apixaban 2.5 mg tablet 2.5 mg PO BID Qty: 180 RF: 0 fludrocortisone 0.1 mg tablet 0.1 mg PO DAILY Qty: 90 RF: 1 levothyroxine [Synthroid] 25 mcg tablet 25 mcg PO DAILY@0600 Qty: 90 RF: 1 metoprolol succinate 25 mg tablet extended release 24 hr 12.5 mg PO DAILY Qty: 45 RF: 1 magnesium oxide 400 mg magnesium tablet 400 mg PO DAILY Qty: 90 RF: 3 ondansetron 4 mg tablet,disintegrating 4 mg PO Q8H PRN (Reason: nausea and vomiting) Qty: 30 RF: 1 amiodarone 200 mg tablet 200 mg PO DAILY RF: 0 latanoprost [Xalatan] 0.005 % drops 1 drp EYE-BOTH BEDTIME RF: 0 venlafaxine [Effexor XR] 75 mg capsule,extended release 24hr 75 mg PO DAILY RF: 0 rosuvastatin 10 mg tablet 10 mg PO BEDTIME RF: 0 Discontinued oxycodone 10 mg tablet See Rx Instructions .ROUTE .COMPLEX PRN (Reason: Pain (Scale Score 4-6)) RF: 0 Follow up/Referrals: Chance Funk DO [Primary Care Provider] - Discharge Health Status Multidrug resistant organism: No MDRO Precautions: [place] Diet/Activity/Treatments Diet: Regular Liquid consistency: Normal/Thin Food texture: Regular [facility] Reason for rehabilitation: Recovery r/t decondition Rehab type: Physical therapy and Occupational therapy Discharge Data Primary Care Provider: Chance Funk
== END 2020-11-07 11:35 | DRG 871 ==
LOC: ED 11-02 01:04 → AC 11-02 01:28 → ICU 11-02 03:10
PROVIDERS: Internal Medicine; Admitting Provider Nurse Practitioner Family; Emergency Provider Emergency Medicine; PCP Family Medicine; Referring Provider Emergency Medicine; Visit Provider Nurse Practitioner Family
DX: A41.9 Sepsis, unspecified organism (principal); G93.41 Metabolic encephalopathy; I48.20 Chronic atrial fibrillation, unspecified; I50.32 Chronic diastolic (congestive) heart failure; N39.0 Urinary tract infection, site not specified; R65.20 Severe sepsis without septic shock; Z79.01 Long term (current) use of anticoagulants; E78.5 Hyperlipidemia, unspecified; F32.9 Major depressive disorder, single episode, unspecified; I27.20 Pulmonary hypertension, unspecified; Z66 Do not resuscitate; I95.1 Orthostatic hypotension; R74.01 Elevation of levels of liver transaminase levels; D64.9 Anemia, unspecified; Z20.822 Contact with and (suspected) exposure to COVID-19
CPT/HCPCS: 36415; 36592; 70450; 72125; 76705; 80048; 80053; 80076; 81001; 82550; 83605; 83735; 83880; 84100; 84145; 84484; 85007; 85025; 85027; 86850; 86900; 86901; 87040; 87086; 87635; 87797; 93005; 96365; 97110; 97162; 97530; 99284; C9803; G0378; U0003; J1642; J1956; J2543; J3475